=== PATIENT | female | born 1970 | race Caucasian/White ===

== ENCOUNTER 2024-12-14 19:47 | Inpatient (IN) ==
[~2024-12-14 19:47] MED LIST: KETAMINE HCL INJ 50 MG/ML 10 ML VIAL IV ONE; SUCCINYLCHOLINE CHLORIDE 20 MG/ML 10 ML VIAL IV ONE
--- NOTE | 2024-12-14 20:03 | Emergency Department Note ---
Impression & Plan Acute on chronic respiratory failure with hypoxia and hypercapnia, RSV (acute bronchiolitis due to respiratory syncytial virus), Metabolic encephalopathy, Community acquired pneumonia ED Provider Note NAME: CARMELITA PEARCE AGE: 54 SEX: F : 1970 ARRIVES VIA: Walk-In INFORMANT: Patient ED PROVIDER(S): Delano Scherer DO CHIEF COMPLAINT: Shortness of breath HPI: Patient is a 54-year-old female who presents to the ER for shortness of breath. She notes this has been present for the past 4 to 6 months. It has gotten significantly worse over the past 3 days. She was seen evaluated outside facility and was discharged. She admits to worsening cough and congestion. Denies any headache. No chest pain. No belly pain. No nausea, vomiting, or diarrhea. Does have a history of COPD. No other exacerbating or remitting factors. ADDITIONAL HISTORY OBTAINED: Per HPI Chronic Medical/Social Conditions Affecting Care: Per HPI PAST MEDICAL HISTORY:See Below PAST SURGICAL HISTORY:See Below FAMILY HISTORY:See Below SOCIAL HISTORY:See Below HOME MEDICATIONS:See Below ALLERGIES:See Below VITALS:See Below PHYSICAL EXAMINATION: GENERAL: Sitting up in bed, alert, ill-appearing, severe distress, cyanotic EYE EXAM: normal conjunctiva. PERRL and EOM's grossly intact. OROPHARYNX: Dry mucous membranes NECK: supple, no nuchal rigidity, no adenopathy, non-tender LUNGS: Poor air movement with wheezing throughout. Normal chest wall mechanics HEART: no murmurs, S1 normal and S2 normal ABDOMEN: abdomen soft, non-tender, normo-active bowel sounds, no masses, no rebound or guarding. UPPER EXTREMITIES: upper extremities are grossly normal. LOWER EXTREMITIES: No pitting edema. NEURO EXAM: Normal sensorium, cranial nerves II-XII grossly intact, normal speech, no gross weakness of arms, no gross weakness of legs. MEDICAL DECISION MAKING: Patient is a 54-year-old female who presents to the ER with above-stated complaint. IV was established and blood work was obtained. Labs show no significant leukocytosis or anemia. VBG with a pH of 7.24 and a CO2 of 93. ABG was obtained after this with a CO2 of 112. Patient was become more obtunded. She was intubated by myself with ketamine and succ. BMP was fairly unremarkable with exception of elevated CO2. Glucose was elevated. LFTs and bilirubin was unremarkable. Troponin was negative. Pro-Eric was normal. UA was clean. Viral panel was positive for RSV. Patient was placed on an hour long neb treatment. Patient was given propofol drip in combination with a fentanyl drip after intubation. Patient was admitted to the ICU for further workup. Chest x-ray with bilateral infiltrates. Patient was given IV steroids. Discussed with the hospitalist Dr. Ballard as well as the comfort filler who presented bedside and patient was taken to the ICU. Please see their notes for further details. Consults/Care Managements Discussions: Per [facility] Triage Nursing notes reviewed. Limited review of prior medical records performed Vital Signs: reviewed and remarkable for HTN and hypoxic Differential diagnosis: Differential diagnoses includes but is not limited to pneumonia, bronchitis, COPD/Asthma exacerbation, pneumothorax, pulmonary embolism, congestive heart failure, acute coronary syndrome ER treatment provided: See below Diagnostics interpreted by me include EKG and cardiac monitoring as listed below: -Cardiac Monitoring: An order was placed for continuous cardiac monitoring. The monitor shows a rate of 101 with sinus rhythm. -ECG: Sinus rhythm rate of 97 PACs present T wave inversions in the high lateral leads QTc 439 -Laboratory studies:Interpreted by me as stated above in MDM and shown below. Imaging studies: Xrays: As interpreted by me: Portable AP upright 1 view of the chest shows atelectasis/infiltrates in the lower lobe Portable AP upright 1 view of the chest shows ET tube in place CTs show: none Procedures: EM PROCEDURE NOTE - Endotracheal Intubation PROCEDURE NOTE: Informed consent was not obtained by the patient. Verify Correct Patient: yes Procedure: Endotracheal intubation Indication: Respiratory failure The procedure was done emergently. Description of the Procedure: The patient was seen and properly identified. The patient was pre-oxygenated and intubated after rapid sequence induction with meds: Succinylcholine and ketamine. Intubation was performed using a curved glide scope 7.5 cuffed endotracheal tube. The tube was visualized going through the cords and secured with the 24cm calli at the lips. The patient had good bilateral breath sounds in the axillae with good chest rise. Proper ET tube placement was confirmed by end tidal CO2 detector. The patient tolerated the procedure well. Critical Care: I have personally spent 125 minutes of critical care time in the direct management of this patient. This includes bedside care, interpretation of diagnostic studies, and testing, discussion with consultants, patient, and family members, and other required patient management activities. This 125 minutes is in excess of all separately billable procedures. Past Med/Surg History Problem List (Updated 12/14/24 @ 22:06 by Luz Marrero PA-C) Metabolic encephalopathy RSV (acute bronchiolitis due to respiratory syncytial virus) Acute on chronic respiratory failure with hypoxia and hypercapnia DJD (degenerative joint disease) of knee (Acute 05/29/14) HNP (herniated nucleus pulposus) with myelopathy, cervical (Acute 02/11/14) Social History Smoking Status: Current every day smoker Tobacco Type: Cigarettes Preferred Language: Lao Feels Safe at Home: Yes Allergies Allergies Allergy/AdvReac Type Severity Reaction Status Date / Time nabumetone AdvReac Intermediate GI SYMPTOMS Verified 08/14/14 08:11 atorvastatin AdvReac Unknown GI upset Verified 08/14/14 08:11 gabapentin AdvReac Unknown "CAUSED Unverified 08/14/14 09:47 WAVES GOING THROUGH MY BRAIN" lithium AdvReac Unknown ELEVATED Verified 08/14/14 08:11 LIVER TESTS, JAUNDICE tramadol AdvReac Unknown MOOD Verified 08/14/14 08:11 DISORDER, RAGE Home Meds Home Medications Medication Instructions Recorded Confirmed albuterol sulfate 2.5 mg/3 mL 2.5 mg inhalation QID PRN as 12/14/24 12/14/24 (0.083 %) solution for nebulization directed albuterol sulfate 90 mcg/actuation 1 puff inhalation Q4 PRN Wheezing 12/14/24 12/14/24 aerosol inhaler aspirin 81 mg tablet,delayed 81 mg PO DAILY 12/14/24 12/14/24 release atorvastatin 10 mg tablet 20 mg PO HS 12/14/24 12/14/24 bumetanide 1 mg tablet 1 mg PO DAILY 12/14/24 12/14/24 cholecalciferol (vitamin D3) 1,250 1,250 mcg PO WK 12/14/24 12/14/24 mcg (50,000 unit) capsule doxycycline hyclate 100 mg capsule 100 mg PO BID 12/14/24 12/14/24 fluoxetine 40 mg capsule 40 mg PO DAILY 12/14/24 12/14/24 ipratropium 0.5 mg-albuterol 3 mg 3 ml inhalation UD 12/14/24 12/14/24 (2.5 mg base)/3 mL nebulization soln lamotrigine 200 mg tablet 200 mg PO DAILY 12/14/24 12/14/24 losartan 25 mg tablet 25 mg PO DAILY 12/14/24 12/14/24 multivitamin 1 tab PO DAILY 12/14/24 12/14/24 omeprazole 20 mg capsule,delayed 20 mg PO DAILY 12/14/24 12/14/24 release oxcarbazepine 300 mg tablet 300 mg PO BID 12/14/24 12/14/24 oxycodone-acetaminophen 7.5 mg-325 1 tab PO BID PRN Pain 12/14/24 12/14/24 mg tablet potassium chloride 20 mEq 40 meq PO BID 12/14/24 12/14/24 tablet,extended release(part/cryst) prednisone 50 mg tablet 50 mg PO UD 12/14/24 12/14/24 tizanidine 4 mg tablet 4 mg PO TID PRN as directed 12/14/24 12/14/24 Results & Data (ED) Vital Signs Vital Signs - 24 hr 12/14/24 19:50 12/14/24 19:56 12/14/24 20:00 Temperature 37 C 36.9 C Temperature Source Oral Oral Pulse Rate 105 H 98 H Pulse Rate [Apical] 97 H Pulse Rhythm Regular Pulse Strength Normal Respiratory Rate 28 H 24 Respiratory Effort / Characteristics Spontaneous Accessory Muscle Use Labored Pursed Lip Respiratory Depth Deep Respiratory Pattern Tachypnea Blood Pressure 174/66 H Blood Pressure [Right Arm] 168/96 H Blood Pressure Mean 102 Blood Pressure Mean [Right Arm] 120 Blood Pressure Position [Right Arm] Semi-fowlers Pulse Oximetry 39 L 92 Oxygen Delivery Method Room Air BiPAP Oxygen Flow Rate Fraction of Inspired Oxygen 100 SaO2/FiO2 Ratio 92 Sepsis Recent Fever Within 48 Hours No Sepsis New/Unexplained Change in Mental Status No Sepsis Action Taken by Nursing Physician Notified End-Tidal CO2 Fraction of Inspired Oxygen - Titration Pulse Oximetry Post Tiitration 12/14/24 20:00 12/14/24 20:11 12/14/24 20:30 Temperature Temperature Source Pulse Rate 83 Pulse Rate [Apical] Pulse Rhythm Pulse Strength Respiratory Rate 28 H Respiratory Effort / Characteristics Respiratory Depth Respiratory Pattern Blood Pressure Blood Pressure [Right Arm] Blood Pressure Mean Blood Pressure Mean [Right Arm] Blood Pressure Position [Right Arm] Pulse Oximetry 88 L 94 95 Oxygen Delivery Method BiPAP Non-rebreather BiPAP Oxygen Flow Rate 15 Fraction of Inspired Oxygen 100 100 SaO2/FiO2 Ratio 94 Sepsis Recent Fever Within 48 Hours Sepsis New/Unexplained Change in Mental Status Sepsis Action Taken by Nursing End-Tidal CO2 71 Fraction of Inspired Oxygen - Titration 100 Pulse Oximetry Post Tiitration 92 Laboratory Data 12/14/24 19:59 12/14/24 19:59 Lab Results 12/14/24 12/14/24 12/14/24 Range/Units 19:59 20:04 20:24 WBC 8.80 (4.8-10.8) K/ul RBC 5.58 H (4.20-5.40) M/uL Hgb 16.9 H (12.0-16.0) g/dl POC Hgb 19.0 H 18.4 H (12.0-16.0) g/dl Hct 57.4 H (37.0-47.0) % POC Hct 56 H 54 H (37-47) % MCV 102.9 H (80.0-100.0) fL MCH 30.3 (25.0-34.0) pg MCHC 29.4 L (32.0-36.0) g/dL RDW Std Deviation 63.2 H (36.4-46.3) fL RDW Coeff of Veronica 17.6 H (11.5-14.5) % Plt Count 265 (130-400) K/uL MPV 10.3 (9.4-12.4) fL Immature Gran % (Auto) 0.9 % Neut % (Auto) 72.7 % Lymph % (Auto) 13.6 % Levy % (Auto) 11.3 % Eos % (Auto) 0.7 % Baso % (Auto) 0.8 % Neut # (Auto) 6.40 (1.40-6.50) K/uL Lymph # (Auto) 1.20 (1.20-3.40) K/uL Levy # (Auto) 0.99 H (0.11-0.59) K/uL Eos # (Auto) 0.06 (0.00-0.50) K/uL Baso # (Auto) 0.07 (0.00-0.20) K/uL Immature Gran # (Auto) 0.08 (0.01-0.20) K/uL Absolute Nucleated RBC 0.05 (0.00-0.12) K/uL Nucleated RBC % (auto) 0.6 % POC pH 7.15 L* (7.35-7.45) POC pCO2 118 H (35-46) mmHg POC pO2 177 H (80-95) mmHg POC HCO3 41 H (19-24) patricia/L POC Base Excess 12.0 H (-9-1.8) patricia/L POC ABG O2 Sat 99.0 H (90-95) % VBG pH 7.24 L (7.36-7.41) VBG pCO2 93 H (38-50) mmHg VBG pO2 61 mmHg VBG HCO3 40 mmol/L VBG O2 Saturation 87.5 % VBG Base Excess 8.7 mEq/L POC Sodium 142 141 (135-144) mmol/L Sodium 141 (136-145) mmol/L POC Potassium 4.3 4.2 (3.3-5.0) mmol/L Potassium 4.5 (3.5-5.1) mmol/L POC Chloride 97 L (101-112) mmol/L Chloride 100 (98-107) mmol/L Carbon Dioxide 39 H (21-32) mmol/L POC Total CO2 36 H 44 H* (24-31) mmol/L Anion Gap 2 L (3-11) POC Anion Gap 14.0 L (16-25) mmol/L POC BUN 24 H (7-18) mg/dl BUN 21 (6-23) mg/dl Creatinine 1.02 (0.6-1.2) mg/dl POC Creatinine 1.1 (0.6-1.3) mg/dl Est Cr Clr Drug Dosing 85.8 ml/min eGFR 64.97 BUN/Creatinine Ratio 20.6 H (10-20) Glucose 185 H (70-99(Fasting)) mg/dl POC Glucose (other) 182 H (70-99) mg/dl Calcium 9.5 (8.6-10.3) mg/dl POC Ioniz Calcium Woodrow 1.18 (1.12-1.32) mmol/l Total Bilirubin 0.5 (0.2-1.0) mg/dl AST 23 (13-39) U/L ALT 17 (7-52) U/L Alkaline Phosphatase 88 (34-104) U/L Troponin I High Sens 24.1 H (0-14) pg/ml Total Protein 6.8 (6.0-8.3) gm/dl Albumin 3.5 (3.4-5.0) gm/dl Globulin 3.3 (2.5-4.0) gm/dl Albumin/Globulin Ratio 1.1 (0.9-2) Lipase 26 (11-82) U/L Procalcitonin 0.11 (0-0.5) ng/ml TSH 2.218 (0.300-4.500) uIu/ml Adenovirus (PCR) Not Detected (NotDetected) B. pertussis DNA (PCR) Not Detected (NotDetected) B.parapertussis DNA PCR Not Detected (NotDetected) C. pneumoniae DNA (PCR) Not Detected (NotDetected) Coronavirus OC43 (PCR) Not Detected (NotDetected) Coronavirus HKU1 (PCR) Not Detected (NotDetected) Coronavirus 229E (PCR) Not Detected (NotDetected) SARS-CoV-2 (PCR) Not Detected (NotDetected) Coronavirus NL63 (PCR) Not Detected (NotDetected) Human Metapneumovir PCR Not Detected (NotDetected) Influenza Type A (PCR) Not Detected (NotDetected) Influenza Type B (PCR) Not Detected (NotDetected) M. pneumoniae (PCR) Not Detected (NotDetected) Parainfluenza 1 (PCR) Not Detected (NotDetected) Parainfluenza 2 (PCR) Not Detected (NotDetected) Parainfluenza 3 (PCR) Not Detected (NotDetected) Parainfluenza 4 (PCR) Not Detected (NotDetected) RSV (PCR) DETECTED A (NotDetected) Entero/Rhino (PCR) Not Detected (NotDetected) Administered Medications Albuterol (Albut/Ipratrop 3mg/0.5mg Neb 3 Ml Vial) 3 ml NEB Q6R [facility]; Protocol Stop: 01/14/25 00:59 Last Admin: 12/15/24 00:32 Dose: 3 ml Documented By: MW Heparin Sodium (Porcine) (Heparin Sod 5,000 Unit/0.5 Ml Vial) 5,000 units SQ Q12 [facility] Stop: 01/13/25 21:58 Last Admin: 12/14/24 22:56 Dose: 5,000 units Documented By: CLC Propofol (Diprivan) 1,000 mg in 100 mls @ 38.76 mls/hr IV .Q2H35M [facility]; Protocol Stop: 12/17/24 20:44 Last Titration: 12/15/24 00:40 Dose: 58.05 mcg/kg/min, 45 mls/hr Documented By: Admin: 12/14/24 22:53 Dose: 50 mcg/kg/min, 38.8 mls/hr Documented By: CLC Co-signed By: TP Titration: 12/14/24 22:53 Dose: Infused Documented By: CLC Co-signed By: TP Titration: 12/14/24 22:42 Dose: 50 mcg/kg/min, 38.8 mls/hr Documented By: Titration: 12/14/24 21:00 Dose: 45 mcg/kg/min, 34.9 mls/hr Documented By: Admin: 12/14/24 20:44 Dose: 20 mcg/kg/min, 15.5 mls/hr Documented By: JT Co-signed By: DML Fentanyl Citrate (Fentanyl Citrate) 2,500 mcg in 250 mls @ 10 mls/hr IV .Q25H [facility]; Protocol Stop: 12/28/24 20:44 Last Titration: 12/14/24 22:42 Dose: 100 mcg/hr, 10 mls/hr Documented By: CLC Co-signed By: TP Admin: 12/14/24 21:00 Dose: 75 mcg/hr, 7.5 mls/hr Documented By: JT Co-signed By: ASW Pantoprazole Sodium (Protonix) 40 mg in 10 mls @ 5 mls/min IV BID [facility]ME Stop: 01/13/25 21:58 Last Admin: 12/14/24 22:56 Dose: 5 mls/min Documented By: CLC Vancomycin HCl 2,500 mg/ (Sodium Chloride) 550 mls @ 180 mls/hr IV NOW ONE Stop: 12/15/24 01:33 Last Admin: 12/14/24 23:53 Dose: 180 mls/hr Documented By: SHAGGY Insulin Aspart (Insulin Aspart Per Unit Charge) 0 units SC Q4 [facility] Stop: 01/14/25 00:00 Last Admin: 12/15/24 00:39 Dose: Not Given Documented By: SHAGGY Miscellaneous (Icu Protocol For Hyperglycemia) 1 each N/A ACHS [facility]ME Stop: 12/16/24 20:59 Last Admin: 12/14/24 22:53 Dose: 1 each Documented By: SHAGGY Sennosides (Senna 8.6 Mg Tab) 17.2 mg PO HS [facility]ME Stop: 01/13/25 20:59 Last Admin: 12/14/24 22:53 Dose: 17.2 mg Documented By: SHAGGY Discontinued Medications Albuterol (Albut/Ipratrop 3mg/0.5mg Neb 3 Ml Vial) Confirm Administered Dose 12 ml .ROUTE .STK-MED ONE Stop: 12/14/24 19:56 Last Admin: 12/14/24 20:13 Dose: Not Given Documented By: SANTANA Albuterol (Albut/Ipratrop 3mg/0.5mg Neb 3 Ml Vial) 12 ml NEB ONE ONE; Protocol Stop: 12/14/24 19:57 Last Admin: 12/14/24 20:19 Dose: 12 ml Documented By: SANTANA Enoxaparin Sodium (Enoxaparin Inj 40 Mg/0.4 Ml Syr) 40 mg SQ Q24H [facility]ME Stop: 01/13/25 21:59 Last Admin: 12/14/24 23:25 Dose: Not Given Documented By: SHAGGY Ceftriaxone Sodium (Rocephin) 2,000 mg in 50 mls @ 100 mls/hr IV NOW STA Stop: 12/14/24 20:27 Last Infusion: 12/14/24 22:11 Dose: Infused Documented By: Admin: 12/14/24 20:14 Dose: 100 mls/hr Documented By: SANTANA Azithromycin 500 mg/ Sodium (Chloride) 255 mls @ 127.5 mls/hr IV Q24H [facility] Stop: 12/19/24 20:59 Last Admin: 12/14/24 23:24 Dose: Not Given Documented By: SHAGGY Piperacillin Sod/Tazobactam Sod (Zosyn) 4.5 gm in 100 mls @ 200 mls/hr IV NOW STA; Protocol Stop: 12/14/24 22:21 Last Infusion: 12/14/24 23:25 Dose: Infused Documented By: Admin: 12/14/24 22:54 Dose: 200 mls/hr Documented By: SHAGGY Piperacillin Sod/Tazobactam Sod (Zosyn) 4.5 gm in 100 mls @ 25 mls/hr IV Q8H [facility]; Protocol Stop: 12/21/24 21:58 Last Admin: 12/14/24 23:25 Dose: Not Given Documented By: SHAGGY Methylprednisolone (Methylprednisolone 125 Mg/2 Ml Vial) 40 mg IV NOW STA Stop: 12/14/24 19:58 Last Admin: 12/14/24 20:04 Dose: 40 mg Documented By: JANNA Methylprednisolone (Methylprednisolone 125 Mg/2 Ml Vial) 80 mg IV NOW STA Stop: 12/14/24 20:17 Last Admin: 12/14/24 20:44 Dose: 80 mg Documented By: SANTANA Verdugocellaneous (Rapid Sequence Induction Bag) Confirm Administered Dose 1 each N/A .STK-MED ONE Stop: 12/14/24 20:25 Last Admin: 12/14/24 21:15 Dose: Not Given Documented By: SANTANA Mercado (Stat Iv Infusion Titration Per Protocol) 1 each N/A NOW STA Stop: 12/14/24 20:37 Last Admin: 12/14/24 21:15 Dose: Not Given Documented By: SANTANA Mercado (Icu Protocol For Hyperglycemia) 1 each N/A ACHS ESME Stop: 12/16/24 21:58 Last Admin: 12/14/24 23:24 Dose: Not Given Documented By: SHAGGY Propofol (Propofol Iv Emulsion 10 Mg/Ml 100 Ml Vial) Confirm Administered Dose 1,000 mg IV .STK-MED ONE Stop: 12/14/24 20:38 Last Admin: 12/14/24 21:15 Dose: Not Given Documented By: SANTANA Vecuronium [place] (Vecuronium [place] 10 Mg Vial) Confirm Administered Dose 10 mg IV .STK-MED ONE Stop: 12/14/24 21:03 Last Admin: 12/14/24 21:07 Dose: 10 mg Documented By: SANTANA Co-signed By: JANNA Imaging Data Radiologist's Impression: Chest X-Ray 12/14/24 19:57 EXAM: Portable AP chest radiograph TECHNIQUE: AP portable radiograph of the chest was obtained. INDICATION: Shortness of breath Comparison: None. FINDINGS: LINES and TUBES: None CARDIOVASCULAR: Cardiac silhouette is enlarged in size. LUNGS/PLEURA: Pulm vascular congestion. Peribronchial cuffing that may be seen with bronchiolitis. There are right greater than left bibasilar densities. Small pleural fluids may be present. No discernible pneumothorax. OSSEOUS/OTHER: No displaced acute osseous process identified. ACDF hardware. IMPRESSION: Moderate congestive changes of the cardiovascular system. Peribronchial cuffing that may be seen with bronchiolitis. Patchy bibasilar densities may represent atelectasis or pneumonia. Electronically signed by Josué Singleton 12-14-2024 8:33 PM Discharge Plan Visit Data Chief Complaint: Shortness of Breath/Dyspnea Stated Complaint: SOB, CONFUSION, ED Provider: Delano Scherer Patient Disposition: Admitted As Inpatient Discharge Instructions Interventions: ED Discharge Assessment Last Done: 12/14/24 21:20
[2024-12-14] MEDS: methylPREDNISolone 125 MG/2 ML VIAL IV STA ×2 (20:04→20:44)
[2024-12-14 20:09] LABS: Base Excess VBG 8.7 mEq/L; HCO3 VBG 40 mmol/L; Oxygen Saturation VBG 87.5 %; PCO2 VBG 93 mmHg (38-50); PO2 VBG 61 mmHg; pH VBG 7.24 (7.36-7.41)
[2024-12-14] MEDS: ALBUT/IPRATROP 3MG/0.5MG NEB 3 ML VIAL ONE (20:13)
[2024-12-14] MEDS: cefTRIAXone SODIUM 2,000 MG/50 ML BAG IV STA (20:14)
[2024-12-14 20:16] LABS: iSTAT Creatinine 1.1 mg/dl (0.6-1.3); iSTAT Ionized Calcium 1.18 mmol/l (1.12-1.32); iSTAT Potassium 4.3 mmol/L (3.3-5.0)
[2024-12-14 20:17] LABS: Basophils # (auto) 0.07 K/uL (0.00-0.20); Basophils % (auto) 0.8 %; Eosinophils # (auto) 0.06 K/uL (0.00-0.50); Eosinophils % (auto) 0.7 %; Hematocrit (blood only) 57.4 % (37.0-47.0); Hemoglobin 16.9 g/dl (12.0-16.0); Immature Granulocytes # (auto) 0.08 K/uL (0.01-0.20); Immature Granulocytes % (auto) 0.9 %; Lymphocytes % (auto) 13.6 %; Mean Platelet Volume 10.3 fL (9.4-12.4); Monocytes # (auto) 0.99 K/uL (0.11-0.59); Monocytes % (auto) 11.3 %; Neutrophils % (auto) 72.7 %; Nucleated RBC # (auto) 0.05 K/uL (0.00-0.12); Nucleated RBC % (auto) 0.6 %; Platelet Count 265 K/uL (130-400)
[2024-12-14] MEDS: ALBUT/IPRATROP 3MG/0.5MG NEB 3 ML VIAL NEB ONE (20:19)
[2024-12-14 20:27] LABS: Mean Corpuscular Hemoglobin 30.3 pg (25.0-34.0); Mean Corpuscular Hgb Conc 29.4 g/dL (32.0-36.0); Mean Corpuscular Volume 102.9 fL (80.0-100.0); RDW Coefficient of Variation 17.6 % (11.5-14.5); RDW Standard Deviation 63.2 fL (36.4-46.3); Red Blood Count 5.58 M/uL (4.20-5.40)
[2024-12-14 20:29] LABS: Albumin Globulin Ratio 1.1 (0.9-2); Albumin Level 3.5 gm/dl (3.4-5.0); BUN Creatinine Ratio 20.6 (10-20); Bilirubin,Total 0.5 mg/dl (0.2-1.0); Calcium 9.5 mg/dl (8.6-10.3); Creatinine Clr Calc Pharmacy 85.8 ml/min; Globulin 3.3 gm/dl (2.5-4.0); Potassium 4.5 mmol/L (3.5-5.1); Total Protein 6.8 gm/dl (6.0-8.3)
--- NOTE | 2024-12-14 20:34 | XRay Report ---
EXAM: Portable AP chest radiograph TECHNIQUE: AP portable radiograph of the chest was obtained. INDICATION: Shortness of breath Comparison: None. FINDINGS: LINES and TUBES: None CARDIOVASCULAR: Cardiac silhouette is enlarged in size. LUNGS/PLEURA: Pulm vascular congestion. Peribronchial cuffing that may be seen with bronchiolitis. There are right greater than left bibasilar densities. Small pleural fluids may be present. No discernible pneumothorax. OSSEOUS/OTHER: No displaced acute osseous process identified. ACDF hardware. IMPRESSION: Moderate congestive changes of the cardiovascular system. Peribronchial cuffing that may be seen with bronchiolitis. Patchy bibasilar densities may represent atelectasis or pneumonia. Electronically signed by Josué Singleton 12-14-2024 8:33 PM
--- NOTE | 2024-12-14 20:34 | History & Physical Report ---
Date of Service December 14, 2024 Assessment & Plan (1) Admitted to intensive care unit: (2) Metabolic encephalopathy: (3) RSV (acute bronchiolitis due to respiratory syncytial virus): (4) Acute on chronic respiratory failure with hypoxia and hypercapnia: (5) COPD (chronic obstructive pulmonary disease): (6) Pneumonia: Plan The patient is a 54-year-old female with a past medical history including severe COPD, hyperlipidemia, CHF, anxiety with depression, hypertension, GERD, chronic pain syndrome, and recent evaluation at [facility] emergency department, where she was treated and released a few days ago.The patient presents to the emergency department with severe shortness of breath, dyspnea on exertion, that she initially reported and present for 4 to 6 months, but it had gotten progressively worse over the past 3 days. Her family who presented shortly after her arrival, reports that she has been having significantly worsening shortness of breath as noted, has continued to smoke tobacco products, and they were concerned about having her long-term need for oxygen addressed. Shortly after arrival to the emergency department, it became apparent to the patient was going to need to be intubated, as her coloration was very poor, and her ABG showed significant CO2 retention and decreased oxygenation. She was therefore intubated while in emergency department, and plans to admit to the ICU for ongoing care. Significant laboratories in the emergency department included [employer] testing positive for RSV, chest x-ray suggestive of right lower lobe consolidation and multifocal pneumonia. #Admission to intensive care unit/acute on chronic respiratory failure with hypoxia and hypercapnia- Patient intubated while in the emergency department [employer] testing positive for RSV Chest x-ray suggestive of secondary bacterial multifocal pneumonia Vancomycin IV per pharmacokinetic monitoring Zosyn 4.5 g IV every 8 hours DuoNebs every 2 hours as needed Solu-Medrol 120 mg IV now, and then 60 mg IV every 12 hours MRSA swab Ventilator management the ICU consult Serial ABGs, CBC with differential, chemistry profile, magnesium Patient will need tobacco cessation counseling Chronic medical conditions: GERD-on omeprazole 20 mg daily, changing to pantoprazole 40 mg IV twice daily Hypertension-Holding aspirin, bumetanide, losartan Anxiety/depression-holding fluoxetine, lamotrigine, oxcarbazepine History of Present Illness Chief Complaint: The patient presents to the emergency department with severe shortness of breath, dyspnea on exertion, that she initially reported and present for 4 to 6 months, but it had gotten progressively worse over the past 3 days. Her family who presented shortly after her arrival, reports that she has been having significantly worsening shortness of breath as noted, has continued to smoke tobacco products, and they were concerned about having her long-term need for oxygen addressed. Shortly after arrival to the emergency department, it became apparent to the patient was going to need to be intubated, as her coloration was very poor, and her ABG showed significant CO2 retention and decreased oxygenation. She was therefore intubated while in emergency department, and plans to admit to the ICU for ongoing care. Significant laboratories in the emergency department included [employer] testing positive for RSV, chest x-ray suggestive of right lower lobe consolidation and multifocal pneumonia. Primary Care Provider: Breezy Durbin DO The patient is a 54-year-old female with a past medical history including severe COPD, hyperlipidemia, CHF, anxiety with depression, hypertension, GERD, chronic pain syndrome, and recent evaluation at [facility] emergency department, where she was treated and released a few days ago.The patient presents to the emergency department with severe shortness of breath, dyspnea on exertion, that she initially reported and present for 4 to 6 months, but it had gotten progressively worse over the past 3 days. Her family who presented shortly after her arrival, reports that she has been having significantly worse rosie shortness of breath as noted, has continued to smoke tobacco products, and they were concerned about having her long-term need for oxygen addressed. Shortly after arrival to the emergency department, it became apparent to the patient was going to need to be intubated, as her coloration was very poor, and her ABG showed significant CO2 retention and decreased oxygenation. She was therefore intubated while in emergency department, and plans to admit to the ICU for ongoing care. Significant laboratories in the emergency department included [employer] testing positive for RSV, chest x-ray suggestive of right lower lobe consolidation and multifocal pneumonia. Allergies Allergy/AdvReac Type Severity Reaction Status Date / Time nabumetone AdvReac Intermediate GI SYMPTOMS Verified 08/14/14 08:11 atorvastatin AdvReac Unknown GI upset Verified 08/14/14 08:11 gabapentin AdvReac Unknown "CAUSED Unverified 08/14/14 09:47 WAVES GOING THROUGH MY BRAIN" lithium AdvReac Unknown ELEVATED Verified 08/14/14 08:11 LIVER TESTS, JAUNDICE tramadol AdvReac Unknown MOOD Verified 08/14/14 08:11 DISORDER, RAGE Home Medications Medication Instructions Recorded Confirmed Type albuterol sulfate 2.5 mg/3 mL 2.5 mg inhalation QID PRN as 12/14/24 12/14/24 History (0.083 %) solution for nebulization directed albuterol sulfate 90 mcg/actuation 1 puff inhalation Q4 PRN Wheezing 12/14/24 12/14/24 History aerosol inhaler aspirin 81 mg tablet,delayed 81 mg PO DAILY 12/14/24 12/14/24 History release atorvastatin 10 mg tablet 20 mg PO HS 12/14/24 12/14/24 History bumetanide 1 mg tablet 1 mg PO DAILY 12/14/24 12/14/24 History cholecalciferol (vitamin D3) 1,250 1,250 mcg PO WK 12/14/24 12/14/24 History mcg (50,000 unit) capsule doxycycline hyclate 100 mg capsule 100 mg PO BID 12/14/24 12/14/24 History fluoxetine 40 mg capsule 40 mg PO DAILY 12/14/24 12/14/24 History ipratropium 0.5 mg-albuterol 3 mg 3 ml inhalation UD 12/14/24 12/14/24 History (2.5 mg base)/3 mL nebulization soln lamotrigine 200 mg tablet 200 mg PO DAILY 12/14/24 12/14/24 History losartan 25 mg tablet 25 mg PO DAILY 12/14/24 12/14/24 History multivitamin 1 tab PO DAILY 12/14/24 12/14/24 History omeprazole 20 mg capsule,delayed 20 mg PO DAILY 12/14/24 12/14/24 History release oxcarbazepine 300 mg tablet 300 mg PO BID 12/14/24 12/14/24 History oxycodone-acetaminophen 7.5 mg-325 1 tab PO BID PRN Pain 12/14/24 12/14/24 History mg tablet potassium chloride 20 mEq 40 meq PO BID 12/14/24 12/14/24 History tablet,extended release(part/cryst) prednisone 50 mg tablet 50 mg PO UD 12/14/24 12/14/24 History tizanidine 4 mg tablet 4 mg PO TID PRN as directed 12/14/24 12/14/24 History Past Med/Surg History Problem List (Updated 12/15/24 @ 04:05 by Jovi Hamilton MD) Pneumonia Admitted to intensive care unit Metabolic encephalopathy RSV (acute bronchiolitis due to respiratory syncytial virus) Acute on chronic respiratory failure with hypoxia and hypercapnia DJD (degenerative joint disease) of knee (Acute 05/29/14) HNP (herniated nucleus pulposus) with myelopathy, cervical (Acute 02/11/14) Medical History (Updated 12/15/24 @ 04:05 by Jovi Hamilton MD) Anxiety and depression Hypertension GERD (gastroesophageal reflux disease) Tobacco use disorder COPD (chronic obstructive pulmonary disease) Hyperlipidemia Social History Smoking Status: Current every day smoker Tobacco Type: Cigarettes Cigarettes Per Day: 2-3 PPD; Hx Alcohol Use: Yes Hx Substance Use: No Preferred Language: Marshallese Communication Ability: Effective Current Living Situation: Family Current Living Situation Comment: lives with son Feels Safe at Home: Yes Review of Systems Review of Systems: HPI and review of systems were both limited due to patient's severe respiratory presentation, and information gathered via ED records, and some information provided by family members and friends after they arrived in the ED. Physical Exam Physical Exam: The patient is lethargic, able to respond minimally to questions, normocephalic and atraumatic, lying in bed and in moderate the severe respiratory distress, initially on BiPAP, and shortly thereafter intubated HEENT--PERRL, EOMI, mucous membranes and oropharynx dry. Neck--supple. No JVD. No bruits. Thyroid normal, trachea midline, no adenopathy. Heart--normal S1 and S2. No murmurs, rubs or gallops. Lungs--coarse breath sounds bilaterally. Abdomen--normal bowel sounds and soft. Nontender. Nondistended. Obese Extremities-- No edema. Dermatologic--normal skin turgor, normal color, no abnormal lymph nodes, no rash. Neurologic--cranial nerves II through XII grossly intact. Rheumatologic-limited exam Psychiatric--lethargic. Results & Data Results & Data Vital Signs (Past 12 Hours) Vital Signs Temp Pulse Pulse Resp BP BP Pulse Ox 12/14/24 20:11 94 12/14/24 20:00 88 L 12/14/24 20:00 36.9 C 97 H 24 168/96 H 92 12/14/24 19:50 37 C 105 H 28 H 174/66 H 39 L O2 Del Method O2 Flow Rate FiO2 12/14/24 20:11 BiPAP 100 12/14/24 20:00 BiPAP, Non-rebreather 15 12/14/24 20:00 BiPAP 100 12/14/24 19:50 Room Air Laboratory Results Laboratory Results WBC 8.80 K/ul (4.8-10.8) 12/14/24 19:59 RBC 5.58 M/uL (4.20-5.40) H 12/14/24 19:59 Hgb 16.9 g/dl (12.0-16.0) H 12/14/24 19:59 POC Hgb 17.7 g/dl (12.0-16.0) H 12/14/24 22:53 Hct 57.4 % (37.0-47.0) H 12/14/24 19:59 POC Hct 52 % (37-47) H 12/14/24 22:53 MCV 102.9 fL (80.0-100.0) H 12/14/24 19:59 MCH 30.3 pg (25.0-34.0) 12/14/24 19:59 MCHC 29.4 g/dL (32.0-36.0) L 12/14/24 19:59 RDW Std Deviation 63.2 fL (36.4-46.3) H 12/14/24 19:59 RDW Coeff of Veronica 17.6 % (11.5-14.5) H 12/14/24 19:59 Plt Count 265 K/uL (130-400) 12/14/24 19:59 MPV 10.3 fL (9.4-12.4) 12/14/24 19:59 Immature Gran % (Auto) 0.9 % 12/14/24 19:59 Neut % (Auto) 72.7 % 12/14/24 19:59 Lymph % (Auto) 13.6 % 12/14/24 19:59 [place] % (Auto) 11.3 % 12/14/24 19:59 Eos % (Auto) 0.7 % 12/14/24 19:59 Baso % (Auto) 0.8 % 12/14/24 19:59 Neut # (Auto) 6.40 K/uL (1.40-6.50) 12/14/24 19:59 Lymph # (Auto) 1.20 K/uL (1.20-3.40) 12/14/24 19:59 [place] # (Auto) 0.99 K/uL (0.11-0.59) H 12/14/24 19:59 Eos # (Auto) 0.06 K/uL (0.00-0.50) 12/14/24 19:59 Baso # (Auto) 0.07 K/uL (0.00-0.20) 12/14/24 19:59 Immature Gran # (Auto) 0.08 K/uL (0.01-0.20) 12/14/24 19:59 Absolute Nucleated RBC 0.05 K/uL (0.00-0.12) 12/14/24 19:59 Nucleated RBC % (auto) 0.6 % 12/14/24 19:59 Specimen Type Arterial 12/14/24 22:53 Sample Site L Brachial 12/14/24 22:53 POC pH 7.40 (7.35-7.45) 12/14/24 22:53 POC pCO2 58 mmHg (35-46) H 12/14/24 22:53 POC pO2 69 mmHg (80-95) L 12/14/24 22:53 POC HCO3 37 patricia/L (19-24) H 12/14/24 22:53 POC Total CO2 38 mmol/L (24-31) H 12/14/24 22:53 POC Base Excess 12.0 patricia/L (-9-1.8) H 12/14/24 22:53 O2 Sat Pulse Oximetry 92 12/14/24 22:53 ABG pH (Temp Correct) 7.398 (7.35-7.45) 12/14/24 22:53 ABG pCO2 (Temp Corrct 59 mmHg (35-46) H 12/14/24 22:53 POC ABG pO2 at Pt Temp 71 12/14/24 22:53 POC ABG O2 Sat 93.0 % (90-95) 12/14/24 22:53 Filippo Test NA 12/14/24 22:53 VBG pH 7.24 (7.36-7.41) L 12/14/24 19:59 VBG pCO2 93 mmHg (38-50) H 12/14/24 19:59 VBG pO2 61 mmHg 12/14/24 19:59 VBG HCO3 40 mmol/L 12/14/24 19:59 VBG O2 Saturation 87.5 % 12/14/24 19:59 VBG Base Excess 8.7 mEq/L 12/14/24 19:59 O2 Delivery Device Ventilator 12/14/24 22:53 Vent Mode AC 12/14/24 22:53 POC FiO2 70 % 12/14/24 22:53 End Tidal CO2 53 12/14/24 22:53 POC Sodium 139 mmol/L (135-144) 12/14/24 22:53 Sodium 141 mmol/L (136-145) 12/14/24 19:59 POC Potassium 4.4 mmol/L (3.3-5.0) 12/14/24 22:53 Potassium 4.5 mmol/L (3.5-5.1) 12/14/24 19:59 POC Chloride 97 mmol/L (101-112) L 12/14/24 20:04 Chloride 100 mmol/L (98-107) 12/14/24 19:59 Carbon Dioxide 39 mmol/L (21-32) H 12/14/24 19:59 POC Total CO2 36 mmol/L (24-31) H 12/14/24 20:04 Anion Gap 2 (3-11) L 12/14/24 19:59 POC Anion Gap 14.0 mmol/L (16-25) L 12/14/24 20:04 POC BUN 24 mg/dl (7-18) H 12/14/24 20:04 BUN 21 mg/dl (6-23) 12/14/24 19:59 Creatinine 1.02 mg/dl (0.6-1.2) 12/14/24 19:59 POC Creatinine 1.1 mg/dl (0.6-1.3) 12/14/24 20:04 Est Cr Clr Drug Dosing 85.8 ml/min 12/14/24 19:59 eGFR 64.97 12/14/24 19:59 BUN/Creatinine Ratio 20.6 (10-20) H 12/14/24 19:59 Glucose 185 mg/dl (70-99(Fasting)) H 12/14/24 19:59 POC Glucose 149 mg/dl (70-99) H 12/15/24 03:59 POC Glucose (other) 182 mg/dl (70-99) H 12/14/24 20:04 Calcium 9.5 mg/dl (8.6-10.3) 12/14/24 19:59 POC Ioniz Calcium [place] 1.18 mmol/l (1.12-1.32) 12/14/24 20:04 Total Bilirubin 0.5 mg/dl (0.2-1.0) 12/14/24 19:59 AST 23 U/L (13-39) 12/14/24 19:59 ALT 17 U/L (7-52) 12/14/24 19:59 Alkaline Phosphatase 88 U/L (34-104) 12/14/24 19:59 Troponin I High Sens 26.3 pg/ml (0-14) H 12/14/24 23:12 Total Protein 6.8 gm/dl (6.0-8.3) 12/14/24 19:59 Albumin 3.5 gm/dl (3.4-5.0) 12/14/24 19:59 Globulin 3.3 gm/dl (2.5-4.0) 12/14/24 19:59 Albumin/Globulin Ratio 1.1 (0.9-2) 12/14/24 19:59 Lipase 26 U/L (11-82) 12/14/24 19:59 Procalcitonin 0.11 ng/ml (0-0.5) 12/14/24 19:59 TSH 2.218 uIu/ml (0.300-4.500) 12/14/24 19:59 Urine Color Dark Yellow 12/14/24 21:00 Urine Appearance Clear (Clear) 12/14/24 21:00 Urine pH 6.0 (4.5-7.5) 12/14/24 21:00 Ur Specific [place] 1.027 (1.000-1.030) 12/14/24 21:00 Urine Protein 4+ (Negative) H 12/14/24 21:00 Urine Glucose (UA) Negative (Negative) 12/14/24 21:00 Urine Ketones Trace (Negative) H 12/14/24 21:00 Urine Blood Trace (Negative) H 12/14/24 21:00 Urine Nitrite Negative (Negative) 12/14/24 21:00 Urine Bilirubin 1+ (Negative) H 12/14/24 21:00 Urine Urobilinogen Negative (Negative) 12/14/24 21:00 Ur Leukocyte Esterase Negative (Negative) 12/14/24 21:00 Urine WBC (Auto) 0-5 /hpf (0-5) 12/14/24 21:00 Urine RBC (Auto) 0-2 /hpf (0-2) 12/14/24 21:00 U Hyaline Cast (Auto) 11-20 /lpf (0-2) H 12/14/24 21:00 U Epithel Cells (Auto) 0-2 /hpf (0-2) 12/14/24 21:00 Urine Bacteria (Auto) None Seen (None Seen) 12/14/24 21:00 Nasal Screen MRSA (PCR) Negative (Negative) 12/14/24 Unknown Adenovirus (PCR) Not Detected (NotDetected) 12/14/24 19:59 B. pertussis DNA (PCR) Not Detected (NotDetected) 12/14/24 19:59 B.parapertussis DNA PCR Not Detected (NotDetected) 12/14/24 19:59 C. pneumoniae DNA (PCR) Not Detected (NotDetected) 12/14/24 19:59 Coronavirus OC43 (PCR) Not Detected (NotDetected) 12/14/24 19:59 Coronavirus HKU1 (PCR) Not Detected (NotDetected) 12/14/24 19:59 Coronavirus 229E (PCR) Not Detected (NotDetected) 12/14/24 19:59 SARS-CoV-2 (PCR) Not Detected (NotDetected) 12/14/24 19:59 Coronavirus NL63 (PCR) Not Detected (NotDetected) 12/14/24 19:59 Human Metapneumovir PCR Not Detected (NotDetected) 12/14/24 19:59 Influenza Type A (PCR) Not Detected (NotDetected) 12/14/24 19:59 Influenza Type B (PCR) Not Detected (NotDetected) 12/14/24 19:59 M. pneumoniae (PCR) Not Detected (NotDetected) 12/14/24 19:59 Parainfluenza 1 (PCR) Not Detected (NotDetected) 12/14/24 19:59 Parainfluenza 2 (PCR) Not Detected (NotDetected) 12/14/24 19:59 Parainfluenza 3 (PCR) Not Detected (NotDetected) 12/14/24 19:59 Parainfluenza 4 (PCR) Not Detected (NotDetected) 12/14/24 19:59 RSV (PCR) DETECTED (NotDetected) A 12/14/24 19:59 Entero/Rhino (PCR) Not Detected (NotDetected) 12/14/24 19:59 Impressions Chest X-Ray 12/14/24 21:14 Exam(s): XR CXR 1 VIEW EXAM: XR Chest, 1 View CLINICAL HISTORY: Reason for exam: NG/OG placement. TECHNIQUE: Frontal view of the chest. COMPARISON: Prior chest x-ray from December 14, 2024. FINDINGS: There is an enteric tube overlying the esophagus extending to the body of the stomach. Lungs: Bilateral lower lobe infiltrates. Pleural space: Large left pleural effusion. No pneumothorax. Heart: Unremarkable. No cardiomegaly. Mediastinum: Unremarkable. Normal mediastinal contour. Bones/joints: Unremarkable. No acute fracture. IMPRESSION: Enteric feeding tube extending to the body of the stomach. Electronically signed by: Clemencia Botello MD 12/14/24 23:05 PM Venous Doppler Study 12/14/24 21:40 Exam(s): US VENOUS BILATERAL LOWER EXTREMITIES EXAM: US Duplex Bilateral Lower Extremities Veins CLINICAL HISTORY: Reason for exam: Edema, discoloration. TECHNIQUE: Real-time duplex ultrasound scan of the bilateral lower extremity veins integrating B-mode two-dimensional vascular structure, Doppler spectral analysis, color flow Doppler imaging and compression. COMPARISON: No relevant prior studies available. FINDINGS: Right deep veins: Unremarkable. No DVT in the right common femoral, femoral, proximal deep femoral or popliteal veins. The veins demonstrate normal color flow, are normally compressible, with normal phasic flow and/or augmentation response. Right superficial veins: Unremarkable. No thrombus in the visualized right great saphenous vein. Left deep veins: Unremarkable. No DVT in the left common femoral, femoral, proximal deep femoral or popliteal veins. The veins demonstrate normal color flow, are normally compressible, with normal phasic flow and/or augmentation response. Left superficial veins: Unremarkable. No thrombus in the visualized left great saphenous vein. Soft tissues: Mild edema. IMPRESSION: No evidence of acute DVT. Electronically signed by: Madhu Malin M.D. 12/14/24 23:50 PM Code Status & VTE Plan Code Status Full code VTE Prophylaxis Plan VTE Prophylaxis will be ordered: Yes PG Care Time/CCT Total # of Minutes Spent Total Time Spent with Patient: Total time spent is greater than 50% in coordination of care (as documented) at patient's floor/unit and/or counseling patient: 45 minutes Coding Level of Care Code 59678 INT INP/OBS CARE 3/75MIN Diagnoses Admitted to intensive care unit Z78.9 Metabolic encephalopathy G93.41 RSV (acute bronchiolitis due to respiratory syncytial virus) J21.0 Acute on chronic respiratory failure with hypoxia and hypercapnia J96.21; J96.22 COPD (chronic obstructive pulmonary disease) J44.9 Pneumonia J18.9
[2024-12-14 20:36] LABS: Troponin I High Sensitivity 24.1 pg/ml (0-14)
[2024-12-14] MEDS ORDERED: PROPOFOL BOLUS FROM BAG IV PRN (20:36)
[2024-12-14] MEDS ORDERED: STAT IV Infusion **Titration per Protocol STA (20:37)
[2024-12-14] MEDS ORDERED: ALBUTEROL 0.5% NEB SOLN 2.5 MG/0.5 ML VIAL NEB PRN (20:39)
[2024-12-14 20:42] LABS: iSTAT Arterial Blood Gas HCO3 41 meg/L (19-24); iSTAT Arterial Blood Gas pCO2 118 mmHg (35-46); iSTAT Arterial Blood Gas pH 7.15 (7.35-7.45); iSTAT Arterial Blood Gas pO2 177 mmHg (80-95); iSTAT Carbon Dioxide 44 mmol/L (24-31); iSTAT Hematocrit 54 % (37-47); iSTAT Hemoglobin 18.4 g/dl (12.0-16.0); iSTAT Potassium 4.2 mmol/L (3.3-5.0); iSTAT Sodium 141 mmol/L (135-144)
[2024-12-14] MEDS: propofoL 1,000 MG/100 ML VIAL IV SCH (20:44)
[2024-12-14] MEDS ORDERED: POLYETHYLENE (MIRALAX) 17 GM PACK PO PRN (20:44)
[2024-12-14] MEDS ORDERED: AZITHROMYCIN 500 MG VIAL IV SCH (20:45)
[2024-12-14] MEDS: fentaNYL citrate 2,500 MCG/250 ML BAG IV SCH (21:00)
[2024-12-14 21:01] LABS: Adenovirus PCR Not Detected (NotDetected); Bordetella parapertussis PCR Not Detected (NotDetected); Bordetella pertussis PCR Not Detected (NotDetected); Chlamydia pneumoniae PCR Not Detected (NotDetected); Coronavirus 229E PCR Not Detected (NotDetected); Coronavirus CoV-2 (COVID19)PCR Not Detected (NotDetected); Coronavirus HKU1 PCR Not Detected (NotDetected); Coronavirus NL63 PCR Not Detected (NotDetected); Coronavirus OC43PCR Not Detected (NotDetected); Human Metapneumovirus PCR Not Detected (NotDetected); Influenza A PCR Not Detected (NotDetected); Influenza B PCR Not Detected (NotDetected); Mycoplasma pneumoniae PCR Not Detected (NotDetected); Parainfluenza Virus 1 PCR Not Detected (NotDetected); Parainfluenza Virus 2 PCR Not Detected (NotDetected); Parainfluenza Virus 3 PCR Not Detected (NotDetected); Parainfluenza Virus 4 PCR Not Detected (NotDetected); Respiratory Syncytial VirusPCR DETECTED (NotDetected); Rhinovirus/Enterovirus PCR Not Detected (NotDetected)
[2024-12-14] MEDS: VECURONIUM BROMIDE 10 MG VIAL IV ONE (21:07)
[2024-12-14] MEDS: STAT IV Infusion **Titration per Protocol STA (21:15)
[2024-12-14] MEDS: RAPID SEQUENCE INDUCTION BAG ONE (21:15)
[2024-12-14] MEDS: PROPOFOL IV EMULSION 10 MG/ML 100 ML VIAL IV ONE (21:15)
--- NOTE | 2024-12-14 21:31 | XRay Report ---
Exam(s): XR CXR 1 VIEW EXAM: XR Chest, 1 View CLINICAL HISTORY: Reason for exam: tube. TECHNIQUE: Frontal view of the chest. COMPARISON: No relevant prior studies available. FINDINGS: Lungs: Bilateral pulmonary vascular congestion. Basilar atelectasis Pleural space: Small bilateral pleural effusions. No pneumothorax. Heart: Mild cardiomegaly. Mediastinum: Unremarkable. Normal mediastinal contour. Bones/joints: Unremarkable. No acute fracture. Tubes, lines and devices: Endotracheal tube tip seen 2.9 cm from the ximena. IMPRESSION: 1. Bilateral pulmonary vascular congestion 2. Small pleural effusions Electronically signed by: Yusuf Bryant MD 12/14/24 21:30 PM
--- NOTE | 2024-12-14 21:40 | Critical Care Consultation ---
Date of Consultation December 14, 2024 Assessment & Plan (1) Acute on chronic respiratory failure with hypoxia and hypercapnia: (2) RSV (acute bronchiolitis due to respiratory syncytial virus): (3) Metabolic encephalopathy: Plan Reason Critically Ill: Acute on chronic hypoxemic and hypercapneic respiratory failure/COPD RSV bronchiolitis Possible superimposed bacterial pneumonia Acute metabolic encephalopathy 2/2 hypercapnia Neuro - [facility] ICU: Negative RASS GOAL -1 to -2 once paralytic has worn off, target ventilator compliance Continue propofol and fentanyl Nicotine patch APAP PRN pain/fever Cardiac - Admit EKG NSR with PACs, t wave inversions lateral leads, QTc 439 Troponin negative MAP goal > 65mmHg Will obtain echocardiogram POCUS on arrival to ICU Respiratory - Continue mechanical ventilation Daily SAT/SBT Repeat ABG 1 hour after intubation, ventilator adjustments as needed. Target baseline pCO2 SpO2 88-92%, will not benefit from hyperoxia Scheduled DuoNeb, PRN Albuterol Methylprednisolone 60mg Q12H GI - No acute concerns Diet: NPO except meds via OGT SUP: PPI Bowel regimen: Senna, Miralax RENAL/LYTES - No acute concerns Replete electrolytes as indicated Tian for accurate I/Os Maintain net even to net negative ENDO - TSH pending BG 140-180 per SCCM guidelines ISS if needed while inpatient HEME - No acute concerns Will obtain LE doppler with discoloration and edema ID - Received ceftriaxone and azithromycin Just finished a course of an unknown antibiotic this weekend, will broaden to Zosyn for now pending clinical course, likely de-escalate in 24-48 hours Sputum culture of limited utility in COPD BCx2 pending, RVP + RSV, procalcitonin negative, MRSA pending, UA pending LINES/TUBES/DRAINS - PIV x2 Tian (Day #1) ETT (Day #1) OGT (Day #1) DVT PROPHYLAXIS - Enoxaparin I have personally spent 46 minutes of critical care time in the direct management of this patient. This is a life/limb threatening event. This includes time spent evaluating patient, direct bedside care, chart review, placing orders, interpretation of diagnostic studies, discussion with consultants, patient, and family members, as well as other required patient management activities. This time is exclusive of all separately billable procedures, and teaching time and separate from and in addition to any other critical care service time. Thank you for allowing us to participate in the care of this patient. Please refer to my attending physician's documentation for any further recommendations. History of Present Illness Reason for Consultation: Respiratory failure Requesting Physician: Joy Attending Physician: Joy History of Present Illness Ms. Brenda Umana is a 54YOF with a history of, but not limited to, tobacco use disorder (2 PPD per family), morbid obesity, presumed HF, hypertension who presented to [facility] from home on 12/14/2024 evening due to 3 days or progressively worsening shortness of breath, cough, congestion, and confusion. Per report, patient has had some shortness of breath for the last 4-6 months. She was recently evaluated at an outside hospital and discharged. Events of that presentation are not known. She was profoundly hypoxemic with SpO2 39%. Afebrile. BP WNL. She was placed on BIPAP with some improvement. 1 hour long duoneb administered. Initial ABG 7.24/93/61/40. Subsequently became less responsive. Repeat ABG 7.15/118/177/41. She was intubated by Dr. Scherer with a 7.5 ETT without incident. CXR showing bronchiolitis, congestive changes, and patchy bibasilar densities. Labs significant for HGB 17, normal WBC, Cr 1.1 with unknown baseline. No other significant electrolyte abnormalities. Procalcitonin 1.1. RVP + RSV. She received Ceftriaxone, methylprednisolone 120mg. Having significant oral secretions. In-line suction with copious thick yellow sec retions. Despite high dose sedation and analgesia the patient is non-compliant with the ventilator. She was given 10mg Vecuronium to augment ventilation. ROS unable to be elicited. Family (sister and friend) at bedside tell me the patient was seen at [facility] on Sunday due to similar symptoms. Discharged home at that time on antibiotics. Patient continues to smoke at least 2PPD of cigarettes. Has been intermittently confused. Shaky. She has oxygen at home she is supposed to wear but the tank is heavy and not movable by the patient so she only wears it while she's sitting. She was recently taken off her "water pills". Sister says her PCP is in the [facility] system. We do not have access to those records on [facility]. Allergies Allergy/AdvReac Type Severity Reaction Status Date / Time nabumetone AdvReac Intermediate GI SYMPTOMS Verified 08/14/14 08:11 atorvastatin AdvReac Unknown GI upset Verified 08/14/14 08:11 gabapentin AdvReac Unknown "CAUSED Unverified 08/14/14 09:47 WAVES GOING THROUGH MY BRAIN" lithium AdvReac Unknown ELEVATED Verified 08/14/14 08:11 LIVER TESTS, JAUNDICE tramadol AdvReac Unknown MOOD Verified 08/14/14 08:11 DISORDER, RAGE Home Medications Medication Instructions Recorded Confirmed Type albuterol sulfate 2.5 mg/3 mL 2.5 mg inhalation QID PRN as 12/14/24 12/14/24 History (0.083 %) solution for nebulization directed albuterol sulfate 90 mcg/actuation 1 puff inhalation Q4 PRN Wheezing 12/14/24 12/14/24 History aerosol inhaler aspirin 81 mg tablet,delayed 81 mg PO DAILY 12/14/24 12/14/24 History release atorvastatin 10 mg tablet 20 mg PO HS 12/14/24 12/14/24 History bumetanide 1 mg tablet 1 mg PO DAILY 12/14/24 12/14/24 History cholecalciferol (vitamin D3) 1,250 1,250 mcg PO WK 12/14/24 12/14/24 History mcg (50,000 unit) capsule doxycycline hyclate 100 mg capsule 100 mg PO BID 12/14/24 12/14/24 History fluoxetine 40 mg capsule 40 mg PO DAILY 12/14/24 12/14/24 History ipratropium 0.5 mg-albuterol 3 mg 3 ml inhalation UD 12/14/24 12/14/24 History (2.5 mg base)/3 mL nebulization soln lamotrigine 200 mg tablet 200 mg PO DAILY 12/14/24 12/14/24 History losartan 25 mg tablet 25 mg PO DAILY 12/14/24 12/14/24 History multivitamin 1 tab PO DAILY 12/14/24 12/14/24 History omeprazole 20 mg capsule,delayed 20 mg PO DAILY 12/14/24 12/14/24 History release oxcarbazepine 300 mg tablet 300 mg PO BID 12/14/24 12/14/24 History oxycodone-acetaminophen 7.5 mg-325 1 tab PO BID PRN Pain 12/14/24 12/14/24 History mg tablet potassium chloride 20 mEq 40 meq PO BID 12/14/24 12/14/24 History tablet,extended release(part/cryst) prednisone 50 mg tablet 50 mg PO UD 12/14/24 12/14/24 History tizanidine 4 mg tablet 4 mg PO TID PRN as directed 12/14/24 12/14/24 History Patient History Medical History (Updated 12/15/24 @ 04:05 by Jovi Hamilton MD) Anxiety and depression Hypertension GERD (gastroesophageal reflux disease) Tobacco use disorder COPD (chronic obstructive pulmonary disease) Hyperlipidemia Social History Smoking Status: Current every day smoker Tobacco Type: Cigarettes Cigarettes Per Day: 2-3 PPD; Hx Alcohol Use: Yes Hx Substance Use: No Preferred Language: Wolof Communication Ability: Effective Current Living Situation: Family Current Living Situation Comment: lives with son Feels Safe at Home: Yes Review of Systems Review of Systems: Unobtainable due to endotracheal tube Physical Exam Constitutional: + acute distress, + morbidly obese, + di sheveled and + mechanically ventilated Smells strongly of cigarette smoke and urine Eyes: + scleral abnormality and reactive pupil s ENMT: Mouth: + edentulous ETT in place Neck: normal visual inspection, trachea midline and + thick neck Respiratory: + labored breathing, + cough and + tachy pneic Auscultation: + diminished lung sounds, + rhonchi and + wheezes Cardiovascular: Rate/Rhythm: regular rate and regular rhythm Heart Sounds: no murmur Vessels: no JVD and no carotid bruit Capillary refill 3 seconds 1+ BLE edema with some redness/discolora tion Gastrointestinal (Abdomen): Inspection/Auscultation: abdomen normal to inspection and normal bowel sounds Skin: Scattered lesions, scratches, no bleeding or signs of infection Neurologic: Agitated. Moving all extremities Genitourinary: Tian in place. Some excorations of groin Results & Data Results & Data Vital Signs (Past 12 Hours) Vital Signs Temp Pulse Pulse Resp BP BP Pulse Ox 12/14/24 20:11 94 12/14/24 20:00 88 L 12/14/24 20:00 36.9 C 97 H 24 168/96 H 92 12/14/24 19:56 98 H 12/14/24 19:50 37 C 105 H 28 H 174/66 H 39 L O2 Del Method O2 Flow Rate FiO2 12/14/24 20:11 BiPAP 100 12/14/24 20:00 BiPAP, Non-rebreather 15 12/14/24 20:00 BiPAP 100 12/14/24 19:56 12/14/24 19:50 Room Air Laboratory Results Reviewed Diagnostic Findings Reviewed Medications Administered See TAYLOR VEGA Procedure Codes (Charges) Ventilator Management Ventilator Managment: 30564 Ventilation assist and management; Hospital inpt/obs, intl day Coding Level of Care Code 01279 CRITICAL CARE 1ST 30-74M Diagnoses Acute on chronic respiratory failure with hypoxia and hypercapnia J96.21; J96.22 RSV (acute bronchiolitis due to respiratory syncytial virus) J21.0 Metabolic encephalopathy G93.41 CPT Codes Ventilator Management - Ventilator Managment: 94329 Ventilation assist and management; Hospital inpt/obs, intl day ([id number]) Time Spent (min) 46
[2024-12-14 21:53] LABS: Thyroid Stimulating Hormone 2.218 uIu/ml (0.300-4.500)
[2024-12-14] MEDS ORDERED: VANCOMYCIN HCL 2,500 MG in SODIUM CHLORIDE 0.9% 500 ML IV ONE (21:59)
[2024-12-14] MEDS ORDERED: GLUCAGON FOR INJ 1 MG VIAL SQ PRN (21:59)
[2024-12-14] MEDS ORDERED: ACETAMINOPHEN 1000 MG/100 ML IV IV PRN (21:59)
[2024-12-14] MEDS ORDERED: DEXTROSE 50% 50 ML SYRINGE IV PRN (21:59)
[2024-12-14] MEDS ORDERED: ONDANSETRON INJ 2 MG/ML 2 ML VIAL IV PRN (21:59)
[2024-12-14] MEDS ORDERED: PHARMACY GLYCEMIC MGMT CONSULT PRN (21:59)
[2024-12-14] MEDS ORDERED: CARBOHYDRATES FOR HYPOGLYCEMIA PO PRN (21:59)
[2024-12-14] MEDS ORDERED: GLUCOSE 10 TAB/TUBE PO PRN (21:59)
[2024-12-14] MEDS ORDERED: ALBUT/IPRATROP 3MG/0.5MG NEB 3 ML VIAL NEB PRN (21:59)
[2024-12-14] MEDS ORDERED: GLUCOSE 40% GEL 15 GM TUBE PO PRN (21:59)
[2024-12-14] MEDS ORDERED: VANCOMYCIN CONSULT ACTIVE PRN (21:59)
[2024-12-14 22:22] LABS: Appearance Urine Clear (Clear); Bacteria Urine Automated None Seen (None Seen); Bilirubin Urine 1+ (Negative); Blood Urine Trace (Negative); Color Urine Dark Yellow; Epithelial Cell Urine Auto 0-2 /hpf (0-2); Glucose Urine UA Negative (Negative); Ketones Urine Trace (Negative); Leukocyte Esterase Urine Negative (Negative); Nitrite Urine Negative (Negative); Protein Urine 4+ (Negative); RBC Urine Automated 0-2 /hpf (0-2); Specific Gravity Urine 1.027 (1.000-1.030); Urobilinogen Urine Negative (Negative); WBC Urine Automated 0-5 /hpf (0-5)
[2024-12-14] MEDS: SENNA 8.6 MG TAB PO SCH (22:53)
[2024-12-14] MEDS: ICU Protocol for HYPERglycemia SCH ×2 (22:53→23:24)
[2024-12-14] MEDS: PIPERACILLIN/TAZOBACTAM 4.5 GM/100 ML BAG IV STA (22:54)
[2024-12-14] MEDS: PANTOprazole 40 MG/10 ML SYR IV SCH (22:56)
[2024-12-14] MEDS: HEPARIN SOD 5,000 UNIT/0.5 ML VIAL SQ SCH (22:56)
--- NOTE | 2024-12-14 23:07 | XRay Report ---
Exam(s): XR CXR 1 VIEW EXAM: XR Chest, 1 View CLINICAL HISTORY: Reason for exam: NG/OG placement. TECHNIQUE: Frontal view of the chest. COMPARISON: Prior chest x-ray from December 14, 2024. FINDINGS: There is an enteric tube overlying the esophagus extending to the body of the stomach. Lungs: Bilateral lower lobe infiltrates. Pleural space: Large left pleural effusion. No pneumothorax. Heart: Unremarkable. No cardiomegaly. Mediastinum: Unremarkable. Normal mediastinal contour. Bones/joints: Unremarkable. No acute fracture. IMPRESSION: Enteric feeding tube extending to the body of the stomach. Electronically signed by: Clemencia oBtello MD 12/14/24 23:05 PM
[2024-12-14 23:08] LABS: iSTAT Art Bld Gas pCO2 Correct 59 mmHg (35-46); iSTAT Art Bld Gas pH Corrected 7.398 (7.35-7.45); iSTAT Arterial Blood Gas HCO3 37 meg/L (19-24); iSTAT Arterial Blood Gas pCO2 58 mmHg (35-46); iSTAT Arterial Blood Gas pO2 69 mmHg (80-95); iSTAT Arterial Blood Gas pO2 C 71; iSTAT Carbon Dioxide 38 mmol/L (24-31); iSTAT FiO2 70 %; iSTAT Hematocrit 52 % (37-47); iSTAT Hemoglobin 17.7 g/dl (12.0-16.0); iSTAT Potassium 4.4 mmol/L (3.3-5.0); iSTAT Sample Type Arterial; iSTAT Site L Brachial; iSTAT Sodium 139 mmol/L (135-144); iSTAT SpO2 92
[2024-12-14] MEDS: AZITHROMYCIN 500 MG in SODIUM CHLORIDE 0.9% 250 ML IV SCH (23:24)
[2024-12-14] MEDS: ENOXAPARIN INJ 40 MG/0.4 ML SYR SQ SCH (23:25)
[2024-12-14] MEDS: PIPERACILLIN/TAZOBACTAM 4.5 GM/100 ML BAG IV SCH (23:25)
--- NOTE | 2024-12-14 23:52 | Ultrasound Report ---
Exam(s): US VENOUS BILATERAL LOWER EXTREMITIES EXAM: US Duplex Bilateral Lower Extremities Veins CLINICAL HISTORY: Reason for exam: Edema, discoloration. TECHNIQUE: Real-time duplex ultrasound scan of the bilateral lower extremity veins integrating B-mode two-dimensional vascular structure, Doppler spectral analysis, color flow Doppler imaging and compression. COMPARISON: No relevant prior studies available. FINDINGS: Right deep veins: Unremarkable. No DVT in the right common femoral, femoral, proximal deep femoral or popliteal veins. The veins demonstrate normal color flow, are normally compressible, with normal phasic flow and/or augmentation response. Right superficial veins: Unremarkable. No thrombus in the visualized right great saphenous vein. Left deep veins: Unremarkable. No DVT in the left common femoral, femoral, proximal deep femoral or popliteal veins. The veins demonstrate normal color flow, are normally compressible, with normal phasic flow and/or augmentation response. Left superficial veins: Unremarkable. No thrombus in the visualized left great saphenous vein. Soft tissues: Mild edema. IMPRESSION: No evidence of acute DVT. Electronically signed by: Madhu Malin M.D. 12/14/24 23:50 PM
[2024-12-14] MEDS: VANCOMYCIN HCL 2,500 MG in SODIUM CHLORIDE 0.9% 500 ML IV ONE (23:53)
[2024-12-15] MEDS: ALBUT/IPRATROP 3MG/0.5MG NEB 3 ML VIAL NEB SCH (00:32)
[2024-12-15] MEDS: INSULIN ASPART PER UNIT CHARGE SC SCH ×2 (00:39→12:21)
[2024-12-15] MEDS: PIPERACILLIN/TAZOBACTAM 4.5 GM/100 ML BAG IV SCH (03:55)
--- NOTE | 2024-12-15 04:10 | Billing Data ---
Date of Service December 15, 2024 Coding Level of Care Code 67484 CRITICAL CARE
[2024-12-15 05:13] LABS: Basophils # (auto) 0.03 K/uL (0.00-0.20); Basophils % (auto) 0.5 %; Hematocrit (blood only) 53.3 % (37.0-47.0); Hemoglobin 16.2 g/dl (12.0-16.0); Immature Granulocytes # (auto) 0.07 K/uL (0.01-0.20); Immature Granulocytes % (auto) 1.2 %; Lymphocytes # (auto) 0.61 K/uL (1.20-3.40); Lymphocytes % (auto) 10.3 %; Mean Corpuscular Hemoglobin 30.2 pg (25.0-34.0); Mean Corpuscular Hgb Conc 30.4 g/dL (32.0-36.0); Mean Corpuscular Volume 99.3 fL (80.0-100.0); Monocytes # (auto) 0.17 K/uL (0.11-0.59); Monocytes % (auto) 2.9 %; Neutrophils # (auto) 5.04 K/uL (1.40-6.50); Neutrophils % (auto) 85.1 %; Nucleated RBC # (auto) 0.02 K/uL (0.00-0.12); Nucleated RBC % (auto) 0.3 %; Platelet Count 233 K/uL (130-400); RDW Coefficient of Variation 17.7 % (11.5-14.5); RDW Standard Deviation 62.3 fL (36.4-46.3); Red Blood Count 5.37 M/uL (4.20-5.40); White Blood Count 5.92 K/ul (4.8-10.8)
[2024-12-15 05:21] LABS: Albumin Globulin Ratio 1.1 (0.9-2); Albumin Level 3.1 gm/dl (3.4-5.0); BUN Creatinine Ratio 21.1 (10-20); Bilirubin,Total 0.7 mg/dl (0.2-1.0); Calcium 9.2 mg/dl (8.6-10.3); Globulin 2.8 gm/dl (2.5-4.0); Phosphorus 4.6 mg/dl (2.5-4.9); Potassium 4.6 mmol/L (3.5-5.1); Total Protein 5.9 gm/dl (6.0-8.3)
[2024-12-15 05:27] LABS: Troponin I High Sensitivity 16.7 pg/ml (0-14)
[2024-12-15] MEDS ORDERED: ICU ELECTROLYTE REPLACEMENT PROTOCOL SCH (06:00)
[2024-12-15] MEDS: MAGNESIUM SULFATE / D5W 1 GM/100 ML BAG IV SCH (06:06)
[2024-12-15] MEDS: FUROSEMIDE INJ 20 MG/2 ML VIAL IV ONE (06:06)
[2024-12-15 06:08] LABS: iSTAT Art Bld Gas pCO2 Correct 70 mmHg (35-46); iSTAT Art Bld Gas pH Corrected 7.329 (7.35-7.45); iSTAT Arterial Blood Gas HCO3 37 meg/L (19-24); iSTAT Arterial Blood Gas pCO2 70 mmHg (35-46); iSTAT Arterial Blood Gas pH 7.33 (7.35-7.45); iSTAT Arterial Blood Gas pO2 57 mmHg (80-95); iSTAT Arterial Blood Gas pO2 C 56; iSTAT Carbon Dioxide 39 mmol/L (24-31); iSTAT FiO2 75 %; iSTAT Hematocrit 52 % (37-47); iSTAT Hemoglobin 17.7 g/dl (12.0-16.0); iSTAT Potassium 4.6 mmol/L (3.3-5.0); iSTAT Sample Type Arterial; iSTAT Site R Brachial; iSTAT Sodium 141 mmol/L (135-144); iSTAT SpO2 89
[2024-12-15] MEDS: ICU ELECTROLYTE REPLACEMENT PROTOCOL SCH (06:08)
--- NOTE | 2024-12-15 07:39 | Critical Care Progress Note ---
Date of Service December 15, 2024 Assessment & Plan (1) Acute on chronic respiratory failure with hypoxia and hypercapnia: (2) RSV (acute bronchiolitis due to respiratory syncytial virus): (3) Metabolic encephalopathy: (4) Pneumonia: (5) Admitted to intensive care unit: (6) Hypertension: (7) Anxiety and depression: (8) COPD (chronic obstructive pulmonary disease): Plan Reason Critically Ill: Acute on chronic hypoxemic and hypercapneic respiratory failure/COPD RSV bronchiolitis Possible superimposed bacterial pneumonia Acute metabolic encephalopathy 2/2 hypercapnia Neuro - [facility] ICU: Negative RASS GOAL -1 to -2 once paralytic has worn off, target ventilator compliance Patient got bradycardic while on propofol, it was changed to midazolam Continue with fentanyl --Anxiety/depression On fluoxetine, oxcarbazepine, lamotrigine at home Cardiac - -- Hypertension On losartan at home Respiratory - -- Vent dependent respiratory failure Insert VDRF Continue mechanical ventilation Continue with steroids --History of COPD with chronic hypoxic respiratory failure Will start the patient on budesonide and Perforomist while intubated GI - No acute concerns RENAL/LYTES - Monitor BUNs/creatinine Avoid nephrotoxic medication ENDO - TSH 2.2 BG 140-180 per SCC guidelines ISS if needed while inpatient HEME - No acute concerns Doppler bilateral lower extremity negative for DVT ID - -- Multifocal pneumonia Patient seems to be ARDS like picture CTA chest was negative for pulmonary emboli on 12/15/2024 Continue with antibiotics Nasal MRSA negative UA negative for leukocyte esterase and bacteria --Prophylaxis VTE: Heparin GI: Pantoprazole Lines: Peripheral Diet: Tube feeds Plan: In/out: +820, urine output 315 ABG 7.33/73/57 on 75% FiO2, respiratory 20. Respiratory was increased to 26 Given the persistent hypoxia will get CTA chest to make sure that we are not dealing with pulmonary emboli. Start the patient on tube feeds Magnesium being replaced Keep O2 saturation around 88-92%. DC propofol and start the patient on midazolam given the bradycardia. Patient is very labile when it comes to sedation. She fights with the ventilator. If need be I will paralyze her Based on the CT chest will decide whether she will be a candidate for proning. I have personally spent 62 minutes of critical care time in the direct management of this patient. This is a life/limb threatening event. This includes time spent evaluating patient, direct bedside care, chart review, placing orders, interpretation of diagnostic studies, discussion with consultants, patient, and family members, as well as other required patient management activities. This time is exclusive of all separately billable procedures, and teaching time and separate from and in addition to any other critical care service time. Thank you for allowing us to participate in the care of this patient. Please refer to my attending physician's documentation for any further recommendations. Admission and Anticipated Discharge Date Admission Date: December 14, 2024 Subjective Patient seen and examined at bedside. No acute distress, no adverse events overnight Patient was on PEEP of 12, 80% FiO2, saturating 89-90% She was on 45 of propofol and 100 of fentanyl. Heart rate was in the low to mid 50s. She was breathing with the vent. Has been afebrile Review of Systems 2 Review of Systems: All systems reviewed & are unremarkable except as noted in HPI & below Physical Exam 2 Physical Exam: Constitutional: No acute distress HEENT: PERRLA Respiratory system: Decreased air entry bilaterally, positive expiratory wheeze bilaterally, no rhonchi, positive crackles bilateral lower lobes CVS: S1-S2 positive, distant heart sounds Abdomen: Soft, nontender, nondistended, positive bowel sounds x4, obese Extremities: +2 pulses bilaterally radialis/ dorsalis pedis, no cyanosis, no edema Neuro: RASS -1, moving all the extremities spontaneously, not following any commands Psych: Unable to assess G/U: Positive Tian Skin: no rashes, warm and dry Lymphatic: no cervical or axillary lymphadenopathy Results & Data Results & Data Vital Signs (Past 12 Hours) Vital Signs Temp Pulse Pulse Resp BP BP Pulse Ox 12/15/24 06:12 36.7 C 42 L 20 91 12/15/24 06:01 95/46 L 12/15/24 06:01 95/46 L 12/15/24 06:01 95/46 L 12/15/24 05:51 36.8 C 51 L 20 92 12/15/24 05:31 93/45 L 12/15/24 05:30 52 L 20 90 12/15/24 05:00 36.9 C 80 18 90 12/15/24 04:31 108/56 L 12/15/24 04:31 108/56 L 12/15/24 04:30 36.8 C 49 L 18 92 12/15/24 04:03 36.8 C 49 L 18 91 12/15/24 04:01 114/55 L 12/15/24 04:01 114/55 L 12/15/24 04:00 12/15/24 03:57 36.9 C 50 L 18 91 12/15/24 03:09 36.8 C 52 L 18 91 12/15/24 03:01 122/62 12/15/24 03:01 122/62 12/15/24 02:45 36.8 C 50 L 18 122/63 91 12/15/24 02:27 36.8 C 54 L 18 92 12/15/24 02:16 52 L 18 91 12/15/24 01:30 122/67 12/15/24 01:30 122/67 12/15/24 01:30 122/67 12/15/24 01:30 122/67 12/15/24 01:30 36.9 C 57 L 18 90 12/15/24 01:00 124/62 12/15/24 01:00 124/62 12/15/24 01:00 124/62 12/15/24 01:00 36.9 C 57 L 18 91 12/15/24 00:09 37.3 C 57 L 18 88 L 12/15/24 00:00 58 L 12/15/24 00:00 12/14/24 23:03 37.5 C 67 19 87 L 12/14/24 23:02 70 20 92 12/14/24 23:01 124/69 12/14/24 23:01 124/69 12/14/24 23:01 124/69 12/14/24 23:01 124/69 12/14/24 22:39 37.5 C 73 20 90 12/14/24 22:30 12/14/24 22:30 37 C 56 L 18 117/58 L 89 L 12/14/24 22:09 77 12/14/24 22:06 37.4 C 79 20 92 12/14/24 22:01 106/81 12/14/24 21:17 85 28 H 133/77 95 12/14/24 21:10 132/76 12/14/24 21:01 103/89 12/14/24 21:00 89 28 H 105/74 91 12/14/24 20:54 88 17 129/90 87 L 12/14/24 20:50 129/90 12/14/24 20:48 154/95 H 12/14/24 20:45 134/78 12/14/24 20:40 128/72 12/14/24 20:35 127/76 12/14/24 20:30 83 28 H 95 12/14/24 20:11 94 12/14/24 20:00 88 L 12/14/24 20:00 36.9 C 97 H 24 168/96 H 92 12/14/24 19:56 98 H 12/14/24 19:50 37 C 105 H 28 H 174/66 H 39 L O2 Del Method O2 Flow Rate FiO2 12/15/24 06:12 12/15/24 06:01 12/15/24 06:01 12/15/24 06:01 12/15/24 05:51 12/15/24 05:31 12/15/24 05:30 85 12/15/24 05:00 12/15/24 04:31 12/15/24 04:31 12/15/24 04:30 12/15/24 04:03 12/15/24 04:01 12/15/24 04:01 12/15/24 04:00 75 12/15/24 03:57 12/15/24 03:09 70 12/15/24 03:01 12/15/24 03:01 12/15/24 02:45 12/15/24 02:27 70 12/15/24 02:16 75 12/15/24 01:30 12/15/24 01:30 12/15/24 01:30 12/15/24 01:30 12/15/24 01:30 70 12/15/24 01:00 12/15/24 01:00 12/15/24 01:00 12/15/24 01:00 70 12/15/24 00:09 Mechanical Vent 70 12/15/24 00:00 12/15/24 00:00 70 12/14/24 23:03 Mechanical Vent 70 12/14/24 23:02 70 12/14/24 23:01 12/14/24 23:01 12/14/24 23:01 12/14/24 23:01 12/14/24 22:39 12/14/24 22:30 Mechanical Vent 70 12/14/24 22:30 Mechanical Vent 70 12/14/24 22:09 12/14/24 22:06 12/14/24 22:01 Mechanical Vent 12/14/24 21:17 Mechanical Vent 100 12/14/24 21:10 12/14/24 21:01 12/14/24 21:00 100 12/14/24 20:54 100 12/14/24 20:50 12/14/24 20:48 12/14/24 20:45 12/14/24 20:40 12/14/24 20:35 12/14/24 20:30 12/14/24 20:11 BiPAP 12/14/24 20:00 BiPAP, Non-rebreather 15 12/14/24 20:00 BiPAP 12/14/24 19:56 12/14/24 19:50 Room Air Laboratory Results 12/15/24 04:35 12/15/24 04:35 Coding Level of Care Code 13513 CRITICAL CARE 1ST 30-74M Diagnoses Acute on chronic respiratory failure with hypoxia and hypercapnia J96.21; J96.22 RSV (acute bronchiolitis due to respiratory syncytial virus) J21.0 Metabolic encephalopathy G93.41 Pneumonia J18.9 Admitted to intensive care unit Z78.9 Hypertension I10 Anxiety and depression F41.9; F32.A COPD (chronic obstructive pulmonary disease) J44.9
[2024-12-15] MEDS ORDERED: methylPREDNISolone 10 mg/mL (For Ped Dose < 7mg) IV SCH (08:30)
[2024-12-15] MEDS: MIDAZOLAM HCL 1 MG/ML 2ML VIAL ONE (08:51)
[2024-12-15] MEDS: methylPREDNISolone 60 MG in SYRINGE 0 ML IV SCH (08:51)
--- NOTE | 2024-12-15 08:55 | Procedure Note ---
Procedure Note Date of Service December 15, 2024 PREOPERATIVE DIAGNOSIS: Acute hypoxic respiratory failure on ventilator with high oxygen requirement POSTOPERATIVE DIAGNOSIS: Mucous plugging of the left lower lobe PROCEDURE PERFORMED: Flexible fiberoptic bronchoscopy with BAL COMPLICATIONS: None. INDICATION: Persistent hypoxia PROCEDURE: After obtaining an informed consent from the son, he patient had appropriate oxygen, blood pressure, heart rate, and respiratory rate monitoring applied and monitored continuously throughout the procedure. Patient's FiO2 was increased to 100% and the PEEP was decreased to 8. Subsequent to this, the patient was given bolus of 50 mcg of fentanyl, 20 mg of propofol as well as 2 mg of midazolam The trachea appeared normal.The bronchoscope was then advanced through the ximena, which was sharp. The scope was then advanced into the right main stem and each segment, subsegement in the right upper lobe, right middle lobe and right lower lobe were visualized. There was minimal amount of clear white secretions which were suctioned out. There were no other findings including evidence of mass, anatomic distortions, or hemorrhage. The bronchoscope was subsequently withdrawn and advanced into the left mainstem. Mucous plugging was appreciated in the left lower lobe with whitish- rob secretions which were suctioned out. Again, each segment and subsegment was well visualized. No specific masses or other lesions were identified throughout the tracheobronchial tree on the left. The bronchoscope was then wedged in the right lower lobe and bronchoalveolar lavage samples were obtained. 60 ml of saline was instilled and 35 ml of fluid was aspirated back.The bronchoscope was withdrawn and the area was suctioned clear. The bronchoscope was then wedged in the left lower lobe and bronchoalveolar lavage samples were obtained. 120 ml of saline was instilled and 40 ml of fluid was aspirated back.The bronchoscope was withdrawn and the area was suctioned clear. The bronchoscope was then withdrawn to the mainstem. The area was suctioned clear. The bronchoscope was then withdrawn. The patient tolerated the procedure well without evidence of desaturation or complications. Bronchoalveolar lavage samples were sent for cell count, Gram stain and bacterial culture, AFB culture and smear, fungal culture and smear and cytology. Recommendations: Follow-up micro and cytology Follow-up chest x-ray Please note the above document was generated using voice recognition software. It may contain grammatical, syntax or spelling errors.Any formal questions or concerns about the content, text or information contained within the body of this dictation should be directly addressed to the provider for clarification. [facility] Procedure Codes (Charges) Pulmonary/Thoracic Procedure 1: Pulmonary and Thoracic: 45240 Dx bronchoscopy/BAL Procedure 2: Pulmonary and Thoracic: 84594 Bronchoscopy, clear airways Coding CPT Codes Pulmonary/Thoracic - Pulmonary and Thoracic: 71190 Dx bronchoscopy/BAL ([id number]) Pulmonary/Thoracic - Pulmonary and Thoracic: 98908 Bronchoscopy, clear airways ([id number]) Additional Codes Date of Service ([email or web address])
[2024-12-15] MEDS ORDERED: PANTOprazole 40 MG/10 ML SYR IV SCH (09:00)
--- NOTE | 2024-12-15 09:18 | XRay Report ---
XR chest 1V portable CLINICAL HISTORY: Post Bronchoscopy COMPARISON STUDY: 12/14/2024 FINDINGS: Endotracheal tube tip is between the thoracic inlet and the ximena. Nasogastric tube tip is off the field of view inferiorly. There is stable cardiomegaly with pulmonary vascular congestion. T here is increased hazy opacity in the lung bases with obscuration of the diaphragm. No pneumothorax. IMPRESSION: 1. No pneumothorax. 2. Increased opacity in the lung bases could represent pneumonia, atelectasis, or pleural effusions. ACT 112: Negative or not required by law. Electronically signed by: Abdoulaye Sierra M.D. 12/15/2024 9:17 AM
[2024-12-15 10:44] LABS: Fluid Mono/Macrophage 13 %; Lymphocyte Body Fluid Man 13 %; Neutrophil Body Fluid Man 74 %
--- NOTE | 2024-12-15 11:58 | Hospitalist Progress Note ---
Date of Service December 15, 2024 Assessment & Plan (1) Admitted to intensive care unit: (2) Metabolic encephalopathy: (3) RSV (acute bronchiolitis due to respiratory syncytial virus): (4) Acute on chronic respiratory failure with hypoxia and hypercapnia: (5) COPD (chronic obstructive pulmonary disease): (6) Pneumonia: Plan 54-year-old female intubated in the emergency room with acute hypoxic and hypercapnic respiratory failure [employer] testing positive for RSV with CT showing multifocal pneumonia Acute on chronic hypoxic hypercapnic respiratory failure /multifocal pneumonia /COPD / RSV Patient is intubated and will defer ongoing management of this to the ICU team, was unable to tolerate propofol therefore currently on fentanyl and midazolam Continue steroids, DuoNebs Continue Zosyn, consider adding fluoroquinolone we discussed with ICU team Blood cultures taken this morning after initial antibiotics, follow these up along with bronchoscopy cultures Chronic medical conditions: GERD-on omeprazole 20 mg daily, changing to pantoprazole 40 mg IV twice daily Hypertension-Holding aspirin, bumetanide, losartan Anxiety/depression-can restart fluoxetine, oxcarbazepine and lamotrigine via OG Admission and Anticipated Discharge Date Admission Date: December 14, 2024 Subjective Patient was seen and currently intubated on fentanyl and midazolam. Currently on FiO2 100% with PEEP of 12 and maintaining O2 sats 85%. Discussed with Dr. Sotelo and midazolam increased with possible plans for medications to induce paralysis to help with her tidal volumes. Unable to get any history from the patient. Physical Exam Constitutional: + not well nourished ENMT: Intubated with OG tube in place Respiratory: normal respiratory effort Auscultation: + breath sounds absent (Bibasal), + diminished lung sounds (thoughout) and + rhonchi Cardiovascular: Rate/Rhythm: regular rate and regular rhythm Heart Sounds: no murmur Extremities: + pedal edema Gastrointestinal (Abdomen): Percussion/Palpation: abdomen soft Skin: no rashes, warm and dry (No areas of cellulitis seen) Neurologic: + not awake Results & Data Results & Data Vital Signs (Past 12 Hours) Vital Signs Temp Pulse Resp BP Pulse Ox O2 Del Method O2 Flow Rate 12/15/24 10:21 48 L 26 H 91 12/15/24 09:27 Mechanical Vent 12/15/24 08:00 49 L 12/15/24 08:00 Mechanical Vent 12/15/24 08:00 12/15/24 07:45 Mechanical Vent 12/15/24 07:00 54 L 26 H 94 12/15/24 06:12 36.7 C 42 L 20 91 12/15/24 06:01 95/46 L 12/15/24 06:01 95/46 L 12/15/24 06:01 95/46 L 12/15/24 05:51 36.8 C 51 L 20 92 12/15/24 05:31 93/45 L 12/15/24 05:30 52 L 20 90 12/15/24 05:00 36.9 C 80 18 90 12/15/24 04:31 108/56 L 12/15/24 04:31 108/56 L 12/15/24 04:30 36.8 C 49 L 18 92 12/15/24 04:03 36.8 C 49 L 18 91 12/15/24 04:01 114/55 L 12/15/24 04:01 114/55 L 12/15/24 04:00 12/15/24 03:57 36.9 C 50 L 18 91 12/15/24 03:09 36.8 C 52 L 18 91 70 12/15/24 03:01 122/62 12/15/24 03:01 122/62 12/15/24 02:45 36.8 C 50 L 18 122/63 91 12/15/24 02:27 36.8 C 54 L 18 92 70 12/15/24 02:16 52 L 18 91 12/15/24 01:30 122/67 12/15/24 01:30 122/67 12/15/24 01:30 122/67 12/15/24 01:30 122/67 12/15/24 01:30 36.9 C 57 L 18 90 70 12/15/24 01:00 124/62 12/15/24 01:00 124/62 12/15/24 01:00 124/62 12/15/24 01:00 36.9 C 57 L 18 91 70 12/15/24 00:09 37.3 C 57 L 18 88 L Mechanical Vent 12/15/24 00:00 58 L 12/15/24 00:00 FiO2 12/15/24 10:21 80 12/15/24 09:27 12/15/24 08:00 12/15/24 08:00 85 12/15/24 08:00 85 12/15/24 07:45 85 12/15/24 07:00 100 12/15/24 06:12 12/15/24 06:01 12/15/24 06:01 12/15/24 06:01 12/15/24 05:51 12/15/24 05:31 12/15/24 05:30 85 12/15/24 05:00 12/15/24 04:31 12/15/24 04:31 12/15/24 04:30 12/15/24 04:03 12/15/24 04:01 12/15/24 04:01 12/15/24 04:00 75 12/15/24 03:57 12/15/24 03:09 12/15/24 03:01 12/15/24 03:01 12/15/24 02:45 12/15/24 02:27 12/15/24 02:16 75 12/15/24 01:30 12/15/24 01:30 12/15/24 01:30 12/15/24 01:30 12/15/24 01:30 12/15/24 01:00 12/15/24 01:00 12/15/24 01:00 12/15/24 01:00 12/15/24 00:09 70 12/15/24 00:00 12/15/24 00:00 70 PG Care Time/CCT Total # of Minutes Spent Total Time Spent with Patient: Total time spent is greater than 50% in coordination of care (as documented) at patient's floor/unit and/or counseling patient: Coding Level of Care Code 22255 SUB INP/OBS CARE 3/50MIN Diagnoses Admitted to intensive care unit Z78.9 Metabolic encephalopathy G93.41 RSV (acute bronchiolitis due to respiratory syncytial virus) J21.0 Acute on chronic respiratory failure with hypoxia and hypercapnia J96.21; J96.22 COPD (chronic obstructive pulmonary disease) J44.9 Pneumonia J18.9
[2024-12-15] MEDS ORDERED: MIDAZOLAM HCL 1 MG/ML 2ML VIAL IV PRN (12:17)
[2024-12-15] MEDS: TUBE FEEDING WATER FLUSH GT SCH (12:22)
[2024-12-15] MEDS: PEPTAMEN INTENSE VHP 1.0 CAL 1,000 ML BAG GT SCH (12:23)
[2024-12-15] MEDS ORDERED: STAT IV Infusion **Titration per Protocol STA ×2 (12:33→19:25)
[2024-12-15] MEDS: FORMOTEROL 20 MCG/2 ML VIAL ONE (12:43)
[2024-12-15] MEDS: MIDAZOLAM HCL 125 MG/250 ML BAG IV SCH (12:51)
[2024-12-15] MEDS: OPTIRAY 320 125ml IV ONE (13:24)
[2024-12-15] MEDS: MIDAZOLAM BOLUS FROM BAG IV PRN (13:25)
[2024-12-15] MEDS: fentaNYL BOLUS from BAG IV PRN (13:25)
--- NOTE | 2024-12-15 13:51 | XCELERA ---
[id number]
--- NOTE | 2024-12-15 13:57 | Pharmacy Report ---
Pharmacy Glycemic Short Note 2 - Date of Service December 15, 2024 - Glycemic Short BSG Results (Last 24 hours): 12/14/24 12/14/24 12/14/24 19:59 20:04 22:19 Glucose 185 H POC Glucose 136 H POC Glucose (other) 182 H 12/15/24 12/15/24 12/15/24 00:29 03:59 04:35 Glucose 153 H POC Glucose 135 H 149 H POC Glucose (other) 12/15/24 12/15/24 08:04 12:20 Glucose POC Glucose 149 H 125 H POC Glucose (other) OUTPATIENT ANTIDIABETIC REGIMEN: * none * A1c pending ASSESSMENT: * Patient admitted with respiratory failure, currently admitted to the ICU, intubated on methylprednisolone 60 mg q12H IV * Consulted with initial BSG > 180 mg/dL, these have since been <160 mg/dL without insulin. * Novolog ordered started based on adjusted body weight and stress of 3. Patient has not required any insulin at this time. A1c is pending. * Will continue novolog for now with initiation of TF and continued steroid use but loosened to stress of 2- monitor for need, consider discontinuing carb ratio if BSGs remain stable * Holding basal for now PLAN FOR INPATIENT GLYCEMIC CONTROL: * Hold outpatient oral diabetes medications * Basal insulin * held * Bolus insulin * NovoLog per scale ACHS or Q6hrs while NPO * Goal Range: Low 120 mg/dL - High 160 mg/dL * Correction Factor: 30 mg/dL/unit * Nutritional / Prandial insulin per carb ratio of 1 unit per 10 grams CHO consumed
[2024-12-15] MEDS ORDERED: VANCOMYCIN HCL 1,000 MG/270 ML BAG IV SCH (14:00)
--- NOTE | 2024-12-15 14:03 | CT Scan Report ---
CT angio chest PE protocol CT DOSE: 885.51 mGy.cm HISTORY: 54 years-old Female with PE. Acute shortness of breath TECHNIQUE: Multiple CTA images of the chest were obtained after the intravenous administration of Opt iray. Coronal and sagittal MIPS were obtained from the axial data set and were submitted for review. All measurements were obtained according to NASCET criteria. A dose lowering technique was utilized adhering to the principles of ALARA. COMPARISON: Chest radiograph of same day FINDINGS: CTA: Moderate cardiomegaly with small pericardial effusion. Moderate coronary artery calcifications. Unrem arkable thoracic aorta. Unremarkable pulmonary artery. No central pulmonary emboli identified. Limite d exam secondary to contrast bolus timing. CT CHEST: No thyroid nodule. A few borderline enlarged mediastinal and hilar lymph nodes are noted. Endotrachea l tube is present within the trachea, 5 mm proximal to the ximena. Enteric tube courses into the stom ach with distal tip outside the field of view. No pneumothorax. Intralobular septal thickening. No large pleural effusion. Dependent bibasilar conso lidation with volume loss noted within the left and right lower lobes and also within the dependent u pper lobes. Air bronchograms. Partially imaged subset of meter calcification within the right renal pelvis. Hepatomegaly with hepat ic steatosis and splenomegaly. Cervical spinal fusion hardware. IMPRESSION: 1. No pulmonary emboli identified. 2. Endotracheal and enteric tube placement as above. 3. Left greater than right dependent consolidation with volume loss and air bronchograms suggestive o f atelectasis. Pneumonia or aspiration could appear similarly. 5. Cardiomegaly with small pericardial effusion. ACT 112: Negative or not required by law. The above report was generated using voice recognition software. It may contain grammatical, syntax o r spelling errors. Electronically signed by: Isai Ariza M.D. 12/15/2024 2:00 PM
--- NOTE | 2024-12-15 15:33 | Electrocardiogram Report ---
Test Reason : Blood Pressure : */* mmHG Vent. Rate : 97 BPM Atrial Rate : 98 BPM P-R Int : 150 ms QRS Dur : 90 ms QT Int : 346 ms P-R-T Axes : 22 -76 91 degrees QTcB Int : 439 ms Sinus rhythm with Premature atrial complexes Left anterior fascicular block Possible Anterior infarct , age undetermined Abnormal ECG When compared with ECG of 27-Apr-2014 13:58, Premature atrial complexes are now Present QRS axis Shifted left Inverted T waves have replaced nonspecific T wave abnormality in Lateral leads Confirmed by Keny Gross ([id number]) on 12/15/2024 3:33:36 PM Referred By: REFERRED SELF Confirmed By: Keny Gross
[2024-12-15] MEDS: HEPARIN SOD 5,000 UNIT/0.5 ML VIAL SQ SCH (15:58)
[2024-12-15 16:21] LABS: Carboxyhemoglobin 2.2 % THgb; Methemoglobin < 0.7 % (0.0-1.5)
[2024-12-15 18:40] LABS: iSTAT Allen Test Pass; iSTAT Art Bld Gas pCO2 Correct 48 mmHg (35-46); iSTAT Art Bld Gas pH Corrected 7.491 (7.35-7.45); iSTAT Arterial Blood Gas HCO3 37 meg/L (19-24); iSTAT Arterial Blood Gas pCO2 47 mmHg (35-46); iSTAT Arterial Blood Gas pO2 65 mmHg (80-95); iSTAT Arterial Blood Gas pO2 C 66; iSTAT Carbon Dioxide 38 mmol/L (24-31); iSTAT FiO2 100 %; iSTAT Hematocrit 49 % (37-47); iSTAT Hemoglobin 16.7 g/dl (12.0-16.0); iSTAT Potassium 4.2 mmol/L (3.3-5.0); iSTAT Sample Type Arterial; iSTAT Site L Radial; iSTAT Sodium 140 mmol/L (135-144); iSTAT SpO2 91
[2024-12-15] MEDS ORDERED: STAT IV/IM STA (19:25)
[2024-12-15] MEDS ORDERED: CISATRACURIUM BESYLATE IV SOLN 2 MG/ML 10 ML VIAL IV STA (19:25)
[2024-12-15] MEDS: CISATRACURIUM BOLUS FROM BAG IV ONE (20:01)
[2024-12-15] MEDS: CISATRACURIUM BESYLATE 40 MG in DEXTROSE 5% 80 ML IV SCH (20:01)
--- NOTE | 2024-12-15 20:31 | Procedure Note ---
Procedure Note Date of Service December 15, 2024 ARTERIAL LINE PROCEDURE NOTE: Procedure: Arterial Line Placement Attending: Dr. Sotelo APC: Luz Marrero PA-C Indication: Monitoring/Frequent labs Anesthesia: Lidocaine 1% Emergent procedure A time-out was completed verifying correct patient, procedure, site, positioning, and implant(s) or special equipment if applicable. Allens test was performed to ensure adequate perfusion. Patients L wrist was prepped and draped in the usual sterile fashion. Ultrasound guidance was used to aid needle placement. A 20g Arrow arterial line was introduced into the L radial artery. Catheter was threaded, and the needle was removed with appropriate blood return. Good waveform was observed. The patient tolerated the procedure well. Blood Loss: Minimal Complications: None. R radial attempted, patient moved and catheter dislodged. Procedural Ultrasound Guidance: Procedure Date: 12/15/2024 Indication: Arterial line Attending: Dr. Sotelo APC: Luz Marrero PA-C Artery Identified: YES Complications: NONE Patient tolerated procedure: WELL Coding Additional Codes Date of Service (PG.SURGERY)
--- NOTE | 2024-12-15 20:32 | Procedure Note ---
Procedure Note Date of Service December 15, 2024 INTERNAL JUGULAR CENTRAL LINE PROCEDURE NOTE: Procedure: Internal Jugular Central Line Placement Attending: Dr. Sotelo APC: Luz Marrero PA-C Indication: Central Drug Administration, Poor Venous Access, Multiple Lab Draws Necessary, etc. Anesthesia: Lidocaine 1% Emergent procedure A time-out was completed verifying correct patient, procedure, site, positioning, and implants(s) or special equipment if applicable. Patients R Neck was cleansed and draped in the typical sterile fashion using Chloraprep. The Internal Jugular Vein and Carotid Artery were identified using ultrasound. The superficial tissue was anesthetized using 5 mL of 1% lidocaine without epinephrine under direct visualization with the ultrasound. After adequate anesthetization was achieved, the Internal Jugular vein was cannulated under direct ultrasound guidance using an introducer needle on a syringe. Good venous blood return was maintained prior to removal of syringe from introducer needle. Using Seldinger Technique, a guide wire was advanced through the introducer needle without resistance. The introducer needle was removed and ultrasound images were obtained of the guide wire within the Internal Jugular Vein. A small incision was made in penetrating fashion at the guide wire insertion site utilizing an 11 blade scalpel. The dilator was advanced to the vessel without resistance. The dilator was exchanged for the triple lumen catheter which was advanced into the vessel without resistance. The guide wire was removed intact from the catheter without issue. Claves were placed on each catheter tip with confirmation of good blood flow from each lumen. Each port was easily flushed with sterile saline. The catheter was placed at 17 cm and sutured in place. BioPatch was applied to the catheter and a sterile Tegaderm dressing was applied over the catheter with careful attention to sterility. Patient tolerated procedure well. No immediate complications were met. Post procedure x-ray was completed, placement was appropriate and no pneumothorax was noted. Procedural Ultrasound Guidance: Procedure Date: 12/15/2024 Indication: Central line Attending: Dr. Sotelo APC: Luz Marrero PA-C Artery AND Vein visualized: Y Compressible Vein: Y Guidewire or Short Catheter seen in vein prior to dilation: Y Coding Additional Codes Date of Service (PG.SURGERY)
[2024-12-15] MEDS: FORMOTEROL 20 MCG/2 ML VIAL NEB SCH (20:54)
[2024-12-15] MEDS: BUDESONIDE 0.5 MG/2 ML VIAL (PULMICORT) NEB SCH (20:54)
[2024-12-15] MEDS: ARTIFICIAL TEARS OP OINT 3.5 GM TUBE OP SCH (20:58)
[2024-12-15] MEDS: dexAMETHasone 20 MG in DEXTROSE 5% 25 ML IV SCH (21:03)
[2024-12-15] MEDS: OXcarbazepine 150 MG TABLET PO SCH (21:04)
--- NOTE | 2024-12-15 21:08 | XRay Report ---
Exam(s): XR CXR 1 VIEW EXAM: XR Chest, 1 View CLINICAL HISTORY: Reason for exam: line placement. TECHNIQUE: Frontal view of the chest. COMPARISON: 12/15/2024 FINDINGS: Lungs: Airspace opacities bilaterally are unchanged. Pleural space: Small pleural effusions. Heart: Cardiomegaly. Tubes, lines and devices: Endotracheal tube terminates 3.2 cm above the ximena. Right IJ central line terminates in the region of the distal SVC. Esophagogastric tube terminates in the stomach. IMPRESSION: 1. Endotracheal tube terminates 3.2 cm above the ximena. 2. Right IJ central line terminates in the region of the distal SVC. 3. Cardiomegaly. 4. Airspace opacities bilaterally are unchanged. Electronically signed by: Wyatt Roque MD 12/15/24 21:07 PM
--- NOTE | 2024-12-15 21:31 | Communication Note ---
Date of Service: December 15, 2024 Patient seen on evening rounds. Events of today noted. She underwent bronchoscopy showing LLL mucus plugging. Given her progressive ARDS she is to be paralyzed and proned for hopeful improvement in oxygenation. -Place CVC and arterial line -Start Nimbex infusion -Transition to DEXA-ARDS protocol Decadron 20mg QD x5D, then 10mg x5D -PPI Q12H -Pre and post prone ABG with adjustments as indicated -If patient does not show improvement with prone positioning may need to consider web analytics specialist consultation. She has no absolute contraindication for VV ECMO. (BMI > 40 as relative contraindication) Patient proned at 5, prone x16 hours. Plan to supine at 12/16/2024 1245. D/w Dr. Sotelo via telephone. I did update patient's son via telephone as well. All questions answered to apparent satisfaction. Coding Level of Care Code None
[2024-12-15 22:00] LABS: iSTAT Art Bld Gas pCO2 Correct 59 mmHg (35-46); iSTAT Art Bld Gas pH Corrected 7.412 (7.35-7.45); iSTAT Arterial Blood Gas HCO3 37 meg/L (19-24); iSTAT Arterial Blood Gas pCO2 58 mmHg (35-46); iSTAT Arterial Blood Gas pH 7.42 (7.35-7.45); iSTAT Arterial Blood Gas pO2 52 mmHg (80-95); iSTAT Arterial Blood Gas pO2 C 54; iSTAT Carbon Dioxide 39 mmol/L (24-31); iSTAT FiO2 100 %; iSTAT Hematocrit 49 % (37-47); iSTAT Hemoglobin 16.7 g/dl (12.0-16.0); iSTAT Potassium 4.2 mmol/L (3.3-5.0); iSTAT Sample Type Arterial; iSTAT Site Art Line; iSTAT Sodium 141 mmol/L (135-144)
[2024-12-15 22:00] LABS: iSTAT Art Bld Gas pCO2 Correct 51 mmHg (35-46); iSTAT Art Bld Gas pH Corrected 7.462 (7.35-7.45); iSTAT Arterial Blood Gas HCO3 36 meg/L (19-24); iSTAT Arterial Blood Gas pCO2 50 mmHg (35-46); iSTAT Arterial Blood Gas pH 7.47 (7.35-7.45); iSTAT Arterial Blood Gas pO2 104 mmHg (80-95); iSTAT Arterial Blood Gas pO2 C 106; iSTAT Carbon Dioxide 38 mmol/L (24-31); iSTAT FiO2 100 %; iSTAT Hematocrit 48 % (37-47); iSTAT Hemoglobin 16.3 g/dl (12.0-16.0); iSTAT Sample Type Arterial; iSTAT Site Art Line; iSTAT Sodium 140 mmol/L (135-144); iSTAT SpO2 98
[2024-12-15] MEDS: DEXAMETHASONE SOD INJ 4 MG/ML VIAL IV STA (22:24)
[2024-12-16 04:11] LABS: iSTAT Art Bld Gas pCO2 Correct 53 mmHg (35-46); iSTAT Art Bld Gas pH Corrected 7.438 (7.35-7.45); iSTAT Arterial Blood Gas HCO3 36 meg/L (19-24); iSTAT Arterial Blood Gas pCO2 53 mmHg (35-46); iSTAT Arterial Blood Gas pH 7.44 (7.35-7.45); iSTAT Arterial Blood Gas pO2 165 mmHg (80-95); iSTAT Arterial Blood Gas pO2 C 165; iSTAT Carbon Dioxide 37 mmol/L (24-31); iSTAT FiO2 90 %; iSTAT Hematocrit 50 % (37-47); iSTAT Potassium 4.2 mmol/L (3.3-5.0); iSTAT Sample Type Arterial; iSTAT Site Art Line; iSTAT Sodium 139 mmol/L (135-144); iSTAT SpO2 100
[2024-12-16 05:08] LABS: Basophils # (auto) 0.02 K/uL (0.00-0.20); Basophils % (auto) 0.3 %; Hemoglobin 15.9 g/dl (12.0-16.0); Immature Granulocytes # (auto) 0.03 K/uL (0.01-0.20); Immature Granulocytes % (auto) 0.5 %; Lymphocytes # (auto) 0.42 K/uL (1.20-3.40); Lymphocytes % (auto) 6.6 %; Mean Corpuscular Hemoglobin 30.3 pg (25.0-34.0); Mean Corpuscular Hgb Conc 31.8 g/dL (32.0-36.0); Mean Corpuscular Volume 95.4 fL (80.0-100.0); Mean Platelet Volume 10.6 fL (9.4-12.4); Monocytes % (auto) 4.7 %; Neutrophils # (auto) 5.57 K/uL (1.40-6.50); Neutrophils % (auto) 87.9 %; Platelet Count 222 K/uL (130-400); RDW Coefficient of Variation 16.4 % (11.5-14.5); RDW Standard Deviation 57.2 fL (36.4-46.3); Red Blood Count 5.24 M/uL (4.20-5.40); White Blood Count 6.34 K/ul (4.8-10.8)
[2024-12-16 05:26] LABS: Albumin Globulin Ratio 0.9 (0.9-2); Albumin Level 2.8 gm/dl (3.4-5.0); BUN Creatinine Ratio 22.3 (10-20); Bilirubin,Total 0.5 mg/dl (0.2-1.0); Calcium 8.8 mg/dl (8.6-10.3); Creatinine Clr Calc Pharmacy 77.5 ml/min; Globulin 3.1 gm/dl (2.5-4.0); Magnesium 2.2 mg/dl (1.7-2.4); Phosphorus 5.1 mg/dl (2.5-4.9); Potassium 4.2 mmol/L (3.5-5.1); Total Protein 5.9 gm/dl (6.0-8.3)
--- NOTE | 2024-12-16 07:41 | Critical Care Progress Note ---
Date of Service December 16, 2024 Assessment & Plan (1) Acute on chronic respiratory failure with hypoxia and hypercapnia: (2) RSV (acute bronchiolitis due to respiratory syncytial virus): (3) Metabolic encephalopathy: (4) Pneumonia: (5) Admitted to intensive care unit: (6) Hypertension: (7) Anxiety and depression: (8) COPD (chronic obstructive pulmonary disease): (9) ARDS (adult respiratory distress syndrome): Plan Reason Critically Ill: Acute on chronic hypoxemic and hypercapneic respiratory failure/COPD RSV bronchiolitis Possible superimposed bacterial pneumonia Acute metabolic encephalopathy 2/2 hypercapnia Neuro - [facility] ICU: Negative Patient got bradycardic while on propofol, it was changed to midazolam Continue with fentanyl --Anxiety/depression On fluoxetine, oxcarbazepine, lamotrigine at home Cardiac - -- Hypertension On losartan at home Respiratory - CTA chest 12/15/2024: Negative for pulmonary emboli Dense consolidative process appreciated in bilateral lower lobes, more pronounced on the left Cardiomegaly No significant mediastinal lymphadenopathy -- Vent dependent respiratory failure with ARDS Started on DEXA-ARDS protocol on evening of 12/15/2024, 20 mg of dexamethasone for 5 days followed by 10 mg for 5 days, pantoprazole twice daily Proning for at least 16 hours a day Continue with lung protective ventilation High PEEP, low tidal volume to keep Plateau < 30 with permissive hypercapnea if need be. Monitor ABGs Continue mechanical ventilation Continue with steroids --History of COPD with chronic hypoxic respiratory failure Continue with budesonide and Perforomist while intubated GI - No acute concerns RENAL/LYTES - Monitor BUNs/creatinine Avoid nephrotoxic medication ENDO - TSH 2.2 BG 140-180 per SCCM guidelines ISS if needed while inpatient HEME - No acute concerns Doppler bilateral lower extremity negative for DVT ID - -- Multifocal pneumonia Patient seems to be ARDS like picture CTA chest was negative for pulmonary emboli on 12/15/2024 Continue with antibiotics Nasal MRSA negative UA negative for leukocyte esterase and bacteria --Prophylaxis VTE: Heparin GI: Pantoprazole Lines: Right IJ, radial, positive Tian Diet: Tube feeds on hold Plan: In/out: -124, urine output 1880 ABG 7.44/53/165 on PEEP of 12, 80% FiO2 Continue with DEXA ARDS. Proning for 16 hours and then 8 hours supine. Continue with Nimbex Overall prognosis is guarded. Patient's son Brandon [phone], is being updated on the phone. Voicemail was left today I have personally spent 57 minutes of critical care time in the direct management of this patient. This is a life/limb threatening event. This includes time spent evaluating patient, direct bedside care, chart review, placing orders, interpretation of diagnostic studies, discussion with consultants, patient, and family members, as well as other required patient management activities. This time is exclusive of all separately billable procedures, and teaching time and separate from and in addition to any other critical care service time. Thank you for allowing us to participate in the care of this patient. Please refer to my attending physician's documentation for any further recommendations. Admission and Anticipated Discharge Date Admission Date: December 14, 2024 Subjective Patient seen and examined at bedside. No acute distress, notable symptoms overnight She was proned at the time of examination She was on PEEP of 12, FiO2 70% saturating 96%, I went down to 60% and then gradually to 50% while maintaining the PEEP of 12 She was on fentanyl 300 and midazolam at 5. Peak was 30 with plateau 27 Has been afebrile Making good amount of urine Review of Systems 2 Review of Systems: Unobtainable due to endotracheal tube Physical Exam 2 Physical Exam: Constitutional: No acute distress HEENT: PERRLA Respiratory system: Decreased air entry bilaterally, no wheeze, minimal rhonchi bilaterally positive crackles bilateral lower lobes CVS: S1-S2 positive, distant heart sounds Abdomen: Soft, nontender, nondistended, positive bowel sounds x4, obese Extremities: +2 pulses bilaterally radialis/ dorsalis pedis, no cyanosis, no edema Neuro: Paralyzed, breathing with the vent Psych: Unable to assess G/U: Positive Tian Skin: no rashes, warm and dry Lymphatic: no cervical or axillary lymphadenopathy Results & Data Results & Data Vital Signs (Past 12 Hours) Vital Signs Temp Pulse Resp BP Pulse Ox O2 Del Method FiO2 12/16/24 07:03 36.9 C 52 L 24 96 12/16/24 07:01 130/68 12/16/24 05:01 131/62 12/16/24 05:01 131/62 12/16/24 05:00 37.1 C 53 L 24 97 12/16/24 04:12 37.1 C 55 L 24 97 12/16/24 04:01 134/64 12/16/24 04:01 134/64 12/16/24 04:00 56 L 141/71 H 12/16/24 04:00 80 12/16/24 03:56 57 L 24 97 80 12/16/24 03:54 37.0 C 58 L 24 98 12/16/24 03:01 144/67 H 12/16/24 03:01 144/67 H 12/16/24 03:01 144/67 H 12/16/24 03:01 144/67 H 12/16/24 03:01 144/67 H 12/16/24 03:00 37.1 C 55 L 24 100 12/16/24 02:03 37.2 C 59 L 24 99 12/16/24 02:01 142/63 H 12/16/24 02:01 142/63 H 12/16/24 02:01 142/63 H 12/16/24 02:01 142/63 H 12/16/24 01:48 37.2 C 58 L 24 100 12/16/24 01:01 141/62 H 12/16/24 01:01 141/62 H 12/16/24 01:00 37.2 C 56 L 24 99 12/16/24 00:19 141/81 H 12/16/24 00:19 141/81 H 12/16/24 00:15 37.3 C 48 L 23 88 L 12/16/24 00:12 37.4 C 48 L 24 87 L 12/16/24 00:01 143/81 H 12/16/24 00:01 143/81 H 12/16/24 00:00 61 12/16/24 00:00 100 12/15/24 23:51 37.4 C 50 L 24 100 12/15/24 23:15 37.4 C 51 L 24 100 12/15/24 22:31 140/78 12/15/24 22:31 140/78 12/15/24 22:27 37.3 C 49 L 22 99 12/15/24 22:16 133/71 12/15/24 22:16 133/71 12/15/24 22:16 133/71 12/15/24 22:12 37.3 C 48 L 24 99 12/15/24 22:05 47 L 24 97 100 12/15/24 22:01 131/66 12/15/24 22:00 37.4 C 46 L 24 97 12/15/24 21:46 127/62 12/15/24 21:46 127/62 12/15/24 21:46 127/62 12/15/24 21:31 129/59 L 12/15/24 21:30 Mechanical Vent 100 12/15/24 21:18 37.5 C 52 L 21 98 12/15/24 21:16 122/61 12/15/24 21:01 117/57 L 12/15/24 21:01 117/57 L 12/15/24 20:55 59 L 24 94 100 12/15/24 20:33 37.6 C H 55 L 24 12/15/24 20:31 110/67 12/15/24 20:31 110/67 12/15/24 20:31 110/67 12/15/24 20:16 118/61 12/15/24 20:16 118/61 12/15/24 20:12 37.2 C 51 L 24 85 L 12/15/24 20:01 103/60 12/15/24 20:00 100 12/15/24 19:54 37.5 C 53 L 24 89 L 12/15/24 19:46 108/60 12/15/24 19:45 37.5 C 51 L 35 H 88 L Laboratory Results 12/16/24 04:32 12/16/24 04:32 Coding Level of Care Code 14740 CRITICAL CARE 1ST 30-74M Diagnoses Acute on chronic respiratory failure with hypoxia and hypercapnia J96.21; J96.22 RSV (acute bronchiolitis due to respiratory syncytial virus) J21.0 Metabolic encephalopathy G93.41 Pneumonia J18.9 Admitted to intensive care unit Z78.9 Hypertension I10 Anxiety and depression F41.9; F32.A COPD (chronic obstructive pulmonary disease) J44.9 ARDS (adult respiratory distress syndrome) J80
[2024-12-16] MEDS: FLUoxetine HCL 20 MG CAP PO SCH (08:28)
[2024-12-16] MEDS: lamoTRIgine 100 MG TAB PO SCH (08:28)
[2024-12-16 08:44] LABS: Estimated Average Glucose 140 mg/dl; Hemoglobin A1C 6.5 % (4.5-5.6)
--- NOTE | 2024-12-16 10:39 | Hospitalist Progress Note ---
Date of Service December 16, 2024 Assessment & Plan (1) Admitted to intensive care unit: (2) Metabolic encephalopathy: (3) RSV (acute bronchiolitis due to respiratory syncytial virus): (4) Acute on chronic respiratory failure with hypoxia and hypercapnia: (5) COPD (chronic obstructive pulmonary disease): (6) Pneumonia: Plan 54-year-old female intubated in the emergency room with acute hypoxic and hypercapnic respiratory failure BioFire testing positive for RSV with CT showing multifocal pneumonia Acute on chronic hypoxic hypercapnic respiratory failure /multifocal pneumonia /COPD / RSV Patient is intubated and will defer ongoing management of this to the ICU team, was unable to tolerate propofol due to bradycardia therefore currently on fentanyl and midazolam, paralyzed yesterday with cisatracurium on BIS monitor Continue steroids (switched to dexamethasone per ICU for ARDS), DuoNebs, formoterol, budesonide nebs Continue Zosyn, consider adding fluoroquinolone discussed with ICU team and holding off dual antibiotics currently Bronchoscopy cultures with no growth to date Blood cultures no growth after 24 hours - taken after initial antibiotics given Chronic medical conditions: GERD-on omeprazole 20 mg daily, changing to pantoprazole 40 mg IV twice daily Hypertension-Holding aspirin, bumetanide, losartan Anxiety/depression- restarted fluoxetine, oxcarbazepine and lamotrigine via OG, suspect she is on oxcarbazepine and lamotrigine for bipolar with no known s eizure history VTE prophylaxis - heparin 5000 units q.8 hourly Diet - NPO on tube feeding Disposition - continue ICU Admission and Anticipated Discharge Date Admission Date: December 14, 2024 Subjective Paged intubated. BIS monitor around 50 on Fentanyl and midazolam. Appears to be doing better with an FiO2 50% from 100% yesterday now paralyzed (cisatracurium) and prone. Switch to ARDS dexamethasone protocol yesterday. Review of Systems Review of Systems: Unobtainable due to endotracheal tube and Unobtainable due to reduced consciousness Physical Exam Constitutional: Intubated in prone position Respiratory: normal respiratory effort Auscultation: + wheezes (Mild end expiratory wheeze); no crackles and no rhonchi Cardiovascular: Rate/Rhythm: regular rate and regular rhythm Results & Data Results & Data Vital Signs (Past 12 Hours) Vital Signs Temp Pulse Resp BP Pulse Ox FiO2 12/16/24 10:01 134/67 12/16/24 10:00 36.7 C 56 L 22 92 12/16/24 09:30 36.6 C 59 L 22 92 12/16/24 09:06 36.6 C 58 L 22 12/16/24 09:01 126/68 12/16/24 08:54 36.7 C 56 L 22 92 12/16/24 08:30 36.7 C 58 L 24 94 12/16/24 08:01 136/60 12/16/24 08:00 36.8 C 60 24 95 12/16/24 07:43 58 L 24 96 80 12/16/24 07:30 36.9 C 54 L 24 96 12/16/24 07:03 36.9 C 52 L 24 96 12/16/24 07:01 130/68 12/16/24 05:01 131/62 12/16/24 05:01 131/62 12/16/24 05:00 37.1 C 53 L 24 97 12/16/24 04:12 37.1 C 55 L 24 97 12/16/24 04:01 134/64 12/16/24 04:01 134/64 12/16/24 04:00 56 L 141/71 H 12/16/24 04:00 80 12/16/24 03:56 57 L 24 97 80 12/16/24 03:54 37.0 C 58 L 24 98 12/16/24 03:01 144/67 H 12/16/24 03:01 144/67 H 12/16/24 03:01 144/67 H 12/16/24 03:01 144/67 H 12/16/24 03:01 144/67 H 12/16/24 03:00 37.1 C 55 L 24 100 12/16/24 02:03 37.2 C 59 L 24 99 12/16/24 02:01 142/63 H 12/16/24 02:01 142/63 H 12/16/24 02:01 142/63 H 12/16/24 02:01 142/63 H 12/16/24 01:48 37.2 C 58 L 24 100 12/16/24 01:01 141/62 H 12/16/24 01:01 141/62 H 12/16/24 01:00 37.2 C 56 L 24 99 12/16/24 00:19 141/81 H 12/16/24 00:19 141/81 H 12/16/24 00:15 37.3 C 48 L 23 88 L 12/16/24 00:12 37.4 C 48 L 24 87 L 12/16/24 00:01 143/81 H 12/16/24 00:01 143/81 H 12/16/24 00:00 61 12/16/24 00:00 100 12/15/24 23:51 37.4 C 50 L 24 100 12/15/24 23:15 37.4 C 51 L 24 100 PG Care Time/CCT Total # of Minutes Spent Total Time Spent with Patient: Total time spent is greater than 50% in coordination of care (as documented) at patient's floor/unit and/or counseling patient: Coding Level of Care Code 02657 SUB INP/OBS CARE 3/50MIN Diagnoses Admitted to intensive care unit Z78.9 Metabolic encephalopathy G93.41 RSV (acute bronchiolitis due to respiratory syncytial virus) J21.0 Acute on chronic respiratory failure with hypoxia and hypercapnia J96.21; J96.22 COPD (chronic obstructive pulmonary disease) J44.9 Pneumonia J18.9
--- NOTE | 2024-12-16 13:56 | Pharmacy Report ---
Pharmacy Glycemic Short Note 2 - Date of Service December 16, 2024 - Glycemic Short BSG Results (Last 24 hours): 12/15/24 12/16/24 12/16/24 18:25 00:05 04:32 Glucose 168 H POC Glucose 115 H 118 H 12/16/24 11:12 Glucose POC Glucose 90 OUTPATIENT ANTIDIABETIC REGIMEN: * none * 6.5% 12/16/24 ASSESSMENT: 12/16 * Patient continues with intubation, steroids increased to dexamethasone 20 mg daily x 5 days then 10 mg x 5 days * BSGs hae remained stable despite steroids and addition of tube feeds. Removed carb ratio but will continue to monitor 12/15 * Patient admitted with respiratory failure, currently admitted to the ICU, intubated on methylprednisolone 60 mg q12H IV * Consulted with initial BSG > 180 mg/dL, these have since been <160 mg/dL without insulin. * Novolog ordered started based on adjusted body weight and stress of 3. Patient has not required any insulin at this time. A1c is pending. * Will continue novolog for now with initiation of TF and continued steroid use but loosened to stress of 2- monitor for need, consider discontinuing carb ratio if BSGs remain stable * Holding basal for now PLAN FOR INPATIENT GLYCEMIC CONTROL: * Hold outpatient oral diabetes medications * Basal insulin * held * Bolus insulin * NovoLog per scale ACHS or Q6hrs while NPO * Goal Range: Low 120 mg/dL - High 160 mg/dL * Correction Factor: 30 mg/dL/unit * Nutritional / Prandial insulin per carb ratio of 1 unit per -- grams CHO consumed
[2024-12-16 23:59] LABS: iSTAT Art Bld Gas pCO2 Correct 50 mmHg (35-46); iSTAT Art Bld Gas pH Corrected 7.461 (7.35-7.45); iSTAT Arterial Blood Gas HCO3 36 meg/L (19-24); iSTAT Arterial Blood Gas pCO2 50 mmHg (35-46); iSTAT Arterial Blood Gas pH 7.46 (7.35-7.45); iSTAT Arterial Blood Gas pO2 76 mmHg (80-95); iSTAT Arterial Blood Gas pO2 C 76; iSTAT Carbon Dioxide 37 mmol/L (24-31); iSTAT FiO2 70 %; iSTAT Hematocrit 51 % (37-47); iSTAT Hemoglobin 17.3 g/dl (12.0-16.0); iSTAT Potassium 4.1 mmol/L (3.3-5.0); iSTAT Sample Type Arterial; iSTAT Site Art Line; iSTAT Sodium 138 mmol/L (135-144); iSTAT SpO2 92
[2024-12-17 04:11] LABS: iSTAT Art Bld Gas pCO2 Correct 57 mmHg (35-46); iSTAT Art Bld Gas pH Corrected 7.399 (7.35-7.45); iSTAT Arterial Blood Gas HCO3 35 meg/L (19-24); iSTAT Arterial Blood Gas pCO2 57 mmHg (35-46); iSTAT Arterial Blood Gas pO2 99 mmHg (80-95); iSTAT Arterial Blood Gas pO2 C 98; iSTAT Carbon Dioxide 37 mmol/L (24-31); iSTAT FiO2 70 %; iSTAT Hematocrit 51 % (37-47); iSTAT Hemoglobin 17.3 g/dl (12.0-16.0); iSTAT Potassium 4.1 mmol/L (3.3-5.0); iSTAT Sample Type Arterial; iSTAT Site Art Line; iSTAT Sodium 138 mmol/L (135-144); iSTAT SpO2 95
[2024-12-17 05:19] LABS: Basophils # (auto) 0.01 K/uL (0.00-0.20); Basophils % (auto) 0.1 %; Hemoglobin 15.6 g/dl (12.0-16.0); Immature Granulocytes # (auto) 0.04 K/uL (0.01-0.20); Immature Granulocytes % (auto) 0.5 %; Lymphocytes # (auto) 0.95 K/uL (1.20-3.40); Mean Corpuscular Hemoglobin 29.6 pg (25.0-34.0); Mean Corpuscular Hgb Conc 31.2 g/dL (32.0-36.0); Mean Corpuscular Volume 94.9 fL (80.0-100.0); Mean Platelet Volume 10.3 fL (9.4-12.4); Monocytes # (auto) 0.64 K/uL (0.11-0.59); Monocytes % (auto) 7.4 %; Platelet Count 206 K/uL (130-400); RDW Coefficient of Variation 16.9 % (11.5-14.5); RDW Standard Deviation 57.7 fL (36.4-46.3); Red Blood Count 5.27 M/uL (4.20-5.40); White Blood Count 8.64 K/ul (4.8-10.8)
[2024-12-17 05:33] LABS: Albumin Globulin Ratio 0.9 (0.9-2); Albumin Level 2.7 gm/dl (3.4-5.0); BUN Creatinine Ratio 23.8 (10-20); Bilirubin,Total 0.6 mg/dl (0.2-1.0); Calcium 8.8 mg/dl (8.6-10.3); Creatinine Clr Calc Pharmacy 84.7 ml/min; Magnesium 2.1 mg/dl (1.7-2.4); Phosphorus 5.5 mg/dl (2.5-4.9); Potassium 4.1 mmol/L (3.5-5.1); Total Protein 5.7 gm/dl (6.0-8.3)
--- NOTE | 2024-12-17 07:50 | Critical Care Progress Note ---
Date of Service December 17, 2024 Assessment & Plan (1) Acute on chronic respiratory failure with hypoxia and hypercapnia: (2) RSV (acute bronchiolitis due to respiratory syncytial virus): (3) Metabolic encephalopathy: (4) Pneumonia: (5) Admitted to intensive care unit: (6) Hypertension: (7) Anxiety and depression: (8) COPD (chronic obstructive pulmonary disease): (9) ARDS (adult respiratory distress syndrome): Plan Reason Critically Ill: Acute on chronic hypoxemic and hypercapneic respiratory failure/COPD RSV bronchiolitis Possible superimposed bacterial pneumonia Acute metabolic encephalopathy 2/2 hypercapnia ARDS Neuro - [facility] ICU: Negative Patient got bradycardic while on propofol, it was changed to midazolam Continue with fentanyl --Anxiety/depression On fluoxetine, oxcarbazepine, lamotrigine at home Cardiac - -- Hypertension On losartan at home Respiratory - CTA chest 12/15/2024: Negative for pulmonary emboli Dense consolidative process appreciated in bilateral lower lobes, more pronounced on the left Cardiomegaly No significant mediastinal lymphadenopathy -- Vent dependent respiratory failure with ARDS Started on DEXA-ARDS protocol on evening of 12/15/2024, 20 mg of dexamethasone for 5 days followed by 10 mg for 5 days, pantoprazole twice daily Proning for at least 16 hours a day Continue with lung protective ventilation High PEEP, low tidal volume to keep Plateau < 30 with permissive hypercapnea if need be. Monitor ABGs Continue mechanical ventilation Continue with steroids --History of COPD with chronic hypoxic respiratory failure Continue with budesonide and Perforomist while intubated GI - No acute concerns RENAL/LYTES - Monitor BUNs/creatinine Avoid nephrotoxic medication ENDO - TSH 2.2 BG 140-180 per [facility]M guidelines ISS if needed while inpatient HEME - No acute concerns Doppler bilateral lower extremity negative for DVT ID - -- Multifocal pneumonia Patient seems to be ARDS like picture CTA chest was negative for pulmonary emboli on 12/15/2024 Continue with antibiotics Nasal MRSA negative UA negative for leukocyte esterase and bacteria --Prophylaxis VTE: Heparin GI: Pantoprazole Lines: Right IJ, radial, positive Tian Diet: Tube feeds on hold Plan: In/out: +211, urine output 1675 AB.40/57/99 on 70%, PEEP of 12 Continue with DEXA ARDS, will supine the patient around 1:30-2 PM today. Hopes that we would not have the need to supine her again. Will continue with paralytics Complete the course of antibiotics for 5 days Continue with pantoprazole given the patient is on high-dose dexamethasone Overall prognosis is guarded. Patient's son Brandon [phone] I have personally spent 42 minutes of critical care time in the direct management of this patient. This is a life/limb threatening event. This includes time spent evaluating patient, direct bedside care, chart review, placing orders, interpretation of diagnostic studies, discussion with consultants, patient, and family members, as well as other required patient management activities. This time is exclusive of all separately billable procedures, and teaching time and separate from and in addition to any other critical care service time. Thank you for allowing us to participate in the care of this patient. Please refer to my attending physician's documentation for any further recommendations. Admission and Anticipated Discharge Date Admission Date: December 14, 2024 Subjective Patient seen and examined at bedside. No acute distress, notable symptoms overnight She was paralyzed On fentanyl 225 and midazolam 5.5 at the time of examination She was prone. Was saturating 93-94% on PEEP of 1240% FiO2. I went down to PEEP of 10. MAP was in the high 80s. Review of Systems 2 Review of Systems: Unobtainable due to endotracheal tube Physical Exam 2 Physical Exam: Constitutional: No acute distress HEENT: PERRLA Respiratory system: Decreased air entry bilaterally, no wheeze, positive minimal rhonchi bilaterally, positive crackles bilateral lower lobes CVS: S1-S2 positive, distant heart sounds Abdomen: Soft, nontender, nondistended, positive bowel sounds x4, obese Extremities: +2 pulses bilaterally radialis/ dorsalis pedis, no cyanosis, no edema Neuro: Paralyzed, breathing with the vent Psych: Unable to assess G/U: Positive Tian Skin: no rashes, warm and dry Lymphatic: no cervical or axillary lymphadenopathy Results & Data Results & Data Vital Signs (Past 12 Hours) Vital Signs Temp Pulse Pulse Resp BP Pulse Ox O2 Del Method 12/17/24 05:01 113/57 L 12/17/24 05:00 37.0 C 55 L 20 96 12/17/24 04:10 54 L 20 93 12/17/24 04:06 36.9 C 59 L 20 95 12/17/24 04:01 125/59 L 12/17/24 04:01 125/59 L 12/17/24 04:00 59 L 136/71 12/17/24 04:00 12/17/24 03:51 36.9 C 59 L 20 99 12/17/24 03:03 36.9 C 57 L 20 93 12/17/24 03:01 119/56 L 12/17/24 03:00 36.9 C 57 L 20 93 12/17/24 02:01 127/56 L 12/17/24 02:00 37.0 C 56 L 20 97 12/17/24 01:33 52 L 20 94 Mechanical Vent 12/17/24 01:09 37.0 C 50 L 20 96 12/17/24 01:01 118/70 12/17/24 01:01 118/70 12/17/24 00:57 37.0 C 50 L 20 95 12/17/24 00:03 37.0 C 53 L 22 95 12/17/24 00:01 125/67 12/17/24 00:01 125/67 12/17/24 00:01 125/67 12/17/24 00:00 49 L 12/17/24 00:00 12/17/24 00:00 48 L 155/74 H 12/17/24 00:00 36.9 C 51 L 22 94 12/16/24 23:01 141/78 H 12/16/24 23:01 141/78 H 12/16/24 23:00 36.9 C 50 L 22 97 12/16/24 22:52 49 L 22 92 12/16/24 22:01 118/67 12/16/24 22:01 118/67 12/16/24 22:00 37.0 C 51 L 22 93 12/16/24 21:10 22 12/16/24 21:02 130/75 12/16/24 21:02 130/75 12/16/24 21:00 37.3 C 52 L 22 91 12/16/24 20:03 37.4 C 56 L 22 90 12/16/24 20:01 121/62 12/16/24 20:01 121/62 12/16/24 20:01 121/62 12/16/24 20:01 121/62 12/16/24 20:00 FiO2 12/17/24 05:01 12/17/24 05:00 12/17/24 04:10 60 12/17/24 04:06 12/17/24 04:01 12/17/24 04:01 12/17/24 04:00 12/17/24 04:00 60 12/17/24 03:51 12/17/24 03:03 12/17/24 03:01 12/17/24 03:00 12/17/24 02:01 12/17/24 02:00 12/17/24 01:33 70 12/17/24 01:09 12/17/24 01:01 12/17/24 01:01 12/17/24 00:57 12/17/24 00:03 12/17/24 00:01 12/17/24 00:01 12/17/24 00:01 12/17/24 00:00 12/17/24 00:00 70 12/17/24 00:00 12/17/24 00:00 12/16/24 23:01 12/16/24 23:01 12/16/24 23:00 12/16/24 22:52 70 12/16/24 22:01 12/16/24 22:01 12/16/24 22:00 12/16/24 21:10 70 12/16/24 21:02 12/16/24 21:02 12/16/24 21:00 12/16/24 20:03 12/16/24 20:01 12/16/24 20:01 12/16/24 20:01 12/16/24 20:01 12/16/24 20:00 50 Laboratory Results 12/17/24 04:50 12/17/24 04:50 Coding Level of Care Code 85591 CRITICAL CARE 1ST 30-74M Diagnoses Acute on chronic respiratory failure with hypoxia and hypercapnia J96.21; J96.22 RSV (acute bronchiolitis due to respiratory syncytial virus) J21.0 Metabolic encephalopathy G93.41 Pneumonia J18.9 Admitted to intensive care unit Z78.9 Hypertension I10 Anxiety and depression F41.9; F32.A COPD (chronic obstructive pulmonary disease) J44.9 ARDS (adult respiratory distress syndrome) J80
[2024-12-17] MEDS: PIPERACILLIN/TAZOBACTAM 4.5 GM/100 ML BAG IV SCH ×2 (08:10→14:39)
[2024-12-17] MEDS: PIPERACILLIN/TAZOBACTAM 4.5 GM/100 ML BAG IV STA (08:10)
[2024-12-17] MEDS: POLYETHYLENE (MIRALAX) 17 GM PACK PO SCH (08:16)
[2024-12-17 10:22] LABS: iSTAT Art Bld Gas pCO2 Correct 54 mmHg (35-46); iSTAT Art Bld Gas pH Corrected 7.417 (7.35-7.45); iSTAT Arterial Blood Gas HCO3 35 meg/L (19-24); iSTAT Arterial Blood Gas pCO2 53 mmHg (35-46); iSTAT Arterial Blood Gas pH 7.42 (7.35-7.45); iSTAT Arterial Blood Gas pO2 64 mmHg (80-95); iSTAT Arterial Blood Gas pO2 C 65; iSTAT Carbon Dioxide 36 mmol/L (24-31); iSTAT FiO2 40 %; iSTAT Hematocrit 50 % (37-47); iSTAT Potassium 4.3 mmol/L (3.3-5.0); iSTAT Sample Type Arterial; iSTAT Site Art Line; iSTAT Sodium 138 mmol/L (135-144); iSTAT SpO2 89
--- NOTE | 2024-12-17 14:45 | XRay Report ---
XR chest 1V portable CLINICAL HISTORY: f/u COMPARISON STUDY: 12/15/2024 FINDINGS: Endotracheal tube tip is just above the ximena. Nasogastric tube tip is off the field of vi ew inferiorly. Stable right central catheter. Stable cardiomegaly with mild pulmonary vascular conges tion. Stable hazy opacity in the left lung base with partial obscuration of the diaphragm. There is i ncreased hazy opacity at the right base with obscuration of the diaphragm. No pneumothorax. IMPRESSION: Increased opacity at the right base could represent pneumonia or atelectasis. ACT 112: Negative or not required by law. Electronically signed by: Abdoulaye Sierra M.D. 12/17/2024 2:43 PM
--- NOTE | 2024-12-17 15:43 | Hospitalist Progress Note ---
Date of Service December 17, 2024 Assessment & Plan (1) Admitted to intensive care unit: (2) Metabolic encephalopathy: (3) RSV (acute bronchiolitis due to respiratory syncytial virus): (4) Acute on chronic respiratory failure with hypoxia and hypercapnia: (5) COPD (chronic obstructive pulmonary disease): (6) Pneumonia: Plan 54-year-old female intubated in the emergency room with acute hypoxic and hypercapnic respiratory failure [employer] testing positive for RSV with CT showing multifocal pneumonia Acute on chronic hypoxic hypercapnic respiratory failure /multifocal pneumonia /COPD / RSV CTA without evidence of PE 12/[address], ICU managing. Appreciate recommendations and care Remains on Nimbex/fentanyl gtt./Versed gtt. BP intolerant of propofol Ortho protocol continued. Continue steroids, DuoNebs, lateral, budesonide. Zosyn continued. Anticipate 5-day course of antibiotics Bronchoscopy cultures NGTD Blood cultures NGTD Guarded prognosis Chronic medical conditions: GERD-converted to Protonix IV Hypertension-Holding aspirin, bumetanide, losartan Anxiety/depression- restarted fluoxetine, oxcarbazepine and lamotrigine via OG, suspect she is on oxcarbazepine and lamotrigine for bipolar with no known seizure history VTE prophylaxis - heparin 5000 units q.8 hourly Diet - NPO on tube feeding Disposition -ICU Admission and Anticipated Discharge Date Admission Date: December 14, [address] History limited by ETT and sedation. Physical Exam Physical Exam: General: ETT in place, sedated. No acute distress HEENT: Atraumatic, normocephalic. Pulm: ETT in place. symmetrical chest rise. Cardiac: REgular, bradycardic. Abdominal: nondistended, soft. BS present. Results & Data Results & Data Vital Signs (Past 12 Hours) Vital Signs Temp Pulse Resp BP Pulse Ox O2 Del Method FiO2 12/17/24 15:00 36.8 C 55 L 20 94 12/17/24 14:03 37.1 C 60 20 94 12/17/24 13:12 37.3 C 50 L 20 113/72 90 12/17/24 12:06 37.4 C 52 L 20 91 12/17/24 12:00 40 12/17/24 12:00 60 12/17/24 11:12 37.4 C 51 L 20 116/69 91 12/17/24 10:06 52 L 20 89 L 40 12/17/24 10:00 37.2 C 50 L 20 117/72 89 L 12/17/24 08:57 37.2 C 53 L 20 112/62 92 12/17/24 08:00 40 12/17/24 08:00 Mechanical Vent 40 12/17/24 08:00 37.1 C 53 L 20 116/63 94 12/17/24 08:00 54 L 12/17/24 08:00 54 L 12/17/24 07:19 53 L 20 94 50 12/17/24 07:00 37.1 C 53 L 20 113/63 94 12/17/24 05:01 113/57 L 12/17/24 05:00 37.0 C 55 L 20 96 12/17/24 04:10 54 L 20 93 60 12/17/24 04:06 36.9 C 59 L 20 95 12/17/24 04:01 125/59 L 12/17/24 04:01 125/59 L 12/17/24 04:00 59 L 136/71 12/17/24 04:00 60 12/17/24 03:51 36.9 C 59 L 20 99 PG Care Time/CCT Total # of Minutes Spent Total Time Spent with Patient: Total time spent is greater than 50% in coordination of care (as documented) at patient's floor/unit and/or counseling patient: Coding Level of Care Code 69963 SUB INP/OBS CARE 11/15MIN Diagnoses Admitted to intensive care unit Z78.9 Metabolic encephalopathy G93.41 RSV (acute bronchiolitis due to respiratory syncytial virus) J21.0 Acute on chronic respiratory failure with hypoxia and hypercapnia J96.21; J96.22 COPD (chronic obstructive pulmonary disease) J44.9 Pneumonia J18.9
[2024-12-17 16:22] LABS: iSTAT Art Bld Gas pCO2 Correct 53 mmHg (35-46); iSTAT Art Bld Gas pH Corrected 7.428 (7.35-7.45); iSTAT Arterial Blood Gas HCO3 35 meg/L (19-24); iSTAT Arterial Blood Gas pCO2 54 mmHg (35-46); iSTAT Arterial Blood Gas pH 7.43 (7.35-7.45); iSTAT Arterial Blood Gas pO2 70 mmHg (80-95); iSTAT Arterial Blood Gas pO2 C 69; iSTAT Carbon Dioxide 37 mmol/L (24-31); iSTAT FiO2 60 %; iSTAT Hematocrit 52 % (37-47); iSTAT Hemoglobin 17.7 g/dl (12.0-16.0); iSTAT Potassium 4.7 mmol/L (3.3-5.0); iSTAT Sample Type Arterial; iSTAT Site Art Line; iSTAT Sodium 137 mmol/L (135-144); iSTAT SpO2 94
[2024-12-18 04:44] LABS: Basophils # (auto) 0.02 K/uL (0.00-0.20); Basophils % (auto) 0.2 %; Eosinophils # (auto) 0.02 K/uL (0.00-0.50); Eosinophils % (auto) 0.2 %; Hemoglobin 16.5 g/dl (12.0-16.0); Immature Granulocytes # (auto) 0.03 K/uL (0.01-0.20); Immature Granulocytes % (auto) 0.4 %; Lymphocytes # (auto) 1.56 K/uL (1.20-3.40); Lymphocytes % (auto) 18.3 %; Mean Corpuscular Hemoglobin 29.7 pg (25.0-34.0); Mean Corpuscular Hgb Conc 30.6 g/dL (32.0-36.0); Mean Corpuscular Volume 97.1 fL (80.0-100.0); Mean Platelet Volume 10.2 fL (9.4-12.4); Monocytes # (auto) 0.68 K/uL (0.11-0.59); Neutrophils # (auto) 6.21 K/uL (1.40-6.50); Neutrophils % (auto) 72.9 %; Platelet Count 156 K/uL (130-400); RDW Coefficient of Variation 16.9 % (11.5-14.5); RDW Standard Deviation 59.6 fL (36.4-46.3); Red Blood Count 5.56 M/uL (4.20-5.40); White Blood Count 8.52 K/ul (4.8-10.8)
[2024-12-18 04:56] LABS: Calcium 9.4 mg/dl (8.6-10.3); Magnesium 2.2 mg/dl (1.7-2.4); Potassium 4.5 mmol/L (3.5-5.1)
[2024-12-18 05:01] LABS: BUN Creatinine Ratio 24.5 (10-20); Creatinine Clr Calc Pharmacy 87.5 ml/min; Phosphorus 4.9 mg/dl (2.5-4.9)
[2024-12-18 05:16] LABS: iSTAT Allen Test Pass; iSTAT Art Bld Gas pCO2 Correct 54 mmHg (35-46); iSTAT Arterial Blood Gas HCO3 33 meg/L (19-24); iSTAT Arterial Blood Gas pCO2 55 mmHg (35-46); iSTAT Arterial Blood Gas pH 7.39 (7.35-7.45); iSTAT Arterial Blood Gas pO2 97 mmHg (80-95); iSTAT Arterial Blood Gas pO2 C 95; iSTAT Carbon Dioxide 34 mmol/L (24-31); iSTAT FiO2 50 %; iSTAT Hematocrit 53 % (37-47); iSTAT Potassium 4.3 mmol/L (3.3-5.0); iSTAT Sample Type Arterial; iSTAT Site Art Line; iSTAT Sodium 138 mmol/L (135-144); iSTAT SpO2 98
[2024-12-18] MEDS: hydrALAZINE HCL 20 MG/ML VIAL IV ONE ×2 (05:40→06:16)
--- NOTE | 2024-12-18 07:57 | Critical Care Progress Note ---
Date of Service December 18, 2024 Assessment & Plan (1) Acute on chronic respiratory failure with hypoxia and hypercapnia: (2) RSV (acute bronchiolitis due to respiratory syncytial virus): (3) Metabolic encephalopathy: (4) Pneumonia: (5) Admitted to intensive care unit: (6) Hypertension: (7) Anxiety and depression: (8) COPD (chronic obstructive pulmonary disease): (9) ARDS (adult respiratory distress syndrome): Plan Reason Critically Ill: Acute on chronic hypoxemic and hypercapneic respiratory failure/COPD RSV bronchiolitis Possible superimposed bacterial pneumonia Acute metabolic encephalopathy 2/2 hypercapnia ARDS Neuro - [facility] ICU: Negative Patient got bradycardic while on propofol, it was changed to midazolam Continue with fentanyl --Anxiety/depression On fluoxetine, oxcarbazepine, lamotrigine at home Cardiac - -- Hypertension On losartan at home Respiratory - CTA chest 12/15/2024: Negative for pulmonary emboli Dense consolidative process appreciated in bilateral lower lobes, more pronounced on the left Cardiomegaly No significant mediastinal lymphadenopathy -- Vent dependent respiratory failure with ARDS Started on DEXA-ARDS protocol on evening of 12/15/2024, 20 mg of dexamethasone for 5 days followed by 10 mg for 5 days, pantoprazole twice daily S/p proning for total of 2 days. Continue with lung protective ventilation High PEEP, low tidal volume to keep Plateau < 30 with permissive hypercapnea if need be. Monitor ABGs Continue mechanical ventilation Continue with steroids --History of COPD with chronic hypoxic respiratory failure Continue with budesonide and Perforomist while intubated GI - No acute concerns RENAL/LYTES - Monitor BUNs/creatinine Avoid nephrotoxic medication ENDO - TSH 2.2 BG 140-180 per [facility]M guidelines ISS if needed while inpatient HEME - No acute concerns Doppler bilateral lower extremity negative for DVT ID - -- Multifocal pneumonia Patient seems to be ARDS like picture CTA chest was negative for pulmonary emboli on 12/15/2024 Continue with antibiotics Nasal MRSA negative UA negative for leukocyte esterase and bacteria --Prophylaxis VTE: Heparin GI: Pantoprazole Lines: Right IJ, radial, positive Tian Diet: Tube feeds Plan: In/out: -976, urine output 2935 AB.39/55/97 On PEEP of 10, 50% FiO2 Will try to get rid of Precedex today. Patient did have history of ventilator dyssynchrony. Will try to optimize sedation as much as possible. If the patient still has significant dissection and then we will give rocuronium as needed Complete the course of antibiotics for 5 days Continue with pantoprazole given the patient is on high-dose dexamethasone Overall prognosis is guarded. Tube feeds to be resumed today Patient's son Brandon [phone], daughter who was at bedside was updated regarding patient's condition I have personally spent 42 minutes of critical care time in the direct management of this patient. This is a life/limb threatening event. This includes time spent evaluating patient, direct bedside care, chart review, placing orders, interpretation of diagnostic studies, discussion with consultants, patient, and family members, as well as other required patient management activities. This time is exclusive of all separately billable procedures, and teaching time and separate from and in addition to any other critical care service time. Thank you for allowing us to participate in the care of this patient. Please refer to my attending physician's documentation for any further recommendations. Admission and Anticipated Discharge Date Admission Date: December 14, 2024 Subjective Patient seen and examined at bedside. No acute distress, no AutoSense overnight She was on 150 of fentanyl, 5 midazolam at the time of examination She was saturating 89-90% on FiO2 50 and PEEP of 8. She was breathing with the vent given that she was paralyzed Review of Systems 2 Review of Systems: Unobtainable due to endotracheal tube and Other Physical Exam 2 Physical Exam: Constitutional: No acute distress HEENT: PERRLA Respiratory system: Decreased air entry bilaterally, no wheeze, positive minimal rhonchi bilaterally, positive crackles bilateral lower lobes CVS: S1-S2 positive, distant heart sounds Abdomen: Soft, nontender, nondistended, positive bowel sounds x4, obese Extremities: +2 pulses bilaterally radialis/ dorsalis pedis, no cyanosis, no edema Neuro: Paralyzed, breathing with the vent Psych: Unable to assess G/U: Positive Tian Skin: no rashes, warm and dry Lymphatic: no cervical or axillary lymphadenopathy Results & Data Results & Data Vital Signs (Past 12 Hours) Vital Signs Temp Pulse Resp BP Pulse Ox O2 Del Method FiO2 12/18/24 06:09 174/98 H 12/18/24 06:00 174/94 H 12/18/24 06:00 174/94 H 12/18/24 06:00 174/94 H 12/18/24 06:00 36.8 C 60 18 95 12/18/24 05:18 36.8 C 55 L 18 95 12/18/24 05:14 185/104 H 12/18/24 05:12 36.8 C 57 L 18 95 12/18/24 05:00 36.7 C 56 L 18 98 50 12/18/24 04:00 149/90 H 12/18/24 04:00 149/90 H 12/18/24 04:00 36.7 C 49 L 18 95 50 12/18/24 04:00 50 12/18/24 03:00 36.6 C 48 L 18 94 50 12/18/24 02:55 47 L 18 96 50 12/18/24 02:24 36.5 C 53 L 18 96 50 12/18/24 01:00 154/91 H 12/18/24 01:00 154/91 H 12/18/24 01:00 36.4 C L 46 L 18 96 50 12/18/24 00:06 36.4 C L 49 L 18 96 Mechanical Vent 50 12/18/24 00:00 49 L 12/18/24 00:00 50 12/18/24 00:00 47 L 150/87 H 12/17/24 23:27 47 L 18 95 50 12/17/24 23:06 36.4 C L 48 L 18 95 Mechanical Vent 50 12/17/24 23:00 152/94 H 12/17/24 23:00 152/94 H 12/17/24 23:00 152/94 H 12/17/24 22:45 36.4 C L 49 L 18 95 12/17/24 22:12 36.5 C 48 L 18 95 12/17/24 21:03 36.6 C 53 L 18 94 Mechanical Vent 50 12/17/24 21:00 162/95 H 12/17/24 21:00 162/95 H 12/17/24 21:00 162/95 H 12/17/24 21:00 162/95 H 12/17/24 20:57 36.6 C 53 L 18 94 12/17/24 20:20 47 L 18 94 50 12/17/24 20:00 36.5 C 47 L 18 94 Mechanical Vent 50 12/17/24 20:00 150/87 H 12/17/24 20:00 150/87 H 12/17/24 20:00 50 Laboratory Results 12/18/24 04:15 12/18/24 04:15 Coding Level of Care Code 88724 CRITICAL CARE 1ST 30-74M Diagnoses Acute on chronic respiratory failure with hypoxia and hypercapnia J96.21; J96.22 RSV (acute bronchiolitis due to respiratory syncytial virus) J21.0 Metabolic encephalopathy G93.41 Pneumonia J18.9 Admitted to intensive care unit Z78.9 Hypertension I10 Anxiety and depression F41.9; F32.A COPD (chronic obstructive pulmonary disease) J44.9 ARDS (adult respiratory distress syndrome) J80
[2024-12-18] MEDS: PEPTAMEN INTENSE VHP 1.0 CAL 1,000 ML BAG OG SCH (13:57)
--- NOTE | 2024-12-18 16:13 | Hospitalist Progress Note ---
Date of Service December 18, 2024 Assessment & Plan (1) Admitted to intensive care unit: (2) Metabolic encephalopathy: (3) RSV (acute bronchiolitis due to respiratory syncytial virus): (4) Acute on chronic respiratory failure with hypoxia and hypercapnia: (5) COPD (chronic obstructive pulmonary disease): (6) Pneumonia: Plan 54-year-old female intubated in the emergency room with acute hypoxic and hypercapnic respiratory failure BioFire testing positive for RSV with CT showing multifocal pneumonia Acute on chronic hypoxic hypercapnic respiratory failure /multifocal pneumonia /COPD / RSV CTA without evidence of PE 12/[address], ICU managing. On ARDSnet protocol. TV ~400 (~6cc/kg IBW). Appreciate recommendations and care Nimbex discontinued. BP intolerant of propofol. Episode of vent synchrony early afternoon 12/18 subsequently improved with fentanyl/Versed push. Ortho protocol continued. Continue steroids, DuoNebs, lateral, budesonide. Zosyn continued. Anticipate 5-day course of antibiotics Bronchoscopy cultures NGTD Blood cultures NGTD Guarded prognosis. Paralytics weaned but with subsequent vent dyssynchrony had some uptrending requirements. Patient management per ICU, appreciate care. Will continue to follow. May need eventual trach Chronic medical conditions: GERD-converted to Protonix IV Hypertension-Holding aspirin, bumetanide, losartan Anxiety/depression- restarted fluoxetine, oxcarbazepine and lamotrigine via OG, suspect she is on oxcarbazepine and lamotrigine for bipolar with no known seizure history VTE prophylaxis - heparin 5000 units q.8 hourly Diet - NPO on tube feeding Disposition -ICU Admission and Anticipated Discharge Date Admission Date: December 14, 2024 Subjective Seen at bedside in the ICU. No family present. No acute distress, Nimbex had been weaned. Subsequent to exam did have significant vent dyssynchrony for which versed and fentanyl pushes were given for the bag. Improved following this Physical Exam Physical Exam: General: ETT in place, sedated. No acute distress initially, subsequently was with vent dyssynchrony and treated with fentanyl/Versed comfortable and normotensive following this HEENT: Atraumatic, normocephalic. Pulm: ETT in place. symmetrical chest rise. Cardiac: REgular, bradycardic. Abdominal: nondistended, soft. BS present. Results & Data Results & Data Vital Signs (Past 12 Hours) Vital Signs Temp Pulse Resp BP Pulse Ox O2 Del Method O2 Flow Rate 12/18/24 12:03 37.1 C 61 18 86 L Mechanical Vent 40 12/18/24 12:00 134/77 12/18/24 12:00 49 L 12/18/24 12:00 12/18/24 11:36 37.0 C 63 18 87 L Mechanical Vent 40 12/18/24 11:24 36.9 C 64 18 87 L Mechanical Vent 40 12/18/24 10:35 49 L 18 92 12/18/24 10:00 36.7 C 51 L 18 94 Mechanical Vent 40 12/18/24 10:00 146/80 H 12/18/24 09:00 36.7 C 52 L 19 93 Mechanical Vent 40 12/18/24 09:00 135/76 12/18/24 08:00 157/86 H 12/18/24 08:00 36.7 C 59 L 18 93 Mechanical Vent 40 12/18/24 08:00 65 12/18/24 08:00 12/18/24 08:00 49 L 12/18/24 07:33 53 L 18 94 12/18/24 07:30 36.8 C 57 L 18 94 Mechanical Vent 50 12/18/24 06:15 36.8 C 59 L 18 95 Mechanical Vent 50 12/18/24 06:09 174/98 H 12/18/24 06:00 174/94 H 12/18/24 06:00 174/94 H 12/18/24 06:00 174/94 H 12/18/24 06:00 36.8 C 60 18 95 12/18/24 05:18 36.8 C 55 L 18 95 12/18/24 05:14 185/104 H 12/18/24 05:12 36.8 C 57 L 18 95 12/18/24 05:00 36.7 C 56 L 18 98 FiO2 12/18/24 12:03 12/18/24 12:00 12/18/24 12:00 12/18/24 12:00 40 12/18/24 11:36 12/18/24 11:24 12/18/24 10:35 40 12/18/24 10:00 12/18/24 10:00 12/18/24 09:00 12/18/24 09:00 12/18/24 08:00 12/18/24 08:00 12/18/24 08:00 12/18/24 08:00 40 12/18/24 08:00 12/18/24 07:33 40 12/18/24 07:30 12/18/24 06:15 12/18/24 06:09 12/18/24 06:00 12/18/24 06:00 12/18/24 06:00 12/18/24 06:00 12/18/24 05:18 12/18/24 05:14 12/18/24 05:12 12/18/24 05:00 50 PG Care Time/CCT Total # of Minutes Spent Total Time Spent with Patient: Total time spent is greater than 50% in coordination of care (as documented) at patient's floor/unit and/or counseling patient: Coding Level of Care Code 40104 SUB INP/OBS CARE 2/35MIN Diagnoses Admitted to intensive care unit Z78.9 Metabolic encephalopathy G93.41 RSV (acute bronchiolitis due to respiratory syncytial virus) J21.0 Acute on chronic respiratory failure with hypoxia and hypercapnia J96.21; J96.22 COPD (chronic obstructive pulmonary disease) J44.9 Pneumonia J18.9
[2024-12-19 05:00] LABS: BUN Creatinine Ratio 27.7 (10-20); Calcium 9.3 mg/dl (8.6-10.3); Creatinine Clr Calc Pharmacy 84.4 ml/min; Magnesium 2.2 mg/dl (1.7-2.4); Phosphorus 4.3 mg/dl (2.5-4.9); Potassium 4.4 mmol/L (3.5-5.1)
[2024-12-19 06:12] LABS: Basophils # (auto) 0.01 K/uL (0.00-0.20); Basophils % (auto) 0.1 %; Hematocrit (blood only) 50.4 % (37.0-47.0); Hemoglobin 15.5 g/dl (12.0-16.0); Immature Granulocytes # (auto) 0.03 K/uL (0.01-0.20); Immature Granulocytes % (auto) 0.4 %; Lymphocytes # (auto) 1.18 K/uL (1.20-3.40); Lymphocytes % (auto) 15.6 %; Mean Corpuscular Hgb Conc 30.8 g/dL (32.0-36.0); Mean Corpuscular Volume 97.7 fL (80.0-100.0); Mean Platelet Volume 11.3 fL (9.4-12.4); Monocytes # (auto) 0.57 K/uL (0.11-0.59); Monocytes % (auto) 7.5 %; Neutrophils # (auto) 5.78 K/uL (1.40-6.50); Neutrophils % (auto) 76.4 %; Platelet Count 191 K/uL (130-400); RDW Coefficient of Variation 16.6 % (11.5-14.5); RDW Standard Deviation 59.4 fL (36.4-46.3); Red Blood Count 5.16 M/uL (4.20-5.40); White Blood Count 7.57 K/ul (4.8-10.8)
--- NOTE | 2024-12-19 07:51 | Hospitalist Progress Note ---
Date of Service December 19, 2024 Assessment & Plan (1) Admitted to intensive care unit: (2) Metabolic encephalopathy: (3) RSV (acute bronchiolitis due to respiratory syncytial virus): (4) Acute on chronic respiratory failure with hypoxia and hypercapnia: (5) COPD (chronic obstructive pulmonary disease): (6) Pneumonia: Plan 54-year-old female with PMHx of HTN, GERD, tobacco use d/o, severe COPD, CHF, chronci pain syndrome, HLD, anxiety / depression presented to the ED with severe shortness of breath, dyspnea on exertion which had been worsening over the 3 days prior to presentation. In the ED, pt was intubated for CO2 retention and hypoxia. BioFire testing was positive for RSV with CT showing multifocal pneumonia #Acute on chronic hypoxic hypercapnic respiratory failure #Multifocal pneumonia #Severe COPD with exacerbation #RSV CTA without evidence of PE 12/[address], ICU managing. On ARDSnet protocol. TV ~400 (~6cc/kg IBW). Appreciate recommendations and care Nimbex discontinued. BP intolerant of propofol. Episode of vent synchrony early afternoon 12/18 subsequently improved with fentanyl/Versed Ortho protocol continued. Continue steroids, DuoNebs, lateral, budesonide. - cont decadron Zosyn continued. Anticipate 5-day course of antibiotics Bronchoscopy cultures NGTD Blood cultures NGTD Guarded prognosis. Paralytics weaned but with subsequent vent dyssynchrony had some uptrending requirements. Patient management per ICU, appreciate care. Will continue to follow. May need eventual trach Chronic medical conditions: #GERD-converted to Protonix IV #Hypertension-Holding aspirin, bumetanide, losartan #Anxiety/depression- restarted fluoxetine, oxcarbazepine and lamotrigine via OG, suspect she is on oxcarbazepine and lamotrigine for bipolar with no known seizure history VTE prophylaxis - heparin 5000 units q.8 hourly Diet - NPO on tube feeding Disposition -ICU Admission and Anticipated Discharge Date Admission Date: December 14, 2024 Subjective pt does move her extremities to touch not able to offer any complaints Review of Systems Review of Systems: Unable to complete comprehensive ROS due to mental status Physical Exam Physical Exam: Gen: NAD HEENT: ET tube in place CVS: s1s2 nl, bradycardia Lungs: diminished, vent depedent Abd: protuberant, diminished bowel sounds : obrien in place Ext: no edema Results & Data Results & Data Vital Signs (Past 12 Hours) Vital Signs Temp Pulse Resp BP Pulse Ox FiO2 12/19/24 04:00 70 12/19/24 03:00 51 L 18 93 60 12/19/24 03:00 37.1 C 58 L 18 150/67 H 90 12/19/24 02:30 37.0 C 50 L 18 92 12/19/24 02:00 129/75 12/19/24 01:57 37.0 C 48 L 19 93 12/19/24 01:06 37.1 C 46 L 18 94 12/19/24 01:00 134/73 12/19/24 00:54 37.1 C 47 L 18 94 12/19/24 00:42 50 L 12/19/24 00:00 126/71 12/19/24 00:00 37.0 C 49 L 18 126/71 90 12/19/24 00:00 60 12/18/24 23:03 37.0 C 48 L 18 135/69 93 12/18/24 23:00 46 L 18 93 60 12/18/24 22:30 37.0 C 48 L 18 93 12/18/24 22:09 37.1 C 50 L 18 124/64 91 12/18/24 21:33 37.1 C 52 L 18 91 12/18/24 21:00 133/70 12/18/24 21:00 37.1 C 49 L 18 133/70 92 12/18/24 20:12 37.1 C 51 L 18 92 12/18/24 19:45 60 PG Care Time/CCT Total # of Minutes Spent Total Time Spent with Patient: Total time spent is greater than 50% in coordination of care (as documented) at patient's floor/unit and/or counseling patient: Coding Level of Care Code 28489 SUB INP/OBS CARE 11/15MIN Diagnoses Admitted to intensive care unit Z78.9 Metabolic encephalopathy G93.41 RSV (acute bronchiolitis due to respiratory syncytial virus) J21.0 Acute on chronic respiratory failure with hypoxia and hypercapnia J96.21; J96.22 COPD (chronic obstructive pulmonary disease) J44.9 Pneumonia J18.9
--- NOTE | 2024-12-19 08:04 | XRay Report ---
EXAM: XR chest 1V portable CLINICAL HISTORY: eval tubes/lines/lung cuevas. TECHNIQUE: An X-ray image of the chest is obtained in AP projection. COMPARISON: 12/17/2024. FINDINGS: ETT with its tip 2.9 cm above the ximena. Right CVL terminates at the SVC/right atrium. NGT with its lower end in the abdomen. Pulmonary Parenchyma: Unchanged patchy areas of consolidation are more at the parahilar regions and lung bases. Unchanged bilateral pleural effusion. Heart and Mediastinum: Unchanged cardiomegaly. No mediastinal widening or masses. No hilar or mediastinal lymphadenopathy. Bony Thorax: Lower cervical spine fixation. Soft Tissues: Soft tissues overlying the chest wall are unremarkable. IMPRESSION: 1. Unchanged patchy areas of consolidation are more at the parahilar regions and lung bases, suggesting pulmonary edema and/or infection. 2. Unchanged bilateral pleural effusion. 3. Unchanged cardiomegaly. 4. ETT with its tip 2.9 cm above the ximena. 5. Right CVL terminates at the SVC/right atrium. 6. NGT with its lower end in the abdomen. Electronically signed by Ines Tee 12-19-2024 08:04 AM
--- NOTE | 2024-12-19 08:38 | Critical Care Progress Note ---
Date of Service December 19, 2024 Assessment & Plan (1) Acute on chronic respiratory failure with hypoxia and hypercapnia: (2) RSV (acute bronchiolitis due to respiratory syncytial virus): (3) Metabolic encephalopathy: (4) Pneumonia: (5) Admitted to intensive care unit: (6) Hypertension: (7) Anxiety and depression: (8) COPD (chronic obstructive pulmonary disease): (9) ARDS (adult respiratory distress syndrome): Plan Reason Critically Ill: Acute on chronic hypoxemic and hypercapneic respiratory failure/COPD RSV bronchiolitis Possible superimposed bacterial pneumonia Acute metabolic encephalopathy 2/2 hypercapnia ARDS Neuro - [facility] ICU: Negative Patient got bradycardic while on propofol, it was changed to midazolam Continue with fentanyl --Anxiety/depression On fluoxetine, oxcarbazepine, lamotrigine at home Cardiac - -- Hypertension On losartan at home Respiratory - CTA chest 12/15/2024: Negative for pulmonary emboli Dense consolidative process appreciated in bilateral lower lobes, more pronounced on the left Cardiomegaly No significant mediastinal lymphadenopathy -- Vent dependent respiratory failure with ARDS Started on DEXA-ARDS protocol on evening of 12/15/2024, 20 mg of dexamethasone for 5 days followed by 10 mg for 5 days, pantoprazole twice daily S/p proning for total of 2 days. Paralytics taken off 12/18/2024 Continue with lung protective ventilation High PEEP, low tidal volume to keep Plateau < 30 with permissive hypercapnea if need be. Monitor ABGs Continue mechanical ventilation Continue with steroids --History of COPD with chronic hypoxic respiratory failure Continue with budesonide and Perforomist while intubated GI - No acute concerns RENAL/LYTES - Monitor BUNs/creatinine Avoid nephrotoxic medication ENDO - TSH 2.2 BG 140-180 per [facility] guidelines ISS if needed while inpatient HEME - No acute concerns Doppler bilateral lower extremity negative for DVT ID - -- Multifocal pneumonia Patient seems to be ARDS like picture CTA chest was negative for pulmonary emboli on 12/15/2024 Continue with antibiotics Nasal MRSA negative UA negative for leukocyte esterase and bacteria Completed Zosyn for 5 days --Prophylaxis VTE: Heparin GI: Pantoprazole Lines: Right IJ, radial, positive Tian Diet: Tube feeds Plan: In/out: -872, urine output 0 AB.40/54/80 on FiO2 70%, PEEP of 10 Will increase the PEEP to 12. I do not think patient is extubated well as of right now. If there is any improvement tracheostomy could be thought off. If there is no improvement then palliative will need to get involved. Complete the course of antibiotics for 5 days Continue with pantoprazole given the patient is on high-dose dexamethasone Overall prognosis is guarded. Patient's son Brandon [phone], was called again today and voicemail was left I have personally spent 42 minutes of critical care time in the direct management of this patient. This is a life/limb threatening event. This includes time spent evaluating patient, direct bedside care, chart review, placing orders, interpretation of diagnostic studies, discussion with consultants, patient, and family members, as well as other required patient management activities. This time is exclusive of all separately billable procedures, and teaching time and separate from and in addition to any other critical care service time. Thank you for allowing us to participate in the care of this patient. Please refer to my attending physician's documentation for any further recommendations. Admission and Anticipated Discharge Date Admission Date: December 14, 2024 Subjective Patient seen and examined at bedside. No acute distress, no adverse events overnight Patient was on 200 of fentanyl and 6 of midazolam at the time of examination She was breathing with the went Saturation was 90% on PEEP of 10, 70% FiO2. She was opening her eyes to command but does not track or follow Review of Systems 2 Review of Systems: All systems reviewed & are unremarkable except as noted in Subjective Physical Exam 2 Physical Exam: Constitutional: No acute distress HEENT: PERRLA Respiratory system: Decreased air entry bilaterally, no wheeze, positive rhonchi bilaterally, positive crackles bilateral lower lobes CVS: S1-S2 positive, distant heart sounds Abdomen: Soft, nontender, nondistended, positive bowel sounds x4, obese Extremities: +2 pulses bilaterally radialis/ dorsalis pedis, no cyanosis, no edema Neuro: Sedated, RASS -2, breathing with the went Psych: Unable to assess G/U: Positive Tian Skin: no rashes, warm and dry Lymphatic: no cervical or axillary lymphadenopathy Results & Data Results & Data Vital Signs (Past 12 Hours) Vital Signs Temp Pulse Resp BP Pulse Ox FiO2 12/19/24 07:29 56 L 19 95 70 12/19/24 04:00 70 12/19/24 03:00 51 L 18 93 60 12/19/24 03:00 37.1 C 58 L 18 150/67 H 90 12/19/24 02:30 37.0 C 50 L 18 92 12/19/24 02:00 129/75 12/19/24 01:57 37.0 C 48 L 19 93 12/19/24 01:06 37.1 C 46 L 18 94 12/19/24 01:00 134/73 12/19/24 00:54 37.1 C 47 L 18 94 12/19/24 00:42 50 L 12/19/24 00:00 126/71 12/19/24 00:00 37.0 C 49 L 18 126/71 90 12/19/24 00:00 60 12/18/24 23:03 37.0 C 48 L 18 135/69 93 12/18/24 23:00 46 L 18 93 60 12/18/24 22:30 37.0 C 48 L 18 93 12/18/24 22:09 37.1 C 50 L 18 124/64 91 12/18/24 21:33 37.1 C 52 L 18 91 12/18/24 21:00 133/70 12/18/24 21:00 37.1 C 49 L 18 133/70 92 Laboratory Results 12/19/24 05:31 12/19/24 03:55 Coding Level of Care Code 77013 CRITICAL CARE 1ST 30-74M Diagnoses Acute on chronic respiratory failure with hypoxia and hypercapnia J96.21; J96.22 RSV (acute bronchiolitis due to respiratory syncytial virus) J21.0 Metabolic encephalopathy G93.41 Pneumonia J18.9 Admitted to intensive care unit Z78.9 Hypertension I10 Anxiety and depression F41.9; F32.A COPD (chronic obstructive pulmonary disease) J44.9 ARDS (adult respiratory distress syndrome) J80
[2024-12-19 09:33] LABS: iSTAT Allen Test Pass; iSTAT Art Bld Gas pCO2 Correct 54 mmHg (35-46); iSTAT Arterial Blood Gas HCO3 34 meg/L (19-24); iSTAT Arterial Blood Gas pCO2 54 mmHg (35-46); iSTAT Arterial Blood Gas pO2 80 mmHg (80-95); iSTAT Arterial Blood Gas pO2 C 80; iSTAT Carbon Dioxide 35 mmol/L (24-31); iSTAT Hematocrit 47 % (37-47); iSTAT Potassium 4.1 mmol/L (3.3-5.0); iSTAT Sample Type Arterial; iSTAT Site Art Line; iSTAT Sodium 135 mmol/L (135-144); iSTAT SpO2 95
--- NOTE | 2024-12-19 09:50 | Pharmacy Report ---
Pharmacy Glycemic Sign Off Nt - Date of Service December 19, 2024 - Assessment & Plan ASSESSMENT: * Pharmacy was consulted by Dr LARA on 12/15 for glycemic control and to write orders per [facility] inpatient glycemic control protocol. * Major changes made by pharmacy to antidiabetic regimen include: * Initially ordered novolog with weight based parameters, however, patient has not required insulin and BSGs remain at goal despite high dose steroids and tube feeds. Therefore removed novolog and reinstated ICU hyperglycemia protocol for hyperglycemia surveillance PLAN FOR INPATIENT GLYCEMIC CONTROL: No changes needed to current regimen. * Continue to monitor BSGs in setting of ICU/steroids/Tube feeds * Pharmacy is signing off of glycemic consult and will no longer be making adjustments to inpatient regimen. Please feel free to re-consult if needed. Thank you.
[2024-12-19] MEDS: BUMETANIDE 0.5 MG in SYRINGE 0 ML IV ONE (20:00)
[2024-12-19] MEDS: ICU Protocol for HYPERglycemia SCH (20:24)
[2024-12-20 04:17] LABS: Basophils # (auto) 0.01 K/uL (0.00-0.20); Basophils % (auto) 0.1 %; Eosinophils # (auto) 0.01 K/uL (0.00-0.50); Eosinophils % (auto) 0.1 %; Hematocrit (blood only) 49.2 % (37.0-47.0); Immature Granulocytes # (auto) 0.03 K/uL (0.01-0.20); Immature Granulocytes % (auto) 0.4 %; Lymphocytes # (auto) 1.28 K/uL (1.20-3.40); Mean Corpuscular Hemoglobin 29.4 pg (25.0-34.0); Mean Corpuscular Hgb Conc 30.5 g/dL (32.0-36.0); Mean Corpuscular Volume 96.5 fL (80.0-100.0); Mean Platelet Volume 11.1 fL (9.4-12.4); Monocytes # (auto) 0.54 K/uL (0.11-0.59); Monocytes % (auto) 6.3 %; Neutrophils # (auto) 6.67 K/uL (1.40-6.50); Neutrophils % (auto) 78.1 %; Platelet Count 180 K/uL (130-400); RDW Standard Deviation 56.7 fL (36.4-46.3); White Blood Count 8.54 K/ul (4.8-10.8)
[2024-12-20 04:34] LABS: BUN Creatinine Ratio 32.3 (10-20); Calcium 9.6 mg/dl (8.6-10.3); Creatinine Clr Calc Pharmacy 86.9 ml/min; Magnesium 2.2 mg/dl (1.7-2.4); Phosphorus 3.8 mg/dl (2.5-4.9); Potassium 4.4 mmol/L (3.5-5.1)
--- NOTE | 2024-12-20 07:30 | Hospitalist Progress Note ---
Date of Service December 20, 2024 Assessment & Plan (1) Admitted to intensive care unit: (2) Metabolic encephalopathy: (3) RSV (acute bronchiolitis due to respiratory syncytial virus): (4) Acute on chronic respiratory failure with hypoxia and hypercapnia: (5) COPD (chronic obstructive pulmonary disease): (6) Pneumonia: Plan 54-year-old female with PMHx of HTN, GERD, tobacco use d/o, severe COPD, CHF, chronci pain syndrome, HLD, anxiety / depression presented to the ED with severe shortness of breath, dyspnea on exertion which had been worsening over the 3 days prior to presentation. Family reported that she has been having signficantly worsening SOB and has continued to smoke tobacco products. In the ED, pt was intubated for CO2 retention and hypoxia. BioFire testing was positive for RSV with CT showing multifocal pneumonia. #Acute on chronic hypoxic hypercapnic respiratory failure #Multifocal pneumonia #Severe COPD with exacerbation #RSV CTA without evidence of PE 12/15 - intubated on 12/14/24 , ICU managing - on Fentanyl / Midazolam for vent dyssynchrony - cont decadron, DuoNebs, albuterol, budesonide. - s/p 5 days of Zosyn last dose 12/19/24 Bronchoscopy cultures NGTD Blood cultures NGTD Guarded prognosis. if not improving, might need trach / peg #OIC - bowel regimen in place #Chronic medical conditions: #GERD-converted to Protonix IV #Hypertension- Holding aspirin, bumetanide, losartan #Anxiety/depression- restarted fluoxetine, oxcarbazepine and lamotrigine via OG, suspect she is on oxcarbazepine and lamotrigine for bipolar with no known seizure history VTE prophylaxis - heparin 5000 units q.8 hourly Diet - NPO on tube feeding Disposition - ICU Admission and Anticipated Discharge Date Admission Date: December 14, 2024 Subjective No acute events overnight Bowels movements have resume Responding to tactile stimuli Review of Systems Review of Systems: Unable to complete comprehensive ROS due to mental status Physical Exam Physical Exam: Gen: NAD HEENT: ET tube in place CVS: s1s2 nl, bradycardia Lungs: diminished, vent dependent Abd: protuberant, diminished bowel sounds : obrien in place Ext: no edema, moving extremities with touch Results & Data Results & Data Vital Signs (Past 12 Hours) Vital Signs Temp Pulse Resp BP Pulse Ox O2 Del Method FiO2 12/20/24 05:09 37.4 C 54 L 18 92 12/20/24 05:00 137/76 12/20/24 04:57 37.4 C 53 L 18 91 12/20/24 04:03 37.3 C 54 L 18 92 12/20/24 04:00 152/78 H 12/20/24 04:00 152/78 H 12/20/24 04:00 70 12/20/24 03:45 37.3 C 51 L 18 92 12/20/24 03:12 37.3 C 52 L 18 91 12/20/24 03:00 141/75 H 12/20/24 02:59 54 L 18 91 70 12/20/24 02:51 37.3 C 52 L 23 91 12/20/24 02:00 138/70 12/20/24 02:00 37.3 C 56 L 18 90 12/20/24 01:02 37.4 C 55 L 18 141/66 H 90 12/20/24 00:38 37.4 C 50 L 18 91 12/20/24 00:05 37.5 C 51 L 18 134/72 91 12/20/24 00:00 51 L 12/20/24 00:00 70 12/20/24 00:00 54 L 18 92 70 12/19/24 23:56 37.5 C 49 L 18 91 12/19/24 23:02 37.5 C 53 L 18 139/70 91 12/19/24 22:59 37.5 C 54 L 18 91 12/19/24 22:00 138/74 12/19/24 22:00 37.5 C 56 L 18 138/74 91 12/19/24 21:12 37.5 C 57 L 18 129/75 91 12/19/24 20:51 37.5 C 55 L 18 90 12/19/24 20:15 37.5 C 56 L 18 90 12/19/24 20:00 142/75 H 12/19/24 20:00 56 L 18 90 70 12/19/24 19:42 37.5 C 57 L 18 90 12/19/24 19:40 70 12/19/24 19:31 Mechanical Vent 70 PG Care Time/CCT Total # of Minutes Spent Total Time Spent with Patient: Total time spent is greater than 50% in coordination of care (as documented) at patient's floor/unit and/or counseling patient: Coding Level of Care Code 10433 SUB INP/OBS CARE Diagnoses Admitted to intensive care unit Z78.9 Metabolic encephalopathy G93.41 RSV (acute bronchiolitis due to respiratory syncytial virus) J21.0 Acute on chronic respiratory failure with hypoxia and hypercapnia J96.21; J96.22 COPD (chronic obstructive pulmonary disease) J44.9 Pneumonia J18.9
--- NOTE | 2024-12-20 08:18 | Critical Care Progress Note ---
Date of Service December 20, 2024 Assessment & Plan (1) Acute on chronic respiratory failure with hypoxia and hypercapnia: (2) RSV (acute bronchiolitis due to respiratory syncytial virus): (3) Metabolic encephalopathy: (4) Pneumonia: (5) Admitted to intensive care unit: (6) Hypertension: (7) Anxiety and depression: (8) COPD (chronic obstructive pulmonary disease): (9) ARDS (adult respiratory distress syndrome): Plan Reason Critically Ill: Acute on chronic hypoxemic and hypercapneic respiratory failure/COPD RSV bronchiolitis Possible superimposed bacterial pneumonia Acute metabolic encephalopathy 2/2 hypercapnia ARDS Neuro - [facility] ICU: Negative Patient got bradycardic while on propofol, it was changed to midazolam Continue with fentanyl --Anxiety/depression On fluoxetine, oxcarbazepine, lamotrigine at home Cardiac - -- Hypertension On losartan at home Respiratory - CTA chest 12/15/2024: Negative for pulmonary emboli Dense consolidative process appreciated in bilateral lower lobes, more pronounced on the left Cardiomegaly No significant mediastinal lymphadenopathy -- Vent dependent respiratory failure with ARDS Started on DEXA-ARDS protocol on evening of 12/15/2024, 20 mg of dexamethasone for 5 days followed by 10 mg for 5 days, pantoprazole twice daily S/p proning for total of 2 days. Paralytics taken off 12/18/2024 Continue with lung protective ventilation High PEEP, low tidal volume to keep Plateau < 30 with permissive hypercapnea if need be. Monitor ABGs Continue mechanical ventilation Continue with steroids --History of COPD with chronic hypoxic respiratory failure Continue with budesonide and Perforomist while intubated GI - No acute concerns RENAL/LYTES - Monitor BUNs/creatinine Avoid nephrotoxic medication ENDO - TSH 2.2 BG 140-180 per [facility]M guidelines ISS if needed while inpatient HEME - No acute concerns Doppler bilateral lower extremity negative for DVT ID - -- Multifocal pneumonia Patient seems to be ARDS like picture CTA chest was negative for pulmonary emboli on 12/15/2024 Continue with antibiotics Nasal MRSA negative UA negative for leukocyte esterase and bacteria Completed Zosyn for 5 days --Prophylaxis VTE: Heparin GI: Pantoprazole Lines: Right IJ, radial, positive Tian Diet: Tube feeds Plan: In/out: -1469, urine output 2650, -2.7 L since coming to the hospital Continue with PEEP of 12, FiO2 70%. Would want the patient to be less sedated to see if she wakes up and breathes over the vent Continue with pantoprazole and dexamethasone Overall prognosis is guarded. If there is no improvement on the positive side in the next couple of days then decision regarding goals of care will need to be made. Patient's son Brandon [phone], was updated on the phone I have personally spent 37 minutes of critical care time in the direct management of this patient. This is a life/limb threatening event. This includes time spent evaluating patient, direct bedside care, chart review, placing orders, interpretation of diagnostic studies, discussion with consultants, patient, and family members, as well as other required patient management activities. This time is exclusive of all separately billable procedures, and teaching time and separate from and in addition to any other critical care service time. Thank you for allowing us to participate in the care of this patient. Please refer to my attending physician's documentation for any further recommendations. Admission and Anticipated Discharge Date Admission Date: December 14, 2024 Subjective Patient seen and examined at bedside. No acute distress, no adverse events overnight She was on 5 of midazolam, 200 of fentanyl at the time of examination She was breathing with the vent RASS -2 Systolic blood pressure was in the 110s on the A-line Has been afebrile Did have bowel movement today Review of Systems 2 Review of Systems: Unobtainable due to endotracheal tube Physical Exam 2 Physical Exam: Constitutional: No acute distress HEENT: PERRLA Respiratory system: Decreased air entry bilaterally, no wheeze, positive rhonchi bilaterally, positive crackles bilateral lower lobes CVS: S1-S2 positive, distant heart sounds Abdomen: Soft, nontender, nondistended, positive bowel sounds x4, obese Extremities: +2 pulses bilaterally radialis/ dorsalis pedis, no cyanosis, minimal edema bilateral lower extremity Neuro: Sedated, RASS -2, breathing with the went Psych: Unable to assess G/U: Positive Tian Skin: no rashes, warm and dry Lymphatic: no cervical or axillary lymphadenopathy Results & Data Results & Data Vital Signs (Past 12 Hours) Vital Signs Temp Pulse Resp BP Pulse Ox O2 Del Method FiO2 12/20/24 07:47 53 L 18 92 70 12/20/24 07:03 37.4 C 49 L 18 91 Mechanical Vent 70 12/20/24 07:00 126/69 12/20/24 05:09 37.4 C 54 L 18 92 12/20/24 05:00 137/76 12/20/24 04:57 37.4 C 53 L 18 91 12/20/24 04:03 37.3 C 54 L 18 92 12/20/24 04:00 152/78 H 12/20/24 04:00 152/78 H 12/20/24 04:00 70 12/20/24 03:45 37.3 C 51 L 18 92 12/20/24 03:12 37.3 C 52 L 18 91 12/20/24 03:00 141/75 H 12/20/24 02:59 54 L 18 91 70 12/20/24 02:51 37.3 C 52 L 23 91 12/20/24 02:00 138/70 12/20/24 02:00 37.3 C 56 L 18 90 12/20/24 01:02 37.4 C 55 L 18 141/66 H 90 12/20/24 00:38 37.4 C 50 L 18 91 12/20/24 00:05 37.5 C 51 L 18 134/72 91 12/20/24 00:00 51 L 12/20/24 00:00 70 12/20/24 00:00 54 L 18 92 70 12/19/24 23:56 37.5 C 49 L 18 91 12/19/24 23:02 37.5 C 53 L 18 139/70 91 12/19/24 22:59 37.5 C 54 L 18 91 12/19/24 22:00 138/74 12/19/24 22:00 37.5 C 56 L 18 138/74 91 12/19/24 21:12 37.5 C 57 L 18 129/75 91 12/19/24 20:51 37.5 C 55 L 18 90 Laboratory Results 12/20/24 03:51 12/20/24 03:51 Coding Level of Care Code 00473 CRITICAL CARE 1ST 30-74M Diagnoses Acute on chronic respiratory failure with hypoxia and hypercapnia J96.21; J96.22 RSV (acute bronchiolitis due to respiratory syncytial virus) J21.0 Metabolic encephalopathy G93.41 Pneumonia J18.9 Admitted to intensive care unit Z78.9 Hypertension I10 Anxiety and depression F41.9; F32.A COPD (chronic obstructive pulmonary disease) J44.9 ARDS (adult respiratory distress syndrome) J80
[2024-12-20] MEDS: dexAMETHasone 10 MG in SYRINGE 0 ML IV SCH (08:47)
[2024-12-20] MEDS ORDERED: ALBUT/IPRATROP 3MG/0.5MG NEB 3 ML VIAL NEB PRN (11:00)
[2024-12-21 04:49] LABS: Basophils # (auto) 0.01 K/uL (0.00-0.20); Basophils % (auto) 0.1 %; Eosinophils # (auto) 0.01 K/uL (0.00-0.50); Eosinophils % (auto) 0.1 %; Hematocrit (blood only) 48.1 % (37.0-47.0); Hemoglobin 14.8 g/dl (12.0-16.0); Immature Granulocytes # (auto) 0.02 K/uL (0.01-0.20); Immature Granulocytes % (auto) 0.2 %; Lymphocytes # (auto) 1.75 K/uL (1.20-3.40); Lymphocytes % (auto) 21.4 %; Mean Corpuscular Hemoglobin 30.1 pg (25.0-34.0); Mean Corpuscular Hgb Conc 30.8 g/dL (32.0-36.0); Mean Platelet Volume 11.5 fL (9.4-12.4); Monocytes # (auto) 0.61 K/uL (0.11-0.59); Monocytes % (auto) 7.4 %; Neutrophils # (auto) 5.79 K/uL (1.40-6.50); Neutrophils % (auto) 70.8 %; Platelet Count 180 K/uL (130-400); RDW Coefficient of Variation 15.9 % (11.5-14.5); RDW Standard Deviation 57.4 fL (36.4-46.3); Red Blood Count 4.91 M/uL (4.20-5.40); White Blood Count 8.19 K/ul (4.8-10.8)
[2024-12-21 05:05] LABS: Calcium 9.7 mg/dl (8.6-10.3); Creatinine Clr Calc Pharmacy 90.5 ml/min; Magnesium 2.2 mg/dl (1.7-2.4); Phosphorus 3.5 mg/dl (2.5-4.9); Potassium 4.1 mmol/L (3.5-5.1)
[2024-12-21 05:51] LABS: iSTAT Art Bld Gas pCO2 Correct 59 mmHg (35-46); iSTAT Art Bld Gas pH Corrected 7.352 (7.35-7.45); iSTAT Arterial Blood Gas HCO3 33 meg/L (19-24); iSTAT Arterial Blood Gas pCO2 59 mmHg (35-46); iSTAT Arterial Blood Gas pH 7.35 (7.35-7.45); iSTAT Arterial Blood Gas pO2 73 mmHg (80-95); iSTAT Arterial Blood Gas pO2 C 73; iSTAT Carbon Dioxide 34 mmol/L (24-31); iSTAT FiO2 70 %; iSTAT Hematocrit 47 % (37-47); iSTAT Potassium 4.1 mmol/L (3.3-5.0); iSTAT Sample Type Arterial; iSTAT Site Art Line; iSTAT Sodium 140 mmol/L (135-144); iSTAT SpO2 91
--- NOTE | 2024-12-21 07:30 | Hospitalist Progress Note ---
Date of Service December 21, 2024 Assessment & Plan (1) Admitted to intensive care unit: (2) Metabolic encephalopathy: (3) RSV (acute bronchiolitis due to respiratory syncytial virus): (4) Acute on chronic respiratory failure with hypoxia and hypercapnia: (5) COPD (chronic obstructive pulmonary disease): (6) Pneumonia: Plan 54-year-old female with PMHx of HTN, GERD, tobacco use d/o, severe COPD, CHF, chronic pain syndrome, HLD, anxiety / depression presented to the ED with severe shortness of breath, dyspnea on exertion which had been worsening over the 3 days prior to presentation. Family reported that she has been having significantly worsening SOB and has continued to smoke tobacco products. In the ED, pt was intubated for CO2 retention and hypoxia. [employer] testing was positive for RSV with CT showing multifocal pneumonia. #Acute on chronic hypoxic hypercapnic respiratory failure #Multifocal pneumonia #Severe COPD with exacerbation #RSV - CTA without evidence of PE 12/15 - intubated on 12/14/24 , ICU managing - paralytics taken off on 12/18/24 - on Fentanyl / Midazolam for vent dyssynchrony - cont decadron, DuoNebs, albuterol, formoterol, budesonide - s/p 5 days of Zosyn last dose 12/19/24 Bronchoscopy cultures NGTD Blood cultures NGTD Guarded prognosis. if not improving, might need trach / peg #OIC - bowel regimen in place #Chronic medical conditions: #GERD-converted to Protonix IV #Hypertension- Holding aspirin, bumetanide, losartan #Anxiety/depression- cont fluoxetine, oxcarbazepine and lamotrigine via OG, suspect she is on oxcarbazepine and lamotrigine for bipolar with no known seizure history VTE prophylaxis - heparin 5000 units q.8 hourly Diet - NPO on tube feeding Disposition - ICU Admission and Anticipated Discharge Date Admission Date: December 14, 2024 Subjective Pt opening eyes to strong tactile stimulus and is following very basic commands Review of Systems Review of Systems: Unable to complete comprehensive ROS due to mental status Physical Exam Physical Exam: Gen: NAD HEENT: ET tube in place CVS: s1s2 nl, bradycardia Lungs: diminished, vent dependent Abd: protuberant, diminished bowel sounds, fecal management system in place : obrien in place Ext: no edema, moving extremities with touch Results & Data Results & Data Vital Signs (Past 12 Hours) Vital Signs Temp Pulse Resp BP Pulse Ox FiO2 12/21/24 06:00 55 L 18 124/61 90 12/21/24 05:18 54 L 18 91 12/21/24 05:00 131/56 L 12/21/24 04:51 57 L 18 91 12/21/24 04:50 37.2 C 12/21/24 04:00 54 L 18 129/61 90 12/21/24 04:00 70 12/21/24 03:15 48 L 18 120/55 L 91 12/21/24 02:57 48 L 18 91 12/21/24 02:15 47 L 18 92 12/21/24 02:00 123/61 12/21/24 01:57 47 L 18 92 12/21/24 01:15 48 L 18 92 12/21/24 00:00 47 L 18 123/60 92 12/21/24 00:00 70 12/21/24 00:00 48 L 12/20/24 23:03 46 L 18 129/61 92 12/20/24 22:57 46 L 18 92 12/20/24 22:00 47 L 18 129/61 92 12/20/24 21:09 54 L 18 92 12/20/24 20:09 50 L 18 141/76 H 91 12/20/24 19:48 49 L 18 91 12/20/24 19:44 70 12/20/24 19:40 70 PG Care Time/CCT Total # of Minutes Spent Total Time Spent with Patient: Total time spent is greater than 50% in coordination of care (as documented) at patient's floor/unit and/or counseling patient: Coding Level of Care Code 73611 SUB INP/OBS CARE 11/15MIN Diagnoses Admitted to intensive care unit Z78.9 Metabolic encephalopathy G93.41 RSV (acute bronchiolitis due to respiratory syncytial virus) J21.0 Acute on chronic respiratory failure with hypoxia and hypercapnia J96.21; J96.22 COPD (chronic obstructive pulmonary disease) J44.9 Pneumonia J18.9
--- NOTE | 2024-12-21 07:57 | Critical Care Progress Note ---
Date of Service December 21, 2024 Assessment & Plan (1) Acute on chronic respiratory failure with hypoxia and hypercapnia: (2) RSV (acute bronchiolitis due to respiratory syncytial virus): (3) Metabolic encephalopathy: (4) Pneumonia: (5) Admitted to intensive care unit: (6) Hypertension: (7) Anxiety and depression: (8) COPD (chronic obstructive pulmonary disease): (9) ARDS (adult respiratory distress syndrome): Plan Reason Critically Ill: Acute on chronic hypoxemic and hypercapneic respiratory failure/COPD RSV bronchiolitis Possible superimposed bacterial pneumonia Acute metabolic encephalopathy 2/2 hypercapnia ARDS Neuro - [facility] ICU: Negative Patient got bradycardic while on propofol, it was changed to midazolam Continue with fentanyl --Anxiety/depression On fluoxetine, oxcarbazepine, lamotrigine at home Cardiac - -- Hypertension On losartan at home Respiratory - CTA chest 12/15/2024: Negative for pulmonary emboli Dense consolidative process appreciated in bilateral lower lobes, more pronounced on the left Cardiomegaly No significant mediastinal lymphadenopathy -- Vent dependent respiratory failure with ARDS Started on DEXA-ARDS protocol on evening of 12/15/2024, 20 mg of dexamethasone for 5 days followed by 10 mg for 5 days, pantoprazole twice daily S/p proning for total of 2 days. Paralytics taken off 12/18/2024 Continue with lung protective ventilation High PEEP, low tidal volume to keep Plateau < 30 with permissive hypercapnea if need be. Monitor ABGs Continue mechanical ventilation Continue with steroids --History of COPD with chronic hypoxic respiratory failure Continue with budesonide and Perforomist while intubated GI - No acute concerns RENAL/LYTES - Monitor BUNs/creatinine Avoid nephrotoxic medication ENDO - TSH 2.2 BG 140-180 per [facility]M guidelines ISS if needed while inpatient HEME - No acute concerns Doppler bilateral lower extremity negative for DVT ID - -- Multifocal pneumonia Patient seems to be ARDS like picture CTA chest was negative for pulmonary emboli on 12/15/2024 Continue with antibiotics Nasal MRSA negative UA negative for leukocyte esterase and bacteria Completed Zosyn for 5 days --Prophylaxis VTE: Heparin GI: Pantoprazole Lines: Right IJ, radial, positive Tian Diet: Tube feeds Plan: In/out: -182, urine output 1557, -2.9 L since coming to the hospital AB.35/59/73 on PEEP of 12, 70% I went down on FiO2 to 65%. Try to keep O2 saturation around 90-92% I will try to go down on sedation and do pressure support for patient to exercise a respiratory muscles. Overall prognosis is guarded. If there is no improvement on the positive side in the next couple of days then decision regarding goals of care will need to be made. Patient's son Brandon [phone] I have personally spent 35 minutes of critical care time in the direct management of this patient. This is a life/limb threatening event. This includes time spent evaluating patient, direct bedside care, chart review, placing orders, interpretation of diagnostic studies, discussion with consultants, patient, and family members, as well as other required patient management activities. This time is exclusive of all separately billable procedures, and teaching time and separate from and in addition to any other critical care service time. Thank you for allowing us to participate in the care of this patient. Please refer to my attending physician's documentation for any further recommendations. Admission and Anticipated Discharge Date Admission Date: December 14, 2024 Subjective Patient seen and examined at bedside. No acute distress, no adverse events overnight She is RASS -1, opening her eyes, denied any headache, no chest pain Moving all extremities to command Has been afebrile She was on 4 of midazolam 150 of fentanyl at the time of examination Review of Systems 2 Review of Systems: All systems reviewed & are unremarkable except as noted in Subjective Physical Exam 2 Physical Exam: Constitutional: No acute distress HEENT: PERRLA, EOMI, lateral strabismus of the right eye Respiratory system: Decreased air entry bilaterally, no wheeze, positive rhonchi bilaterally, positive crackles bilateral lower lobes CVS: S1-S2 positive, distant heart sounds Abdomen: Soft, nontender, nondistended, positive bowel sounds x4, obese Extremities: +2 pulses bilaterally radialis/ dorsalis pedis, no cyanosis, minimal edema bilateral lower extremity Neuro: Sedated, RASS -1, breathing with the went Psych: Unable to assess G/U: Positive Tian Skin: no rashes, warm and dry Lymphatic: no cervical or axillary lymphadenopathy Results & Data Results & Data Vital Signs (Past 12 Hours) Vital Signs Temp Pulse Resp BP Pulse Ox FiO2 12/21/24 07:39 53 L 18 92 70 12/21/24 06:00 55 L 18 124/61 90 12/21/24 05:18 54 L 18 91 12/21/24 05:00 131/56 L 12/21/24 04:51 57 L 18 91 12/21/24 04:50 37.2 C 12/21/24 04:00 54 L 18 129/61 90 12/21/24 04:00 70 12/21/24 03:15 48 L 18 120/55 L 91 12/21/24 02:57 48 L 18 91 12/21/24 02:15 47 L 18 92 12/21/24 02:00 123/61 12/21/24 01:57 47 L 18 92 12/21/24 01:15 48 L 18 92 12/21/24 00:00 47 L 18 123/60 92 12/21/24 00:00 70 12/21/24 00:00 48 L 12/20/24 23:03 46 L 18 129/61 92 12/20/24 22:57 46 L 18 92 12/20/24 22:00 47 L 18 129/61 92 12/20/24 21:09 54 L 18 92 12/20/24 20:09 50 L 18 141/76 H 91 Laboratory Results 12/21/24 04:30 12/21/24 04:30 Coding Level of Care Code 01381 CRITICAL CARE 1ST 30-74M Diagnoses Acute on chronic respiratory failure with hypoxia and hypercapnia J96.21; J96.22 RSV (acute bronchiolitis due to respiratory syncytial virus) J21.0 Metabolic encephalopathy G93.41 Pneumonia J18.9 Admitted to intensive care unit Z78.9 Hypertension I10 Anxiety and depression F41.9; F32.A COPD (chronic obstructive pulmonary disease) J44.9 ARDS (adult respiratory distress syndrome) J80
--- NOTE | 2024-12-21 08:16 | XRay Report ---
EXAM: XR chest 1V portable CLINICAL HISTORY: Eval lines/tubes/lung cuevas while intubated. TECHNIQUE: An X-ray image of the chest is obtained in AP projection. COMPARISON: 12/19/2024 CR FINDINGS: ETT with its tip 3.1 cm above the ximena. Right CVL terminates at the SVC/right atrium. NGT with its lower end in the abdomen Pulmonary Parenchyma: Nonhomogeneous shadowing is noted in the right lower zone. Left CP angle is obliterated, may favor pleural effusion. Nonhomogeneous shadowing is also noted in the left lower zone. Multiple chest tubes are appreciated. No pulmonary nodules are identified. Pleural thickening is noted on right. Heart and Mediastinum: Cardiac size is enlarged. No mediastinal widening or masses. No hilar or mediastinal lymphadenopathy. Bony Thorax: Bony thorax appears intact without fractures or deformities. Soft Tissues: Soft tissues overlying the chest wall are unremarkable. IMPRESSION: 1. ETT with its tip 3.1 cm above the ximena. 2. Right CVL terminates at the SVC/right atrium. 3. NGT with its lower end in the abdomen. 4. Cardiac size is enlarged. 5. Nonhomogeneous shadowing is noted in the right lower zone. 6. Left CP angle is obliterated, may favor pleural effusion. 7. Nonhomogeneous shadowing is also noted in the left lower zone. 8. No interval change. Electronically signed by Ines Tee 12-21-2024 08:15 AM
[2024-12-21] MEDS: ACETAMINOPHEN 325 MG TAB PO PRN (23:17)
[2024-12-22 04:43] LABS: Basophils # (auto) 0.01 K/uL (0.00-0.20); Basophils % (auto) 0.1 %; Eosinophils # (auto) 0.03 K/uL (0.00-0.50); Eosinophils % (auto) 0.4 %; Hematocrit (blood only) 48.2 % (37.0-47.0); Hemoglobin 14.4 g/dl (12.0-16.0); Immature Granulocytes # (auto) 0.04 K/uL (0.01-0.20); Immature Granulocytes % (auto) 0.5 %; Lymphocytes # (auto) 1.72 K/uL (1.20-3.40); Lymphocytes % (auto) 22.9 %; Mean Corpuscular Hemoglobin 29.6 pg (25.0-34.0); Mean Corpuscular Hgb Conc 29.9 g/dL (32.0-36.0); Mean Platelet Volume 11.5 fL (9.4-12.4); Monocytes # (auto) 0.59 K/uL (0.11-0.59); Monocytes % (auto) 7.9 %; Neutrophils # (auto) 5.12 K/uL (1.40-6.50); Neutrophils % (auto) 68.2 %; Platelet Count 191 K/uL (130-400); RDW Coefficient of Variation 15.7 % (11.5-14.5); RDW Standard Deviation 57.2 fL (36.4-46.3); Red Blood Count 4.87 M/uL (4.20-5.40); White Blood Count 7.51 K/ul (4.8-10.8)
[2024-12-22 04:59] LABS: BUN Creatinine Ratio 43.6 (10-20); Calcium 9.9 mg/dl (8.6-10.3); Creatinine Clr Calc Pharmacy 92.3 ml/min; Magnesium 2.1 mg/dl (1.7-2.4); Phosphorus 3.6 mg/dl (2.5-4.9); Potassium 3.8 mmol/L (3.5-5.1)
[2024-12-22] MEDS: POTASSIUM CHLORIDE 20 MEQ/15 ML UDC PO STA (06:38)
--- NOTE | 2024-12-22 07:39 | XRay Report ---
EXAM: XR chest 1V portable CLINICAL HISTORY: eval lines/tubes/lung cuevas while intubated TECHNIQUE: An X-ray image of the chest is obtained in 1 AP projection. COMPARISON: with the prior study dated 12/21/2024. FINDINGS: Pulmonary Parenchyma: An inserted endotracheal tube is seen 4.2 cm above the ximena. Stable insitu right CVL. Insitu NGT noted. Bilateral lower lung zone opacifications were noted, which may refer to pulmonary infiltrations. Obscured Both costophrenic angles were noted. Heart and Mediastinum: Enalrged cardiac size noted. No mediastinal widening or masses. No hilar or mediastinal lymphadenopathy. Bony Thorax: The bony thorax appears intact without fractures or deformities. Soft Tissues: Soft tissues overlying the chest wall are unremarkable. IMPRESSION: 1. An inserted endotracheal tube is seen 4.2 cm above the ximena. 2. Stable insitu right CVL. 3. Insitu NGT noted. 4. Bilateral lower lung zone opacifications were noted, which may refer to pulmonary infiltrations/Edema. 5. Obscured Both costophrenic angles were noted. 6. Unchanged cardiomegaly. Electronically signed by Ines Tee 12-22-2024 07:38 AM
[2024-12-22] MEDS ORDERED: POLYETHYLENE (MIRALAX) 17 GM PACK PO PRN (09:51)
[2024-12-22] MEDS ORDERED: SENNA 8.6 MG TAB PO PRN (09:51)
--- NOTE | 2024-12-22 09:53 | Critical Care Progress Note ---
Date of Service December 22, 2024 Assessment & Plan (1) Acute on chronic respiratory failure with hypoxia and hypercapnia: (2) RSV (acute bronchiolitis due to respiratory syncytial virus): (3) Metabolic encephalopathy: (4) Pneumonia: (5) Admitted to intensive care unit: (6) Hypertension: (7) Anxiety and depression: (8) COPD (chronic obstructive pulmonary disease): (9) ARDS (adult respiratory distress syndrome): Plan Reason Critically Ill: 54-year-old morbidly obese female admitted with viral bronchiolitis and acute on chronic hypoxemic and hypercapnic respiratory failure requiring intubation mechanical ventilation. She has been put on steroids for late phase ARDS and was proned. She is clinically plateaued 24-hour events: Hemodynamically stable. Oxygen requirement stable at 60 to 65%. Recommendations: Neuro -currently sedated on fentanyl and Versed. Continues daily sedation breaks. Continue home medications (Zyprexa, Lamictal, and Prozac). Sedation breaks limited by ventilatory instability with decreasing sedation. Cardiac -hypertension: On ARB at home. Start JESSICA inhibitor. 3 L negative since admission but may benefit from additional diuresis. Start Diamox for 3 days as well as Lasix. ICU electrolyte replacement protocol Respiratory -dense dependent consolidation. Chest x-ray not significantly changed. Complete course of prednisone. Follow-up for infectious complications. Will bring ventilator strategy in line with ARDSnet decreased to 6 cc/kg ideal body weight (360 cc tidal volume). Increased respiratory rate to compensate and maintain CO2 levels in acceptable range. Would likely need BiPAP if extubated at least at night. Can pursue tracheostomy however the patient's resources would not permit LTAC and she would likely need SNF. Anticipate at least 30 days of hospitalization if tracheostomy is to be pursued. Would like to see if we can optimize her respiratory status before pursuing trach. Would have to reassess her anatomy to see whether she is a candidate for bedside percutaneous dilatation of tracheostomy or if ENT consultation might be required. Continue nebulized budesonide and Perforomist. GI -continue tube feeds. High stool output. Discussed with nutrition. Initiate banana flakes. C. difficile is been negative RENAL/LYTES -initiating diuresis. ICU electrolyte replacement protocol. Follow kidney function ENDO - glycemic control per protocol HEME -no acute issues ID -patient's completed a full course of Zosyn. Off antibiotics clinically. Low threshold for repeat assessment given steroids --Prophylaxis VTE: Heparin subcu GI: Pantoprazole Lines: Right IJ, radial, Tian Diet: Tube feeds Family will be updated when available Patient's son Brandon [phone] I have personally spent 45 minutes of critical care time in the direct management of this patient. This is a life/limb threatening event. This includes time spent evaluating patient, direct bedside care, chart review, placing orders, interpretation of diagnostic studies, discussion with consultants, patient, and family members, as well as other required patient management activities. This time is exclusive of all separately billable procedures, and teaching time and separate from and in addition to any other critical care service time. Admission and Anticipated Discharge Date Admission Date: December 14, 2024 Subjective Patient seen and examined. EMR reviewed. Discussed with off going database architect as well as with overnight critical care KATHY and bedside critical care nurse and on multidisciplinary rounds. Patient remains intubated and sedated. She desaturates with any significant physical activity. She is able to follow some simple commands per nursing when sedation is lightened. Review of Systems Review of Systems: Unobtainable due to endotracheal tube Physical Exam Constitutional: + morbidly obese and + mechanically vent ilated; no acute distress Morbidly obese. Physical exam limited by body habitus Neck: trachea midline, no thyromegaly Respiratory: normal respiratory effort, lungs clear to auscultation Cardiovascular: RRR, no murmur, no edema Gastrointestinal (Abdomen): normal bowel sounds, soft, nontender, no hepatosplenomegaly Musculoskeletal: Extremities: extremities normal to inspection Skin: no rashes, warm and dry Neurologic: Sedated Lymphatic: no cervical lymphadenopathy Results & Data Results & Data Vital Signs (Past 12 Hours) Vital Signs Temp Pulse Resp BP Pulse Ox O2 Del Method FiO2 12/22/24 08:03 56 L 18 145/64 H 90 Mechanical Vent 65 12/22/24 08:02 47 L 23 93 65 12/22/24 08:00 65 12/22/24 08:00 47 L 12/22/24 07:30 48 L 18 93 12/22/24 07:00 37.4 C 47 L 18 90 12/22/24 06:00 46 L 18 128/63 91 12/22/24 05:00 45 L 18 127/64 93 12/22/24 04:00 46 L 18 128/61 98 12/22/24 04:00 65 12/22/24 03:06 46 L 18 93 12/22/24 03:00 46 L 18 92 65 12/22/24 02:00 127/62 12/22/24 02:00 46 L 18 127/62 94 12/22/24 01:06 47 L 18 126/61 92 12/22/24 00:48 47 L 18 92 12/22/24 00:00 50 L 18 129/62 96 12/22/24 00:00 65 12/22/24 00:00 52 L 12/21/24 23:34 51 L 18 92 65 12/21/24 23:00 38.1 C H 49 L 18 131/61 95 12/21/24 22:00 54 L 18 134/62 93 Critical Care Results & Data Vital Signs (Past 12 Hours) Vital Signs Temp Pulse Resp BP Pulse Ox O2 Del Method FiO2 12/22/24 08:03 56 L 18 145/64 H 90 Mechanical Vent 65 12/22/24 08:02 47 L 23 93 65 12/22/24 08:00 65 12/22/24 08:00 47 L 12/22/24 07:30 48 L 18 93 12/22/24 07:00 37.4 C 47 L 18 90 12/22/24 06:00 46 L 18 128/63 91 12/22/24 05:00 45 L 18 127/64 93 12/22/24 04:00 46 L 18 128/61 98 12/22/24 04:00 65 12/22/24 03:06 46 L 18 93 12/22/24 03:00 46 L 18 92 65 12/22/24 02:00 127/62 12/22/24 02:00 46 L 18 127/62 94 12/22/24 01:06 47 L 18 126/61 92 12/22/24 00:48 47 L 18 92 12/22/24 00:00 50 L 18 129/62 96 12/22/24 00:00 65 12/22/24 00:00 52 L 12/21/24 23:34 51 L 18 92 65 12/21/24 23:00 38.1 C H 49 L 18 131/61 95 12/21/24 22:00 54 L 18 134/62 93 Lab & Micro Results (Past 24 Hours) RBC 4.87 M/uL (4.20-5.40) 12/22/24 WBC 7.51 K/ul (4.8-10.8) 12/22/24 Hgb 14.4 g/dl (12.0-16.0) 12/22/24 Hct 48.2 % (37.0-47.0) H 12/22/24 MCV 99.0 fL (80.0-100.0) 12/22/24 MCH 29.6 pg (25.0-34.0) 12/22/24 MCHC 29.9 g/dL (32.0-36.0) L 12/22/24 RDW Standard Deviation 57.2 fL (36.4-46.3) H 12/22/24 RDW Coefficient of Variation 15.7 % (11.5-14.5) H 12/22/24 Plt Count 191 K/uL (130-400) 12/22/24 MPV 11.5 fL (9.4-12.4) 12/22/24 Neutrophils (%) (Auto) 68.2 % 12/22/24 Lymphocytes (%) (Auto) 22.9 % 12/22/24 Monocytes # (Auto) 0.59 K/uL (0.11-0.59) 12/22/24 Eosinophils # (Auto) 0.03 K/uL (0.00-0.50) 12/22/24 Immature Granulocyte % (Auto) 0.5 % 12/22/24 Neutrophils # (Auto) 5.12 K/uL (1.40-6.50) 12/22/24 Lymphocytes # (Auto) 1.72 K/uL (1.20-3.40) 12/22/24 Monocytes # (Auto) 0.59 K/uL (0.11-0.59) 12/22/24 Eosinophils # (Auto) 0.03 K/uL (0.00-0.50) 12/22/24 Basophils # (Auto) 0.01 K/uL (0.00-0.20) 12/22/24 Immature Granulocyte # (Auto) 0.04 K/uL (0.01-0.20) 5 Na 139 mmol/L (136-145) 12/22/24 K 3.8 mmol/L (3.5-5.1) 12/22/24 Cl 106 mmol/L (98-107) 12/22/24 CO2 32 mmol/L (21-32) 12/22/24 Anion Gap 1 (3-11) L 12/22/24 BUN 41 mg/dl (6-23) H 12/22/24 Creatinine 0.94 mg/dl (0.6-1.2) 12/22/24 BUN/Creatinine Ratio 43.6 (10-20) H 12/22/24 Glu 88 mg/dl (70-99(Fasting)) 12/22/24 Ca 9.9 mg/dl (8.6-10.3) 12/22/24 Phosphorus Level 3.6 mg/dl (2.5-4.9) 12/22/24 Mg 2.1 mg/dl (1.7-2.4) 12/22/24 04:11 Calcium Level 9.9 mg/dl (8.6-10.3) 12/22/24 04:11 Microbiology 12/15/24 08:45 Acid Fast Bacilli Smear - Final Ba Lavage,Left Lower Lobe Acid Fast Bacilli Culture - Preliminary No Acid-Fast Bacilli Isolated - Report 1, Additional Report to Follow. Diagnostic Findings (Past 24 Hours) Chest X-Ray 12/22/24 06:00 EXAM: XR chest 1V portable CLINICAL HISTORY: eval lines/tubes/lung cuevas while intubated TECHNIQUE: An X-ray image of the chest is obtained in 1 AP projection. COMPARISON: with the prior study dated 12/21/2024. FINDINGS: Pulmonary Parenchyma: An inserted endotracheal tube is seen 4.2 cm above the ximena. Stable insitu right CVL. Insitu NGT noted. Bilateral lower lung zone opacifications were noted, which may refer to pulmonary infiltrations. Obscured Both costophrenic angles were noted. Heart and Mediastinum: Enalrged cardiac size noted. No mediastinal widening or masses. No hilar or mediastinal lymphadenopathy. Bony Thorax: The bony thorax appears intact without fractures or deformities. Soft Tissues: Soft tissues overlying the chest wall are unremarkable. IMPRESSION: 1. An inserted endotracheal tube is seen 4.2 cm above the ximena. 2. Stable insitu right CVL. 3. Insitu NGT noted. 4. Bilateral lower lung zone opacifications were noted, which may refer to pulmonary infiltrations/Edema. 5. Obscured Both costophrenic angles were noted. 6. Unchanged cardiomegaly. Electronically signed by Ines Tee 12-22-2024 07:38 AM I & O Totals 24 Hours 12/21/24 12/22/24 12/23/24 06:59 06:59 06:59 Intake Total 1395.050 / 3940.590 2753.767 / 2080.767 17.333 / 17.333 Output Total 1577 / 1577 2575 / 2575 400 / 400 Balance -181.950 / -181.950 -494.233 / -494.233 -382.667 / -382.667 Cumulative 12/14/24 19:47 thru 12/22/24 09:09 Intake Total 45741.017 Output Total 66197 Balance -3781.983 RT Ventilator Mngmt (Last Documented) Ventilator Ordered Settings Ventilator Support Mode Assist Control 12/22/24 08:02 Respiratory Rate 18 12/22/24 08:03 Ventilator Tidal Volume 400 12/22/24 0 8:02 Setting Minute Ventilation 7.2 12/22/24 08:02 Positive End Expiratory 12 12/22/24 08:02 Pressure Fraction of Inspired Oxygen 65 12/22/24 08:03 Peak Inspiratory Flow 43 12/18/24 10:35 Machine Comment PEEP changed by Dr. Sotelo 12/19/24 12:03 Ventilator - PT Measurements Respiratory Rate 18 Exhaled Tidal Volume 423 Minute Ventilation 7.2 Peak Inspiratory Airway 29 Pressure Plateau Pressure 25 Respiratory Cycle Inspiratory: 1:3.4 Expiratory Ratio Inspiratory Phase Time 0.75 End-Tidal CO2 55 Static Lung Compliance 32.54 Dynamic Lung Compliance 24.88 Normal Static Lung Compliance 46.00 Patient Measurements Comment Luz Marrero PA-C CCM aware Coding Level of Care Code 04679 CRITICAL CARE 1ST 30-74M Diagnoses Acute on chronic respiratory failure with hypoxia and hypercapnia J96.21; J96.22 RSV (acute bronchiolitis due to respiratory syncytial virus) J21.0 Metabolic encephalopathy G93.41 Pneumonia J18.9 Admitted to intensive care unit Z78.9 Hypertension I10 Anxiety and depression F41.9; F32.A COPD (chronic obstructive pulmonary disease) J44.9 ARDS (adult respiratory distress syndrome) J80
[2024-12-22] MEDS: FUROSEMIDE 40 MG/4 ML VIAL IV SCH (10:41)
[2024-12-22] MEDS: acetaZOLAMIDE 250 MG in SYRINGE 0 ML IV STA (10:41)
--- NOTE | 2024-12-22 16:24 | Hospitalist Progress Note ---
Date of Service December 22, 2024 Assessment & Plan (1) Admitted to intensive care unit: (2) Metabolic encephalopathy: (3) RSV (acute bronchiolitis due to respiratory syncytial virus): (4) Acute on chronic respiratory failure with hypoxia and hypercapnia: (5) COPD (chronic obstructive pulmonary disease): (6) Pneumonia: Plan 54-year-old female with PMHx of HTN, GERD, tobacco use d/o, severe COPD, CHF, chronic pain syndrome, HLD, anxiety / depression presented to the ED with severe shortness of breath, dyspnea on exertion which had been worsening over the 3 days prior to presentation. Family reported that she has been having significantly worsening SOB and has continued to smoke tobacco products. In the ED, pt was intubated for CO2 retention and hypoxia. [employer] testing was positive for RSV with CT showing multifocal pneumonia. #Acute on chronic hypoxic hypercapnic respiratory failure #Multifocal pneumonia #Severe COPD with exacerbation #RSV - CTA without evidence of PE 12/15 - intubated on 12/14/24 , ICU managing - paralytics taken off on 12/18/24 - on Fentanyl / Midazolam for vent dyssynchrony - cont decadron, DuoNebs, albuterol, formoterol, budesonide - s/p 5 days of Zosyn last dose 12/19/24 Bronchoscopy cultures growing yeast, ident to follow Blood cultures NGTD Guarded prognosis. if not improving, might need trach / peg - started on IV Furosemide BID #Diarrhea - onset since initiation of tube feeds - banatrol BID ordered #Chronic medical conditions: #GERD-converted to Protonix IV #Hypertension- Holding aspirin, bumetanide (replaced with IV Lasix), losartan #Anxiety/depression- cont fluoxetine, oxcarbazepine and lamotrigine via OG, suspect she is on oxcarbazepine and lamotrigine for bipolar with no known seizure history VTE prophylaxis - heparin 5000 units q.8 hourly Diet - NPO on tube feeding Disposition - ICU Admission and Anticipated Discharge Date Admission Date: December 14, 2024 Review of Systems Review of Systems: Unable to complete comprehensive ROS due to mental status Physical Exam Physical Exam: Gen: NAD HEENT: ET tube in place CVS: s1s2 nl, bradycardia Lungs: diminished, vent dependent Abd: protuberant, diminished bowel sounds, fecal management system in place : obrien in place Ext: no edema, typically moves extremities with touch but not today due to increased sedation Results & Data Results & Data Vital Signs (Past 12 Hours) Vital Signs Temp Pulse Resp BP Pulse Ox O2 Del Method FiO2 12/22/24 14:54 51 L 26 H 139/59 L 93 12/22/24 14:40 48 L 26 H 90 65 12/22/24 14:00 47 L 26 H 137/63 86 L 12/22/24 14:00 37.5 C 12/22/24 13:00 51 L 26 H 86 L 12/22/24 12:30 51 L 26 H 90 65 12/22/24 12:00 48 L 26 H 87 L 12/22/24 12:00 65 12/22/24 11:00 46 L 26 H 141/74 H 87 L 12/22/24 10:00 50 L 26 H 137/66 89 L 12/22/24 09:59 50 L 27 H 90 65 12/22/24 09:03 51 L 18 135/65 90 12/22/24 09:00 37.4 C 12/22/24 08:03 56 L 18 145/64 H 90 Mechanical Vent 65 12/22/24 08:02 47 L 23 93 65 12/22/24 08:00 65 12/22/24 08:00 47 L 12/22/24 07:30 48 L 18 93 12/22/24 07:00 37.4 C 47 L 18 90 12/22/24 06:00 46 L 18 128/63 91 12/22/24 05:00 45 L 18 127/64 93 PG Care Time/CCT Total # of Minutes Spent Total Time Spent with Patient: Total time spent is greater than 50% in coordination of care (as documented) at patient's floor/unit and/or counseling patient: Coding Level of Care Code 68989 SUB INP/OBS CARE 11/15MIN Diagnoses Admitted to intensive care unit Z78.9 Metabolic encephalopathy G93.41 RSV (acute bronchiolitis due to respiratory syncytial virus) J21.0 Acute on chronic respiratory failure with hypoxia and hypercapnia J96.21; J96.22 COPD (chronic obstructive pulmonary disease) J44.9 Pneumonia J18.9
[2024-12-22 17:58] LABS: BUN Creatinine Ratio 46.9 (10-20); Calcium 9.9 mg/dl (8.6-10.3); Creatinine Clr Calc Pharmacy 90.2 ml/min; Magnesium 2.1 mg/dl (1.7-2.4); Phosphorus 3.9 mg/dl (2.5-4.9); Potassium 4.4 mmol/L (3.5-5.1)
[2024-12-22] MEDS ORDERED: ICU ELECTROLYTE REPLACEMENT PROTOCOL SCH (18:00)
[2024-12-22] MEDS: ICU ELECTROLYTE REPLACEMENT PROTOCOL SCH (18:43)
[2024-12-22] MEDS: BANATROL TF 60 ML LIQUID PKT PEG SCH (20:09)
[2024-12-23 04:43] LABS: BUN Creatinine Ratio 44.6 (10-20); Calcium 9.7 mg/dl (8.6-10.3); Creatinine Clr Calc Pharmacy 84.5 ml/min; Magnesium 2.1 mg/dl (1.7-2.4); Phosphorus 3.5 mg/dl (2.5-4.9); Potassium 3.9 mmol/L (3.5-5.1)
[2024-12-23] MEDS: POTASSIUM CHLORIDE 20 MEQ/15 ML UDC NG SCH (06:38)
--- NOTE | 2024-12-23 09:30 | Critical Care Progress Note ---
Date of Service December 23, 2024 Assessment & Plan (1) Acute on chronic respiratory failure with hypoxia and hypercapnia: (2) RSV (acute bronchiolitis due to respiratory syncytial virus): (3) Metabolic encephalopathy: (4) Pneumonia: (5) Admitted to intensive care unit: (6) Hypertension: (7) Anxiety and depression: (8) COPD (chronic obstructive pulmonary disease): (9) ARDS (adult respiratory distress syndrome): Plan Reason Critically Ill: 54-year-old morbidly obese female admitted with viral bronchiolitis and acute on chronic hypoxemic and hypercapnic respiratory failure requiring intubation mechanical ventilation. She has been put on steroids for late phase ARDS and was proned. She is clinically plateaued 24-hour events: Diuresed about 2 to 3 L negative. Hemodynamically stable. Oxygen requirement stable. Recommendations: Neuro -currently sedated on fentanyl and Versed, continue to wean as tolerated. Start some oral medications in an effort to try and decrease IV sedation. Continues daily sedation breaks. Continue home medications (Zyprexa, Lamictal, and Prozac). Cardiac -hypertension: On ARB at home. Continue JESSICA inhibitor. Continue Lasix. Bradycardic so we will avoid AV allison blocking agents or clonidine. Respiratory -dense dependent bilateral lower lobe consolidation. Chest x-ray slightly improved today. Complete course of prednisone. Follow-up for infectious complications. Continue lung protective ventilatory strategy. Would likely need BiPAP if extubated at least at night. Can pursue tracheostomy however the patient's resources would not permit LTAC and she would likely need SNF. Anticipate at least 30 days of hospitalization if tracheostomy is to be pursued. Would like to see if we can optimize her respiratory status before pursuing trach. Continue nebulized budesonide and Perforomist. GI -continue tube feeds. High stool output. Discussed with nutrition. Recheck C. difficile RENAL/LYTES -continue diuresis. ICU electrolyte replacement protocol. Follow kidney function ENDO - glycemic control per protocol HEME -no acute issues ID -patient's completed a full course of Zosyn. Off antibiotics clinically. Low threshold for repeat assessment given steroids --Prophylaxis VTE: Heparin subcu GI: Pantoprazole Lines: Right IJ, radial, Tian Diet: Tube feeds Family will be updated when available Patient's son Brandon [phone] I have personally spent 39 minutes of critical care time in the direct management of this patient. This is a life/limb threatening event. This includes time spent evaluating patient, direct bedside care, chart review, placing orders, interpretation of diagnostic studies, discussion with consultants, patient, and family members, as well as other required patient management activities. This time is exclusive of all separately billable procedures, and teaching time and separate from and in addition to any other critical care service time. Admission and Anticipated Discharge Date Admission Date: December 14, 2024 Subjective Intubated and sedated. Review of Systems Review of Systems: Unobtainable due to endotracheal tube Physical Exam Constitutional: + morbidly obese and + mechanically vent ilated; no acute distress Neck: trachea midline, no thyromegaly Respiratory: normal respiratory effort, lungs clear to auscultation Cardiovascular: RRR, no murmur, no edema Gastrointestinal (Abdomen): normal bowel sounds, soft, nontender, no hepatosplenomegaly Musculoskeletal: Extremities: extremities normal to inspection Skin: no rashes, warm and dry Lymphatic: no cervical lymphadenopathy Results & Data Results & Data Vital Signs (Past 12 Hours) Vital Signs Temp Pulse Pulse Resp BP Pulse Ox O2 Del Method 12/23/24 09:03 49 L 28 H 89 L Mechanical Vent 12/23/24 09:00 130/62 12/23/24 08:45 54 L 26 H 89 L 12/23/24 08:09 73 24 90 Mechanical Vent 12/23/24 08:00 12/23/24 08:00 73 12/23/24 08:00 Mechanical Vent 12/23/24 08:00 46 L 12/23/24 08:00 139/64 12/23/24 07:44 57 L 26 H 92 Mechanical Vent 12/23/24 07:42 59 L 27 H 92 12/23/24 07:40 60 27 H 91 12/23/24 07:00 47 L 26 H 90 12/23/24 07:00 120/57 L 12/23/24 06:00 123/58 L 12/23/24 06:00 45 L 26 H 123/58 L 90 12/23/24 05:00 48 L 26 H 128/59 L 89 L 12/23/24 04:28 37.6 C H 12/23/24 04:09 83 18 88 L 12/23/24 04:00 12/23/24 03:15 47 L 26 H 126/61 91 03/04/25 02:58 47 L 26 H 91 12/23/24 02:48 49 L 26 H 92 12/23/24 02:00 46 L 26 H 129/60 89 L 12/23/24 01:00 44 L 26 H 126/56 L 89 L 12/23/24 00:00 45 L 12/23/24 00:00 47 L 26 H 130/59 L 88 L 12/23/24 00:00 12/22/24 23:12 47 L 26 H 91 12/22/24 23:05 26 H 12/22/24 23:00 130/58 L 12/22/24 22:57 46 L 26 H 91 12/22/24 22:00 45 L 26 H 130/58 L 87 L FiO2 12/23/24 09:03 65 12/23/24 09:00 12/23/24 08:45 12/23/24 08:09 65 12/23/24 08:00 65 12/23/24 08:00 12/23/24 08:00 65 12/23/24 08:00 12/23/24 08:00 12/23/24 07:44 65 12/23/24 07:42 12/23/24 07:40 65 12/23/24 07:00 12/23/24 07:00 12/23/24 06:00 12/23/24 06:00 12/23/24 05:00 12/23/24 04:28 12/23/24 04:09 12/23/24 04:00 65 12/23/24 03:15 12/23/24 02:58 65 12/23/24 02:48 12/23/24 02:00 12/23/24 01:00 12/23/24 00:00 12/23/24 00:00 12/23/24 00:00 65 12/22/24 23:12 12/22/24 23:05 65 12/22/24 23:00 12/22/24 22:57 12/22/24 22:00 Critical Care Results & Data Vital Signs (Past 12 Hours) Vital Signs Temp Pulse Pulse Resp BP Pulse Ox O2 Del Method 12/23/24 09:03 49 L 28 H 89 L Mechanical Vent 12/23/24 09:00 130/62 12/23/24 08:45 54 L 26 H 89 L 12/23/24 08:09 73 24 90 Mechanical Vent 12/23/24 08:00 12/23/24 08:00 73 12/23/24 08:00 Mechanical Vent 12/23/24 08:00 46 L 12/23/24 08:00 139/64 12/23/24 07:44 57 L 26 H 92 Mechanical Vent 12/23/24 07:42 59 L 27 H 92 12/23/24 07:40 60 27 H 91 12/23/24 07:00 47 L 26 H 90 12/23/24 07:00 120/57 L 12/23/24 06:00 123/58 L 12/23/24 06:00 45 L 26 H 123/58 L 90 12/23/24 05:00 48 L 26 H 128/59 L 89 L 12/23/24 04:28 37.6 C H 12/23/24 04:09 83 18 88 L 12/23/24 04:00 12/23/24 03:15 47 L 26 H 126/61 91 12/23/24 02:58 47 L 26 H 91 12/23/24 02:48 49 L 26 H 92 12/23/24 02:00 46 L 26 H 129/60 89 L 12/23/24 01:00 44 L 26 H 126/56 L 89 L 12/23/24 00:00 45 L 12/23/24 00:00 47 L 26 H 130/59 L 88 L 12/23/24 00:00 12/22/24 23:12 47 L 26 H 91 12/22/24 23:05 26 H 12/22/24 23:00 130/58 L 12/22/24 22:57 46 L 26 H 91 12/22/24 22:00 45 L 26 H 130/58 L 87 L FiO2 12/23/24 09:03 65 12/23/24 09:00 12/23/24 08:45 12/23/24 08:09 65 12/23/24 08:00 65 12/23/24 08:00 12/23/24 08:00 65 12/23/24 08:00 12/23/24 08:00 12/23/24 07:44 65 12/23/24 07:42 12/23/24 07:40 65 12/23/24 07:00 03/04/25 07:00 12/23/24 06:00 12/23/24 06:00 12/23/24 05:00 12/23/24 04:28 12/23/24 04:09 12/23/24 04:00 65 12/23/24 03:15 12/23/24 02:58 65 12/23/24 02:48 12/23/24 02:00 12/23/24 01:00 12/23/24 00:00 12/23/24 00:00 12/23/24 00:00 65 12/22/24 23:12 12/22/24 23:05 65 12/22/24 23:00 12/22/24 22:57 12/22/24 22:00 Lab & Micro Results (Past 24 Hours) No Data to Display Na 142 mmol/L (136-145) 12/23/24 K 3.9 mmol/L (3.5-5.1) 12/23/24 Cl 104 mmol/L (98-107) 12/23/24 CO2 34 mmol/L (21-32) H 12/23/24 Anion Gap 4 (3-11) 12/23/24 BUN 45 mg/dl (6-23) H 12/23/24 Creatinine 1.01 mg/dl (0.6-1.2) 12/23/24 BUN/Creatinine Ratio 44.6 (10-20) H 12/23/24 Glu 90 mg/dl (70-99(Fasting)) 12/23/24 Ca 9.7 mg/dl (8.6-10.3) 12/23/24 Phosphorus Level 3.5 mg/dl (2.5-4.9) 12/23/24 Mg 2.1 mg/dl (1.7-2.4) 12/23/24 04:16 Calcium Level 9.7 mg/dl (8.6-10.3) 12/23/24 04:16 Microbiology 12/15/24 08:45 Fungal Smear - Final Ba Lavage,Left Lower Lobe Fungal Culture - Preliminary Yeast- ident to follow Diagnostic Findings (Past 24 Hours) X-ray today was independently reviewed. There appears to be some slight improvement in aeration in the bilateral lower lobes. No new airspace opacities or infiltrates identified I & O Totals 24 Hours 12/22/24 12/23/24 12/24/24 06:59 06:59 06:59 Intake Total 2080.767 / 2080.767 1140.633 / 1140.633 392.800 / 392.800 Output Total 2575 / 2575 4955 / 4955 1999 Balance -494.233 / -494.233 -3814.367 / -3814.367 -1607.200 / -1607.200 Cumulative 12/14/24 19:47 thru 12/23/24 09:18 Intake Total 96119.117 Output Total 06258 Balance -8820.883 RT Ventilator Mngmt (Last Documented) Ventilator Ordered Settings Ventilator Support Mode Assist Control 12/23/24 08:00 Respiratory Rate 28 12/23/24 09:03 Ventilator Tidal Volume 350 12/23/24 08:00 Setting Minute Ventilation 9 12/23/24 07:40 Positive End Expiratory 12 12/23/24 08:00 Pressure Fraction of Inspired Oxygen 65 12/23/24 09:03 Peak Inspiratory Flow 43 12/18/24 10:35 Machine Comment Vent changes made per 4- 12/22/24 09:59 6kg Ventilator - PT Measurements Respiratory Rate 28 Exhaled Tidal Volume 286 Minute Ventilation 9 Peak Inspiratory Airway 23 Pressure Plateau Pressure 22 Respiratory Cycle Inspiratory: 1:2.1 Expiratory Ratio Inspiratory Phase Time 0.75 End-Tidal CO2 43 Static Lung Compliance 28.60 Dynamic Lung Compliance 26.00 Normal Static Lung Compliance 47.00 Patient Measurements Comment No changes made on ventilator settings at this time. Coding Level of Care Code 94786 CRITICAL CARE 1ST 30-74M Diagnoses Acute on chronic respiratory failure with hypoxia and hypercapnia J96.21; J96.22 RSV (acute bronchiolitis due to respiratory syncytial virus) J21.0 Metabolic encephalopathy G93.41 Pneumonia J18.9 Admitted to intensive care unit Z78.9 Hypertension I10 Anxiety and depression F41.9; F32.A COPD (chronic obstructive pulmonary disease) J44.9 ARDS (adult respiratory distress syndrome) J80
--- NOTE | 2024-12-23 11:02 | XRay Report ---
XR chest 1V portable CLINICAL HISTORY: resp failure COMPARISON STUDY: 12/22/2024 FINDINGS: Endotracheal tube tip is stable just below the thoracic inlet. Right central catheter is st able. Nasogastric tube tip is off the field of view inferiorly. There is stable cardiomegaly with mil d pulmonary vascular congestion. Stable hazy opacity in the lung bases with obscuration of the left h emidiaphragm. No pneumothorax. IMPRESSION: Stable exam. ACT 112: Negative or not required by law. Electronically signed by: Abdoulaye Sierra M.D. 12/23/2024 11:00 AM
[2024-12-23] MEDS: METHADONE HCL 5 MG TAB PO SCH (11:41)
[2024-12-23] MEDS: clonazePAM 0.5 MG TAB PO SCH (11:42)
--- NOTE | 2024-12-23 12:10 | XRay Report ---
XR chest 1V portable CLINICAL HISTORY: vent low o2 COMPARISON STUDY: 12/23/2024 FINDINGS: Endotracheal tube tip is stable just below the thoracic inlet. Nasogastric tube tip is off the field of view inferiorly. Stable right central catheter. Stable cardiomegaly with mild pulmonary vascular congestion. Stable bilateral lung base opacity with obscuration of the left hemidiaphragm. N o pneumothorax. IMPRESSION: Stable exam. ACT 112: Negative or not required by law. Electronically signed by: Abdoulaye Sierra M.D. 12/23/2024 12:09 PM
[2024-12-23] MEDS: acetaZOLAMIDE 250 MG in SYRINGE 0 ML IV STA (12:12)
[2024-12-23 14:26] LABS: Cdiff Antigen Positive; Cdiff Toxin A+B Negative Cdiff Toxin (Negative); Cdiff Toxin B Gene (2yr or >) Positive Cdiff Gene (Neg)
--- NOTE | 2024-12-23 14:40 | Infectious Disease Consult ---
Date of Consultation December 23, 2024 Assessment & Plan (1) ARDS (adult respiratory distress syndrome): (2) RSV (acute bronchiolitis due to respiratory syncytial virus): (3) Pulmonary cryptococcosis: Plan Problems: #Possible pulmonary cryptococcosis #RSV #ARDS Micro: 12/23 Serum CrAg: pending 12/15 LLL BAL -Bronchial cx: scant normal shannon -Fungal cx: Cryptocccus neoformans monica grubii -AFB smear neg, cx NGTD 12/15 RLL BAL -Bronchial cx: scant normal shannon 12/15 BCx x2: NG 12/14 RPP: +RSV Abx: Ceftriaxone 12/14 Vanc 12/14 Zosyn 12/14 - 12/19 54 yo F with history of severe COPD, HLD, CHF, HTN, anxiety, chronic pain s yndrome who presented to the ED on 12/14 with severe shortness of breath which she reported was present for 4-6 months, but had gotten progressively worse over the last 3 days, found to have RSV with acute on chronic hypoxemic and hypercapnic respiratory failure requiring intubation, with ARDS. Hospital course c/b concern for pulmonary cryptococcosis. Pt was intubated in the ED. Labs showed WBC 8.8, procalcitonin 0.11, RPP +RSV. CXR with pulm vascular congestion, peribronchial cuffing that may be seen with bronchiolitis, R>L bibasilar densities. Pt was started on antibiotics, Solumedrol. CTA chest on 12/15 showed no PE, L>R dependent consolidation with volume loss and air bronchograms suggestive of atelectasis, pneumonia or aspiration could appear similarly. Also commented on a few borderline enlarged mediastinal and hilar lymph nodes. Pt underwent a bronchoscopy on 12/15. Noted minimal clear white secretions in R side. Mucous plugging noted in LLL with whitish-rob secretions. BAL bacterial cultures grew scant normal shannon. LLL BAL fungal culture now growing Cryptococcus neoformans, for which ID is consulted. Over the course of her hospitalization, pt has been proned, received high dose steroids. It seems her progress has plateaued, and she remains intubated on high FiO2. Did spike a fever of 38.1 on 3/2 PM. Not ready for extubation, and may pursue tracheostomy--however, pt's resources would not cover LTAC. Trying to optimize respiratory status before pursuing trach. Discussion: Uncertain whether the rare Cryptococcus neoformans growing on pt's BAL fungal culture represents colonization or a true pathogen. Pt does not appear to have baseline immunocompromise to predispose her to Crypto infection. However, immunocompetent individuals can develop pulmonary cryptococcosis, although around half of them are asymptomatic. Pt had a chronic shortness of breath with acute exacerbation likely due to RSV infection--uncertain whether the chronic shortness of breath was just due to COPD/smoking, or whether Crypto infection could have been contributing. Unable to ask pt whether she had symptoms of fevers, malaise, night sweats, weight loss. Her CT chest does not have obvious signs of Crypto infection such as nodules, however pulmonary crypto can mimic other types of pulmonary infections such as bacterial or viral infections as well. She did have some borderline enlarged mediastinal and hilar lymph nodes. Serum Crypto Ag is rarely positive unless the pt has disseminated Crypto--in which case would pursue LP to assess for [employer] crypto. Recommendations: -Unclear that pt has true pulmonary crypto--could be a colonizer. However, with her shortness of breath over months, hilar/mediastinal adenopathy, and lack of clinical improvement with goals of care discussions ongoing, reasonable to treat. With uncertainty of the diagnosis and comorbidities, will hold off on amphotericin/flucytosine at ths time, and start fluconazole 400 mg daily and monitor for improvement. -Follow-up serum Crypto Ag Discussed with Dr. Driver. Will continue to follow. Consultation Information Consultation was provided via telemedicine using two-way real-time interactive telecommunication between the patient and the telemedicine provider. For the duration of the visit, the provider was performing the assessment from a different facility than the patient. This includesuse of bluetooth stethoscope forauscultationperformed by the telepresenter that the telemedicine provider can hear if described in the physical exam. Logger contact information: Please call [facility] [place] . (Phone Number For Physician Use Only) After establishing a telemedicine visit, patient was: Patient was verified with two unique identifiers, Patient/authorized rep acknowledged consent and understanding and Gave permission to continue telehealth session Time Spent with Patient: Initial => 40 min History of Present Illness Reason for Consultation: Pulmonary crypto Requesting Physician: Dr. Hiram Driver Attending Physician: Breezy Green MD, PhD History of Present Illness 54 yo F with history of severe COPD, HLD, CHF, HTN, anxiety, chronic pain syndrome who presented to the ED on 12/14 with severe shortness of breath, dyspnea on exertion that she initially reported was present for 4-6 months, but it had gotten progressively worse over the last 3 days. Pt was intubated in the ED. Labs showed WBC 8.8, procalcitonin 0.11, respiratory pathogen panel positive for RSV. CXR with pulm vascular congestion, peribronchial cuffing that may be seen with bronchiolitis, R>L bibasilar densities. Pt was given a dose of ceftriaxone, then started on vanc, pip-tazo, Solumedrol. Vanc dc'ed as MRSA nares negative. CTA chest on 12/15 showed no PE, L>R dependent consolidation with volume loss and air bronchograms suggestive of atelectasis, pneumonia or aspiration could appear similarly. Also commented on a few borderline enlarged mediastinal and hilar lymph nodes. Pt underwent a bronchoscopy on 12/15. Noted minimal clear white secretions in R side. Mucous plugging noted in LLL with whitish-rob secretions. BAL bacterial cultures grew scant normal shannon. LLL BAL fungal culture now growing Cryptococcus neoformans, for which ID is consulted. Over the course of her hospitalization, pt has been proned, received high dose steroids. It seems her progress has plateaued, and she remains intubated on high FiO2. Did spike a fever of 38.1 on 3/2 PM. Not ready for extubation, and may pursue tracheostomy--however, pt's resources would not cover LTAC. Trying to optimize respiratory status before pursuing trach. Allergies Allergy/AdvReac Type Severity Reaction Status Date / Time nabumetone AdvReac Intermediate GI SYMPTOMS Verified 08/14/14 08:11 atorvastatin AdvReac Unknown GI upset Verified 08/14/14 08:11 gabapentin AdvReac Unknown "CAUSED Unverified 08/14/14 09:47 WAVES GOING THROUGH MY BRAIN" lithium AdvReac Unknown ELEVATED Verified 08/14/14 08:11 LIVER TESTS, JAUNDICE tramadol AdvReac Unknown MOOD Verified 08/14/14 08:11 DISORDER, RAGE Home Medications Medication Instructions Recorded Confirmed Type albuterol sulfate 2.5 mg/3 mL 2.5 mg inhalation QID PRN as 12/14/24 12/14/24 H istory (0.083 %) solution for nebulization directed albuterol sulfate 90 mcg/actuation 1 puff inhalation Q4 PRN Wheezing 12/14/24 12/14/24 History aerosol inhaler aspirin 81 mg tablet,delayed 81 mg PO DAILY 12/14/24 12/14/24 History release atorvastatin 10 mg tablet 20 mg PO HS 12/14/24 12/14/24 History bumetanide 1 mg tablet 1 mg PO DAILY 12/14/24 12/14/24 History cholecalciferol (vitamin D3) 1,250 1,250 mcg PO WK 12/14/24 12/14/24 History mcg (50,000 unit) capsule doxycycline hyclate 100 mg capsule 100 mg PO BID 12/14/24 12/14/24 History fluoxetine 40 mg capsule 40 mg PO DAILY 12/14/24 12/14/24 History ipratropium 0.5 mg-albuterol 3 mg 3 ml inhalation UD 12/14/24 12/14/24 History (2.5 mg base)/3 mL nebulization soln lamotrigine 200 mg tablet 200 mg PO DAILY 12/14/24 12/14/24 History losartan 25 mg tablet 25 mg PO DAILY 12/14/24 12/14/24 History multivitamin 1 tab PO DAILY 12/14/24 12/14/24 History omeprazole 20 mg capsule,delayed 20 mg PO DAILY 12/14/24 12/14/24 History release oxcarbazepine 300 mg tablet 300 mg PO BID 12/14/24 12/14/24 History oxycodone-acetaminophen 7.5 mg-325 1 tab PO BID PRN Pain 12/14/24 12/14/24 History mg tablet potassium chloride 20 mEq 40 meq PO BID 12/14/24 12/14/24 History tablet,extended release(part/cryst) prednisone 50 mg tablet 50 mg PO UD 12/14/24 12/14/24 History tizanidine 4 mg tablet 4 mg PO TID PRN as directed 12/14/24 12/14/24 History Patient History Medical History (Updated 12/23/24 @ 15:24 by Bonnie Sadler MD) Anxiety and depression Hypertension GERD (gastroesophageal reflux disease) Tobacco use disorder COPD (chronic obstructive pulmonary disease) Hyperlipidemia Social History Smoking Status: Current every day smoker Tobacco Type: Cigarettes Cigarettes Per Day: 2-3 PPD; Hx Alcohol Use: Yes Hx Substance Use: No Preferred Language: Angolan Communication Ability: Impaired Current Living Situation: Family Current Living Situation Comment: lives with son Feels Safe at Home: Yes Assistive Devices: Cane, Nebulizer and Oxygen - Continuous Review of System Unable to obtain given patient condition. Physical Exam Physical Exam: GENERAL: intubated on vent, sedated SKIN: No rashes, lesion on face, chest, abdomen, arms, legs NEURO: Sedated Results & Data Vital Signs (Past 12 Hours) Vital Signs Temp Pulse Pulse Resp BP Pulse Ox O2 Del Method 12/23/24 12:35 36.7 C 12/23/24 12:00 12/23/24 11:33 51 L 27 H 87 L 12/23/24 11:18 161/74 H 12/23/24 10:41 49 L 26 H 88 L 12/23/24 10:06 45 L 23 88 L 12/23/24 10:00 131/64 12/23/24 10:00 131/64 12/23/24 09:42 46 L 23 89 L 12/23/24 09:03 49 L 28 H 89 L Mechanical Vent 12/23/24 09:00 130/62 12/23/24 08:45 54 L 26 H 89 L 12/23/24 08:09 73 24 90 Mechanical Vent 12/23/24 08:00 12/23/24 08:00 73 12/23/24 08:00 Mechanical Vent 12/23/24 08:00 46 L 12/23/24 08:00 139/64 12/23/24 07:44 57 L 26 H 92 Mechanical Vent 12/23/24 07:42 59 L 27 H 92 12/23/24 07:40 60 27 H 91 12/23/24 07:00 47 L 26 H 90 12/23/24 07:00 120/57 L 12/23/24 06:00 123/58 L 12/23/24 06:00 45 L 26 H 123/58 L 90 12/23/24 05:00 48 L 26 H 128/59 L 89 L 12/23/24 04:28 37.6 C H 12/23/24 04:09 83 18 88 L 12/23/24 04:00 12/23/24 03:15 47 L 26 H 126/61 91 12/23/24 02:58 47 L 26 H 91 12/23/24 02:48 49 L 26 H 92 FiO2 12/23/24 12:35 12/23/24 12:00 100 12/23/24 11:33 100 12/23/24 11:18 12/23/24 10:41 12/23/24 10:06 12/23/24 10:00 12/23/24 10:00 12/23/24 09:42 12/23/24 09:03 65 12/23/24 09:00 12/23/24 08:45 12/23/24 08:09 65 12/23/24 08:00 65 12/23/24 08:00 12/23/24 08:00 65 12/23/24 08:00 12/23/24 08:00 12/23/24 07:44 65 12/23/24 07:42 12/23/24 07:40 65 12/23/24 07:00 12/23/24 07:00 12/23/24 06:00 12/23/24 06:00 12/23/24 05:00 12/23/24 04:28 12/23/24 04:09 12/23/24 04:00 65 12/23/24 03:15 12/23/24 02:58 65 12/23/24 02:48 Laboratory Results [facility] 12/22/24 12/23/24 17:21 04:16 Sodium 139 142 Potassium 4.4 3.9 Chloride 105 104 Carbon Dioxide 33 H 34 H BUN 45 H 45 H Creatinine 0.96 1.01 Glucose 139 H 90 Calcium 9.9 9.7 Diagnostic Findings Chest X-Ray 12/21/24 06:00 EXAM: XR chest 1V portable CLINICAL HISTORY: Eval lines/tubes/lung cuevas while intubated. TECHNIQUE: An X-ray image of the chest is obtained in AP projection. COMPARISON: 12/19/2024 CR FINDINGS: ETT with its tip 3.1 cm above the ximena. Right CVL terminates at the SVC/right atrium. NGT with its lower end in the abdomen Pulmonary Parenchyma: Nonhomogeneous shadowing is noted in the right lower zone. Left CP angle is obliterated, may favor pleural effusion. Nonhomogeneous shadowing is also noted in the left lower zone. Multiple chest tubes are appreciated. No pulmonary nodules are identified. Pleural thickening is noted on right. Heart and Mediastinum: Cardiac size is enlarged. No mediastinal widening or masses. No hilar or mediastinal lymphadenopathy. Bony Thorax: Bony thorax appears intact without fractures or deformities. Soft Tissues: Soft tissues overlying the chest wall are unremarkable. IMPRESSION: 1. ETT with its tip 3.1 cm above the ximena. 2. Right CVL terminates at the SVC/right atrium. 3. NGT with its lower end in the abdomen. 4. Cardiac size is enlarged. 5. Nonhomogeneous shadowing is noted in the right lower zone. 6. Left CP angle is obliterated, may favor pleural effusion. 7. Nonhomogeneous shadowing is also noted in the left lower zone. 8. No interval change. Electronically signed by Ines Tee 12-21-2024 08:15 AM Chest X-Ray 12/22/24 06:00 EXAM: XR chest 1V portable CLINICAL HISTORY: eval lines/tubes/lung cuevas while intubated TECHNIQUE: An X-ray image of the chest is obtained in 1 AP projection. COMPARISON: with the prior study dated 12/21/2024. FINDINGS: Pulmonary Parenchyma: An inserted endotracheal tube is seen 4.2 cm above the ximena. Stable insitu right CVL. Insitu NGT noted. Bilateral lower lung zone opacifications were noted, which may refer to pulmonary infiltrations. Obscured Both costophrenic angles were noted. Heart and Mediastinum: Enalrged cardiac size noted. No mediastinal widening or masses. No hilar or mediastinal lymphadenopathy. Bony Thorax: The bony thorax appears intact without fractures or deformities. Soft Tissues: Soft tissues overlying the chest wall are unremarkable. IMPRESSION: 1. An inserted endotracheal tube is seen 4.2 cm above the ximena. 2. Stable insitu right CVL. 3. Insitu NGT noted. 4. Bilateral lower lung zone opacifications were noted, which may refer to pulmonary infiltrations/Edema. 5. Obscured Both costophrenic angles were noted. 6. Unchanged cardiomegaly. Electronically signed by Ines Tee 12-22-2024 07:38 AM Chest X-Ray 12/23/24 09:22 XR chest 1V portable CLINICAL HISTORY: resp failure COMPARISON STUDY: 12/22/2024 FINDINGS: Endotracheal tube tip is stable just below the thoracic inlet. Right central catheter is stable. Nasogastric tube tip is off the field of view inferiorly. There is stable cardiomegaly with mild pulmonary vascular congestion. Stable hazy opacity in the lung bases with obscuration of the left hemidiaphragm. No pneumothorax. IMPRESSION: Stable exam. ACT 112: Negative or not required by law. Electronically signed by: Abdoulaye Sierra M.D. 12/23/2024 11:00 AM Chest X-Ray 12/23/24 11:49 XR chest 1V portable CLINICAL HISTORY: vent low o2 COMPARISON STUDY: 12/23/2024 FINDINGS: Endotracheal tube tip is stable just below the thoracic inlet. Nasogastric tube tip is off the field of view inferiorly. Stable right central catheter. Stable cardiomegaly with mild pulmonary vascular congestion. Stable bilateral lung base opacity with obscuration of the left hemidiaphragm. No pneumothorax. IMPRESSION: Stable exam. ACT 112: Negative or not required by law. Electronically signed by: Abdoulaye Sierra M.D. 12/23/2024 12:09 PM Medications Administered Current Inpatient Medications Acetaminophen (Acetaminophen 325 Mg Tab) 650 mg PO Q4H PRN PRN Reason: Fever/Mild Pain (Pain 1,2,3) Stop: 01/13/25 20:36 Last Admin: 12/21/24 23:17 Dose: 650 mg Albuterol (Albut/Ipratrop 3mg/0.5mg Neb 3 Ml Vial) 3 ml NEB Q6R PRN; Protocol PRN Reason: Shortness Of Breath Or Wheezing Stop: 01/14/25 00:59 Banana Based Medical Food (Banatrol Tf 60 Ml Liquid Pkt) 60 ml PEG BID [facility] Stop: 01/21/25 20:59 Last Admin: 12/23/24 07:48 Dose: 60 ml Budesonide (Budesonide 0.5 Mg/2 Ml Vial (Pulmicort)) 0.5 mg NEB BIDR [facility] Stop: 01/14/25 18:59 Last Admin: 12/23/24 07:43 Dose: 0.5 mg Clonazepam (Clonazepam 0.5 Mg Tab) 0.5 mg PO Q12H [facility] Stop: 01/22/25 11:14 Last Admin: 12/23/24 11:42 Dose: 0.5 mg Dextrose (Dextrose 50% 50 Ml Syringe) 25 - 50 ml IV UD PRN; Protocol PRN Reason: Hypoglycemia Protocol Stop: 01/13/25 21:58 Fentanyl Citrate (Fentanyl Bolus From Bag) 50 mcg IV Q60M PRN PRN Reason: Pain or Agitation Stop: 12/28/24 20:36 Last Admin: 12/22/24 19:44 Dose: 50 mcg Fluoxetine HCl (Fluoxetine Hcl 20 Mg Cap) 40 mg PO DAILY [facility] Stop: 01/15/25 08:59 Last Admin: 12/23/24 07:49 Dose: 40 mg Formoterol Fumarate (Formoterol 20 Mcg/2 Ml Vial) 20 mcg NEB BIDR [facility] Stop: 01/14/25 18:59 Last Admin: 12/23/24 07:43 Dose: 20 mcg Furosemide (Furosemide 40 Mg/4 Ml Vial) 40 mg IV BID [facility] Stop: 01/21/25 10:14 Last Admin: 12/23/24 07:48 Dose: 40 mg Glucagon (Glucagon For Inj 1 Mg Vial) 1 mg SQ UD PRN; Protocol PRN Reason: Hypoglycemia Protocol Stop: 01/13/25 21:58 Glucose (Glucose 40% Gel 15 Gm Tube) 15 - 30 gm PO UD PRN; Protocol PRN Reason: Hypoglycemia Protocol Stop: 01/13/25 21:58 Glucose (Glucose 10 Tab/Tube) 4 - 8 tab PO UD PRN; Protocol PRN Reason: Hypoglycemia Protocol Stop: 01/13/25 21:58 Heparin Sodium (Beef Lung) (Heparin 10 Unit/Ml 5 Ml Flush) 5 ml FLUSH PRN PRN PRN Reason: Flush Stop: 01/19/25 02:45 Heparin Sodium (Porcine) (Heparin Sod 5,000 Unit/0.5 Ml Vial) 5,000 units SQ Q8 [facility] Stop: 01/13/25 21:58 Last Admin: 12/23/24 06:27 Dose: 5,000 units Fentanyl Citrate (Fentanyl Citrate) 2,500 mcg in 250 mls @ 15 mls/hr IV .[id number] [facility]; Protocol Stop: 12/28/24 20:44 Last Admin: 12/23/24 12:15 Dose: 150 mcg/hr, 15 mls/hr Pantoprazole Sodium (Protonix) 40 mg in 10 mls @ 5 mls/min IV BID [facility] Stop: 01/13/25 21:58 Last Admin: 12/23/24 07:50 Dose: 5 mls/min Midazolam HCl (Versed) 125 mg in 250 mls @ 10 mls/hr IV .Q25H [facility]; Protocol Stop: 01/14/25 12:44 Last Admin: 12/23/24 07:48 Dose: 5 mg/hr, 10 mls/hr Fluconazole (Diflucan) 200 mg in 100 mls @ 100 mls/hr IV DAILY@1400,1500 [facility] Stop: 01/22/25 13:59 Lamotrigine (Lamotrigine 100 Mg Tab) 200 mg PO DAILY [facility]; Protocol Stop: 01/15/25 08:59 Last Admin: 12/23/24 07:49 Dose: 200 mg Methadone HCl (Methadone Hcl 5 Mg Tab) 5 mg PO BID [facility] Stop: 01/06/25 11:14 Last Admin: 12/23/24 11:41 Dose: 5 mg Midazolam HCl (Midazolam Bolus From Bag) 2 mg IV Q60M PRN PRN Reason: Sedation Stop: 01/14/25 12:32 Last Admin: 12/22/24 08:23 Dose: 2 mg Miscellaneous (Carbohydrates For Hypoglycemia ) 15 - 30 gm PO UD PRN PRN Reason: Hypoglycemia Protocol Stop: 01/13/25 21:58 Miscellaneous (Icu Electrolyte Replacement Protocol) 1 each N/A BID@06,18 [facility]; Protocol Stop: 12/29/24 17:59 Last Admin: 12/23/24 06:38 Dose: 1 each Nutritional Formula (Peptamen Intense Vhp 1.0 Eric 1,000 Ml Bag) 1,000 ml OG UD [facility]; Protocol Stop: 01/17/25 11:17 Last Admin: 12/23/24 09:23 Dose: 1,000 ml Oxcarbazepine (Oxcarbazepine 150 Mg Tablet) 300 mg PO BID [facility] Stop: 01/14/25 20:59 Last Admin: 12/23/24 07:49 Dose: 300 mg Polyethylene Glycol (Polyethylene (Miralax) 17 Gm Pack) 17 gm PO DAILY PRN PRN Reason: Constipation Stop: 01/13/25 20:43 Sennosides (Senna 8.6 Mg Tab) 17.2 mg PO HS PRN PRN Reason: Constipation Stop: 01/13/25 20:59 Sterile Water (Tube Feeding Water Flush) 30 ml GT Q4H [facility] Stop: 01/14/25 11:59 Last Admin: 12/23/24 12:12 Dose: 30 ml
[2024-12-23] MEDS: FLUCONAZOLE 200 MG/100 ML BAG IV SCH (14:53)
--- NOTE | 2024-12-23 22:07 | Hospitalist Progress Note ---
Date of Service December 23, 2024 Assessment & Plan (1) Admitted to intensive care unit: (2) Metabolic encephalopathy: (3) RSV (acute bronchiolitis due to respiratory syncytial virus): (4) Acute on chronic respiratory failure with hypoxia and hypercapnia: (5) COPD (chronic obstructive pulmonary disease): (6) Pneumonia: Plan 54 years old female with PMH of FULL CODE @ home, morbid obesity with BMI 44.0 (height 167.6 cm; weight 123.7 kg), hyperlipidemia, HTN, GERD, anxiety disorder, major depression, chronic pain disorder, and ongoing tobacco abuse with subsequent diagnosis of severe COPD, who presented to [facility] ER on 12/14/2024 with severe shortness of breath, dyspnea on exertion which had been worsening over the 3 days prior to presentation to [facility] ER on 12/14/2024. Patient was subsequently intubated in [facility] ER on admission date 12/14/2024 for acute CO2 retention and hypoxia. [employer] testing was positive for RSV with CT showing multifocal pneumonia. Patient was subsequently admitted to the inpatient hospitalist service @ [facility] on 12/14/2024 with the following diagnoses: 1. Acute on chronic hypoxic hypercapnic respiratory failure, due to ongoing tobacco abuse and due to acute RSV pneumonia. The following medical issues are being addressed: #Acute on chronic hypoxic hypercapnic respiratory failure #Multifocal pneumonia #Severe COPD with exacerbation #RSV - CTA without evidence of PE 12/15 - intubated on 12/14/24, ICU managing - paralytics taken off on 12/18/24 - on Fentanyl / Midazolam for vent dyssynchrony - cont decadron, DuoNebs, albuterol, formoterol, budesonide - s/p 5 days of Zosyn last dose 12/19/24 Bronchoscopy cultures growing yeast, ident to follow Blood cultures NGTD Condition remains tenuous, if not terminal: I subsequently spoke with the patient's son, Mr. Brandon Umana ( ), and he concurred, and asked that he solicit the opinions of his aunt and his brothers, to see if they concur, and to decide whether or not to proceed with tracheostomy and/or PEG insertion, OR to make patient comfortable with inpatient hospice/comfort measures only with morphine infusion and/or ativan IV prn anxiety. Mr. Umana ( ) stated that he would get back in touch with me in the 12/24/2024 am. #Diarrhea - onset since initiation of tube feeds - banatrol BID ordered #Chronic medical conditions: #GERD-converted to Protonix IV #Hypertension- Holding aspirin, bumetanide (replaced with IV Lasix), losartan #Anxiety/depression- cont fluoxetine, oxcarbazepine and lamotrigine via OG, suspect she is on oxcarbazepine and lamotrigine for bipolar with no known seizure history VTE prophylaxis - heparin 5000 units q.8 hourly Diet - NPO on tube feeding Disposition - ICU Admission and Anticipated Discharge Date Admission Date: December 14, 2024 Subjective Not available as patient remains intubated and mechanically ventilated on A/C mode of ventilation with TV 350 mL, RR 26 breaths/minute, PEEP 14, FIO2 1.0. Review of Systems Constitutional: Not available as patient remains intubated and mechanically ventilated on A/C mode of ventilation with TV 350 mL, RR 26 breaths/minute, PEEP 14, FIO2 1.0. Physical Exam Constitutional: General: Comfortable, non-verbal as patient remains intubated and mechanically ventilated. HEENT: Normocephalic, atraumatic. Pupils equally round and reactive to light. No nystagmus, gaze paresis, anisocoria, miosis, mydriasis, hyphema, scleral injection, conjunctivitis, or pterygium. No rhinorrhea or otorrhea. No pharyngeal discharge or erythema. Neck: Supple, no stridor, bruit, goiter, hepatojugular reflux. Jugular venous pressure is estimated to be 8 cm above the sternal angle of Alvin, which is estimated to be 5 cm above the level of the right atrium. Lymph: No anterior/posterior cervical, supraclavicular/infraclavicular, axillary, epitrochlear, or inguinal adenopathy. Chest: Symmetric rise and fall with respirations. Lungs: Clear to auscultation and percussion. No audible expiratory wheeze, egophony, pectoriloquy, increase in tactile fremitus, or flatness/dullness to percussion at the bases. Heart: RRR, S1 and S2 noted. No S3 or S4 summation gallop noted. No tripartite friction rub. Grade II/ early systolic murmur @ LLSB without radiation to the carotids, axilla, or back, and which remains invariant in regards to the respiratory cycle. Abdomen: Soft, non-tender, non-distended. No rebound, guarding, Vazquez's sign, or organomegaly. Bowel sounds sounds auscultated in all 4 quadrants. Rectal tube with feces leaking around rectal tube. Extremities: No clubbing, cyanosis. 2+ pitting pedal edema with extension to the bilateral lower shins. 2+ pitting forearm edema bilaterally. 2+ pedal pulses bilaterally. Skin: No decubitus ulcer or enanthem or exanthem. Neurology: No tremors, tics, or myoclonus. Urology: +obrien with 250 cc of clear yellow urine. No urethral discharge. Psychiatry: No suicidal ideation. No homicidal ideation. Results & Data Results & Data Vital Signs (Past 12 Hours) Vital Signs Temp Pulse Resp BP Pulse Ox O2 Del Method FiO2 12/23/24 20:20 44 L 26 H 93 80 12/23/24 18:00 41 L 23 91 Mechanical Vent 80 12/23/24 18:00 136/63 12/23/24 17:00 43 L 28 H 90 12/23/24 17:00 135/66 12/23/24 16:19 36.8 C 12/23/24 16:00 40 L 135/66 90 Mechanical Vent 80 12/23/24 16:00 135/66 12/23/24 16:00 42 L 26 H 90 Mechanical Vent 80 12/23/24 16:00 80 12/23/24 16:00 43 L 12/23/24 15:02 50 L 26 H 92 12/23/24 15:00 129/71 12/23/24 14:59 43 L 26 H 89 L 12/23/24 14:08 43 L 26 H 89 L 12/23/24 14:00 146/72 H 12/23/24 13:59 44 L 26 H 90 12/23/24 13:02 43 L 26 H 89 L 12/23/24 13:00 147/70 H 12/23/24 12:59 43 L 26 H 89 L 12/23/24 12:35 36.7 C 12/23/24 12:06 47 L 26 H 89 L 12/23/24 12:00 100 12/23/24 11:33 51 L 27 H 87 L 100 12/23/24 11:18 161/74 H 12/23/24 10:41 49 L 26 H 88 L 12/23/24 10:06 45 L 23 88 L 12/23/24 10:00 131/64 12/23/24 10:00 131/64 Laboratory Results 12/15/24 08:45 Fungal Smear - Final Ba Lavage,Left Lower Lobe Fungal 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 diff Tox B Gene Positive Cdiff Gene H Stl C.difficile Tox A&B Negative Cdiff Toxin 12/23/24 04:16 Sodium 142 Potassium 3.9 Chloride 104 Carbon Dioxide 34 H Anion Gap 4 BUN 45 H Creatinine 1.01 Est Cr Clr Drug Dosing 84.5 eGFR 65.74 BUN/Creatinine Ratio 44.6 H Glucose 90 POC Glucose Calcium 9.7 Phosphorus 3.5 Magnesium 2.1 Stl C. diff Tox B Gene Stl C.difficile Tox A&B PG Care Time/CCT Total # of Minutes Spent Total Time Spent with Patient: Total time spent is greater than 50% in coordination of care (as documented) at patient's floor/unit and/or counseling patient: Coding Level of Care Code 37834 SUB INP/OBS CARE 2/35MIN Diagnoses Admitted to intensive care unit Z78.9 Metabolic encephalopathy G93.41 RSV (acute bronchiolitis due to respiratory syncytial virus) J21.0 Acute on chronic respiratory failure with hypoxia and hypercapnia J96.21; J96.22 COPD (chronic obstructive pulmonary disease) J44.9 Pneumonia J18.9
[2024-12-24 04:58] LABS: Basophils # (auto) 0.02 K/uL (0.00-0.20); Basophils % (auto) 0.2 %; Eosinophils # (auto) 0.04 K/uL (0.00-0.50); Eosinophils % (auto) 0.4 %; Hematocrit (blood only) 47.7 % (37.0-47.0); Hemoglobin 14.3 g/dl (12.0-16.0); Immature Granulocytes # (auto) 0.03 K/uL (0.01-0.20); Immature Granulocytes % (auto) 0.3 %; Lymphocytes # (auto) 1.39 K/uL (1.20-3.40); Lymphocytes % (auto) 15.4 %; Mean Corpuscular Hemoglobin 29.3 pg (25.0-34.0); Mean Corpuscular Volume 97.7 fL (80.0-100.0); Mean Platelet Volume 11.3 fL (9.4-12.4); Monocytes # (auto) 0.55 K/uL (0.11-0.59); Monocytes % (auto) 6.1 %; Neutrophils # (auto) 7.02 K/uL (1.40-6.50); Neutrophils % (auto) 77.6 %; Platelet Count 202 K/uL (130-400); RDW Coefficient of Variation 15.5 % (11.5-14.5); RDW Standard Deviation 55.2 fL (36.4-46.3); Red Blood Count 4.88 M/uL (4.20-5.40); White Blood Count 9.05 K/ul (4.8-10.8)
[2024-12-24 05:13] LABS: BUN Creatinine Ratio 52.2 (10-20); Calcium 9.7 mg/dl (8.6-10.3); Creatinine Clr Calc Pharmacy 94.8 ml/min; Potassium 3.8 mmol/L (3.5-5.1)
[2024-12-24] MEDS: MAGNESIUM SULFATE / D5W 1 GM/100 ML BAG IV SCH (06:20)
[2024-12-24] MEDS: POTASSIUM CHLORIDE 20 MEQ/15 ML UDC PO STA (06:20)
--- NOTE | 2024-12-24 07:31 | XRay Report ---
EXAM: XR chest 1V portable CLINICAL HISTORY: resp failure TECHNIQUE: X-ray images of the chest were obtained in posteroanterior (PA) and lateral projections. COMPARISON: Compared to previous study done at 12/22/2024. FINDINGS: An inserted endotracheal tube is seen 3.1 cm above the ximena. Stable insitu right CVL. Insitu NGT noted. Pulmonary Parenchyma: Prominent bilateral hilar and basal bronchovascular markings. Blunted left costophrenic angle with underlying lower zonal opacity (stable). Heart and Mediastinum: Apparent cardiomegaly (stable). Prominent aortic arch. No mediastinal widening or masses. No hilar or mediastinal lymphadenopathy. Bony Thorax: Bony thorax appears intact without fractures or deformities. Soft Tissues: Soft tissues overlying the chest wall are unremarkable. IMPRESSION: No time interval changes noted regardin. Prominent bilateral hilar and basal bronchonvascular markings. 2. Blunted left costophrenic angle with underlying opacity of likely collapse. 3. Apparent Cardiomegaly. 4. Prominent aortic arch. Electronically signed by Ines Tee 12-24-2024 07:30 AM
--- NOTE | 2024-12-24 08:38 | Critical Care Progress Note ---
Date of Service December 24, 2024 Assessment & Plan (1) Acute on chronic respiratory failure with hypoxia and hypercapnia: (2) RSV (acute bronchiolitis due to respiratory syncytial virus): (3) Metabolic encephalopathy: (4) Pneumonia: (5) Admitted to intensive care unit: (6) Hypertension: (7) Anxiety and depression: (8) COPD (chronic obstructive pulmonary disease): (9) ARDS (adult respiratory distress syndrome): Plan Reason Critically Ill: 54-year-old morbidly obese female admitted with viral bronchiolitis and acute on chronic hypoxemic and hypercapnic respiratory failure requiring intubation mechanical ventilation. She has been put on steroids for late phase ARDS and was proned. She is clinically plateaued 24-hour events: Good response to diuretics. Remains hemodynamically stable. Kidney function remains stable. Bronchoscopy cultures from the end of November did grow cryptococcus. Patient was initiated on Diflucan. ID consultation obtained and discussed with them yesterday. Recommendations: Neuro -currently sedated on fentanyl and Versed, continue to wean as tolerated. Continue oral clonazepam and methadone in an effort to decrease IV medications. Continues daily sedation breaks. Continue home medications (Zyprexa, Lamictal, and Prozac). Cardiac -hypertension: On ARB at home. Increase JESSICA inhibitor. Continue Lasix/Diamox today. Bradycardic so we will avoid AV allison blocking agents. Respiratory -dense dependent bilateral lower lobe consolidation. Chest x-ray slightly improved today. Completed course of prednisone. Trying to get the patient upright today to decrease shunt physiology and make progress in weaning FiO2 and PEEP. Extensive discussion with the son today. We reviewed options going forward. The patient is not a candidate for LTAC due to financial co nstraints. He states the patient has no inclination to stop smoking and had previously expressed a strong desire to not be dependent on others for care were to pursue long-term life-sustaining therapies. The timeframe was not well- defined by the patient prior to this episode but he believes that she was adamant about not going to go home or being dependent on others for care. Advised them that best case scenario would be that she needs to go to some sort of long term facility and would be dependent on others until she recovered strength. He states that this is a quality of life that she would not find acceptable even in the short-term. He has had discussions with family and plan is to have them come in later this week. If she fails to make progress, they would recommend palliative/terminal extubation towards the end of this week with transition to comfort care measures if the patient is unable to breathe on her own. GI -continue tube feeds. Stool output improving. C. difficile PCR positive but toxin negative, likely colonized. No therapy indicated. RENAL/LYTES -continue diuresis. ICU electrolyte replacement protocol. Follow kidney function ENDO - glycemic control per protocol HEME -no acute issues ID -patient's completed a full course of Zosyn. Discussed with ID yesterday significance of cryptococcus and agree with their assessment and the note. Unclear if this is pathogenic or not but for now would favor treatment with Diflucan. Awaiting cryptococcal antigen. Patient is afebrile and white count is now normal. --Prophylaxis VTE: Heparin subcu GI: Pantoprazole Lines: Right IJ, radial, Tian Diet: Tube feeds Discussed with family. See comments above. Will need to readdress CODE STATUS as if the family is considering potential terminal extubation, CPR seems to not be consistent with family's expressed goals and patient's previous to explore his goals Patient's son Brandon [phone] I have personally spent 40 minutes of critical care time in the direct management of this patient. This is a life/limb threatening event. This includes time spent evaluating patient, direct bedside care, chart review, placing orders, interpretation of diagnostic studies, discussion with consultants, patient, and family members, as well as other required patient management activities. This time is exclusive of all separately billable procedures, and teaching time and separate from and in addition to any other critical care service time. Admission and Anticipated Discharge Date Admission Date: December 14, 2024 Subjective intubated and sedated Review of Systems Review of Systems: Unobtainable due to endotracheal tube Physical Exam Constitutional: + morbidly obese and + mechanically vent ilated; no acute distress Neck: trachea midline, no thyromegaly Respiratory: normal respiratory effort, lungs clear to auscultation Cardiovascular: RRR, no murmur, no edema Gastrointestinal (Abdomen): normal bowel sounds, soft, nontender, no hepatosplenomegaly Musculoskeletal: Extremities: extremities normal to inspection Skin: no rashes, warm and dry Lymphatic: no cervical lymphadenopathy Results & Data Results & Data Vital Signs (Past 12 Hours) Vital Signs Temp Pulse Resp BP Pulse Ox O2 Del Method FiO2 12/24/24 07:42 45 L 26 H 90 65 12/24/24 07:42 Mechanical Vent 12/24/24 06:50 37.1 C 12/24/24 06:06 49 L 26 H 91 12/24/24 05:09 44 L 26 H 91 12/24/24 04:00 43 L 26 H 125/61 92 12/24/24 04:00 65 12/24/24 03:12 44 L 26 H 131/60 93 12/24/24 02:51 42 L 26 H 92 12/24/24 02:26 49 L 28 H 93 65 12/24/24 02:06 61 26 H 129/60 88 L 12/24/24 01:42 42 L 26 H 91 12/24/24 01:36 44 L 26 H 91 12/24/24 01:11 36.8 C 12/24/24 00:57 55 L 26 H 133/73 92 12/24/24 00:03 44 L 26 H 132/68 92 12/24/24 00:00 43 L 12/24/24 00:00 65 12/23/24 23:33 50 L 28 H 92 12/23/24 23:15 49 L 27 H 91 80 12/23/24 23:00 156/69 H 12/23/24 23:00 45 L 26 H 156/69 H 91 12/23/24 22:21 42 L 26 H 91 12/23/24 22:00 140/65 12/23/24 21:51 40 L 26 H 92 12/23/24 21:00 40 L 26 H 142/64 H 92 Critical Care Results & Data Vital Signs (Past 12 Hours) Vital Signs Temp Pulse Resp BP Pulse Ox O2 Del Method FiO2 12/24/24 07:42 45 L 26 H 90 65 12/24/24 07:42 Mechanical Vent 12/24/24 06:50 37.1 C 12/24/24 06:06 49 L 26 H 91 12/24/24 05:09 44 L 26 H 91 12/24/24 04:00 43 L 26 H 125/61 92 12/24/24 04:00 65 12/24/24 03:12 44 L 26 H 131/60 93 12/24/24 02:51 42 L 26 H 92 12/24/24 02:26 49 L 28 H 93 65 12/24/24 02:06 61 26 H 129/60 88 L 12/24/24 01:42 42 L 26 H 91 12/24/24 01:36 44 L 26 H 91 12/24/24 01:11 36.8 C 12/24/24 00:57 55 L 26 H 133/73 92 12/24/24 00:03 44 L 26 H 132/68 92 12/24/24 00:00 43 L 12/24/24 00:00 65 12/23/24 23:33 50 L 28 H 92 12/23/24 23:15 49 L 27 H 91 80 12/23/24 23:00 156/69 H 12/23/24 23:00 45 L 26 H 156/69 H 91 12/23/24 22:21 42 L 26 H 91 12/23/24 22:00 140/65 12/23/24 21:51 40 L 26 H 92 12/23/24 21:00 40 L 26 H 142/64 H 92 Lab & Micro Results (Past 24 Hours) RBC 4.88 M/uL (4.20-5.40) 12/24/24 WBC 9.05 K/ul (4.8-10.8) 12/24/24 Hgb 14.3 g/dl (12.0-16.0) 12/24/24 Hct 47.7 % (37.0-47.0) H 12/24/24 MCV 97.7 fL (80.0-100.0) 12/24/24 MCH 29.3 pg (25.0-34.0) 12/24/24 MCHC 30.0 g/dL (32.0-36.0) L 12/24/24 RDW Standard Deviation 55.2 fL (36.4-46.3) H 12/24/24 RDW Coefficient of Variation 15.5 % (11.5-14.5) H 12/24/24 Plt Count 202 K/uL (130-400) 12/24/24 MPV 11.3 fL (9.4-12.4) 12/24/24 Neutrophils (%) (Auto) 77.6 % 12/24/24 Lymphocytes (%) (Auto) 15.4 % 12/24/24 Monocytes # (Auto) 0.55 K/uL (0.11-0.59) 12/24/24 Eosinophils # (Auto) 0.04 K/uL (0.00-0.50) 12/24/24 Immature Granulocyte % (Auto) 0.3 % 12/24/24 Neutrophils # (Auto) 7.02 K/uL (1.40-6.50) H 12/24/24 Lymphocytes # (Auto) 1.39 K/uL (1.20-3.40) 12/24/24 Monocytes # (Auto) 0.55 K/uL (0.11-0.59) 12/24/24 Eosinophils # (Auto) 0.04 K/uL (0.00-0.50) 12/24/24 Basophils # (Auto) 0.02 K/uL (0.00-0.20) 12/24/24 Immature Granulocyte # (Auto) 0.03 K/uL (0.01-0.20) 5 Na 141 mmol/L (136-145) 12/24/24 K 3.8 mmol/L (3.5-5.1) 12/24/24 Cl 105 mmol/L (98-107) 12/24/24 CO2 33 mmol/L (21-32) H 12/24/24 Anion Gap 3 (3-11) 12/24/24 BUN 47 mg/dl (6-23) H 12/24/24 Creatinine 0.90 mg/dl (0.6-1.2) 12/24/24 BUN/Creatinine Ratio 52.2 (10-20) H 12/24/24 Glu 101 mg/dl (70-99(Fasting)) H 12/24/24 Ca 9.7 mg/dl (8.6-10.3) 12/24/24 Phosphorus Level 4.0 mg/dl (2.5-4.9) 12/24/24 Mg 2.0 mg/dl (1.7-2.4) 12/24/24 04:37 Calcium Level 9.7 mg/dl (8.6-10.3) 12/24/24 04:37 Microbiology 12/15/24 08:45 Fungal Smear - Final Ba Lavage,Left Lower Lobe Fungal Culture - Preliminary Cryptoc neoformans monica grubii Diagnostic Findings (Past 24 Hours) Chest X-Ray 12/23/24 09:22 XR chest 1V portable CLINICAL HISTORY: resp failure COMPARISON STUDY: 12/22/2024 FINDINGS: Endotracheal tube tip is stable just below the thoracic inlet. Right central catheter is stable. Nasogastric tube tip is off the field of view inferiorly. There is stable cardiomegaly with mild pulmonary vascular congestion. Stable hazy opacity in the lung bases with obscuration of the left hemidiaphragm. No pneumothorax. IMPRESSION: Stable exam. ACT 112: Negative or not required by law. Electronically signed by: Abdoulaye Sierra M.D. 12/23/2024 11:00 AM Chest X-Ray 12/23/24 11:49 XR chest 1V portable CLINICAL HISTORY: vent low o2 COMPARISON STUDY: 12/23/2024 FINDINGS: Endotracheal tube tip is stable just below the thoracic inlet. Nasogastric tube tip is off the field of view inferiorly. Stable right central catheter. Stable cardiomegaly with mild pulmonary vascular congestion. Stable bilateral lung base opacity with obscuration of the left hemidiaphragm. No pneumothorax. IMPRESSION: Stable exam. ACT 112: Negative or not required by law. Electronically signed by: Abdoulaye Sierra M.D. 12/23/2024 12:09 PM Chest X-Ray 12/24/24 07:00 EXAM: XR chest 1V portable CLINICAL HISTORY: resp failure TECHNIQUE: X-ray images of the chest were obtained in posteroanterior (PA) and lateral projections. COMPARISON: Compared to previous study done at 12/22/2024. FINDINGS: An inserted endotracheal tube is seen 3.1 cm above the ximena. Stable insitu right CVL. Insitu NGT noted. Pulmonary Parenchyma: Prominent bilateral hilar and basal bronchovascular markings. Blunted left costophrenic angle with underlying lower zonal opacity (stable). Heart and Mediastinum: Apparent cardiomegaly (stable). Prominent aortic arch. No mediastinal widening or masses. No hilar or mediastinal lymphadenopathy. Bony Thorax: Bony thorax appears intact without fractures or deformities. Soft Tissues: Soft tissues overlying the chest wall are unremarkable. IMPRESSION: No time interval changes noted regardin. Prominent bilateral hilar and basal bronchonvascular markings. 2. Blunted left costophrenic angle with underlying opacity of likely collapse. 3. Apparent Cardiomegaly. 4. Prominent aortic arch. Electronically signed by Ines Tee 12-24-2024 07:30 AM I & O Totals 24 Hours 12/23/24 12/24/24 12/25/24 06:59 06:59 06:59 Intake Total 1140.633 / 1140.633 854.300 / 854.300 292.600 / 292.600 Output Total 4955 / 4955 5785 / 5785 Balance -3814.367 / -3814.367 -4930.700 / -4930.700 292.600 / 292.600 Cumulative 12/14/24 19:47 thru 12/24/24 08:00 Intake Total 95019.217 Output Total 73063 Balance -76188.783 RT Ventilator Mngmt (Last Documented) Ventilator Ordered Settings Ventilator Support Mode Assist Control 12/24/24 07:42 Respiratory Rate 26 12/24/24 07:42 Ventilator Tidal Volume 350 12/24/24 07:42 Setting Minute Ventilation 9 12/24/24 07:42 Positive End Expiratory 14 12/24/24 07:42 Pressure Fraction of Inspired Oxygen 65 12/24/24 07:42 Peak Inspiratory Flow 43 12/18/24 10:35 Machine Comment Vent changes made per 4- 12/22/24 09:59 6kg Ventilator - PT Measurements Respiratory Rate 26 Exhaled Tidal Volume 350 Minute Ventilation 9 Peak Inspiratory Airway 28 Pressure Plateau Pressure 25 Respiratory Cycle Inspiratory: 1:2.1 Expiratory Ratio Inspiratory Phase Time 0.75 End-Tidal CO2 26 Static Lung Compliance 31.82 Dynamic Lung Compliance 25.00 Normal Static Lung Compliance 46.00 Patient Measurements Comment FiO2 titrated down at this time. Juma HARRELL in room. Patient maintaining saturations well Coding Level of Care Code 58205 CRITICAL CARE 1ST 30-74M Diagnoses Acute on chronic respiratory failure with hypoxia and hypercapnia J96.21; J96.22 RSV (acute bronchiolitis due to respiratory syncytial virus) J21.0 Metabolic encephalopathy G93.41 Pneumonia J18.9 Admitted to intensive care unit Z78.9 Hypertension I10 Anxiety and depression F41.9; F32.A COPD (chronic obstructive pulmonary disease) J44.9 ARDS (adult respiratory distress syndrome) J80
[2024-12-24] MEDS: acetaZOLAMIDE 500 MG in SYRINGE 0 ML IV ONE (09:44)
[2024-12-24] MEDS: LIDOCAINE 1% LOCAL 20 ML VIAL ONE (11:57)
--- NOTE | 2024-12-24 19:07 | Hospitalist Progress Note ---
Date of Service December 24, 2024 Assessment & Plan (1) Admitted to intensive care unit: (2) Metabolic encephalopathy: (3) RSV (acute bronchiolitis due to respiratory syncytial virus): (4) Acute on chronic respiratory failure with hypoxia and hypercapnia: (5) COPD (chronic obstructive pulmonary disease): (6) Pneumonia: Plan 54 years old female with PMH of FULL CODE @ home, morbid obesity with BMI 44.0 (height 167.6 cm; weight 123.7 kg), hyperlipidemia, HTN, GERD, anxiety disorder, major depression, chronic pain disorder, and ongoing tobacco abuse with subsequent diagnosis of severe COPD, who presented to [facility] ER on 12/14/2024 with severe shortness of breath, dyspnea on exertion which had been worsening over the 3 days prior to presentation to [facility] ER on 12/14/2024. Patient was subsequently intubated in [facility] ER on admission date 12/14/2024 for acute CO2 retention and hypoxia. [employer] testing was positive for RSV with CT showing multifocal pneumonia. Patient was subsequently admitted to the inpatient hospitalist service @ [facility] on 12/14/2024 with the following diagnoses: 1. Acute on chronic hypoxic hypercapnic respiratory failure, due to ongoing tobacco abuse and due to acute RSV pneumonia. The following medical issues are being addressed: #Acute on chronic hypoxic hypercapnic respiratory failure #Multifocal pneumonia #Severe COPD with exacerbation #RSV - CTA without evidence of PE 12/15 - intubated on 12/14/24, ICU managing - paralytics taken off on 12/18/24 - on Fentanyl / Midazolam for vent dyssynchrony - cont decadron, DuoNebs, albuterol, formoterol, budesonide - s/p 5 days of Zosyn last dose 12/19/24 Bronchoscopy cultures growing yeast, ident to follow Blood cultures NGTD Condition remains tenuous, if not terminal: I subsequently spoke with the patient's son, Mr. Brandon Umana ( ), and he concurred, and asked that he solicit the opinions of his aunt and his brothers, to see if they concur, and to decide whether or not to proceed with tracheostomy and/or PEG insertion, OR to make patient comfortable with inpatient hospice/comfort measures only with morphine infusion and/or ativan IV prn anxiety. Mr. Brandon Umana ( ) stated that he would get back in touch with me in the 12/24/2024 am. - I spoke with Mr. Brandon Umana ( ) on 12/24/2024, 8:25am, and he stated that he and his aunt and his brothers all decided to forego tracheostomy and PEG insertion, and that instead, he and other family members will be coming to see the patient in the next 3-4 days, and that by Sunday (12/27/2024), patient will be going back to her home with home hospice under DNR/DNI/comfort measures only status with morphine PO/SL prn patient comfort. Mr. Brandon Umana ( ) requested that patient remain in [facility] ICU until all family members can stop by and say their final goodbyes to the patient before patient is extubated and mechanical ventilation discontinued on Sunday (12/27/2024). I told Mr. Umana that his request will be honored. #Diarrhea - onset since initiation of tube feeds - banatrol BID ordered #Chronic medical conditions: #GERD-converted to Protonix IV #Hypertension- Holding aspirin, bumetanide (replaced with IV Lasix), losartan #Anxiety/depression- cont fluoxetine, oxcarbazepine and lamotrigine via OG, suspect she is on oxcarbazepine and lamotrigine for bipolar with no known seizure history VTE prophylaxis - heparin 5000 units q.8 hourly Diet - NPO on tube feeding Disposition - ICU Admission and Anticipated Discharge Date Admission Date: December 14, 2024 Subjective Not available as patient remains intubated and mechanically ventilated on A/C mode of ventilation with TV 350 mL, RR 26 breaths/minute, PEEP 14, FIO2 1.0. Review of Systems Constitutional: Not available as patient remains intubated and mechanically ventilated on A/C mode of ventilation with TV 350 mL, RR 26 breaths/minute, PEEP 14, FIO2 1.0. Physical Exam Constitutional: General: Comfortable, non-verbal as patient remains intubated and mechanically ventilated. HEENT: Normocephalic, atraumatic. Pupils equally round and reactive to light. No nystagmus, gaze paresis, anisocoria, miosis, mydriasis, hyphema, scleral injection, conjunctivitis, or pterygium. No rhinorrhea or otorrhea. No pharyngeal discharge or erythema. Neck: Supple, no stridor, bruit, goiter, hepatojugular reflux. Jugular venous pressure is estimated to be 8 cm above the sternal angle of Alvin, which is estimated to be 5 cm above the level of the right atrium. Lymph: No anterior/posterior cervical, supraclavicular/infraclavicular, axillary, epitrochlear, or inguinal adenopathy. Chest: Symmetric rise and fall with respirations. Lungs: Clear to auscultation and percussion. No audible expiratory wheeze, egophony, pectoriloquy, increase in tactile fremitus, or flatness/dullness to percussion at the bases. Heart: RRR, S1 and S2 noted. No S3 or S4 summation gallop noted. No tripartite friction rub. Grade II/ early systolic murmur @ LLSB without radiation to the carotids, axilla, or back, and which remains invariant in regards to the respiratory cycle. Abdomen: Soft, non-tender, non-distended. No rebound, guarding, Vazquez's sign, or organomegaly. Bowel sounds sounds auscultated in all 4 quadrants. Rectal tube with feces leaking around rectal tube. Extremities: No clubbing, cyanosis. 2+ pitting pedal edema with extension to the bilateral lower shins. 2+ pitting forearm edema bilaterally. 2+ pedal pulses bilaterally. Skin: No decubitus ulcer or enanthem or exanthem. Neurology: No tremors, tics, or myoclonus. Urology: +obrien with 250 cc of clear yellow urine. No urethral discharge. Psychiatry: No suicidal ideation. No homicidal ideation. Results & Data Results & Data Vital Signs (Past 12 Hours) Vital Signs Temp Pulse Resp Pulse Ox O2 Del Method FiO2 12/24/24 17:18 48 L 26 H 91 12/24/24 16:09 51 L 26 H 92 12/24/24 16:00 65 12/24/24 15:15 56 L 27 H 90 65 12/24/24 15:06 51 L 26 H 89 L 12/24/24 14:09 48 L 26 H 91 12/24/24 13:39 37.3 C 12/24/24 13:06 48 L 26 H 92 12/24/24 12:00 49 L 26 H 92 12/24/24 12:00 65 12/24/24 11:41 49 L 26 H 92 65 12/24/24 11:00 49 L 28 H 92 12/24/24 10:09 57 L 24 87 L 12/24/24 09:00 48 L 23 91 12/24/24 08:12 45 L 26 H 91 12/24/24 08:00 37.2 C 12/24/24 08:00 Mechanical Vent 12/24/24 08:00 65 12/24/24 07:42 45 L 26 H 90 65 12/24/24 07:42 Mechanical Vent Laboratory Results 12/24/24 04:37 WBC 9.05 RBC 4.88 Hgb 14.3 Hct 47.7 H MCV 97.7 MCH 29.3 MCHC 30.0 L RDW Std Deviation 55.2 H RDW Coeff of Veronica 15.5 H Plt Count 202 MPV 11.3 Immature Gran % (Auto) 0.3 Neut % (Auto) 77.6 Lymph % (Auto) 15.4 Sac % (Auto) 6.1 Eos % (Auto) 0.4 Baso % (Auto) 0.2 Neut # (Auto) 7.02 H Lymph # (Auto) 1.39 Sac # (Auto) 0.55 Eos # (Auto) 0.04 Baso # (Auto) 0.02 Immature Gran # (Auto) 0.03 Sodium 141 Potassium 3.8 Chloride 105 Carbon Dioxide 33 H Anion Gap 3 BUN 47 H Creatinine 0.90 Est Cr Clr Drug Dosing 94.8 eGFR 75.50 BUN/Creatinine Ratio 52.2 H Glucose 101 H Calcium 9.7 Phosphorus 4.0 Magnesium 2.0 PG Care Time/CCT Total # of Minutes Spent Total Time Spent with Patient: Total time spent is greater than 50% in coordination of care (as documented) at patient's floor/unit and/or counseling patient: Coding Level of Care Code 69474 SUB INP/OBS CARE 3/50MIN Diagnoses Admitted to intensive care unit Z78.9 Metabolic encephalopathy G93.41 RSV (acute bronchiolitis due to respiratory syncytial virus) J21.0 Acute on chronic respiratory failure with hypoxia and hypercapnia J96.21; J96.22 COPD (chronic obstructive pulmonary disease) J44.9 Pneumonia J18.9
[2024-12-24] MEDS: LANSOPRAZOLE 30 MG SOLTAB OG SCH (21:15)
[2024-12-25 05:12] LABS: Basophils # (auto) 0.03 K/uL (0.00-0.20); Basophils % (auto) 0.3 %; Eosinophils # (auto) 0.07 K/uL (0.00-0.50); Eosinophils % (auto) 0.8 %; Hemoglobin 13.8 g/dl (12.0-16.0); Immature Granulocytes # (auto) 0.03 K/uL (0.01-0.20); Immature Granulocytes % (auto) 0.3 %; Lymphocytes # (auto) 1.52 K/uL (1.20-3.40); Lymphocytes % (auto) 16.5 %; Mean Corpuscular Hemoglobin 30.1 pg (25.0-34.0); Mean Corpuscular Hgb Conc 30.7 g/dL (32.0-36.0); Mean Corpuscular Volume 98.3 fL (80.0-100.0); Mean Platelet Volume 10.9 fL (9.4-12.4); Monocytes # (auto) 0.61 K/uL (0.11-0.59); Monocytes % (auto) 6.6 %; Neutrophils # (auto) 6.93 K/uL (1.40-6.50); Neutrophils % (auto) 75.5 %; Platelet Count 197 K/uL (130-400); RDW Coefficient of Variation 15.6 % (11.5-14.5); RDW Standard Deviation 56.6 fL (36.4-46.3); Red Blood Count 4.58 M/uL (4.20-5.40); White Blood Count 9.19 K/ul (4.8-10.8)
[2024-12-25 05:24] LABS: BUN Creatinine Ratio 55.2 (10-20); Calcium 9.7 mg/dl (8.6-10.3); Magnesium 2.1 mg/dl (1.7-2.4); Phosphorus 4.3 mg/dl (2.5-4.9); Potassium 3.6 mmol/L (3.5-5.1)
[2024-12-25] MEDS: POTASSIUM CHLORIDE / WTR 20 MEQ/100 ML PLCT IV SCH (05:47)
[2024-12-25] MEDS: POTASSIUM CHLORIDE 20 MEQ/15 ML UDC PO STA (06:08)
[2024-12-25] MEDS: POTASSIUM CHLORIDE PWD 20 MEQ PACK NG SCH (07:51)
--- NOTE | 2024-12-25 07:59 | XRay Report ---
EXAM: XR chest 1V portable CLINICAL HISTORY: Resp failure TECHNIQUE: An X-ray image of the chest is obtained in AP projection. COMPARISON: CR dated 12/24/2024. FINDINGS: ETT is inserted, reaching 3.2 cm above the ximena. NGT is inserted in place with the tip below the diaphragm. In situ right CVL. Pulmonary Parenchyma: Mild hilar vascular congestion was noted. Right lower lung zone opacification in paracardiac region. No evidence of pleural effusion or pleural thickening. Heart and Mediastinum: The heart is enlarged in size with an obscured left costophrenic angle; pleural effusion may also present. No mediastinal widening or masses. No hilar or mediastinal lymphadenopathy. Bony Thorax: The bony thorax appears intact without fractures or deformities. Soft Tissues: Soft tissues overlying the chest wall are unremarkable. IMPRESSION: 1. ETT is inserted, reaching 3.2 cm above the ximena. 2. NGT is inserted in place with the tip below the diaphragm. 3. Cardiomeglay is unchanged. 4. Obscured and blunted left costophrenic angle. 5. Mild hilar vascular congestion noted. 6. The right lower lung lobe opacification is unchanged and may be related to early infiltration. 7. No interval change. Electronically signed by Ines Tee 12-25-2024 07:59 AM
--- NOTE | 2024-12-25 08:49 | Critical Care Progress Note ---
Date of Service December 25, 2024 Assessment & Plan (1) Acute on chronic respiratory failure with hypoxia and hypercapnia: (2) RSV (acute bronchiolitis due to respiratory syncytial virus): (3) Metabolic encephalopathy: (4) Pneumonia: (5) Admitted to intensive care unit: (6) Hypertension: (7) Anxiety and depression: (8) COPD (chronic obstructive pulmonary disease): (9) ARDS (adult respiratory distress syndrome): Plan Reason Critically Ill: 54-year-old morbidly obese female admitted with viral bronchiolitis and acute on chronic hypoxemic and hypercapnic respiratory failure requiring intubation mechanical ventilation. She has been put on steroids for late phase ARDS and was proned. She is clinically plateaued 24-hour events: Slight progress in weaning FiO2 today. Hemodynamically stable. More awake and alert Recommendations: Neuro -currently sedated on fentanyl and Versed, continue to wean as tolerated. Continue oral clonazepam and methadone in an effort to decrease IV medications, monitoring QT intervals. Continues daily sedation breaks. Continue home medications (Zyprexa, Lamictal, and Prozac). Cardiac -hypertension: On ARB at home. Continue JESSICA inhibitor. Continue Lasix/Diamox today. Bradycardia improving Respiratory -dense dependent bilateral lower lobe consolidation. Chest x-ray slightly improved today. Completed course of prednisone. Continue to wean FiO2 and PEEP as tolerated. If we can make progress, we will pursue a trial of extubation. The patient is more awake today and may be able to participate in some discussions with family members. Continue budesonide and Perforomist. GI -continue tube feeds. Stool output improving. C. difficile PCR positive but toxin negative, likely colonized. No therapy indicated. RENAL/LYTES -continue diuresis. ICU electrolyte replacement protocol. Follow kidney function ENDO - glycemic control per protocol HEME -no acute issues ID -patient's completed a full course of Zosyn. 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 Cryptococcal antigen pending. She is newly febrile. Will repeat cultures including blood urine and sputum as well as repeat assessment of procalcitonin. Hold antibiotics for now --Prophylaxis VTE: Heparin subcu GI: Pantoprazole Lines: Right IJ, radial, Tian Diet: Tube feeds Discussed with family. See comments above. Will need to readdress CODE STATUS as if the family is considering potential terminal extubation, CPR seems to not be consistent with family's expressed goals and patient's previous to explore his goals Patient's son Brandon [phone] I have personally spent 40 minutes of critical care time in the direct management of this patient. This is a life/limb threatening event. This includes time spent evaluating patient, direct bedside care, chart review, placing orders, interpretation of diagnostic studies, discussion with consultants, patient, and family members, as well as other required patient management activities. This time is exclusive of all separately billable procedures, and teaching time and separate from and in addition to any other critical care service time. Admission and Anticipated Discharge Date Admission Date: December 14, 2024 Subjective Intubated and sedated. Mental status improved today Review of Systems Review of Systems: Unobtainable due to endotracheal tube Physical Exam Constitutional: + morbidly obese and + mechanically vent ilated; no acute distress Neck: trachea midline, no thyromegaly Respiratory: normal respiratory effort, lungs clear to auscultation Cardiovascular: RRR, no murmur, no edema Gastrointestinal (Abdomen): normal bowel sounds, soft, nontender, no hepatosplenomegaly Musculoskeletal: Extremities: extremities normal to inspection Skin: no rashes, warm and dry Lymphatic: no cervical lymphadenopathy Results & Data Results & Data Vital Signs (Past 12 Hours) Vital Signs Temp Pulse Resp BP Pulse Ox O2 Del Method O2 Flow Rate 12/25/24 08:39 38.0 C H 12/25/24 07:33 60 26 H 91 12/25/24 07:06 57 L 26 H 90 12/25/24 06:48 58 L 26 H 91 12/25/24 06:06 60 26 H 90 Mechanical Vent 65 12/25/24 05:06 54 L 26 H 91 Mechanical Vent 65 12/25/24 04:08 114/65 12/25/24 04:08 114/65 12/25/24 04:00 53 L 26 H 114/65 90 Mechanical Vent 12/25/24 04:00 12/25/24 04:00 37.7 C H 12/25/24 03:06 50 L 26 H 91 Mechanical Vent 12/25/24 02:56 51 L 27 H 90 12/25/24 02:03 51 L 26 H 90 Mechanical Vent 12/25/24 01:00 57 L 26 H 90 Mechanical Vent 12/25/24 00:18 55 L 26 H 90 Mechanical Vent 12/25/24 00:15 37.1 C 12/25/24 00:00 12/25/24 00:00 56 L 12/24/24 23:37 58 L 26 H 90 12/24/24 23:12 55 L 26 H 90 Mechanical Vent 12/24/24 22:00 58 L 26 H 91 Mechanical Vent 12/24/24 21:00 55 L 26 H 90 FiO2 12/25/24 08:39 12/25/24 07:33 65 12/25/24 07:06 12/25/24 06:48 12/25/24 06:06 12/25/24 05:06 12/25/24 04:08 12/25/24 04:08 12/25/24 04:00 65 12/25/24 04:00 65 12/25/24 04:00 12/25/24 03:06 65 12/25/24 02:56 65 12/25/24 02:03 65 12/25/24 01:00 65 12/25/24 00:18 65 12/25/24 00:15 12/25/24 00:00 65 12/25/24 00:00 12/24/24 23:37 65 12/24/24 23:12 65 12/24/24 22:00 65 12/24/24 21:00 Critical Care Results & Data Vital Signs (Past 12 Hours) Vital Signs Temp Pulse Resp BP Pulse Ox O2 Del Method O2 Flow Rate 12/25/24 08:39 38.0 C H 12/25/24 07:33 60 26 H 91 12/25/24 07:06 57 L 26 H 90 12/25/24 06:48 58 L 26 H 91 12/25/24 06:06 60 26 H 90 Mechanical Vent 65 12/25/24 05:06 54 L 26 H 91 Mechanical Vent 65 12/25/24 04:08 114/65 12/25/24 04:08 114/65 12/25/24 04:00 53 L 26 H 114/65 90 Mechanical Vent 12/25/24 04:00 12/25/24 04:00 37.7 C H 12/25/24 03:06 50 L 26 H 91 Mechanical Vent 12/25/24 02:56 51 L 27 H 90 12/25/24 02:03 51 L 26 H 90 Mechanical Vent 12/25/24 01:00 57 L 26 H 90 Mechanical Vent 12/25/24 00:18 55 L 26 H 90 Mechanical Vent 12/25/24 00:15 37.1 C 12/25/24 00:00 12/25/24 00:00 56 L 12/24/24 23:37 58 L 26 H 90 12/24/24 23:12 55 L 26 H 90 Mechanical Vent 12/24/24 22:00 58 L 26 H 91 Mechanical Vent 12/24/24 21:00 55 L 26 H 90 FiO2 12/25/24 08:39 12/25/24 07:33 65 12/25/24 07:06 12/25/24 06:48 12/25/24 06:06 12/25/24 05:06 12/25/24 04:08 12/25/24 04:08 12/25/24 04:00 65 12/25/24 04:00 65 12/25/24 04:00 12/25/24 03:06 65 12/25/24 02:56 65 12/25/24 02:03 65 12/25/24 01:00 65 12/25/24 00:18 65 12/25/24 00:15 12/25/24 00:00 65 12/25/24 00:00 12/24/24 23:37 65 12/24/24 23:12 65 12/24/24 22:00 65 12/24/24 21:00 Lab & Micro Results (Past 24 Hours) RBC 4.58 M/uL (4.20-5.40) 12/25/24 WBC 9.19 K/ul (4.8-10.8) 12/25/24 Hgb 13.8 g/dl (12.0-16.0) 12/25/24 Hct 45.0 % (37.0-47.0) 12/25/24 MCV 98.3 fL (80.0-100.0) 12/25/24 MCH 30.1 pg (25.0-34.0) 12/25/24 MCHC 30.7 g/dL (32.0-36.0) L 12/25/24 RDW Standard Deviation 56.6 fL (36.4-46.3) H 12/25/24 RDW Coefficient of Variation 15.6 % (11.5-14.5) H 12/25/24 Plt Count 197 K/uL (130-400) 12/25/24 MPV 10.9 fL (9.4-12.4) 12/25/24 Neutrophils (%) (Auto) 75.5 % 12/25/24 Lymphocytes (%) (Auto) 16.5 % 12/25/24 Monocytes # (Auto) 0.61 K/uL (0.11-0.59) H 12/25/24 Eosinophils # (Auto) 0.07 K/uL (0.00-0.50) 12/25/24 Immature Granulocyte % (Auto) 0.3 % 12/25/24 Neutrophils # (Auto) 6.93 K/uL (1.40-6.50) H 12/25/24 Lymphocytes # (Auto) 1.52 K/uL (1.20-3.40) 12/25/24 Monocytes # (Auto) 0.61 K/uL (0.11-0.59) H 12/25/24 Eosinophils # (Auto) 0.07 K/uL (0.00-0.50) 12/25/24 Basophils # (Auto) 0.03 K/uL (0.00-0.20) 12/25/24 Immature Granulocyte # (Auto) 0.03 K/uL (0.01-0.20) 5 Na 140 mmol/L (136-145) 12/25/24 K 3.6 mmol/L (3.5-5.1) 12/25/24 Cl 104 mmol/L (98-107) 12/25/24 CO2 32 mmol/L (21-32) 12/25/24 Anion Gap 4 (3-11) 12/25/24 BUN 53 mg/dl (6-23) H 12/25/24 Creatinine 0.96 mg/dl (0.6-1.2) 12/25/24 BUN/Creatinine Ratio 55.2 (10-20) H 12/25/24 Glu 101 mg/dl (70-99(Fasting)) H 12/25/24 Ca 9.7 mg/dl (8.6-10.3) 12/25/24 Phosphorus Level 4.3 mg/dl (2.5-4.9) 03/06/25 Mg 2.1 mg/dl (1.7-2.4) 12/25/24 04:40 Calcium Level 9.7 mg/dl (8.6-10.3) 12/25/24 04:40 Diagnostic Findings (Past 24 Hours) Chest X-Ray 12/25/24 07:00 EXAM: XR chest 1V portable CLINICAL HISTORY: Resp failure TECHNIQUE: An X-ray image of the chest is obtained in AP projection. COMPARISON: CR dated 12/24/2024. FINDINGS: ETT is inserted, reaching 3.2 cm above the ximena. NGT is inserted in place with the tip below the diaphragm. In situ right CVL. Pulmonary Parenchyma: Mild hilar vascular congestion was noted. Right lower lung zone opacification in paracardiac region. No evidence of pleural effusion or pleural thickening. Heart and Mediastinum: The heart is enlarged in size with an obscured left costophrenic angle; pleural effusion may also present. No mediastinal widening or masses. No hilar or mediastinal lymphadenopathy. Bony Thorax: The bony thorax appears intact without fractures or deformities. Soft Tissues: Soft tissues overlying the chest wall are unremarkable. IMPRESSION: 1. ETT is inserted, reaching 3.2 cm above the ximena. 2. NGT is inserted in place with the tip below the diaphragm. 3. Cardiomeglay is unchanged. 4. Obscured and blunted left costophrenic angle. 5. Mild hilar vascular congestion noted. 6. The right lower lung lobe opacification is unchanged and may be related to early infiltration. 7. No interval change. Electronically signed by Ines Tee 12-25-2024 07:59 AM I & O Totals 24 Hours 12/24/24 12/25/24 12/26/24 06:59 06:59 06:59 Intake Total 854.300 / 152.216 5839.400 / 1846.400 191.733 / 191.733 Output Total 5785 / 5785 3360 / 3360 250 / 250 Balance -4930.700 / -4930.700 -1513.600 / -1513.600 -58.267 / -58.267 Cumulative 12/14/24 19:47 thru 12/25/24 08:39 Intake Total 49261.750 Output Total 06674 Balance -18989.250 RT Ventilator Mngmt (Last Documented) Ventilator Ordered Settings Ventilator Support Mode Assist Control 12/25/24 07:33 Respiratory Rate 26 12/25/24 07:33 Ventilator Tidal Volume 350 12/25/24 07:33 Setting Minute Ventilation 9 12/25/24 07:33 Positive End Expiratory 14 12/25/24 07:33 Pressure Fraction of Inspired Oxygen 65 12/25/24 07:33 Peak Inspiratory Flow 43 12/18/24 10:35 Machine Comment Vent changes made per 4- 12/22/24 09:59 6kg Ventilator - PT Measurements Respiratory Rate 26 Exhaled Tidal Volume 350 Minute Ventilation 9 Peak Inspiratory Airway 26 Pressure Plateau Pressure 24 Respiratory Cycle Inspiratory: 1:2.1 Expiratory Ratio Inspiratory Phase Time 0.75 End-Tidal CO2 40 Static Lung Compliance 35.00 Dynamic Lung Compliance 29.17 Normal Static Lung Compliance 47.00 Patient Measurements Comment FiO2 titrated down at this time. Juma HARRELL in room. Patient maintaining saturations well Coding Level of Care Code 32076 SUB INP/OBS CARE 3/50MIN Diagnoses Acute on chronic respiratory failure with hypoxia and hypercapnia J96.21; J96.22 RSV (acute bronchiolitis due to respiratory syncytial virus) J21.0 Metabolic encephalopathy G93.41 Pneumonia J18.9 Admitted to intensive care unit Z78.9 Hypertension I10 Anxiety and depression F41.9; F32.A COPD (chronic obstructive pulmonary disease) J44.9 ARDS (adult respiratory distress syndrome) J80
[2024-12-25] MEDS: lisinopril 2.5 MG TAB PO SCH (11:17)
--- NOTE | 2024-12-25 12:01 | Hospitalist Progress Note ---
Date of Service December 25, 2024 Assessment & Plan (1) Admitted to intensive care unit: (2) Metabolic encephalopathy: (3) RSV (acute bronchiolitis due to respiratory syncytial virus): (4) Acute on chronic respiratory failure with hypoxia and hypercapnia: (5) COPD (chronic obstructive pulmonary disease): (6) Pneumonia: Plan 54 years old female with PMH of FULL CODE @ home, morbid obesity with BMI 44.0 (height 167.6 cm; weight 123.7 kg), hyperlipidemia, HTN, GERD, anxiety disorder, major depression, chronic pain disorder, and ongoing tobacco abuse with subsequent diagnosis of severe COPD, who presented to [facility] on 12/14/2024 with severe shortness of breath, dyspnea on exertion which had been worsening over the 3 days prior to presentation to [facility] on 12/14/2024. Patient was subsequently intubated in [facility] on admission date 12/14/2024 for acute CO2 retention and hypoxia. BioFire testing was positive for RSV with CT showing multifocal pneumonia. Patient was subsequently admitted to the inpatient hospitalist service @ [facility] on 12/14/2024 with the following diagnoses: 1. Acute on chronic hypoxic hypercapnic respiratory failure, due to ongoing tobacco abuse and due to acute RSV pneumonia. The following medical issues are being addressed: #Acute on chronic hypoxic hypercapnic respiratory failure #Multifocal pneumonia #Severe COPD with exacerbation #RSV - CTA without evidence of PE 12/15 - intubated on 12/14/24, ICU managing - paralytics taken off on 12/18/24 - on Fentanyl / Midazolam for vent dyssynchrony - cont decadron, DuoNebs, albuterol, formoterol, budesonide - s/p 5 days of Zosyn last dose 12/19/24 Bronchoscopy culture of LLL (12/15/2024) yields Cryptococcus neoformans veronica grubii, now on fluconazole 200mg IV daily (day #1 on 12/23/2024, 2:53pm). Blood cultures NGTD Condition remains tenuous, if not terminal: I subsequently spoke with the patient's son, Mr. Brandon Umana ( ), and he concurred, and asked that he solicit the opinions of his aunt and his brothers, to see if they concur, and to decide whether or not to proceed with tracheostomy and/or PEG insertion, OR to make patient comfortable with inpatient hospice/comfort measures only with morphine infusion and/or ativan IV prn anxiety. Mr. Brandon Umana ( ) stated that he would get back in touch with me in the 12/24/2024 am. - I spoke with Mr. Brandon Umana ( ) on 12/24/2024, 8:25am, and he stated that he and his aunt and his brothers all decided to forego tracheostomy and PEG insertion, and that instead, he and other family members will be coming to see the patient in the next 3-4 days, and that by Sunday (12/27/2024), patient will be going back to her home with home hospice under DNR/DNI/comfort measures only status with morphine PO/SL prn patient comfort. Mr. Brandon Umana ( ) requested that patient remain in [facility] ICU until all family members can stop by and say their final goodbyes to the patient before patient is extubated and mechanical ventilation discontinued on Sunday (12/27/2024). I told Mr. Umana that his request will be honored. - Subsequently, Critical Care Service of Dr. Hiram Driver reports "slight progress in weaning FiO2 today."..."Respiratory -dense dependent bilateral lower lobe consolidation. Chest x-ray slightly improved today. Completed course of prednisone. Continue to wean FiO2 and PEEP as tolerated. If we can make progress, we will pursue a trial of extubation. The patient is more awake today and may be able to participate in some discussions with family members. Continue budesonide and Perforomist." Hence, I defer to Critical Care Service of Dr. Hiram Driver regarding vent management and family discussions regarding hospital disposition, especially if patient can be extubated successfully in the upcoming day(s). #Diarrhea - onset since initiation of tube feeds - banatrol BID ordered #Chronic medical conditions: #GERD-converted to Protonix IV #Hypertension- Holding aspirin, bumetanide (replaced with IV Lasix), losartan #Anxiety/depression- cont fluoxetine, oxcarbazepine and lamotrigine via OG, espinoza spect she is on oxcarbazepine and lamotrigine for bipolar with no known seizure history VTE prophylaxis - heparin 5000 units q.8 hourly Diet - NPO on tube feeding Disposition - ICU Admission and Anticipated Discharge Date Admission Date: December 14, 2024 Subjective Not available as patient remains intubated and mechanically ventilated on A/C mode of ventilation with TV 350 mL, RR 26 breaths/minute, PEEP 14, FIO2 0.55. Review of Systems Constitutional: Not available as patient remains intubated and mechanically ventilated on A/C mode of ventilation with TV 350 mL, RR 26 breaths/minute, PEEP 14, FIO2 0.55. Physical Exam Constitutional: General: Comfortable, non-verbal as patient remains intubated and mechanically ventilated. HEENT: Normocephalic, atraumatic. Pupils equally round and reactive to light. No nystagmus, gaze paresis, anisocoria, miosis, mydriasis, hyphema, scleral injection, conjunctivitis, or pterygium. No rhinorrhea or otorrhea. No pharyngeal discharge or erythema. Neck: Supple, no stridor, bruit, goiter, hepatojugular reflux. Jugular venous pressure is estimated to be 8 cm above the sternal angle of Alvin, which is estimated to be 5 cm above the level of the right atrium. Lymph: No anterior/posterior cervical, supraclavicular/infraclavicular, axillary, epitrochlear, or inguinal adenopathy. Chest: Symmetric rise and fall with respirations. Lungs: Clear to auscultation and percussion. No audible expiratory wheeze, egophony, pectoriloquy, increase in tactile fremitus, or flatness/dullness to percussion at the bases. Heart: RRR, S1 and S2 noted. No S3 or S4 summation gallop noted. No tripartite friction rub. Grade II/ early systolic murmur @ LLSB without radiation to the carotids, axilla, or back, and which remains invariant in regards to the respiratory cycle. Abdomen: Soft, non-tender, non-distended. No rebound, guarding, Vazquez's sign, or organomegaly. Bowel sounds sounds auscultated in all 4 quadrants. Rectal tube with feces leaking around rectal tube. Extremities: No clubbing, cyanosis. 2+ pitting pedal edema with extension to the bilateral lower shins. 2+ pitting forearm edema bilaterally. 2+ pedal pulses bilaterally. Skin: No decubitus ulcer or enanthem or exanthem. Neurology: No tremors, tics, or myoclonus. Urology: +obrien with 100 cc of clear yellow urine. No urethral discharge. Psychiatry: No suicidal ideation. No homicidal ideation. Results & Data Results & Data Vital Signs (Past 12 Hours) Vital Signs Temp Pulse Resp BP Pulse Ox O2 Del Method O2 Flow Rate 12/25/24 11:15 37.9 C H 12/25/24 09:20 37.9 C H 12/25/24 09:09 62 27 H 91 Mechanical Vent 12/25/24 08:39 38.0 C H 12/25/24 08:27 62 26 H 91 12/25/24 08:00 12/25/24 08:00 62 12/25/24 07:50 Mechanical Vent 12/25/24 07:33 60 26 H 91 12/25/24 07:06 57 L 26 H 90 12/25/24 06:48 58 L 26 H 91 12/25/24 06:06 60 26 H 90 Mechanical Vent 65 12/25/24 05:06 54 L 26 H 91 Mechanical Vent 65 12/25/24 04:08 114/65 12/25/24 04:08 114/65 12/25/24 04:00 53 L 26 H 114/65 90 Mechanical Vent 12/25/24 04:00 12/25/24 04:00 37.7 C H 12/25/24 03:06 50 L 26 H 91 Mechanical Vent 12/25/24 02:56 51 L 27 H 90 12/25/24 02:03 51 L 26 H 90 Mechanical Vent 12/25/24 01:00 57 L 26 H 90 Mechanical Vent 12/25/24 00:18 55 L 26 H 90 Mechanical Vent 12/25/24 00:15 37.1 C 12/25/24 00:00 12/25/24 00:00 56 L FiO2 12/25/24 11:15 12/25/24 09:20 12/25/24 09:09 65 12/25/24 08:39 12/25/24 08:27 12/25/24 08:00 65 12/25/24 08:00 12/25/24 07:50 65 12/25/24 07:33 65 12/25/24 07:06 12/25/24 06:48 12/25/24 06:06 12/25/24 05:06 12/25/24 04:08 12/25/24 04:08 12/25/24 04:00 65 12/25/24 04:00 65 12/25/24 04:00 12/25/24 03:06 65 12/25/24 02:56 65 12/25/24 02:03 65 12/25/24 01:00 65 12/25/24 00:18 65 12/25/24 00:15 12/25/24 00:00 65 12/25/24 00:00 Laboratory Results 12/25/24 10:40 Urine Culture - Pending Urine,Indwelling Cath 12/25/24 11:05 Aerobic Blood Culture - Pending Blood Anaerobic Blood Culture - Pending 12/25/24 10:54 Aerobic Blood Culture - Pending Blood Anaerobic Blood Culture - Pending 12/25/24 12/25/24 10:54 04:40 WBC 9.19 RBC 4.58 Hgb 13.8 Hct 45.0 MCV 98.3 MCH 30.1 MCHC 30.7 L RDW Std Deviation 56.6 H RDW Coeff of Veronica 15.6 H Plt Count 197 MPV 10.9 Immature Gran % (Auto) 0.3 Neut % (Auto) 75.5 Lymph % (Auto) 16.5 Ector % (Auto) 6.6 Eos % (Auto) 0.8 Baso % (Auto) 0.3 Neut # (Auto) 6.93 H Lymph # (Auto) 1.52 Ector # (Auto) 0.61 H Eos # (Auto) 0.07 Baso # (Auto) 0.03 Immature Gran # (Auto) 0.03 Sodium 140 Potassium 3.6 Chloride 104 Carbon Dioxide 32 Anion Gap 4 BUN 53 H Creatinine 0.96 Est Cr Clr Drug Dosing 88.0 eGFR 69.87 BUN/Creatinine Ratio 55.2 H Glucose 101 H Calcium 9.7 Phosphorus 4.3 Magnesium 2.1 Procalcitonin 0.04 PG Care Time/CCT Total # of Minutes Spent Total Time Spent with Patient: Total time spent is greater than 50% in coordination of care (as documented) at patient's floor/unit and/or counseling patient: Coding Level of Care Code 80332 SUB INP/OBS CARE 350MIN Diagnoses Admitted to intensive care unit Z78.9 Metabolic encephalopathy G93.41 RSV (acute bronchiolitis due to respiratory syncytial virus) J21.0 Acute on chronic respiratory failure with hypoxia and hypercapnia J96.21; J96.22 COPD (chronic obstructive pulmonary disease) J44.9 Pneumonia J18.9
--- NOTE | 2024-12-25 16:17 | Infectious Disease Progress Nt ---
Date of Service December 25, 2024 Assessment & Plan (1) ARDS (adult respiratory distress syndrome): (2) RSV (acute bronchiolitis due to respiratory syncytial virus): (3) Pulmonary cryptococcosis: Plan Problems: #Possible pulmonary cryptococcosis #RSV #ARDS Micro: 12/25 Sputum cx: pending. 12/25 BCx x2: pending 12/25 UCx: pending 12/23 Serum CrAg: pending 12/15 LLL BAL -Bronchial cx: scant normal shannon -Fungal cx: Cryptocccus neoformans monica grubii -AFB smear neg, cx NGTD 12/15 RLL BAL -Bronchial cx: scant normal shannon 12/15 BCx x2: NG 12/14 RPP: +RSV Abx: Ceftriaxone 12/14 Vanc 12/14 Zosyn 12/14 - 12/19 54 yo F with history of severe COPD, HLD, CHF, HTN, anxiety, chronic pain syndrome who presented to the ED on 12/14 with severe shortness of breath which she reported was present for 4-6 months, but had gotten progressively worse over the last 3 days, found to have RSV with acute on chronic hypoxemic and hypercapnic respiratory failure requiring intubation, with ARDS. Hospital course c/b concern for pulmonary cryptococcosis. Pt was intubated in the ED. Labs showed WBC 8.8, procalcitonin 0.11, RPP +RSV. CXR with pulm vascular congestion, peribronchial cuffing that may be seen with bronchiolitis, R>L bibasilar densities. Pt was started on antibiotics, Solumedrol. CTA chest on 12/15 showed no PE, L>R dependent consolidation with volume loss and air bronchograms suggestive of atelectasis, pneumonia or aspir ation could appear similarly. Also commented on a few borderline enlarged mediastinal and hilar lymph nodes. Pt underwent a bronchoscopy on 12/15. Noted minimal clear white secretions in R side. Mucous plugging noted in LLL with whitish-rob secretions. BAL bacterial cultures grew scant normal shannon. LLL BAL fungal culture now growing Cryptococcus neoformans, for which ID is consulted. Over the course of her hospitalization, pt has been proned, received high dose steroids. It seems her progress has plateaued, and she remains intubated on high FiO2. Did spike a fever of 38.1 on 3/2 PM. Not ready for extubation, and may pursue tracheostomy--however, pt's resources would not cover LTAC. Trying to optimize respiratory status before pursuing trach. Discussion: Uncertain whether the rare Cryptococcus neoformans growing on pt's BAL fungal culture represents colonization or a true pathogen. Pt does not appear to have baseline immunocompromise to predispose her to Crypto infection. However, immunocompetent individuals can develop pulmonary cryptococcosis, although around half of them are asymptomatic. Pt had a chronic shortness of breath with acute exacerbation likely due to RSV infection--uncertain whether the chronic shortness of breath was just due to COPD/smoking, or whether Crypto infection could have been contributing. Unable to ask pt whether she had symptoms of fevers, malaise, night sweats, weight loss. Her CT chest does not have obvious signs of Crypto infection such as nodules, however pulmonary crypto can mimic other types of pulmonary infections such as bacterial or viral infections as well. She did have some borderline enlarged mediastinal and hilar lymph nodes. Serum Crypto Ag is rarely positive unless the pt has disseminated Crypto--in which case would pursue LP to assess for [employer] crypto. Pt with fever on 36 AM, cultures pending. As of 12/24, family opted to forgo tracheostomy and PEG, and plan for return home 12/27 on hospice with comfort measures only. However, FiO2 weaned somewhat today. Recommendations: -Unclear that pt has true pulmonary crypto--could be a colonizer. However, with her shortness of breath over months, hilar/mediastinal adenopathy, and lack of clinical improvement with goals of care discussions ongoing, reasonable to treat. With uncertainty of the diagnosis and comorbidities, will hold off on amphotericin/flucytosine at this time, and continue fluconazole 400 mg daily and monitor for improvement. -Follow-up serum Crypto Ag -Follow-up blood, sputum, urine cultures given new fever Will continue to follow. Admission and Anticipated Discharge Date Admission Date: December 14, 2024 Subjective This patient recommendation is based on a telemedicine consult request which was completed asynchronously through chart review and information provided by the primary physician. The patient was not seen or examined today. The evaluation is consultative in nature and all patient care and treatment decisions can either be accepted or rejected by the patient's primary hospital-based treating physician using their own independent medical judgment for their patient. Time Spent Reviewing Chart: 11 - 20 minutes Febrile this AM Results & Data Vital Signs (Past 12 Hours) Vital Signs Temp Pulse Resp Pulse Ox O2 Del Method O2 Flow Rate FiO2 12/25/24 14:55 65 27 H 88 L 55 12/25/24 14:18 37.3 C 12/25/24 13:03 64 25 H 91 Mechanical Vent 12/25/24 12:37 37.4 C 12/25/24 12:03 62 26 H 90 12/25/24 12:00 65 12/25/24 12:00 59 L 12/25/24 11:18 60 26 H 90 12/25/24 11:15 37.9 C H 12/25/24 10:00 61 26 H 91 12/25/24 09:20 37.9 C H 12/25/24 09:09 62 27 H 91 Mechanical Vent 65 12/25/24 08:39 38.0 C H 12/25/24 08:27 62 26 H 91 12/25/24 08:00 65 12/25/24 08:00 62 12/25/24 07:50 Mechanical Vent 65 12/25/24 07:33 60 26 H 91 65 12/25/24 07:06 57 L 26 H 90 12/25/24 06:51 57 L 12/25/24 06:48 58 L 26 H 91 12/25/24 06:06 60 26 H 90 Mechanical Vent 65 12/25/24 05:06 54 L 26 H 91 Mechanical Vent 65 Laboratory Results Short CBC 12/25/24 Range/Units 04:40 WBC 9.19 (4.8-10.8) K/ul Hgb 13.8 (12.0-16.0) g/dl Hct 45.0 (37.0-47.0) % Plt Count 197 (130-400) K/uL BMP 12/25/24 04:40 Sodium 140 Potassium 3.6 Chloride 104 Carbon Dioxide 32 BUN 53 H Creatinine 0.96 Glucose 101 H Calcium 9.7 Diagnostic Findings Chest X-Ray 12/25/24 07:00 EXAM: XR chest 1V portable CLINICAL HISTORY: Resp failure TECHNIQUE: An X-ray image of the chest is obtained in AP projection. COMPARISON: CR dated 12/24/2024. FINDINGS: ETT is inserted, reaching 3.2 cm above the ximena. NGT is inserted in place with the tip below the diaphragm. In situ right CVL. Pulmonary Parenchyma: Mild hilar vascular congestion was noted. Right lower lung zone opacification in paracardiac region. No evidence of pleural effusion or pleural thickening. Heart and Mediastinum: The heart is enlarged in size with an obscured left costophrenic angle; pleural effusion may also present. No mediastinal widening or masses. No hilar or mediastinal lymphadenopathy. Bony Thorax: The bony thorax appears intact without fractures or deformities. Soft Tissues: Soft tissues overlying the chest wall are unremarkable. IMPRESSION: 1. ETT is inserted, reaching 3.2 cm above the ximena. 2. NGT is inserted in place with the tip below the diaphragm. 3. Cardiomeglay is unchanged. 4. Obscured and blunted left costophrenic angle. 5. Mild hilar vascular congestion noted. 6. The right lower lung lobe opacification is unchanged and may be related to early infiltration. 7. No interval change. Electronically signed by Ines Tee 12-25-2024 07:59 AM Medications Administered Current Inpatient Medications Acetaminophen (Acetaminophen 325 Mg Tab) 650 mg PO Q4H PRN PRN Reason: Fever/Mild Pain (Pain 1,2,3) Stop: 01/13/25 20:36 Last Admin: 12/25/24 11:17 Dose: 650 mg Albuterol (Albut/Ipratrop 3mg/0.5mg Neb 3 Ml Vial) 3 ml NEB Q6R PRN; Protocol PRN Reason: Shortness Of Breath Or Wheezing Stop: 01/14/25 00:59 Banana Based Medical Food (Banatrol Tf 60 Ml Liquid Pkt) 60 ml PEG BID [facility] Stop: 01/21/25 20:59 Last Admin: 12/25/24 07:52 Dose: 60 ml Budesonide (Budesonide 0.5 Mg/2 Ml Vial (Pulmicort)) 0.5 mg NEB BIDR [facility] Stop: 01/14/25 18:59 Last Admin: 12/25/24 09:05 Dose: 0.5 mg Clonazepam (Clonazepam 0.5 Mg Tab) 0.5 mg PO Q12H [facility]ME Stop: 01/22/25 11:14 Last Admin: 12/25/24 13:50 Dose: 0.5 mg Dextrose (Dextrose 50% 50 Ml Syringe) 25 - 50 ml IV UD PRN; Protocol PRN Reason: Hypoglycemia Protocol Stop: 01/13/25 21:58 Fentanyl Citrate (Fentanyl Bolus From Bag) 50 mcg IV Q60M PRN PRN Reason: Pain or Agitation Stop: 12/28/24 20:36 Last Admin: 12/22/24 19:44 Dose: 50 mcg Fluoxetine HCl (Fluoxetine Hcl 20 Mg Cap) 40 mg PO DAILY [facility] Stop: 01/15/25 08:59 Last Admin: 12/25/24 07:52 Dose: 40 mg Formoterol Fumarate (Formoterol 20 Mcg/2 Ml Vial) 20 mcg NEB BIDR [facility] Stop: 01/14/25 18:59 Last Admin: 12/25/24 09:05 Dose: 20 mcg Furosemide (Furosemide 40 Mg/4 Ml Vial) 40 mg IV BID [facility] Stop: 01/21/25 10:14 Last Admin: 12/25/24 09:23 Dose: 40 mg Glucagon (Glucagon For Inj 1 Mg Vial) 1 mg SQ UD PRN; Protocol PRN Reason: Hypoglycemia Protocol Stop: 01/13/25 21:58 Glucose (Glucose 40% Gel 15 Gm Tube) 15 - 30 gm PO UD PRN; Protocol PRN Reason: Hypoglycemia Protocol Stop: 01/13/25 21:58 Glucose (Glucose 10 Tab/Tube) 4 - 8 tab PO UD PRN; Protocol PRN Reason: Hypoglycemia Protocol Stop: 01/13/25 21:58 Heparin Sodium (Beef Lung) (Heparin 10 Unit/Ml 5 Ml Flush) 5 ml FLUSH PRN PRN PRN Reason: Flush Stop: 01/19/25 02:45 Last Admin: 12/23/24 15:43 Dose: 5 ml Heparin Sodium (Porcine) (Heparin Sod 5,000 Unit/0.5 Ml Vial) 5,000 units SQ Q8 [facility] Stop: 01/13/25 21:58 Last Admin: 12/25/24 13:50 Dose: 5,000 units Fentanyl Citrate (Fentanyl Citrate) 2,500 mcg in 250 mls @ 5 mls/hr IV .Q50H [facility]; Protocol Stop: 12/28/24 20:44 Last Titration: 12/25/24 07:02 Dose: 50 mcg/hr, 5 mls/hr Midazolam HCl (Versed) 125 mg in 250 mls @ 4 mls/hr IV .[id number] [facility]; Protocol Stop: 01/14/25 12:44 Last Titration: 12/25/24 07:02 Dose: 2 mg/hr, 4 mls/hr Fluconazole (Diflucan) 200 mg in 100 mls @ 100 mls/hr IV DAILY@1400,1500 [facility] Stop: 01/22/25 13:59 Last Infusion: 12/25/24 15:09 Dose: Infused Lamotrigine (Lamotrigine 100 Mg Tab) 200 mg PO DAILY [facility]; Protocol Stop: 01/15/25 08:59 Last Admin: 12/25/24 07:52 Dose: 200 mg Lansoprazole (Lansoprazole 30 Mg Soltab) 30 mg OG DAILY [facility] Stop: 01/25/25 08:59 Lisinopril (Lisinopril 2.5 Mg Tab) 2.5 mg PO QAM [facility] Stop: 01/24/25 10:44 Last Admin: 12/25/24 11:17 Dose: 2.5 mg Methadone HCl (Methadone Hcl 5 Mg Tab) 5 mg PO BID [facility] Stop: 01/06/25 11:14 Last Admin: 12/25/24 07:55 Dose: 5 mg Midazolam HCl (Midazolam Bolus From Bag) 2 mg IV Q60M PRN PRN Reason: Sedation Stop: 01/14/25 12:32 Last Admin: 12/22/24 08:23 Dose: 2 mg Miscellaneous (Carbohydrates For Hypoglycemia ) 15 - 30 gm PO UD PRN PRN Reason: Hypoglycemia Protocol Stop: 01/13/25 21:58 Miscellaneous (Icu Electrolyte Replacement Protocol) 1 each N/A BID@06,18 [facility]; Protocol Stop: 12/29/24 17:59 Last Admin: 12/25/24 06:05 Dose: 1 each Nutritional Formula (Peptamen Intense Vhp 1.0 Eric 1,000 Ml Bag) 1,000 ml OG UD [facility]; Protocol Stop: 01/17/25 11:17 Last Admin: 12/24/24 17:37 Dose: 1,000 ml Oxcarbazepine (Oxcarbazepine 150 Mg Tablet) 300 mg PO BID [facility] Stop: 01/14/25 20:59 Last Admin: 12/25/24 07:52 Dose: 300 mg Polyethylene Glycol (Polyethylene (Miralax) 17 Gm Pack) 17 gm PO DAILY PRN PRN Reason: Constipation Stop: 01/13/25 20:43 Potassium Chloride (Potassium Chloride Pwd 20 Meq Pack) 20 meq NG BID [facility] Stop: 01/24/25 08:59 Last Admin: 12/25/24 07:51 Dose: 20 meq Sennosides (Senna 8.6 Mg Tab) 17.2 mg PO HS PRN PRN Reason: Constipation Stop: 01/13/25 20:59 Sterile Water (Tube Feeding Water Flush) 30 ml GT Q4H [facility] Stop: 01/14/25 11:59 Last Admin: 12/25/24 13:48 Dose: 30 ml
[2024-12-26 04:31] LABS: Basophils # (auto) 0.02 K/uL (0.00-0.20); Basophils % (auto) 0.2 %; Eosinophils % (auto) 1.2 %; Hematocrit (blood only) 43.5 % (37.0-47.0); Hemoglobin 13.2 g/dl (12.0-16.0); Immature Granulocytes # (auto) 0.02 K/uL (0.01-0.20); Immature Granulocytes % (auto) 0.2 %; Lymphocytes # (auto) 1.16 K/uL (1.20-3.40); Lymphocytes % (auto) 13.5 %; Mean Corpuscular Hemoglobin 29.6 pg (25.0-34.0); Mean Corpuscular Hgb Conc 30.3 g/dL (32.0-36.0); Mean Corpuscular Volume 97.5 fL (80.0-100.0); Mean Platelet Volume 11.4 fL (9.4-12.4); Monocytes # (auto) 0.59 K/uL (0.11-0.59); Monocytes % (auto) 6.9 %; Neutrophils # (auto) 6.71 K/uL (1.40-6.50); Platelet Count 203 K/uL (130-400); RDW Coefficient of Variation 15.9 % (11.5-14.5); RDW Standard Deviation 57.3 fL (36.4-46.3); Red Blood Count 4.46 M/uL (4.20-5.40)
[2024-12-26 04:46] LABS: BUN Creatinine Ratio 54.9 (10-20); Calcium 9.5 mg/dl (8.6-10.3); Phosphorus 4.1 mg/dl (2.5-4.9); Potassium 3.8 mmol/L (3.5-5.1)
[2024-12-26] MEDS: POTASSIUM CHLORIDE 20 MEQ/15 ML UDC NG SCH (05:54)
[2024-12-26] MEDS: MAGNESIUM SULFATE / D5W 1 GM/100 ML BAG IV SCH (06:04)
[2024-12-26 06:39] LABS: A calco-baum cmplx NotReported Not Detected (NotDetected); Bact fragilis Not Reported Not Detected (NotDetected); Blood Culture Id Panel See PCR Comment (NotDetected); C auris Not Reported Not Detected (NotDetected); Calbicans Not Reported Not Detected (NotDetected); Candida glabrata Not Reported Not Detected (NotDetected); Candida krusei Not Reported Not Detected (NotDetected); Cneoformans/gatti Not Reported Not Detected (NotDetected); Cparapsilosis Not Reported Not Detected (NotDetected); E cloacae compx Not Reported Not Detected (NotDetected); Efaecalis Not Reported Not Detected (NotDetected); Efaecium Not Reported Not Detected (NotDetected); Enterobacterales Not Reported Not Detected (NotDetected); Escherichia coli Not Reported Not Detected (NotDetected); H influenzae Not Reported Not Detected (NotDetected); K aerogenes Not Reported Not Detected (NotDetected); Koxytoca Not Reported Not Detected (NotDetected); Kpneumoniae grp Not Reported Not Detected (NotDetected); Lmonocyt Not Reported Not Detected (NotDetected); N meningitidis Not Reported Not Detected (NotDetected); P aeruginosa Not Reported Not Detected (NotDetected); Proteus spp Not Reported Not Detected (NotDetected); Salmonella spp Not Reported Not Detected (NotDetected); Staph lugdunensis Not Reported Not Detected (NotDetected); Staph spp. Not Reported DETECTED (NotDetected); Staphaureus Not Reported Not Detected (NotDetected); Staphepi Not Reported DETECTED (NotDetected); Staphylococcus spp. DETECTED (NotDetected); Stenmaltophilia Not Reported Not Detected (NotDetected); Strep agal(GrpB) Not Reported Not Detected (NotDetected); Strep pneum Not Reported Not Detected (NotDetected); Strep pyog (GrpA) Not Reported Not Detected (NotDetected); Strep spp Not Reported Not Detected (NotDetected)
[2024-12-26 06:46] LABS: Staphylococcus epidermidis DETECTED (NotDetected)
[2024-12-26 06:47] LABS: mecAC Resistant Gene DETECTED (NotDetected)
--- NOTE | 2024-12-26 07:54 | XRay Report ---
EXAM: XR chest 1V portable CLINICAL HISTORY: resp failure TECHNIQUE: An X-ray image of the chest is obtained in AP projection. COMPARISON: CR dated 12/25/2024. FINDINGS: ETT is inserted, reaching 3.5 cm above the ximena. NGT is inserted in place with the tip below the diaphragm. In situ right CVL. Pulmonary Parenchyma: Mild hilar vascular congestion was noted. Right lower lung zone opacification in paracardiac region. No evidence of pleural effusion or pleural thickening. Heart and Mediastinum: The heart is enlarged in size with an obscured left costophrenic angle; pleural effusion may also present. No mediastinal widening or masses. No hilar or mediastinal lymphadenopathy. Bony Thorax: The bony thorax appears intact without fractures or deformities. Soft Tissues: Soft tissues overlying the chest wall are unremarkable. IMPRESSION: 1. ETT is inserted, reaching 3.5 cm above the ximena. 2. NGT is inserted in place with the tip below the diaphragm. 3. Cardiomeglay is unchanged. 4. Obscured and blunted left costophrenic angle. 5. Mild hilar vascular congestion noted. 6. The right lower lung lobe opacification is unchanged and may be related to early infiltration. 7. No interval changes compared to previous study. Electronically signed by Ines Tee 12-26-2024 07:54 AM
--- NOTE | 2024-12-26 07:56 | Ultrasound Report ---
EXAM: US venous doppler UE LT CLINICAL HISTORY: LEFT ARM SWELLING. TECHNIQUE: Ultrasound examination of left upper extremity veins was performed in real time and duplex. One or more of the following were performed- spectral analysis, resistive index, waveform analysis, and pulsed Doppler. Limited examination due to intubated the patient and the increased body habitus. COMPARISON: None. FINDINGS: Normal phasic, non-pulsatile, and spontaneous flow is noted in the left Internal jugular, subclavian, axillary, brachial, basilic, cephalic, antecubital, radial, and ulnar veins. Visualized veins of the left upper extremity demonstrate normal compressibility. No sonographic evidence of acute deep vein thrombosis (DVT) is detected in the visualized veins of the upper extremity. Compression and Augmentation: All evaluated veins compress fully with applied transducer pressure. Augmentation of venous flow is noted with distal compression. Additional Findings: A non-occlusive thrombus is seen involving the left cephalic vein in the distal upper arm measuring 8.5 cm. IMPRESSION: 1. No sonographic evidence of acute DVT detected at the time of examination. 2. A non-occlusive thrombus is seen involving the left cephalic vein in the distal upper arm measuring 8.5 cm, suggesting superficial thrombophlebitis. Disclaimer: DVT could be missed early in the disease when clot burden is minimal. For patients with moderate and high pretest probability of DVT and negative ultrasound, the [employer] clinical guidelines recommend testing with a D-dimer assay or repeat ultrasound in 5-7 days. If symptoms worsen, the Society of radiologists in ultrasound recommends repeating ultrasound even earlier. Electronically signed by Ines Tee 12-26-2024 07:56 AM
[2024-12-26] MEDS: LANSOPRAZOLE 30 MG SOLTAB OG SCH (09:04)
[2024-12-26] MEDS ORDERED: ACETAMINOPHEN SUSP 325 MG/10.15 ML UDC PO PRN (09:47)
[2024-12-26] MEDS: 4.5GM X1 IV ONE (10:56)
[2024-12-26 11:00] LABS: A calco-baum cmplx NotReported Not Detected (NotDetected); Bact fragilis Not Reported Not Detected (NotDetected); Blood Culture Id Panel See PCR Comment (NotDetected); C auris Not Reported Not Detected (NotDetected); Calbicans Not Reported Not Detected (NotDetected); Candida glabrata Not Reported Not Detected (NotDetected); Candida krusei Not Reported Not Detected (NotDetected); Cneoformans/gatti Not Reported Not Detected (NotDetected); Cparapsilosis Not Reported Not Detected (NotDetected); E cloacae compx Not Reported Not Detected (NotDetected); Efaecalis Not Reported Not Detected (NotDetected); Efaecium Not Reported Not Detected (NotDetected); Enterobacterales Not Reported Not Detected (NotDetected); Escherichia coli Not Reported Not Detected (NotDetected); H influenzae Not Reported Not Detected (NotDetected); K aerogenes Not Reported Not Detected (NotDetected); Koxytoca Not Reported Not Detected (NotDetected); Kpneumoniae grp Not Reported Not Detected (NotDetected); Lmonocyt Not Reported Not Detected (NotDetected); N meningitidis Not Reported Not Detected (NotDetected); P aeruginosa Not Reported Not Detected (NotDetected); Proteus spp Not Reported Not Detected (NotDetected); Salmonella spp Not Reported Not Detected (NotDetected); Staph lugdunensis Not Reported Not Detected (NotDetected); Staph spp. Not Reported DETECTED (NotDetected); Staphaureus Not Reported Not Detected (NotDetected); Staphepi Not Reported DETECTED (NotDetected); Staphylococcus epidermidis DETECTED (NotDetected); Staphylococcus spp. DETECTED (NotDetected); Stenmaltophilia Not Reported Not Detected (NotDetected); Strep agal(GrpB) Not Reported Not Detected (NotDetected); Strep pneum Not Reported Not Detected (NotDetected); Strep pyog (GrpA) Not Reported Not Detected (NotDetected); Strep spp Not Reported Not Detected (NotDetected); mecAC Resistant Gene DETECTED (NotDetected)
--- NOTE | 2024-12-26 11:43 | Critical Care Progress Note ---
Date of Service December 26, 2024 Assessment & Plan (1) Acute on chronic respiratory failure with hypoxia and hypercapnia: (2) RSV (acute bronchiolitis due to respiratory syncytial virus): (3) Metabolic encephalopathy: (4) Pneumonia: (5) Admitted to intensive care unit: (6) Hypertension: (7) Anxiety and depression: (8) COPD (chronic obstructive pulmonary disease): (9) ARDS (adult respiratory distress syndrome): Plan Reason Critically Ill: 54-year-old morbidly obese female admitted with viral bronchiolitis and acute on chronic hypoxemic and hypercapnic respiratory failure requiring intubation mechanical ventilation. She has been put on steroids for late phase ARDS and was proned. She is clinically plateaued 24-hour events: Clinically stagnant. Unable to wean FiO2 or PEEP. Recommendations: Neuro -currently sedated on fentanyl and Versed, continue to wean as tolerated. Continue oral clonazepam and methadone in an effort to decrease IV medications, monitoring QT intervals. Continues daily sedation breaks. Continue home medications (Zyprexa, Lamictal, and Prozac). Cardiac -hypertension: On ARB at home. Continue JESSICA inhibitor. Continue Lasix/Diamox today. Bradycardia resolved Respiratory -dense dependent bilateral lower lobe consolidation. Chest x-ray slightly improved today. Completed course of prednisone. Continue budesonide and Perforomist. Discussed with 2 sons at bedside who are proxy decision makers. We again reviewed options to include tracheostomy and long-term acute care. They are both clear that this is not a course or quality of life that their mother would find acceptable. Continuing current care does not appear to be an option and she has now been intubated for almost 2 weeks. Presented the option of extubation and transition to comfort care if the patient fails. If she does okay, will pursue continued supportive care. They expressed understanding and request that the patient be maintained in her current state until tomorrow. There is 1 other family member who is going to visit. After that they would like to pursue extubation. If the patient does well, she will be supported. If she fails, transition to comfort measures would be appropriat e. Do not see BiPAP as a bridge to anything at this point in time GI -continue tube feeds. Stool output improving. C. difficile PCR positive but toxin negative, likely colonized. No therapy indicated. RENAL/LYTES -continue diuresis. ICU electrolyte replacement protocol. Follow kidney function ENDO - glycemic control per protocol HEME -no acute issues ID -patient's completed a full course of Zosyn. 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 Cryptococcal antigen pending. Repeat cultures obtained yesterday are growing Proteus in the urine as well as in the lung. Blood cultures are growing gram-positive cocci which on PCR appears to be staph epi. This is only 1 out of 4. Will initiate Zosyn which should cover the Proteus in both urine and the lung. Follow white blood cell count and fever curve --Prophylaxis VTE: Heparin subcu GI: Pantoprazole Lines: Right IJ, radial, Tian Diet: Tube feeds Discussed extensively with 2 sons at bedside. They understand the current clinical situation and are recommending proceeding with extubation tomorrow with no plans for reintubation. If the patient does well she will continue to be supported. If she fails, will transition rapidly to comfort care measures. Patient's son Brandon [phone] I have personally spent 55 minutes of critical care time in the direct management of this patient. This is a life/limb threatening event. This includes time spent evaluating patient, direct bedside care, chart review, placing or ders, interpretation of diagnostic studies, discussion with consultants, patient, and family members, as well as other required patient management activities. This time is exclusive of all separately billable procedures, and teaching time and separate from and in addition to any other critical care service time. Admission and Anticipated Discharge Date Admission Date: December 14, 2024 Subjective Patient seen and examined. EMR reviewed. Discussed with bedside critical care nurse and on multidisciplinary rounds. Met with 2 sons at bedside and case reviewed as well Review of Systems Review of Systems: Unobtainable due to endotracheal tube Physical Exam Constitutional: + morbidly obese and + mechanically vent ilated; no acute distress Neck: trachea midline, no thyromegaly Respiratory: normal respiratory effort, lungs clear to auscultation Cardiovascular: RRR, no murmur, no edema Gastrointestinal (Abdomen): normal bowel sounds, soft, nontender, no hepatosplenomegaly Musculoskeletal: Extremities: extremities normal to inspection Skin: no rashes, warm and dry Lymphatic: no cervical lymphadenopathy Results & Data Results & Data Vital Signs (Past 12 Hours) Vital Signs Temp Pulse Pulse Resp BP Pulse Ox O2 Del Method 12/26/24 11:31 88 27 H 68 L 12/26/24 10:00 67 26 H 124/65 88 L Mechanical Vent 12/26/24 09:03 68 26 H 130/70 88 L Mechanical Vent 12/26/24 09:00 37.9 C H 12/26/24 08:00 Mechanical Vent 12/26/24 08:00 12/26/24 07:57 66 26 H 144/68 H 89 L Mechanical Vent 12/26/24 07:25 69 27 H 90 12/26/24 07:25 69 27 H 90 Mechanical Vent 12/26/24 07:00 55 L 23 119/58 L 89 L Mechanical Vent 12/26/24 06:00 37.2 C 12/26/24 05:33 54 L 26 H 90 12/26/24 04:15 56 L 26 H 89 L 12/26/24 04:06 55 L 26 H 88 L 12/26/24 03:59 12/26/24 03:06 57 L 26 H 89 L 12/26/24 03:00 134/67 12/26/24 02:57 58 L 23 91 12/26/24 02:00 121/58 L 12/26/24 02:00 121/58 L 12/26/24 02:00 121/58 L 12/26/24 02:00 55 L 26 H 88 L 12/26/24 01:00 126/62 12/26/24 01:00 126/62 12/26/24 01:00 56 L 26 H 89 L 12/26/24 00:00 12/26/24 00:00 58 L 22 120/57 L 89 L Mechanical Vent 12/26/24 00:00 57 L 12/26/24 00:00 37.2 C FiO2 12/26/24 11:31 55 12/26/24 10:00 55 12/26/24 09:03 55 12/26/24 09:00 12/26/24 08:00 55 12/26/24 08:00 55 12/26/24 07:57 55 12/26/24 07:25 55 12/26/24 07:25 55 12/26/24 07:00 55 12/26/24 06:00 12/26/24 05:33 12/26/24 04:15 12/26/24 04:06 55 12/26/24 03:59 55 12/26/24 03:06 12/26/24 03:00 12/26/24 02:57 12/26/24 02:00 12/26/24 02:00 12/26/24 02:00 12/26/24 02:00 12/26/24 01:00 12/26/24 01:00 12/26/24 01:00 12/26/24 00:00 55 12/26/24 00:00 55 12/26/24 00:00 12/26/24 00:00 Critical Care Results & Data Vital Signs (Past 12 Hours) Vital Signs Temp Pulse Pulse Resp BP Pulse Ox O2 Del Method 12/26/24 11:31 88 27 H 68 L 12/26/24 10:00 67 26 H 124/65 88 L Mechanical Vent 12/26/24 09:03 68 26 H 130/70 88 L Mechanical Vent 12/26/24 09:00 37.9 C H 12/26/24 08:00 Mechanical Vent 12/26/24 08:00 12/26/24 07:57 66 26 H 144/68 H 89 L Mechanical Vent 12/26/24 07:25 69 27 H 90 12/26/24 07:25 69 27 H 90 Mechanical Vent 12/26/24 07:00 55 L 23 119/58 L 89 L Mechanical Vent 12/26/24 06:00 37.2 C 12/26/24 05:33 54 L 26 H 90 12/26/24 04:15 56 L 26 H 89 L 12/26/24 04:06 55 L 26 H 88 L 12/26/24 03:59 12/26/24 03:06 57 L 26 H 89 L 12/26/24 03:00 134/67 12/26/24 02:57 58 L 23 91 12/26/24 02:00 121/58 L 12/26/24 02:00 121/58 L 12/26/24 02:00 121/58 L 12/26/24 02:00 55 L 26 H 88 L 12/26/24 01:00 126/62 12/26/24 01:00 126/62 12/26/24 01:00 56 L 26 H 89 L 12/26/24 00:00 12/26/24 00:00 58 L 22 120/57 L 89 L Mechanical Vent 12/26/24 00:00 57 L 12/26/24 00:00 37.2 C FiO2 12/26/24 11:31 55 12/26/24 10:00 55 12/26/24 09:03 55 12/26/24 09:00 12/26/24 08:00 55 12/26/24 08:00 55 12/26/24 07:57 55 12/26/24 07:25 55 12/26/24 07:25 55 12/26/24 07:00 55 12/26/24 06:00 12/26/24 05:33 12/26/24 04:15 12/26/24 04:06 55 12/26/24 03:59 55 12/26/24 03:06 12/26/24 03:00 12/26/24 02:57 12/26/24 02:00 12/26/24 02:00 12/26/24 02:00 12/26/24 02:00 12/26/24 01:00 12/26/24 01:00 12/26/24 01:00 12/26/24 00:00 55 12/26/24 00:00 55 12/26/24 00:00 12/26/24 00:00 Lab & Micro Results (Past 24 Hours) RBC 4.46 M/uL (4.20-5.40) 12/26/24 WBC 8.60 K/ul (4.8-10.8) 12/26/24 Hgb 13.2 g/dl (12.0-16.0) 12/26/24 Hct 43.5 % (37.0-47.0) 12/26/24 MCV 97.5 fL (80.0-100.0) 12/26/24 MCH 29.6 pg (25.0-34.0) 12/26/24 MCHC 30.3 g/dL (32.0-36.0) L 12/26/24 RDW Standard Deviation 57.3 fL (36.4-46.3) H 12/26/24 RDW Coefficient of Variation 15.9 % (11.5-14.5) H 12/26/24 Plt Count 203 K/uL (130-400) 12/26/24 MPV 11.4 fL (9.4-12.4) 12/26/24 Neutrophils (%) (Auto) 78.0 % 12/26/24 Lymphocytes (%) (Auto) 13.5 % 12/26/24 Monocytes # (Auto) 0.59 K/uL (0.11-0.59) 12/26/24 Eosinophils # (Auto) 0.10 K/uL (0.00-0.50) 12/26/24 Immature Granulocyte % (Auto) 0.2 % 12/26/24 Neutrophils # (Auto) 6.71 K/uL (1.40-6.50) H 12/26/24 Lymphocytes # (Auto) 1.16 K/uL (1.20-3.40) L 12/26/24 Monocytes # (Auto) 0.59 K/uL (0.11-0.59) 12/26/24 Eosinophils # (Auto) 0.10 K/uL (0.00-0.50) 12/26/24 Basophils # (Auto) 0.02 K/uL (0.00-0.20) 12/26/24 Immature Granulocyte # (Auto) 0.02 K/uL (0.01-0.20) 5 Na 141 mmol/L (136-145) 12/26/24 K 3.8 mmol/L (3.5-5.1) 12/26/24 Cl 105 mmol/L (98-107) 12/26/24 CO2 33 mmol/L (21-32) H 12/26/24 Anion Gap 3 (3-11) 12/26/24 BUN 50 mg/dl (6-23) H 12/26/24 Creatinine 0.91 mg/dl (0.6-1.2) 12/26/24 BUN/Creatinine Ratio 54.9 (10-20) H 12/26/24 Glu 103 mg/dl (70-99(Fasting)) H 12/26/24 Ca 9.5 mg/dl (8.6-10.3) 12/26/24 Phosphorus Level 4.1 mg/dl (2.5-4.9) 12/26/24 Mg 2.0 mg/dl (1.7-2.4) 12/26/24 04:06 Calcium Level 9.5 mg/dl (8.6-10.3) 12/26/24 04:06 Microbiology 12/25/24 10:54 Aerobic Blood Culture - Preliminary Blood Gram positive cocci clusters Anaerobic Blood Culture - Preliminary Gram positive cocci clusters 12/25/24 Unknown Gram Stain - Final Sputum,Vent Suction Sputum Culture - Preliminary Proteus mirabilis 12/25/24 10:40 Urine Culture - Preliminary Urine,Indwelling Cath Proteus mirabilis Diagnostic Findings (Past 24 Hours) Extremity Venous Study 12/26/24 04:32 EXAM: US venous doppler UE LT CLINICAL HISTORY: LEFT ARM SWELLING. TECHNIQUE: Ultrasound examination of left upper extremity veins was performed in real time and duplex. One or more of the following were performed- spectral analysis, resistive index, waveform analysis, and pulsed Doppler. Limited examination due to intubated the patient and the increased body habitus. COMPARISON: None. FINDINGS: Normal phasic, non-pulsatile, and spontaneous flow is noted in the left Internal jugular, subclavian, axillary, brachial, basilic, cephalic, antecubital, radial, and ulnar veins. Visualized veins of the left upper extremity demonstrate normal compressibility. No sonographic evidence of acute deep vein thrombosis (DVT) is detected in the visualized veins of the upper extremity. Compression and Augmentation: All evaluated veins compress fully with applied transducer pressure. Augmentation of venous flow is noted with distal compression. Additional Findings: A non-occlusive thrombus is seen involving the left cephalic vein in the distal upper arm measuring 8.5 cm. IMPRESSION: 1. No sonographic evidence of acute DVT detected at the time of examination. 2. A non-occlusive thrombus is seen involving the left cephalic vein in the distal upper arm measuring 8.5 cm, suggesting superficial thrombophlebitis. Disclaimer: DVT could be missed early in the disease when clot burden is minimal. For patients with moderate and high pretest probability of DVT and negative ultrasound, the [employer] clinical guidelines recommend testing with a D-dimer assay or repeat ultrasound in 5-7 days. If symptoms worsen, the Society of radiologists in ultrasound recommends repeating ultrasound even earlier. Electronically signed by Ines Tee 12-26-2024 07:56 AM Chest X-Ray 12/26/24 07:00 EXAM: XR chest 1V portable CLINICAL HISTORY: resp failure TECHNIQUE: An X-ray image of the chest is obtained in AP projection. COMPARISON: CR dated 12/25/2024. FINDINGS: ETT is inserted, reaching 3.5 cm above the ximena. NGT is inserted in place with the tip below the diaphragm. In situ right CVL. Pulmonary Parenchyma: Mild hilar vascular congestion was noted. Right lower lung zone opacification in paracardiac region. No evidence of pleural effusion or pleural thickening. Heart and Mediastinum: The heart is enlarged in size with an obscured left costophrenic angle; pleural effusion may also present. No mediastinal widening or masses. No hilar or mediastinal lymphadenopathy. Bony Thorax: The bony thorax appears intact without fractures or deformities. Soft Tissues: Soft tissues overlying the chest wall are unremarkable. IMPRESSION: 1. ETT is inserted, reaching 3.5 cm above the ximena. 2. NGT is inserted in place with the tip below the diaphragm. 3. Cardiomeglay is unchanged. 4. Obscured and blunted left costophrenic angle. 5. Mild hilar vascular congestion noted. 6. The right lower lung lobe opacification is unchanged and may be related to early infiltration. 7. No interval changes compared to previous study. Electronically signed by Ines Tee 12-26-2024 07:54 AM I & O Totals 24 Hours 12/25/24 12/26/24 12/27/24 06:59 06:59 06:59 Intake Total 1846.400 / 0664.951 1399.333 / 1410.333 630.134 / 630.134 Output Total 3360 / 3360 3020 / 3020 353 / 353 Balance -1513.600 / -1513.600 -1609.667 / -1609.667 277.134 / 277.134 Cumulative 12/14/24 19:47 thru 12/26/24 11:31 Intake Total 36840.484 Output Total 05269 Balance -76578.516 RT Ventilator Mngmt (Last Documented) Ventilator Ordered Settings Ventilator Support Mode Assist Control 12/26/24 11:31 Respiratory Rate 27 12/26/24 11:31 Ventilator Tidal Volume 350 12/26/24 11:31 Setting Minute Ventilation 9.3 12/26/24 11:31 Positive End Expiratory 14 12/26/24 11:31 Pressure Fraction of Inspired Oxygen 55 12/26/24 11:31 Peak Inspiratory Flow 43 12/18/24 10:35 Machine Comment Vent changes made per 4- 12/22/24 09:59 6kg Ventilator - PT Measurements Respiratory Rate 27 Exhaled Tidal Volume 351 Minute Ventilation 9.3 Peak Inspiratory Airway 28 Pressure Plateau Pressure 24 Respiratory Cycle Inspiratory: 1:2.1 Expiratory Ratio Inspiratory Phase Time 0.75 End-Tidal CO2 43 Static Lung Compliance 35.10 Dynamic Lung Compliance 25.07 Normal Static Lung Compliance 47.00 Patient Measurements Comment FiO2 titrated down at this time. Juma ABRAHAMNP in room. Patient maintaining saturations well Coding Level of Care Code 42374 CRITICAL CARE 1ST 30-74M Diagnoses Acute on chronic respiratory failure with hypoxia and hypercapnia J96.21; J96. 22 RSV (acute bronchiolitis due to respiratory syncytial virus) J21.0 Metabolic encephalopathy G93.41 Pneumonia J18.9 Admitted to intensive care unit Z78.9 Hypertension I10 Anxiety and depression F41.9; F32.A COPD (chronic obstructive pulmonary disease) J44.9 ARDS (adult respiratory distress syndrome) J80
--- NOTE | 2024-12-26 13:12 | Infectious Disease Progress Nt ---
Date of Service December 26, 2024 Assessment & Plan (1) ARDS (adult respiratory distress syndrome): (2) RSV (acute bronchiolitis due to respiratory syncytial virus): (3) Pulmonary cryptococcosis: Plan Problems: #Possible pulmonary cryptococcosis #Proteus mirabilis pneumonia and UTI #RSV #ARDS Micro: 12/25 Sputum cx: Proteus mirabilis 12/25 BCx x2: GPCs in clusters in 2/ bottles (1/2 sets). Biofire + Staph epi 12/25 UCx: Proteus mirabilis 12/23 Serum CrAg: pending 12/15 LLL BAL -Bronchial cx: scant normal shannon -Fungal cx: Cryptocccus neoformans monica grubii -AFB smear neg, cx NGTD 12/15 RLL BAL -Bronchial cx: scant normal shannon 12/15 BCx x2: NG 12/14 RPP: +RSV Abx: Ceftriaxone 12/14 Vanc 12/14 Zosyn 12/14 - 12/19, 12/26 - present Fluconazole 12/23 - present 54 yo F with history of severe COPD, HLD, CHF, HTN, anxiety, chronic pain syndrome who presented to the ED on 12/14 with severe shortness of breath which she reported was present for 4-6 months, but had gotten progressively worse over the last 3 days, found to have RSV with acute on chronic hypoxemic and hypercapnic respiratory failure requiring intubation, with ARDS. Hospital course c/b concern for pulmonary cryptococcosis, for which she was started on flu conazole on 12/23. Developed fevers 12/25 and found to have Proteus mirabilis pneumonia/UTI, started on pip-tazo 12/26. Pt was intubated in the ED. Labs showed WBC 8.8, procalcitonin 0.11, RPP +RSV. CXR with pulm vascular congestion, peribronchial cuffing that may be seen with bronchiolitis, R>L bibasilar densities. Pt was started on antibiotics, Solumedrol. CTA chest on 12/15 showed no PE, L>R dependent consolidation with volume loss and air bronchograms suggestive of atelectasis, pneumonia or aspiration could appear similarly. Also commented on a few borderline enlarged mediastinal and hilar lymph nodes. Pt underwent a bronchoscopy on 12/15. Noted minimal clear white secretions in R side. Mucous plugging noted in LLL with whitish-rob secretions. BAL bacterial cultures grew scant normal shannon. LLL BAL fungal culture now growing Cryptococcus neoformans, for which ID is consulted. Over the course of her hospitalization, pt has been proned, received high dose steroids. It seems her progress has plateaued, and she remains intubated on high FiO2. Did spike a fever of 38.1 on 3/2 PM. Not ready for extubation, and discussed pursuing tracheostomy--however, pt's resources would not cover LTAC. Discussion: Uncertain whether the rare Cryptococcus neoformans growing on pt's BAL fungal culture represents colonization or a true pathogen. Pt does not appear to have baseline immunocompromise to predispose her to Crypto infection. However, immunocompetent individuals can develop pulmonary cryptococcosis, although around half of them are asymptomatic. Pt had a chronic shortness of breath with acute exacerbation likely due to RSV infection--uncertain whether the chronic shortness of breath was just due to COPD/smoking, or whether Crypto infection could have been contributing. Unable to ask pt whether she had symptoms of fevers, malaise, night sweats, weight loss. Her CT chest does not have obvious signs of Crypto infection such as nodules, however pulmonary crypto can mimic other types of pulmonary infections such as bacterial or viral infections as well. She did have some borderline enlarged mediastinal and hilar lymph nodes. Serum Crypto Ag is rarely positive unless the pt has disseminated Crypto--in which case would pursue LP to assess for [employer] crypto. Pt with fever on 3/6 AM. Infectious work-up sent, and now sputum and urine cultures growing Proteus mirabilis. Per GOC discussion, planning for extubation 12/27 with no plans for reintubation. Recommendations: -Agree with pip-tazo to cover Proteus mirabilis pneumonia and UTI. Follow-up sensitivities -Unclear that pt has true pulmonary crypto--could be a colonizer. However, with her shortness of breath over months, hilar/mediastinal adenopathy, and lack of clinical improvement with goals of care discussions ongoing, reasonable to treat. With uncertainty of the diagnosis and comorbidities, will hold off on amphotericin/flucytosine at this time, and continue fluconazole 400 mg daily and monitor for improvement. -Follow-up serum Crypto Ag Will continue to follow. Please note that ID does not round or write notes over the weekend. If questions or concerns arise, please contact the Infectious Disease Call Center and ask to speak with the covering ID physician. Admission and Anticipated Discharge Date Admission Date: December 14, 2024 Subjective This patient recommendation is based on a telemedicine consult request which was completed asynchronously through chart review and information provided by the primary physician. The patient was not seen or examined today. The evaluation is consultative in nature and all patient care and treatment decisions can either be accepted or rejected by the patient's primary hospital-based treating physician using their own independent medical judgment for their patient. Time Spent Reviewing Chart: 11 - 20 minutes Febrile yesterday WBC 8.6 Sputum and urine cultures growing Proteus Results & Data Vital Signs (Past 12 Hours) Vital Signs Temp Pulse Pulse Resp BP Pulse Ox O2 Del Method 12/26/24 12:54 37.0 C 12/26/24 12:00 67 23 116/61 89 L Mechanical Vent 12/26/24 12:00 12/26/24 11:31 88 27 H 68 L 12/26/24 11:30 67 23 88 L Mechanical Vent 12/26/24 10:00 67 26 H 124/65 88 L Mechanical Vent 12/26/24 09:03 68 26 H 130/70 88 L Mechanical Vent 12/26/24 09:00 37.9 C H 12/26/24 08:00 Mechanical Vent 12/26/24 08:00 12/26/24 07:57 66 26 H 144/68 H 89 L Mechanical Vent 12/26/24 07:25 69 27 H 90 12/26/24 07:25 69 27 H 90 Mechanical Vent 12/26/24 07:00 55 L 23 119/58 L 89 L Mechanical Vent 12/26/24 06:00 37.2 C 12/26/24 05:33 54 L 26 H 90 12/26/24 04:15 56 L 26 H 89 L 12/26/24 04:06 55 L 26 H 88 L 12/26/24 03:59 12/26/24 03:06 57 L 26 H 89 L 12/26/24 03:00 134/67 12/26/24 02:57 58 L 23 91 12/26/24 02:00 121/58 L 12/26/24 02:00 121/58 L 12/26/24 02:00 121/58 L 12/26/24 02:00 55 L 26 H 88 L FiO2 12/26/24 12:54 12/26/24 12:00 55 12/26/24 12:00 55 12/26/24 11:31 55 12/26/24 11:30 55 12/26/24 10:00 55 12/26/24 09:03 55 12/26/24 09:00 12/26/24 08:00 55 12/26/24 08:00 55 12/26/24 07:57 55 12/26/24 07:25 55 12/26/24 07:25 55 12/26/24 07:00 55 12/26/24 06:00 12/26/24 05:33 12/26/24 04:15 12/26/24 04:06 55 12/26/24 03:59 55 12/26/24 03:06 12/26/24 03:00 12/26/24 02:57 12/26/24 02:00 12/26/24 02:00 12/26/24 02:00 12/26/24 02:00 Laboratory Results Short CBC 12/26/24 Range/Units 04:06 WBC 8.60 (4.8-10.8) K/ul Hgb 13.2 (12.0-16.0) g/dl Hct 43.5 (37.0-47.0) % Plt Count 203 (130-400) K/uL BMP 12/26/24 04:06 Sodium 141 Potassium 3.8 Chloride 105 Carbon Dioxide 33 H BUN 50 H Creatinine 0.91 Glucose 103 H Calcium 9.5 Diagnostic Findings Extremity Venous Study 12/26/24 04:32 EXAM: US venous doppler UE LT CLINICAL HISTORY: LEFT ARM SWELLING. TECHNIQUE: Ultrasound examination of left upper extremity veins was performed in real time and duplex. One or more of the following were performed- spectral analysis, resistive index, waveform analysis, and pulsed Doppler. Limited examination due to intubated the patient and the increased body habitus. COMPARISON: None. FINDINGS: Normal phasic, non-pulsatile, and spontaneous flow is noted in the left Internal jugular, subclavian, axillary, brachial, basilic, cephalic, antecubital, radial, and ulnar veins. Visualized veins of the left upper extremity demonstrate normal compressibility. No sonographic evidence of acute deep vein thrombosis (DVT) is detected in the visualized veins of the upper extremity. Compression and Augmentation: All evaluated veins compress fully with applied transducer pressure. Augmentation of venous flow is noted with distal compression. Additional Findings: A non-occlusive thrombus is seen involving the left cephalic vein in the distal upper arm measuring 8.5 cm. IMPRESSION: 1. No sonographic evidence of acute DVT detected at the time of examination. 2. A non-occlusive thrombus is seen involving the left cephalic vein in the distal upper arm measuring 8.5 cm, suggesting superficial thrombophlebitis. Disclaimer: DVT could be missed early in the disease when clot burden is minimal. For patients with moderate and high pretest probability of DVT and negative ultrasound, the [employer] clinical guidelines recommend testing with a D-dimer assay or repeat ultrasound in 5-7 days. If symptoms worsen, the Society of radiologists in ultrasound recommends repeating ultrasound even earlier. Electronically signed by Ines Tee 12-26-2024 07:56 AM Chest X-Ray 12/26/24 07:00 EXAM: XR chest 1V portable CLINICAL HISTORY: resp failure TECHNIQUE: An X-ray image of the chest is obtained in AP projection. COMPARISON: CR dated 12/25/2024. FINDINGS: ETT is inserted, reaching 3.5 cm above the ximena. NGT is inserted in place with the tip below the diaphragm. In situ right CVL. Pulmonary Parenchyma: Mild hilar vascular congestion was noted. Right lower lung zone opacification in paracardiac region. No evidence of pleural effusion or pleural thickening. Heart and Mediastinum: The heart is enlarged in size with an obscured left costophrenic angle; pleural effusion may also present. No mediastinal widening or masses. No hilar or mediastinal lymphadenopathy. Bony Thorax: The bony thorax appears intact without fractures or deformities. Soft Tissues: Soft tissues overlying the chest wall are unremarkable. IMPRESSION: 1. ETT is inserted, reaching 3.5 cm above the ximena. 2. NGT is inserted in place with the tip below the diaphragm. 3. Cardiomeglay is unchanged. 4. Obscured and blunted left costophrenic angle. 5. Mild hilar vascular congestion noted. 6. The right lower lung lobe opacification is unchanged and may be related to early infiltration. 7. No interval changes compared to previous study. Electronically signed by Ines Tee 12-26-2024 07:54 AM Medications Administered Current Inpatient Medications Acetaminophen (Acetaminophen Susp 325 Mg/10.15 Ml Udc) 650 mg PO Q4H PRN PRN Reason: FEVER, MILD PAIN 1,2,3 Stop: 01/25/25 09:46 Albuterol (Albut/Ipratrop 3mg/0.5mg Neb 3 Ml Vial) 3 ml NEB Q6R PRN; Protocol PRN Reason: Shortness Of Breath Or Wheezing Stop: 01/14/25 00:59 Banana Based Medical Food (Banatrol Tf 60 Ml Liquid Pkt) 60 ml PEG BID [facility] Stop: 01/21/25 20:59 Last Admin: 12/26/24 09:03 Dose: 60 ml Budesonide (Budesonide 0.5 Mg/2 Ml Vial (Pulmicort)) 0.5 mg NEB BIDR [facility] Stop: 01/14/25 18:59 Last Admin: 12/26/24 07:25 Dose: 0.5 mg Clonazepam (Clonazepam 0.5 Mg Tab) 0.5 mg PO Q12H [facility] Stop: 01/22/25 11:14 Last Admin: 12/26/24 12:11 Dose: 0.5 mg Dextrose (Dextrose 50% 50 Ml Syringe) 25 - 50 ml IV UD PRN; Protocol PRN Reason: Hypoglycemia Protocol Stop: 01/13/25 21:58 Fentanyl Citrate (Fentanyl Bolus From Bag) 50 mcg IV Q60M PRN PRN Reason: Pain or Agitation Stop: 12/28/24 20:36 Last Admin: 12/22/24 19:44 Dose: 50 mcg Fluoxetine HCl (Fluoxetine Hcl 20 Mg Cap) 40 mg PO DAILY [facility] Stop: 01/15/25 08:59 Last Admin: 12/26/24 09:04 Dose: 40 mg Formoterol Fumarate (Formoterol 20 Mcg/2 Ml Vial) 20 mcg NEB BIDR [facility] Stop: 01/14/25 18:59 Last Admin: 12/26/24 07:25 Dose: 20 mcg Furosemide (Furosemide 40 Mg/4 Ml Vial) 40 mg IV BID [facility] Stop: 01/21/25 10:14 Last Admin: 12/26/24 09:04 Dose: 40 mg Glucagon (Glucagon For Inj 1 Mg Vial) 1 mg SQ UD PRN; Protocol PRN Reason: Hypoglycemia Protocol Stop: 01/13/25 21:58 Glucose (Glucose 40% Gel 15 Gm Tube) 15 - 30 gm PO UD PRN; Protocol PRN Reason: Hypoglycemia Protocol Stop: 01/13/25 21:58 Glucose (Glucose 10 Tab/Tube) 4 - 8 tab PO UD PRN; Protocol PRN Reason: Hypoglycemia Protocol Stop: 01/13/25 21:58 Heparin Sodium (Beef Lung) (Heparin 10 Unit/Ml 5 Ml Flush) 5 ml FLUSH PRN PRN PRN Reason: Flush Stop: 01/19/25 02:45 Last Admin: 12/23/24 15:43 Dose: 5 ml Heparin Sodium (Porcine) (Heparin Sod 5,000 Unit/0.5 Ml Vial) 5,000 units SQ Q8 [facility] Stop: 01/13/25 21:58 Last Admin: 12/26/24 05:54 Dose: 5,000 units Fentanyl Citrate (Fentanyl Citrate) 2,500 mcg in 250 mls @ 5 mls/hr IV .Q50H [facility]; Protocol Stop: 12/28/24 20:44 Last Admin: 12/26/24 08:59 Dose: 50 mcg/hr, 5 mls/hr Midazolam HCl (Versed) 125 mg in 250 mls @ 4 mls/hr IV .[id number] [facility]; Protocol Stop: 01/14/25 12:44 Last Titration: 12/26/24 07:08 Dose: 2 mg/hr, 4 mls/hr Fluconazole (Diflucan) 200 mg in 100 mls @ 100 mls/hr IV DAILY@1400,1500 [facility] Stop: 01/22/25 13:59 Last Infusion: 12/25/24 17:21 Dose: Infused Piperacillin Sod/Tazobactam Sod (Zosyn) 4.5 gm in 100 mls @ 25 mls/hr IV Q8H [facility]; Protocol Stop: 01/02/25 15:59 Lamotrigine (Lamotrigine 100 Mg Tab) 200 mg PO DAILY [facility]; Protocol Stop: 01/15/25 08:59 Last Admin: 12/26/24 09:04 Dose: 200 mg Lansoprazole (Lansoprazole 30 Mg Soltab) 30 mg OG DAILY [facility] Stop: 01/25/25 08:59 Last Admin: 12/26/24 09:04 Dose: 30 mg Lisinopril (Lisinopril 2.5 Mg Tab) 2.5 mg PO QAM [facility] Stop: 01/24/25 10:44 Last Admin: 12/26/24 09:05 Dose: 2.5 mg Methadone HCl (Methadone Hcl 5 Mg Tab) 5 mg PO BID [facility] Stop: 01/06/25 11:14 Last Admin: 12/26/24 09:12 Dose: 5 mg Midazolam HCl (Midazolam Bolus From Bag) 2 mg IV Q60M PRN PRN Reason: Sedation Stop: 01/14/25 12:32 Last Admin: 12/22/24 08:23 Dose: 2 mg Miscellaneous (Carbohydrates For Hypoglycemia ) 15 - 30 gm PO UD PRN PRN Reason: Hypoglycemia Protocol Stop: 01/13/25 21:58 Miscellaneous (Icu Electrolyte Replacement Protocol) 1 each N/A BID@ [facility]; Protocol Stop: 12/29/24 17:59 Last Admin: 12/26/24 06:06 Dose: 1 each Nutritional Formula (Peptamen Intense Vhp 1.0 Eric 1,000 Ml Bag) 1,000 ml OG UD [facility]; Protocol Stop: 01/17/25 11:17 Last Admin: 12/26/24 05:46 Dose: 1,000 ml Oxcarbazepine (Oxcarbazepine 150 Mg Tablet) 300 mg PO BID [facility] Stop: 01/14/25 20:59 Last Admin: 12/26/24 09:05 Dose: 300 mg Polyethylene Glycol (Polyethylene (Miralax) 17 Gm Pack) 17 gm PO DAILY PRN PRN Reason: Constipation Stop: 01/13/25 20:43 Potassium Chloride (Potassium Chloride Pwd 20 Meq Pack) 20 meq NG BID [facility] Stop: 01/24/25 08:59 Last Admin: 12/26/24 09:05 Dose: 20 meq Sennosides (Senna 8.6 Mg Tab) 17.2 mg PO HS PRN PRN Reason: Constipation Stop: 01/13/25 20:59 Sterile Water (Tube Feeding Water Flush) 30 ml GT Q4H [facility] Stop: 01/14/25 11:59 Last Admin: 12/26/24 12:11 Dose: 30 ml
--- NOTE | 2024-12-26 15:00 | Hospitalist Progress Note ---
Date of Service December 26, 2024 Assessment & Plan (1) Admitted to intensive care unit: (2) Metabolic encephalopathy: (3) RSV (acute bronchiolitis due to respiratory syncytial virus): (4) Acute on chronic respiratory failure with hypoxia and hypercapnia: (5) COPD (chronic obstructive pulmonary disease): (6) Pneumonia: Plan 54 years old female with PMH of FULL CODE @ home, morbid obesity with BMI 44.0 (height 167.6 cm; weight 123.7 kg), hyperlipidemia, HTN, GERD, anxiety disorder, major depression, chronic pain disorder, and ongoing tobacco abuse with subsequent diagnosis of severe COPD, who presented to [facility] on 12/14/2024 with severe shortness of breath, dyspnea on exertion which had been worsening over the 3 days prior to presentation to [facility] on 12/14/2024. Patient was subsequently intubated in [facility] ER on admission date 12/14/2024 for acute CO2 retention and hypoxia. [employer] testing was positive for RSV with CT showing multifocal pneumonia. Patient was subsequently admitted to the inpatient hospitalist service @ [facility] on 12/14/2024 with the following diagnoses: 1. Acute on chronic hypoxic hypercapnic respiratory failure, due to ongoing tobacco abuse and due to acute RSV pneumonia. The following medical issues are being addressed: #Acute on chronic hypoxic hypercapnic respiratory failure #Multifocal pneumonia #Severe COPD with exacerbation #RSV - CTA without evidence of PE 12/15 - intubated on 12/14/24, ICU managing - paralytics taken off on 12/18/24 - on Fentanyl / Midazolam for vent dyssynchrony - cont decadron, DuoNebs, albuterol, formoterol, budesonide - s/p 5 days of Zosyn last dose 12/19/24 Bronchoscopy culture of LLL (12/15/2024) yields Cryptococcus neoformans veronica grubii, now on fluconazole 200mg IV daily (day #1 on 12/23/2024, 2:53pm). Blood cultures NGTD Condition remains tenuous, if not terminal: I subsequently spoke with the patient's son, Mr. Brandon Umana ( ), and he concurred, and asked that he solicit the opinions of his aunt and his brothers, to see if they concur, and to decide whether or not to proceed with tracheostomy and/or PEG insertion, OR to make patient comfortable with inpatient hospice/comfort measures only with morphine infusion and/or ativan IV prn anxiety. Mr. Brandon Umana ( ) stated that he would get back in touch with me in the 12/24/2024 am. - I spoke with Mr. Brandon Umana ( ) on 12/24/2024, 8:25am, and he stated that he and his aunt and his brothers all decided to forego tracheostomy and PEG insertion, and that instead, he and other family members will be coming to see the patient in the next 3-4 days, and that by Sunday (12/27/2024), patient will be going back to her home with home hospice under DNR/DNI/comfort measures only status with morphine PO/SL prn patient comfort. Mr. Brandon Umana ( ) requested that patient remain in [facility] ICU until all family members can stop by and say their final goodbyes to the patient before patient is extubated and mechanical ventilation discontinued on Sunday (12/27/2024). I told Mr. Umana that his request will be honored. - Subsequently, Critical Care Service of Dr. Hiram Driver reported on 12/25/2024: "slight progress in weaning FiO2 today."..."Respiratory -dense dependent bilateral lower lobe consolidation. Chest x-ray slightly improved today. Completed course of prednisone. Continue to wean FiO2 and PEEP as tolerated. If we can make progress, we will pursue a trial of extubation. The patient is more awake today and may be able to participate in some discussions with family members. Continue budesonide and Perforomist." Hence, I defer to Critical Care Service of Dr. Hiram Driver regarding vent management and family discussions regarding hospital disposition, especially if patient can be extubated successfully in the upcoming day(s). - Subsequently, Critical Care Service of Dr. Hiram Driver reports on 12/26/2024: "Discussed with 2 sons at bedside who are proxy decision makers. We again reviewed options to include tracheostomy and long-term acute care. They are both clear that this is not a course or quality of life that their mother would find acceptable. Continuing current care does not appear to be an option and she has now been intubated for almost 2 weeks. Presented the option of extubation and transition to comfort care if the patient fails. If she does okay, will pursue continued supportive care. They expressed understanding and request that the patient be maintained in her current state until tomorrow. There is 1 other family member who is going to visit. After that they would like to pursue extubation. If the patient does well, she will be supported. If she fails, transition to comfort measures would be appropriate. Do not see BiPAP as a bridge to anything at this point in time." #Diarrhea - onset since initiation of tube feeds - banatrol BID ordered #Chronic medical conditions: #GERD-converted to Protonix IV #Hypertension- Holding aspirin, bumetanide (replaced with IV Lasix), losartan #Anxiety/depression- cont fluoxetine, oxcarbazepine and lamotrigine via OG, suspect she is on oxcarbazepine and lamotrigine for bipolar with no known seizure history VTE prophylaxis - heparin 5000 units q.8 hourly Diet - NPO on tube feeding Disposition - ICU Admission and Anticipated Discharge Date Admission Date: December 14, 2024 Subjective Not available as patient remains intubated and mechanically ventilated on A/C m ode of ventilation with TV 350 mL, RR 26 breaths/minute, PEEP 14, FIO2 0.55. Review of Systems Constitutional: Not available as patient remains intubated and mechanically ventilated on A/C mode of ventilation with TV 350 mL, RR 26 breaths/minute, PEEP 14, FIO2 0.55. Physical Exam Constitutional: General: Comfortable, non-verbal as patient remains intubated and mechanically ventilated. HEENT: Normocephalic, atraumatic. Pupils equally round and reactive to light. No nystagmus, gaze paresis, anisocoria, miosis, mydriasis, hyphema, scleral injection, conjunctivitis, or pterygium. No rhinorrhea or otorrhea. No pharyngeal discharge or erythema. Neck: Supple, no stridor, bruit, goiter, hepatojugular reflux. Jugular venous pressure is estimated to be 8 cm above the sternal angle of Alvin, which is estimated to be 5 cm above the level of the right atrium. Lymph: No anterior/posterior cervical, supraclavicular/infraclavicular, axillary, epitrochlear, or inguinal adenopathy. Chest: Symmetric rise and fall with respirations. Lungs: Clear to auscultation and percussion. No audible expiratory wheeze, egophony, pectoriloquy, increase in tactile fremitus, or flatness/dullness to percussion at the bases. Heart: RRR, S1 and S2 noted. No S3 or S4 summation gallop noted. No tripartite friction rub. Grade II/ early systolic murmur @ LLSB without radiation to the carotids, axilla, or back, and which remains invariant in regards to the respiratory cycle. Abdomen: Soft, non-tender, non-distended. No rebound, guarding, Vazquez's sign, or organomegaly. Bowel sounds sounds auscultated in all 4 quadrants. Rectal tube with feces leaking around rectal tube. Extremities: No clubbing, cyanosis. 2+ pitting pedal edema with extension to the bilateral lower shins. 2+ pitting forearm edema bilaterally. 2+ pedal pulses bilaterally. Skin: No decubitus ulcer or enanthem or exanthem. Neurology: No tremors, tics, or myoclonus. Urology: +obrien with 100 cc of clear yellow urine. No urethral discharge. Psychiatry: No suicidal ideation. No homicidal ideation. Results & Data Results & Data Vital Signs (Past 12 Hours) Vital Signs Temp Pulse Pulse Resp BP Pulse Ox O2 Del Method 12/26/24 12:54 37.0 C 12/26/24 12:00 67 23 116/61 89 L Mechanical Vent 12/26/24 12:00 12/26/24 11:31 88 27 H 68 L 12/26/24 11:30 67 23 88 L Mechanical Vent 12/26/24 10:00 67 26 H 124/65 88 L Mechanical Vent 12/26/24 09:03 68 26 H 130/70 88 L Mechanical Vent 12/26/24 09:00 37.9 C H 12/26/24 08:00 Mechanical Vent 12/26/24 08:00 12/26/24 07:57 66 26 H 144/68 H 89 L Mechanical Vent 12/26/24 07:25 69 27 H 90 12/26/24 07:25 69 27 H 90 Mechanical Vent 12/26/24 07:00 55 L 23 119/58 L 89 L Mechanical Vent 12/26/24 06:00 37.2 C 12/26/24 05:33 54 L 26 H 90 12/26/24 04:15 56 L 26 H 89 L 12/26/24 04:06 55 L 26 H 88 L 12/26/24 03:59 12/26/24 03:06 57 L 26 H 89 L 12/26/24 03:00 134/67 12/26/24 02:57 58 L 23 91 FiO2 12/26/24 12:54 12/26/24 12:00 55 12/26/24 12:00 55 12/26/24 11:31 55 12/26/24 11:30 55 12/26/24 10:00 55 12/26/24 09:03 55 12/26/24 09:00 12/26/24 08:00 55 12/26/24 08:00 55 12/26/24 07:57 55 12/26/24 07:25 55 12/26/24 07:25 55 12/26/24 07:00 55 12/26/24 06:00 12/26/24 05:33 12/26/24 04:15 12/26/24 04:06 55 12/26/24 03:59 55 12/26/24 03:06 12/26/24 03:00 12/26/24 02:57 Laboratory Results 12/26/24 13:57 Aerobic Blood Culture - Pending Blood Anaerobic Blood Culture - Pending 12/26/24 14:11 Aerobic Blood Culture - Pending Blood Anaerobic Blood Culture - Pending 12/25/24 10:40 Urine Culture - Preliminary Urine,Indwelling Cath Proteus mirabilis 12/25/24 11:05 Aerobic Blood Culture - Preliminary Blood No growth in Aerobic bottle after 24 hours. Anaerobic Blood Culture - Preliminary No growth in Anaerobic bottle after 24 hours. 12/25/24 10:54 Aerobic Blood Culture - Preliminary Blood Gram positive cocci clusters Anaerobic Blood Culture - Preliminary Gram positive cocci clusters 12/25/24 Unknown Gram Stain - Final Sputum,Vent Suction Sputum Culture - Preliminary Proteus mirabilis 12/26/24 12/25/24 12/25/24 04:06 11:05 10:54 WBC 8.60 RBC 4.46 Hgb 13.2 Hct 43.5 MCV 97.5 MCH 29.6 MCHC 30.3 L RDW Std Deviation 57.3 H RDW Coeff of Veronica 15.9 H Plt Count 203 MPV 11.4 Immature Gran % (Auto) 0.2 Neut % (Auto) 78.0 Lymph % (Auto) 13.5 Baldwin % (Auto) 6.9 Eos % (Auto) 1.2 Baso % (Auto) 0.2 Neut # (Auto) 6.71 H Lymph # (Auto) 1.16 L Baldwin # (Auto) 0.59 Eos # (Auto) 0.10 Baso # (Auto) 0.02 Immature Gran # (Auto) 0.02 Sodium 141 Potassium 3.8 Chloride 105 Carbon Dioxide 33 H Anion Gap 3 BUN 50 H Creatinine 0.91 Est Cr Clr Drug Dosing 94.0 eGFR 74.50 BUN/Creatinine Ratio 54.9 H Glucose 103 H Calcium 9.5 Phosphorus 4.1 Magnesium 2.0 Staphylococcus sp PCR DETECTED A DETECTED A mecA/C-Methicil Resis Gene DETECTED A DETECTED A Staph epidermidis (PCR) DETECTED A DETECTED A Bld Cult ID Panel PCR See PCR Comment See PCR Comment PG Care Time/CCT Total # of Minutes Spent Total Time Spent with Patient: Total time spent is greater than 50% in coordination of care (as documented) at patient's floor/unit and/or counseling patient: Coding Level of Care Code 79908 SUB INP/OBS CARE 2/35MIN Diagnoses Admitted to intensive care unit Z78.9 Metabolic encephalopathy G93.41 RSV (acute bronchiolitis due to respiratory syncytial virus) J21.0 Acute on chronic respiratory failure with hypoxia and hypercapnia J96.21; J96.22 COPD (chronic obstructive pulmonary disease) J44.9 Pneumonia J18.9
[2024-12-26] MEDS: 4.5GM EXT INFUSION IV SCH (16:02)
[2024-12-26 18:04] LABS: Magnesium 2.3 mg/dl (1.7-2.4); Phosphorus 4.7 mg/dl (2.5-4.9); Potassium 4.4 mmol/L (3.5-5.1)
[2024-12-27 06:22] LABS: BUN Creatinine Ratio 53.4 (10-20); Calcium 9.5 mg/dl (8.6-10.3); Creatinine Clr Calc Pharmacy 81.8 ml/min; Magnesium 2.2 mg/dl (1.7-2.4); Phosphorus 4.4 mg/dl (2.5-4.9); Potassium 4.3 mmol/L (3.5-5.1)
--- NOTE | 2024-12-27 09:34 | XRay Report ---
EXAM: XR chest 1V portable CLINICAL HISTORY: resp failure TECHNIQUE: An X-ray image of the chest is obtained in AP projection. COMPARISON: 12/26/2024 CR FINDINGS: ETT is inserted, reaching 3.1 cm above the ximena. NGT is inserted in place with the tip below the diaphragm. In situ right CVL. Pulmonary Parenchyma: Mild hilar vascular congestion was noted. Right lower lung zone opacification in paracardiac region. No evidence of pleural effusion or pleural thickening. Heart and Mediastinum: The heart is enlarged in size with an obscured left costophrenic angle; pleural effusion may also present. No mediastinal widening or masses. No hilar or mediastinal lymphadenopathy. Bony Thorax: The bony thorax appears intact without fractures or deformities. Soft Tissues: Soft tissues overlying the chest wall are unremarkable. IMPRESSION: 1. ETT is inserted, reaching 3.1 cm above the ximena. 2. NGT is inserted in place with the tip below the diaphragm. 3. Cardiomeglay. 4. Obscured left costophrenic angle. 5. Mild hilar vascular congestion noted. 6. The right lower lung lobe opacification is unchanged and may be related to early infiltration. 7. No interval changes. Electronically signed by Deni Sims 12-27-2024 07:49 AM
--- NOTE | 2024-12-27 09:47 | Critical Care Progress Note ---
Date of Service December 27, 2024 Assessment & Plan (1) Acute on chronic respiratory failure with hypoxia and hypercapnia: (2) RSV (acute bronchiolitis due to respiratory syncytial virus): (3) Metabolic encephalopathy: (4) Pneumonia: (5) Admitted to intensive care unit: (6) Hypertension: (7) Anxiety and depression: (8) COPD (chronic obstructive pulmonary disease): (9) ARDS (adult respiratory distress syndrome): Plan Reason Critically Ill: 54-year-old morbidly obese female admitted with viral bronchiolitis and acute on chronic hypoxemic and hypercapnic respiratory failure requiring intubation mechanical ventilation. She has been put on steroids for late phase ARDS and was proned. She is clinically plateaued 24-hour events: Clinically stagnant. Unable to wean FiO2 or PEEP. Recommendations: Neuro -currently sedated on fentanyl and Versed, continue to wean as tolerated. Continue oral clonazepam and methadone in an effort to decrease IV medications, monitoring QT intervals. Continues daily sedation breaks. Continue home medications (Zyprexa, Lamictal, and Prozac). Cardiac -hypertension: On ARB at home. Continue JESSICA inhibitor. Continue Lasix/Diamox today. Bradycardia resolved Respiratory -persistent hypoxemic respiratory failure. The patient is clinically stagnant and unable to make any significant progress with regards to her ventilator status. She is now day 13 mechanical ventilation. Family does not want to pursue tracheostomy. Awaiting arrival of 1 additional family member today at which point in time we will pursue extubation. If the patient does well she will continue to be supported. If she fails extubation, will transition to comfort care with expectation of patient demise GI -holding tube feeds. Stool output improving. C. difficile PCR positive but toxin negative, likely colonized. No therapy indicated. RENAL/LYTES -continue diuresis. ICU electrolyte replacement protocol. Follow kidney function ENDO - glycemic control per protocol HEME -no acute issues ID -patient's completed a full course of Zosyn. 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 Currently on Zosyn for Proteus in the urine and sputum. Fever curve improved. --Prophylaxis VTE: Heparin subcu GI: Pantoprazole Lines: Right IJ, radial, Tian Diet: Tube feeds Patient's son Brandon [phone] I have personally spent 38 minutes of critical care time in the direct management of this patient. This is a life/limb threatening event. This includes time spent evaluating patient, direct bedside care, chart review, placing orders, interpretation of diagnostic studies, discussion with consultants, patient, and family members, as well as other required patient management activities. This time is exclusive of all separately billable procedures, and teaching time and separate from and in addition to any other critical care service time. Admission and Anticipated Discharge Date Admission Date: December 14, 2024 Subjective Intubated and sedated Review of Systems Review of Systems: Unobtainable due to endotracheal tube Physical Exam Constitutional: + morbidly obese and + mechanically vent ilated; no acute distress Neck: trachea midline, no thyromegaly Respiratory: normal respiratory effort, lungs clear to auscultation Cardiovascular: RRR, no murmur, no edema Gastrointestinal (Abdomen): normal bowel sounds, soft, nontender, no hepatosplenomegaly Musculoskeletal: Extremities: extremities normal to inspection Skin: no rashes, warm and dry Lymphatic: no cervical lymphadenopathy Results & Data Results & Data Vital Signs (Past 12 Hours) Vital Signs Temp Pulse Resp BP Pulse Ox O2 Del Method FiO2 12/27/24 08:57 72 26 H 124/63 90 Mechanical Vent 55 12/27/24 08:06 66 26 H 89 L Mechanical Vent 55 12/27/24 07:30 69 27 H 90 55 12/27/24 07:03 65 26 H 116/81 91 Mechanical Vent 55 12/27/24 07:00 36.9 C 12/27/24 07:00 55 12/27/24 06:24 63 26 H 90 12/27/24 06:00 37.4 C 12/27/24 05:09 65 23 90 12/27/24 05:00 136/65 12/27/24 04:27 60 26 H 90 12/27/24 04:09 60 26 H 89 L 12/27/24 04:00 55 12/27/24 03:58 60 27 H 90 55 12/27/24 03:27 59 L 26 H 90 12/27/24 03:00 37.3 C 12/27/24 03:00 139/63 12/27/24 03:00 139/63 12/27/24 02:57 62 26 H 90 12/27/24 02:09 60 26 H 89 L 12/27/24 02:00 137/67 12/27/24 01:51 58 L 26 H 90 12/27/24 01:06 59 L 26 H 90 12/27/24 01:00 133/63 12/27/24 00:54 60 26 H 90 12/27/24 00:03 61 26 H 90 12/27/24 00:00 61 12/27/24 00:00 131/63 12/27/24 00:00 131/63 12/27/24 00:00 37.4 C 12/27/24 00:00 55 12/27/24 00:00 63 27 H 91 55 12/26/24 23:57 60 26 H 90 12/26/24 23:03 60 26 H 90 12/26/24 23:00 136/71 12/26/24 23:00 136/71 12/26/24 22:00 59 L 26 H 90 12/26/24 22:00 126/63 12/26/24 22:00 126/63 12/26/24 22:00 126/63 12/26/24 22:00 126/63 Critical Care Results & Data Vital Signs (Past 12 Hours) Vital Signs Temp Pulse Resp BP Pulse Ox O2 Del Method FiO2 12/27/24 10:00 75 26 H 137/62 89 L Mechanical Vent 55 12/27/24 08:57 72 26 H 124/63 90 Mechanical Vent 55 12/27/24 08:06 66 26 H 89 L Mechanical Vent 55 12/27/24 07:30 69 27 H 90 55 12/27/24 07:03 65 26 H 116/81 91 Mechanical Vent 55 12/27/24 07:00 36.9 C 12/27/24 07:00 55 12/27/24 06:24 63 26 H 90 12/27/24 06:00 37.4 C 12/27/24 05:09 65 23 90 12/27/24 05:00 136/65 12/27/24 04:27 60 26 H 90 12/27/24 04:09 60 26 H 89 L 12/27/24 04:00 55 12/27/24 03:58 60 27 H 90 55 12/27/24 03:27 59 L 26 H 90 12/27/24 03:00 37.3 C 12/27/24 03:00 139/63 12/27/24 03:00 139/63 12/27/24 02:57 62 26 H 90 12/27/24 02:09 60 26 H 89 L 12/27/24 02:00 137/67 12/27/24 01:51 58 L 26 H 90 12/27/24 01:06 59 L 26 H 90 12/27/24 01:00 133/63 12/27/24 00:54 60 26 H 90 12/27/24 00:03 61 26 H 90 12/27/24 00:00 61 12/27/24 00:00 131/63 12/27/24 00:00 131/63 12/27/24 00:00 37.4 C 12/27/24 00:00 55 12/27/24 00:00 63 27 H 91 55 12/26/24 23:57 60 26 H 90 12/26/24 23:03 60 26 H 90 12/26/24 23:00 136/71 12/26/24 23:00 136/71 Lab & Micro Results (Past 24 Hours) No Data to Display Na 140 mmol/L (136-145) 12/27/24 K 4.3 mmol/L (3.5-5.1) 12/27/24 Cl 105 mmol/L (98-107) 12/27/24 CO2 31 mmol/L (21-32) 12/27/24 Anion Gap 4 (3-11) 12/27/24 BUN 55 mg/dl (6-23) H 12/27/24 Creatinine 1.03 mg/dl (0.6-1.2) 12/27/24 BUN/Creatinine Ratio 53.4 (10-20) H 12/27/24 Glu 114 mg/dl (70-99(Fasting)) H 12/27/24 Ca 9.5 mg/dl (8.6-10.3) 12/27/24 Phosphorus Level 4.4 mg/dl (2.5-4.9) 12/27/24 Mg 2.2 mg/dl (1.7-2.4) 12/27/24 05:43 Calcium Level 9.5 mg/dl (8.6-10.3) 12/27/24 05:43 Microbiology 12/25/24 10:54 Aerobic Blood Culture - Final Blood Staphylococcus epidermidis Staphylococcus epidermidis#2 Anaerobic Blood Culture - Final Staphylococcus epidermidis 12/25/24 10:40 Urine Culture - Preliminary Urine,Indwelling Cath Proteus mirabilis 12/25/24 11:05 Aerobic Blood Culture - Preliminary Blood No growth in Aerobic bottle after 24 hours. Anaerobic Blood Culture - Preliminary No growth in Anaerobic bottle after 24 hours. 12/25/24 Unknown Gram Stain - Final Sputum,Vent Suction Sputum Culture - Preliminary Proteus mirabilis Diagnostic Findings (Past 24 Hours) Chest X-Ray 12/27/24 07:00 EXAM: XR chest 1V portable CLINICAL HISTORY: resp failure TECHNIQUE: An X-ray image of the chest is obtained in AP projection. COMPARISON: 12/26/2024 CR FINDINGS: ETT is inserted, reaching 3.1 cm above the ximena. NGT is inserted in place with the tip below the diaphragm. In situ right CVL. Pulmonary Parenchyma: Mild hilar vascular congestion was noted. Right lower lung zone opacification in paracardiac region. No evidence of pleural effusion or pleural thickening. Heart and Mediastinum: The heart is enlarged in size with an obscured left costophrenic angle; pleural effusion may also present. No mediastinal widening or masses. No hilar or mediastinal lymphadenopathy. Bony Thorax: The bony thorax appears intact without fractures or deformities. Soft Tissues: Soft tissues overlying the chest wall are unremarkable. IMPRESSION: 1. ETT is inserted, reaching 3.1 cm above the ximena. 2. NGT is inserted in place with the tip below the diaphragm. 3. Cardiomeglay. 4. Obscured left costophrenic angle. 5. Mild hilar vascular congestion noted. 6. The right lower lung lobe opacification is unchanged and may be related to early infiltration. 7. No interval changes. Electronically signed by Deni Sims 12-27-2024 07:49 AM I & O Totals 24 Hours 12/26/24 12/27/24 12/28/24 06:59 06:59 07:59 Intake Total 1410.333 / 1458.424 3085.718 / 2456.718 270 / 270 Output Total 3020 / 3020 2205 / 2205 485 / 485 Balance -1609.667 / -1609.667 251.718 / 251.718 -215 / -215 Cumulative 12/14/24 19:47 thru 12/27/24 09:58 Intake Total 77514.068 Output Total 17149 Balance -61500.932 RT Ventilator Mngmt (Last Documented) Ventilator Ordered Settings Ventilator Support Mode Assist Control 12/27/24 07:30 Respiratory Rate 26 12/27/24 10:00 Ventilator Tidal Volume 350 12/27/24 07:30 Setting Minute Ventilation 9.4 12/27/24 07:30 Positive End Expiratory 14 12/27/24 07:30 Pressure Fraction of Inspired Oxygen 55 12/27/24 10:00 Peak Inspiratory Flow 43 12/18/24 10:35 Machine Comment Vent changes made per 4- 12/22/24 09:59 6kg Ventilator - PT Measurements Respiratory Rate 26 Exhaled Tidal Volume 350 Minute Ventilation 9.4 Peak Inspiratory Airway 28 Pressure Plateau Pressure 24 Respiratory Cycle Inspiratory: 1:2.1 Expiratory Ratio Inspiratory Phase Time 0.75 End-Tidal CO2 45 Static Lung Compliance 35.00 Dynamic Lung Compliance 25.00 Normal Static Lung Compliance 46.00 Patient Measurements Comment FiO2 titrated down at this time. Juma HARRELL in room. Patient maintaining saturations well Coding Level of Care Code 21915 CRITICAL CARE 1ST 30-74M Diagnoses Acute on chronic respiratory failure with hypoxia and hypercapnia J96.21; J96.22 RSV (acute bronchiolitis due to respiratory syncytial virus) J21.0 Metabolic encephalopathy G93.41 Pneumonia J18.9 Admitted to intensive care unit Z78.9 Hypertension I10 Anxiety and depression F41.9; F32.A COPD (chronic obstructive pulmonary disease) J44.9 ARDS (adult respiratory distress syndrome) J80
[2024-12-27 09:57] LABS: Cryptococcal Antigen Not Detected (Not Detected); Source Serum
--- NOTE | 2024-12-27 13:54 | Hospitalist Progress Note ---
Date of Service December 27, 2024 Assessment & Plan (1) Admitted to intensive care unit: (2) Metabolic encephalopathy: (3) RSV (acute bronchiolitis due to respiratory syncytial virus): (4) Acute on chronic respiratory failure with hypoxia and hypercapnia: (5) COPD (chronic obstructive pulmonary disease): (6) Pneumonia: Plan 54 years old female with PMH of FULL CODE @ home, morbid obesity with BMI 44.0 (height 167.6 cm; weight 123.7 kg), hyperlipidemia, HTN, GERD, anxiety disorder, major depression, chronic pain disorder, and ongoing tobacco abuse with subsequent diagnosis of severe COPD, who presented to [facility] ER on 12/14/2024 with severe shortness of breath, dyspnea on exertion which had been worsening over the 3 days prior to presentation to [facility] ER on 12/14/2024. Patient was subsequently intubated in [facility] ER on admission date 12/14/2024 for acute CO2 retention and hypoxia. BioFire testing was positive for RSV with CT showing multifocal pneumonia. Patient was subsequently admitted to the inpatient hospitalist service @ [facility] on 12/14/2024 with the following diagnoses: 1. Acute on chronic hypoxic hypercapnic respiratory failure, due to ongoing tobacco abuse and due to acute RSV pneumonia. The following medical issues are being addressed: #Acute on chronic hypoxic hypercapnic respiratory failure #Multifocal pneumonia #Severe COPD with exacerbation #RSV - CTA without evidence of PE 12/15 - intubated on 12/14/24, ICU managing - paralytics taken off on 12/18/24 - on Fentanyl / Midazolam for vent dyssynchrony - cont decadron, DuoNebs, albuterol, formoterol, budesonide - s/p 5 days of Zosyn last dose 12/19/24 Bronchoscopy culture of LLL (12/15/2024) yields Cryptococcus neoformans monica grubii, now on fluconazole 200mg IV daily (day #1 on 12/23/2024, 2:53pm). Blood cultures NGTD Condition remains tenuous, if not terminal: I subsequently spoke with the patient's son, Mr. Brandon Umana ( ), and he concurred, and asked that he solicit the opinions of his aunt and his brothers, to see if they concur, and to decide whether or not to proceed with tracheostomy and/or PEG insertion, OR to make patient comfortable with inpatient hospice/comfort measures only with morphine infusion and/or ativan IV prn anxiety. Mr. Brandon Umana ( ) stated that he would get back in touch with me in the 12/24/2024 am. - I spoke with Mr. Brandon Umana ( ) on 12/24/2024, 8:25am, and he stated that he and his aunt and his brothers all decided to forego tracheostomy and PEG insertion, and that instead, he and other family members will be coming to see the patient in the next 3-4 days, and that by Sunday (12/27/2024), patient will be going back to her home with home hospice under DNR/DNI/comfort measures only status with morphine PO/SL prn patient comfort. Mr. Brandon Umana ( ) requested that patient remain in [facility] ICU until all family members can stop by and say their final goodbyes to the patient before patient is extubated and mechanical ventilation discontinued on Sunday (12/27/2024). I told Mr. Umana that his request will be honored. - Subsequently, Critical Care Service of Dr. Hiram Driver reported on 12/25/2024: "slight progress in weaning FiO2 today."..."Respiratory -dense dependent bilateral lower lobe consolidation. Chest x-ray slightly improved today. Completed course of prednisone. Continue to wean FiO2 and PEEP as tolerated. If we can make progress, we will pursue a trial of extubation. The patient is more awake today and may be able to participate in some discussions with family members. Continue budesonide and Perforomist." Hence, I defer to Critical Care Service of Dr. Hiram Driver regarding vent management and family discussions regarding hospital disposition, especially if patient can be extubated successfully in the upcoming day(s). - Subsequently, Critical Care Service of Dr. Hiram Driver reports on 12/26/2024: "Discussed with 2 sons at bedside who are proxy decision makers. We again reviewed options to include tracheostomy and long-term acute care. They are both clear that this is not a course or quality of life that their mother would find acceptable. Continuing current care does not appear to be an option and she has now been intubated for almost 2 weeks. Presented the option of extubation and transition to comfort care if the patient fails. If she does okay, will pursue continued supportive care. They expressed understanding and request that the patient be maintained in her current state until tomorrow. There is 1 other family member who is going to visit. After that they would like to pursue extubation. If the patient does well, she will be supported. If she fails, transition to comfort measures would be appropriate. Do not see BiPAP as a bridge to anything at this point in time." - Subsequently, patient awaits arrival of lone family member on 12/27/2024, after which, patient will be extubated, in accordance with the patient's 2 sons. #Diarrhea - onset since initiation of tube feeds - banatrol BID ordered #Chronic medical conditions: #GERD-converted to Protonix IV #Hypertension- Holding aspirin, bumetanide (replaced with IV Lasix), losartan #Anxiety/depression- cont fluoxetine, oxcarbazepine and lamotrigine via OG, suspect she is on oxcarbazepine and lamotrigine for bipolar with no known seizure history VTE prophylaxis - heparin 5000 units q.8 hourly Diet - NPO on tube feeding Disposition - ICU Admission and Anticipated Discharge Date Admission Date: December 14, 2024 Subjective Intubated and sedated Review of Systems Constitutional: Not available as patient remains intubated and mechanically ventilated on A/C mode of ventilation with TV 350 mL, RR 26 breaths/minute, PEEP 14, FIO2 0.55. Physical Exam Constitutional: General: Comfortable, non-verbal as patient remains intubated and mechanically ventilated. HEENT: Normocephalic, atraumatic. Pupils equally round and reactive to light. No nystagmus, gaze paresis, anisocoria, miosis, mydriasis, hyphema, scleral injection, conjunctivitis, or pterygium. No rhinorrhea or otorrhea. No pharyngeal discharge or erythema. Neck: Supple, no stridor, bruit, goiter, hepatojugular reflux. Jugular venous pressure is estimated to be 8 cm above the sternal angle of Alvin, which is estimated to be 5 cm above the level of the right atrium. Lymph: No anterior/posterior cervical, supraclavicular/infraclavicular, axillary, epitrochlear, or inguinal adenopathy. Chest: Symmetric rise and fall with respirations. Lungs: Clear to auscultation and percussion. No audible expiratory wheeze, egophony, pectoriloquy, increase in tactile fremitus, or flatness/dullness to percussion at the bases. Heart: RRR, S1 and S2 noted. No S3 or S4 summation gallop noted. No tripartite friction rub. Grade II/ early systolic murmur @ LLSB without radiation to the carotids, axilla, or back, and which remains invariant in regards to the respiratory cycle. Abdomen: Soft, non-tender, non-distended. No rebound, guarding, Vazquez's sign, or organomegaly. Bowel sounds sounds auscultated in all 4 quadrants. Rectal tube with feces leaking around rectal tube. Extremities: No clubbing, cyanosis. 2+ pitting pedal edema with extension to the bilateral lower shins. 2+ pitting forearm edema bilaterally. 2+ pedal pulses bilaterally. Skin: No decubitus ulcer or enanthem or exanthem. Neurology: No tremors, tics, or myoclonus. Urology: +obrien with 200 cc of clear yellow urine. No urethral discharge. Psychiatry: No suicidal ideation. No homicidal ideation. Results & Data Results & Data Vital Signs (Past 12 Hours) Vital Signs Temp Pulse Resp BP Pulse Ox O2 Del Method FiO2 12/27/24 12:02 76 26 H 136/60 89 L Mechanical Vent 55 12/27/24 12:00 55 12/27/24 11:59 74 26 H 89 L Mechanical Vent 55 12/27/24 11:41 75 26 H 126/64 89 L Mechanical Vent 55 12/27/24 11:10 72 27 H 90 55 12/27/24 11:00 74 26 H 140/64 90 Mechanical Vent 55 12/27/24 10:11 75 26 H 88 L Mechanical Vent 55 12/27/24 10:00 137/62 12/27/24 10:00 75 26 H 137/62 89 L Mechanical Vent 55 12/27/24 08:57 72 26 H 124/63 90 Mechanical Vent 55 12/27/24 08:06 66 26 H 89 L Mechanical Vent 55 12/27/24 07:30 69 27 H 90 55 12/27/24 07:03 65 26 H 116/81 91 Mechanical Vent 55 12/27/24 07:00 Mechanical Vent 55 12/27/24 07:00 36.9 C 12/27/24 07:00 55 12/27/24 06:24 63 26 H 90 12/27/24 06:00 37.4 C 12/27/24 05:09 65 23 90 12/27/24 05:00 136/65 12/27/24 04:27 60 26 H 90 12/27/24 04:09 60 26 H 89 L 12/27/24 04:00 55 12/27/24 03:58 60 27 H 90 55 12/27/24 03:27 59 L 26 H 90 12/27/24 03:00 37.3 C 12/27/24 03:00 139/63 12/27/24 03:00 139/63 12/27/24 02:57 62 26 H 90 12/27/24 02:09 60 26 H 89 L 12/27/24 02:00 137/67 PG Care Time/CCT Total # of Minutes Spent Total Time Spent with Patient: Total time spent is greater than 50% in coordination of care (as documented) at patient's floor/unit and/or counseling patient: Coding Level of Care Code 76622 SUB INP/OBS CARE 2MIN Diagnoses Admitted to intensive care unit Z78.9 Metabolic encephalopathy G93.41 RSV (acute bronchiolitis due to respiratory syncytial virus) J21.0 Acute on chronic respiratory failure with hypoxia and hypercapnia J96.21; J96.22 COPD (chronic obstructive pulmonary disease) J44.9 Pneumonia J18.9
[2024-12-27] MEDS: MIDAZOLAM HCL 5 MG/ML 2ML VIAL IV STA (14:58)
[2024-12-27] MEDS: MoRPHine SULFATE 4 MG/ML 1 ML CARP\\VIAL IV STA (14:58)
[2024-12-27] MEDS ORDERED: GLYCOPYRROLATE 0.2 MG/ML VIAL IV PRN (15:08)
[2024-12-27] MEDS ORDERED: STAT IV Infusion **Titration per Protocol STA (15:08)
[2024-12-27] MEDS ORDERED: ONDANSETRON INJ 2 MG/ML 2 ML VIAL IV PRN (15:08)
[2024-12-27] MEDS ORDERED: MoRPHine SULFATE 2 MG/ML CARP IV PRN (15:08)
[2024-12-27] MEDS: MoRPHine SULFATE 4 MG/ML 1 ML CARP\\VIAL IV PRN (15:19)
[2024-12-27] MEDS: LORazepam 2 MG/1 ML VIAL IV PRN (15:19)
[2024-12-27] MEDS: MoRPHine SULF 100 MG/100 ML BAG IV SCH (15:25)
[2024-12-27] MEDS: LORazepam 2 MG/1 ML VIAL ONE (15:28)
[2024-12-27] MEDS: MoRPHine BOLUS from BAG IV PRN (15:34)
--- NOTE | 2024-12-27 18:08 | Discharge Summary ---
Discharge Summary Date of Service December 27, 2024 Principal Dx & Hospital Course #1 = Principal Diagnosis (1) Admitted to intensive care unit: (2) Metabolic encephalopathy: (3) RSV (acute bronchiolitis due to respiratory syncytial virus): (4) Acute on chronic respiratory failure with hypoxia and hypercapnia: (5) COPD (chronic obstructive pulmonary disease): (6) Pneumonia: Plan 54 years old female with PMH of FULL CODE @ home, morbid obesity with BMI 44.0 (height 167.6 cm; weight 123.7 kg), hyperlipidemia, HTN, GERD, anxiety disorder, major depression, chronic pain disorder, and ongoing tobacco abuse with subsequent diagnosis of severe COPD, who presented to [facility] ER on 12/14/2024 with severe shortness of breath, dyspnea on exertion which had been worsening over the 3 days prior to presentation to [facility] ER on 12/14/2024. Patient was subsequently intubated in [facility] ER on admission date 12/14/2024 for acute CO2 retention and hypoxia. BioFire testing was positive for RSV with CT showing multifocal pneumonia. Patient was subsequently admitted to the inpatient hospitalist service @ [facility] on 12/14/2024 with the following diagnoses: 1. [id number]-[id number] hypoxic hypercapnic respiratory failure, due to ongoing tobacco abuse and due to acute RSV pneumonia. The following medical issues were addressed while the patient remained in [facility] from 12/14/2024 through 12/27/2024: #Acute on chronic hypoxic hypercapnic respiratory failure #Multifocal pneumonia #Severe COPD with exacerbation #RSV - CTA without evidence of PE 12/15 - intubated on 12/14/24, ICU managing - paralytics taken off on 12/18/24 - on Fentanyl / Midazolam for vent dyssynchrony - cont decadron, DuoNebs, albuterol, formoterol, budesonide - s/p 5 days of Zosyn last dose 12/19/24 Bronchoscopy culture of LLL (12/15/2024) yields Cryptococcus neoformans monica grubii, now on fluconazole 200mg IV daily (day #1 on 12/23/2024, 2:53pm). Blood cultures NGTD Condition remained both tenuous and terminal: I subsequently spoke with the patient's son, Mr. Brandon Umana ( ), and he concurred, and asked that he solicit the opinions of his aunt and his brothers, to see if they concur, and to decide whether or not to proceed with tracheostomy and/or PEG insertion, OR to make patient comfortable with inpatient hospice/comfort measures only with morphine infusion and/or ativan IV prn anxiety. Mr. Brandon Umana ( ) stated that he would get back in touch with me in the 12/24/2024 am. - I spoke with Mr. Brandon Umana ( ) on 12/24/2024, 8:25am, and he stated that he and his aunt and his brothers all decided to forego tracheostomy and PEG insertion, and that instead, he and other family members will be coming to see the patient in the next 3-4 days, and that by Sunday (12/27/2024), patient will be going back to her home with home hospice under DNR/DNI/comfort measures only status with morphine PO/SL prn patient comfort. Mr. Brandon Umana ( ) requested that patient remain in [facility] ICU until all family members can stop by and say their final goodbyes to the patient before patient is extubated and mechanical ventilation discontinued on Sunday (12/27/2024). I told Mr. Umana that his request will be honored. - Subsequently, Critical Care Service of Dr. Hiram Driver reported on 12/25/2024: "slight progress in weaning FiO2 today."..."Respiratory -dense dependent bilateral lower lobe consolidation. Chest x-ray slightly improved today. Completed course of prednisone. Continue to wean FiO2 and PEEP as tolerated. If we can make progress, we will pursue a trial of extubation. The patient is more awake today and may be able to participate in some discussions with family members. Continue budesonide and Perforomist." Hence, I defer to Critical Care Service of Dr. Hiram Driver regarding vent management and family discussions regarding hospital disposition, especially if patient can be extubated successfully in the upcoming day(s). - Subsequently, Critical Care Service of Dr. Hiram Driver reports on 12/26/2024: "Discussed with 2 sons at bedside who are proxy decision makers. We again reviewed options to include tracheostomy and long-term acute care. They are both clear that this is not a course or quality of life that their mother would find acceptable. Continuing current care does not appear to be an option and she has now been intubated for almost 2 weeks. Presented the option of extubation and transition to comfort care if the patient fails. If she does okay, will pursue continued supportive care. They expressed understanding and request that the patient be maintained in her current state until tomorrow. There is 1 other family member who is going to visit. After that they would like to pursue extubation. If the patient does well, she will be supported. If she fails, transition to comfort measures would be appropriate. Do not see BiPAP as a bridge to anything at this point in time." - Subsequently, patient awaited arrival of lone family member on 12/27/2024, after which, patient was extubated, in accordance with the patient's 2 sons. - Subsequently, patient on 12/27/2024, 4:44pm from acute cardio- pulmonary arrest due to [id number] hypoxic hypercapnic respiratory failure, due to ongoing tobacco abuse and due to acute RSV pneumonia. #Diarrhea - onset since initiation of tube feeds - banatrol BID ordered #Chronic medical conditions: #GERD-converted to Protonix IV #Hypertension- Holding aspirin, bumetanide (replaced with IV Lasix), losartan #Anxiety/depression- patient received fluoxetine, oxcarbazepine and lamotrigine via OG, suspect she was maintained at home on oxcarbazepine and lamotrigine for bipolar with no known seizure history VTE prophylaxis - heparin 5000 units q.8 hourly Diet - NPO on tube feeding Disposition - ICU Discharge time, 35 minutes. Of this time period, 18 minutes were spent in coordinating patient's discharge. Admission HPI Per Admitting Provider 54 years old female with past medical history including severe COPD, hyperlipidemia, CHF, anxiety with depression, hypertension, GERD, chronic pain syndrome, and recent evaluation at [facility] emergency department, where she was treated and released a few days ago.The patient presents to the emergency department with severe shortness of breath, dyspnea on exertion, that she initially reported and present for 4 to 6 months, but it had gotten progressively worse over the past 3 days. Her family who presented shortly after her arrival, reports that she has been having significantly worsening shortness of breath as noted, has continued to smoke tobacco products, and they were concerned about having her long-term need for oxygen addressed. Shortly after arrival to the emergency department, it became apparent to the patient was going to need to be intubated, as her coloration was very poor, and her ABG showed significant CO2 retention and decreased oxygenation. She was therefore intubated while in emergency department, and plans to admit to the ICU for ongoing care. Significant laboratories in the emergency department included BioFire testing positive for RSV, chest x-ray suggestive of right lower lobe consolidation and multifocal pneumonia. Discharge Exam Constitutional HR 0, RR 0, O2 sat unrecordable, BP unrecordable Patient is unresponsive to verbal and noxious stimuli. Patient has no central or peripheral pulses. Patient has no spontaneous chest wall rise or fall. Patient has no cough or gag reflexes. Patient's pupils are fixed in the midline position with a pupillary diameter of 2 mm bilaterally. Patient was declared on 12/27/2024, 4:44pm from acute cardiopulmonary arrest due to [id number] hypoxic hypercapnic respiratory failure, due to ongoing tobacco abuse and due to acute RSV pneumonia. Discharge Plan Discharge Items Patient Disposition: Discharge Diagnosis: Acute cardiopulmonary arrest (12/27/2024, 4:44pm), due to [id number]-ejwreyu hypoxic hypercapnic respiratory failure, due to ongoing tobacco abuse and due to acute RSV pneumonia. Other Date/Time: 12/27/24 16:44 Hospital Stay Data Consultations 12/14/24 20:40 ED Decision to Admit Stat 12/14/24 21:59 Consult Toaster Element Repairer Routine 12/23/24 13:14 Consult Infectious Diseases Routine Diagnostic Imagining Performed 12/14/24 21:40 US venous doppler LE BI Routine 12/15/24 12:32 CT angio chest PE protocol Stat 12/26/24 04:32 US venous doppler UE LT Routine Total Time Total Time Spent Total Time Spent (In Minutes): 35 Coding Level of Care Code 79685 INP/OBS DISCH >30 MIN Diagnoses Admitted to intensive care unit Z78.9 Metabolic encephalopathy G93.41 RSV (acute bronchiolitis due to respiratory syncytial virus) J21.0 Acute on chronic respiratory failure with hypoxia and hypercapnia J96.21; J96.22 COPD (chronic obstructive pulmonary disease) J44.9 Pneumonia J18.9
== END 2024-12-27 18:09 | disposition expired | DRG 207 ==
LOC: ED 19:47 → SUATTDRO 20:34 → 1E 20:34